=== PATIENT | female | born 1965 | race Hispanic/Latino ===

== ENCOUNTER 2021-08-04 11:23 | Emergency (ER) | payer OTHER ==
--- OUTSIDE RECORDS SUMMARY | 2021-08-04 11:32 | XMS REPORT | Continuity of Care Document ---
:1965 Author Organization [facility] t Address [address] [place] [address] Care Team Providers Name Role Phone Tomasa HAN, Bobby Primary Care Physician FRANCHESCA Attending Clinician Unavailable Bobby Allen MD Attending Clinician MARLENE Attending Clinician Unavailable Franchesca FERNANDES Attending Clinician Bobby ALLEN Attending Clinician Unavailable Bebo Jones DO Attending Clinician Doctor Unassigned, Name Attending Clinician Unavailable Lab, Fam Pob I Attending Clinician Unavailable Pob, Lab Main Attending Clinician Unavailable Marlene HAN Attending Clinician Angela ALBRECHT, T Attending Clinician Unavailable MICHEL Attending Clinician Unavailable Michel GAS ENGINEER Attending Clinician Bobby CRANDALL Attending Clinician Unavailable Kendrick Schilling MD Attending Clinician Juan M HAN Attending Clinician Payers Payer Name Policy Type Policy Number Effective Date Expiration Date S ource Problems Condition Condition Condition Status Onset Resolution Last Treating Co mments Source Name Details Category Date Date Treatment Clinician Date Gross Gross Disease Active Univers hematuria hematuria 2-15 ity of 00:00: [address] Proteinuri Proteinuri Disease Active 2017-09 U nivers a a 2-26 ity of 00:00: [address] Frozen Frozen Disease Active 2017-09 Univers shoulder shoulder 1- ity of 00:00: [place] 00 [facility] Branch Peripheral Peripheral Disease Active 2017-09 U nivers neuropathy neuropathy 09-01 it y of 00:00: [place] 00 Medical Branch Restless Restless Disease Active 2017-09 Unive rs legs legs 09-01 ity of 00:00: [place] 00 Medical Branch Screening Screening Disease Active Overview: Univers for for 6-19 Formattin ity of colorectal colorectal 00:00: g of this [place] cancer cancer 00 note Medical might be Branch different from the original. Added automatic ally from request for surgery [id number] S/P S/P Disease Active 2015-09 Univers laparoscop laparoscop it y of ic ic 00:00: [place] hysterecto hysterecto 00 Me dical my my Branch Obesity Obesity Disease Active 2015-09 Univers (BMI (BMI 2-29 ity of 30-39.9) 30-39.9) 00:00: [place] 00 Medical Branch Irregular Irregular Disease Active 2015-09 Uni vers menstrual menstrual 2 ity of cycle cycle 00:00: [place] [facility] Perimenopa Perimenopa Disease Active 2015-09 U nivers usal usal 10-10 ity of menorrhagi [place]orrhagi [place] [facility] [place] Trigeminy Trigeminy Disease Active Uni vers 5-25 ity of 00:00: [place] 00 Medical Branch Type 2 Type 2 Disease Active 2014-09 Univers diabetes diabetes 24 ity of mellitus mellitus 00:00: [place] with with 00 Medical neurologic neurologic Br anch complicati complicati on on SLOANE SLOANE Disease Active 2014-09 Univers (stress (stress 24 ity of urinary urinary 00:00: [place] incontinen incontinen 00 Me dical ce, ce, Branch female) female) Cystocele, Cystocele, Disease Active 2014-09 U nivers midline midline 24 ity of 00:00: [place] 00 Medical Branch Rectocele Rectocele Disease Active 2014-09 Uni vers 1-24 ity of 00:00: [place] 00 Medical Branch HTN HTN Disease Active 2014-09 Univers (hypertens (hypertens -24 it y of ion), ion), 00:00: [place] benign benign 00 Medical Branch History of History of Disease Active 2014-09 Overview : Univers meningioma meningioma 09-24 Formattin ity of 00:00: g of this [place] 00 note Medical might be Branch different from the original. S/p brain surgery Jun 07, 2015, benign History of History of Disease Active 2014-09 Overview : Univers uterine uterine 09-24 Formattin ity o f fibroid fibroid 00:00: g of this 00 note Medical might be Branch different from the original. ROR submitted Rectocele Rectocele Disease Active 2014-09 Uni vers 09-24 ity of 00:00: [place] 00 [facility] HLD HLD Disease Active Univers (hyperlipi (hyperlipi it y of demia) demia) [facility] [place] [facility] Chronic Chronic Disease Active Univers insomnia insomnia ity of [facility] [place] [facility] GRACIELA GRACIELA Disease Active Univers (obstructi (obstructi it y of ve sleep ve sleep [place] apnea) apnea) Medical [place] Diabetic Diabetic Disease Active Unive rs retinopath retinopath it y of y y [facility] [place] [facility] Allergies, Adverse Reactions, Alerts Allergy Allergy Status Severity Reaction(s) Onset Inactive Treating Comm ents Source Name Type Date Date Clinician Iodine Propensi Active Anaphylaxis Seafood, U nivers ty to 04-29 IV Iodine ity of adverse 00:00: [place] reaction 00 Medical s to Branch drug IODINE DRUG Active High Anaphylaxis Unive rs INGREDI 04-29 ity of 00:00: [place] 00 [facility] Social History Social Habit Start Date Stop Date Quantity Comments Source History of tobacco Cigarette Smoker [place] of use [facility] [place] [facility] Exposure to Not sure University of SARS-CoV-2 (event) [facility] [place] [facility] Alcohol intake 2020-12-28 2020-12-28 0 /d University of 00:00:00 00:00:00 [facility] [place] [facility] Cigarettes smoked 2018-11-30 2018-11-30 Univers ity of current (pack per 00:00:00 00:00:00 [facility] ) - Reported Branch Cigarette 2018-11-30 2018-11-30 University of pack-years 00:00:00 00:00:00 [facility] [place] [facility] Tobacco use and 2018-11-30 2018-11-30 Never used Universit y of exposure 00:00:00 00:00:00 [facility] [place] [facility] Sex [birth year] Universit y of 00:00:00 00:00:00 [facility] [place] [facility] Smoking Status Start Date Stop Date Source Current every day smoker 2018-11-30 00:00:00 Uni versity of [place] [facility] Medications Ordered Filled Start Stop Current Ordering Indication Dosage Frequency Signature Comments Components Source Medication Medication Date Date Medication? Clinician (SIG) Name Name CATHY Wagner 2020-09 Yes [id number] TAKE 1 Univers mg tablet 1-15 TABLET BY ity o f 00:00: MOUTH [place] 00 EVERY DAY Medical [place] ATORVASTATI 2020-09 Yes [id number] TAKE 1 Univers N 20 mg 1-15 TABLET BY ity of tablet 00:00: MOUTH [place] 00 EVERYDAY Medical AT BEDTIME [place] METFORMIN 2020-09 Yes [id number] TAKE 1 Un freddy 1,000 mg 1-08 TABLET BY ity of tablet 00:00: MOUTH [place] 00 TWICE A Medical DAY WITH [place] MEALS METFORMIN 2020-09 Yes [id number] TAKE 1 Un freddy 1,000 mg 1-08 TABLET BY ity of tablet 00:00: MOUTH [place] 00 TWICE A Medical DAY WITH [place] MEALS DULOXETINE 2020-09 Yes [id number] TAKE 1 Univers 30 mg 1-08 CAPSULE BY ity of capsule 00:00: MOUTH [place] 00 EVERY DAY Medical IN THE [place] MORNING METFORMIN 2020-09 Yes [id number] TAKE 1 Un freddy 1,000 mg 1-08 TABLET BY ity of tablet 00:00: MOUTH [place] 00 TWICE A Medical DAY WITH [place] MEALS DULOXETINE 2020-09 Yes [id number] TAKE 1 Univers 30 mg 1-08 CAPSULE BY ity of capsule 00:00: MOUTH [place] 00 EVERY DAY Medical IN THE [place] MORNING DULoxetine 2020-09 Yes [id number] TAKE 1 Univers 30 mg 0-11 CAPSULE BY ity of capsule 00:00: MOUTH [place] 00 EVERY DAY Medical IN THE [place] MORNING METFORMIN 2020-09 Yes [id number] TAKE 1 Un [place] 1,000 mg 0-11 TABLET BY ity of tablet 00:00: MOUTH [place] 00 TWICE A Medical DAY WITH [place] MEALS DULoxetine 2020-09 Yes [id number] TAKE 1 Univers 30 mg 0-11 CAPSULE BY ity of capsule 00:00: MOUTH [place] 00 EVERY DAY Medical IN THE [place] MORNING METFORMIN 2020-09- No [id number] TAKE 1 U nivers 1,000 mg 0-11 11-08 TABLET BY ity o f tablet 00:00: 00:00 MOUTH [place] 00 :00 TWICE A Medical DAY WITH [place] MEALS DULoxetine 2020-09- No [id number] TAKE 1 Univers 30 mg 0-11 11-08 CAPSULE BY ity of capsule 00:00: 00:00 MOUTH [place] 00 :00 EVERY DAY Medical IN THE Branch MORNING OXYBUTYNIN 2020-0 Yes [id number] TAKE 1 U nivers XL 5 mg 24 7-17 TABLET BY ity of hr tablet 00:00: MOUTH 00 EVERY DAY Medical Branch OXYBUTYNIN 2020-0 Yes [id number] TAKE 1 U nivers XL 5 mg 24 7-17 TABLET BY ity of hr tablet 00:00: MOUTH EVERY DAY Medical Branch OXYBUTYNIN 2020-0 Yes [id number] TAKE 1 U nivers XL 5 mg 24 7-17 TABLET BY ity of hr tablet 00:00: MOUTH 00 EVERY DAY Medical Branch OXYBUTYNIN 2020-0 Yes [id number] TAKE 1 U nivers XL 5 mg 24 7-17 TABLET BY ity of hr tablet 00:00: MOUTH [place] EVERY DAY Medical Branch OXYBUTYNIN 2020-0 Yes [id number] TAKE 1 U nivers XL 5 mg 24 7-17 TABLET BY ity of hr tablet 00:00: MOUTH [place] EVERY DAY Medical Branch OXYBUTYNIN 2020-0 Yes [id number] TAKE 1 U nivers XL 5 mg 24 7-17 TABLET BY ity of hr tablet 00:00: MOUTH 00 EVERY DAY Medical Branch TOPIRAMATE 2020-0 Yes [id number] TAKE 3 Univers 50 mg 5-17 TABLETS BY ity of tablet 00:00: [facility] 00 EVERY DAY Medical AT BEDTIME Branch TOPIRAMATE 2020-0 Yes [id number] TAKE 3 Univers 50 mg 5-17 TABLETS BY ity of tablet 00:00: [facility] EVERY DAY Medical AT BEDTIME Branch TOPIRAMATE 2020-0 Yes [id number] TAKE 3 Univers 50 mg 5-17 TABLETS BY ity of tablet 00:00: MOUTH 00 EVERY DAY Medical AT BEDTIME Branch TOPIRAMATE 2020-0 Yes [id number] TAKE 3 Univers 50 mg 5-17 TABLETS BY ity of tablet 00:00: [facility] 00 EVERY DAY Medical AT BEDTIME Branch TOPIRAMATE 2020-0 Yes [id number] TAKE 3 Univers 50 mg 5-17 TABLETS BY ity of tablet 00:00: [facility] 00 EVERY DAY Medical AT BEDTIME Branch TOPIRAMATE 2020-0 Yes [id number] TAKE 3 Univers 50 mg 5-17 TABLETS BY ity of tablet 00:00: MOUTH [place] 00 EVERY DAY Medical AT BEDTIME Branch TOPIRAMATE 2020-0 Yes [id number] TAKE 3 Univers 50 mg 5-17 TABLETS BY ity of tablet 00:00: MOUTH [place] 00 EVERY DAY Medical AT BEDTIME Branch TOPIRAMATE 2020-0 Yes [id number] TAKE 3 Univers 50 mg 5-17 TABLETS BY ity of tablet 00:00: MOUTH [place] 00 EVERY DAY Medical AT BEDTIME Branch oxybutynin 2020-0 Yes [id number] 5mg Take 1 U nivers XL 5 mg 24 4-29 tablet by ity of hr tablet 00:00: mouth [place] 00 daily. Medical Branch oxybutynin 2020-0 Yes [id number] 5mg Take 1 U nivers XL 5 mg 24 4-29 tablet by ity of hr tablet 00:00: mouth [place] 00 daily. Medical Branch oxybutynin 2020-0 Yes [id number] 5mg Take 1 U nivers XL 5 mg 24 4-29 tablet by ity of hr tablet 00:00: mouth [place] 00 daily. Medical Branch oxybutynin 2020-0 Yes [id number] 5mg Take 1 U nivers XL 5 mg 24 4-29 tablet by ity of hr tablet 00:00: mouth [place] 00 daily. Medical Branch oxybutynin 2020-0 2020- No [id number] 5mg Take 1 Univers XL 5 mg 24 4-29 07-17 tablet by ity of hr tablet 00:00: 00:00 mouth [place] 00 :00 daily. Medical Branch topiramate 2020- Yes [id number] 150mg Take 3 Univers 50 mg 1-11 tablets by ity of tablet 00:00: mouth at [place] 00 bedtime. Medical Branch DULoxetine 2020-1 Yes [id number] TAKE 1 Univers 30 mg 1-11 CAPSULE BY ity of capsule 00:00: MOUTH [place] 00 EVERY Medical MORNING Branch topiramate 2020-1 Yes [id number] 150mg Take 3 Univers 50 mg 1-11 tablets by ity of tablet 00:00: mouth at [place] 00 bedtime. Medical Branch DULoxetine 2020-1 Yes [id number] TAKE 1 Univers 30 mg 1-11 CAPSULE BY ity of capsule 00:00: MOUTH [place] 00 EVERY Medical MORNING Branch topiramate 2020-1 Yes [id number] 150mg Take 3 Univers 50 mg 1-11 tablets by ity of tablet 00:00: mouth at [place] 00 bedtime. Medical Branch DULoxetine 2020-1 Yes [id number] TAKE 1 Univers 30 mg 1-11 CAPSULE BY ity of capsule 00:00: MOUTH [place] 00 EVERY Medical MORNING Branch topiramate 2020- Yes [id number] 150mg Take 3 Univers 50 mg 1-11 tablets by ity of tablet 00:00: mouth at [place] [address] bedtime. Medical Branch DULoxetine 2020- Yes [id number] TAKE 1 Univers 30 mg 1-11 CAPSULE BY ity of capsule 00:00: MOUTH [place] 00 EVERY Medical MORNING Branch topiramate 2020- Yes [id number] 150mg Take 3 Univers 50 mg 1-11 tablets by ity of tablet 00:00: mouth at [place] [address] bedtime. Medical Branch DULoxetine 2020- Yes [id number] TAKE 1 Univers 30 mg 1-11 CAPSULE BY ity of capsule 00:00: MOUTH [place] 00 EVERY Medical MORNING Branch topiramate 2020- Yes [id number] 150mg Take 3 Univers 50 mg 1-11 tablets by ity of tablet 00:00: mouth at [place] [address] bedtime. Medical Branch DULoxetine 2020- Yes [id number] TAKE 1 Univers 30 mg 1-11 CAPSULE BY ity of capsule 00:00: MOUTH [place] 00 EVERY Medical MORNING Branch topiramate 2020- Yes [id number] 150mg Take 3 Univers 50 mg 1-11 tablets by ity of tablet 00:00: mouth at [place] [address] bedtime. Medical Branch DULoxetine 2020- Yes [id number] TAKE 1 Univers 30 mg 1-11 CAPSULE BY ity of capsule 00:00: MOUTH [place] 00 EVERY Medical MORNING Branch DULoxetine 2020- Yes [id number] TAKE 1 Univers 30 mg 1-11 CAPSULE BY ity of capsule 00:00: MOUTH [place] 00 EVERY Medical MORNING Branch DULoxetine 2020- Yes [id number] TAKE 1 Univers 30 mg 1-11 CAPSULE BY ity of capsule 00:00: MOUTH [place] 00 EVERY Medical MORNING Branch DULoxetine 2020- Yes [id number] TAKE 1 Univers 30 mg 1-11 CAPSULE BY ity of capsule 00:00: MOUTH [place] 00 EVERY Medical MORNING Branch DULoxetine 2020-2020- No [id number] TAKE 1 Univers 30 mg 1-11 10-11 CAPSULE BY ity of capsule 00:00: 00:00 MOUTH [place] 00 :00 EVERY Medical MORNING Branch topiramate 2020-2020- No [id number] 150mg Take 3 Univers 50 mg 1-11 05-17 tablets by ity of tablet 00:00: 00:00 mouth at [place] 00 :00 bedtime. Medical Branch vit C/vit E 2019-09 2020- No Take by U nivers ac/lut/kateryna 0- 10-09 mouth. ity o f er/zinc 16:23: 00:00 [place] (PRESERVISI 25 :00 Medical ON LUTEIN Branch ORAL) vit C/vit E 2019-09 2020- No Take by U nivers ac/lut/kateryna 0- 10-09 mouth. ity o f er/zinc 16:23: 00:00 [place] (PRESERVISI 25 :00 Medical ON LUTEIN Branch ORAL) multivit-mi 2019-09 2020- No Take by U nivers nerals/foli 0- 10- mouth ity of c acid 16:23: 00:00 daily. [place] (ADULT 18 :00 Medical MULTIVITAMI Branch N GUMMIES ORAL) multivit-mi 2019-09 2020- No Take by U nivers nerals/foli 0- 10- mouth ity of c acid 16:23: 00:00 daily. [place] (ADULT 18 :00 Medical MULTIVITAMI Branch N GUMMIES ORAL) Magnesium 2019-09 2020- No Take by Uni vers 250 mg Tab 0- 10-09 mouth. ity of 16:23: 00:00 [place] 15 :00 Medical Branch Magnesium 2019-09 2020- No Take by Uni vers 250 mg Tab 0-09 10-09 mouth. ity of 16:23: 00:00 [place] 15 :00 Medical Branch aspirin 2019-09 Yes 81mg Take 81 mg Univ ers (ADULT LOW 0-09 by mouth ity o f DOSE 16:18: daily. [place] ASPIRIN) 81 42 Medical mg EC Branch tablet aspirin 2019-09 Yes 81mg Take 81 mg Univ ers (ADULT LOW 0-09 by mouth ity o f DOSE 16:18: daily. [place] ASPIRIN) 81 42 Medical mg EC Branch tablet aspirin 2019-09 Yes 81mg Take 81 mg Univ ers (ADULT LOW 0-09 by mouth ity o f DOSE 16:18: daily. [place] ASPIRIN) 81 42 Medical mg EC Branch tablet aspirin 2019-09 Yes 81mg Take 81 mg Univ ers (ADULT LOW 0-09 by mouth ity o f DOSE 16:18: daily. [place] ASPIRIN) 81 42 Medical mg EC Branch tablet aspirin 2020- Yes 81mg Take 81 mg Univ ers (ADULT LOW 0-09 by mouth ity o f DOSE 16:18: daily. [place] ASPIRIN) 81 42 Medical mg EC Branch tablet aspirin 2020- Yes 81mg Take 81 mg Univ ers (ADULT LOW 0-09 by mouth ity o f DOSE 16:18: daily. [place] ASPIRIN) 81 42 Medical mg EC Branch tablet aspirin 2020- Yes 81mg Take 81 mg Univ ers (ADULT LOW 0-09 by mouth ity o f DOSE 16:18: daily. [place] ASPIRIN) 81 42 Medical mg EC Branch tablet aspirin 2019- Yes 81mg Take 81 mg Univ ers (ADULT LOW 0-09 by mouth ity o f DOSE 16:18: daily. [place] ASPIRIN) 81 42 Medical mg EC Branch tablet aspirin 2019- Yes 81mg Take 81 mg Univ ers (ADULT LOW 0-09 by mouth ity o f DOSE 16:18: daily. [place] ASPIRIN) 81 42 Medical mg EC Branch tablet aspirin 2019- Yes 81mg Take 81 mg Univ ers (ADULT LOW 0-09 by mouth ity o f DOSE 16:18: daily. [place] ASPIRIN) 81 42 Medical mg EC Branch tablet aspirin 2019- Yes 81mg Take 81 mg Univ ers (ADULT LOW 0-09 by mouth ity o f DOSE 16:18: daily. [place] ASPIRIN) 81 42 Medical mg EC Branch tablet aspirin 2019- Yes 81mg Take 81 mg Univ ers (ADULT LOW 0-09 by mouth ity o f DOSE 16:18: daily. [place] ASPIRIN) 81 42 Medical mg EC Branch tablet aspirin 2019- Yes 81mg Take 81 mg Univ ers (ADULT LOW 0-09 by mouth ity o f DOSE 16:18: daily. [place] ASPIRIN) 81 42 Medical mg EC Branch tablet gabapentin 2019- Yes 1200mg Take 1,200 Univers 600 mg 0-09 mg by ity of tablet 16:16: mouth 3 [place] 58 (three) Medical times Branch daily. gabapentin 2020-1 Yes 1200mg Take 1,200 Univers 600 mg 0-09 mg by ity of tablet 16:16: mouth 3 [place] 58 (three) Medical times Branch daily. gabapentin 2020-1 Yes 1200mg Take 1,200 Univers 600 mg 0-09 mg by ity of tablet 16:16: mouth 3 [place] 58 (three) Medical times Branch daily. gabapentin 2020-1 Yes 1200mg Take 1,200 Univers 600 mg 0-09 mg by ity of tablet 16:16: mouth 3 [place] 58 (three) Medical times Branch daily. gabapentin 2020-1 Yes 1200mg Take 1,200 Univers 600 mg 0-09 mg by ity of tablet 16:16: mouth 3 [place] 58 (three) Medical times Branch daily. gabapentin 2020-1 Yes 1200mg Take 1,200 Univers 600 mg 0-09 mg by ity of tablet 16:16: mouth 3 [place] 58 (three) Medical times Branch daily. gabapentin 2020-1 Yes 1200mg Take 1,200 Univers 600 mg 0-09 mg by ity of tablet 16:16: mouth 3 [place] 58 (three) Medical times Branch daily. gabapentin 2020-1 Yes 1200mg Take 1,200 Univers 600 mg 0-09 mg by ity of tablet 16:16: mouth 3 [place] 58 (three) Medical times Branch daily. gabapentin 2020-1 Yes 1200mg Take 1,200 Univers 600 mg 0-09 mg by ity of tablet 16:16: mouth 3 [place] [address] (three) Medical times Branch daily. gabapentin 2020-1 Yes 1200mg Take 1,200 Univers 600 mg 0-09 mg by ity of tablet 16:16: mouth 3 [place] [address] (three) Medical times Branch daily. gabapentin 2020-1 Yes 1200mg Take 1,200 Univers 600 mg 0-09 mg by ity of tablet 16:16: mouth 3 [place] [address] (three) Medical times Branch daily. gabapentin 2020-1 Yes 1200mg Take 1,200 Univers 600 mg 0-09 mg by ity of tablet 16:16: mouth 3 [place] [address] (three) Medical times Branch daily. gabapentin 2020-1 Yes 1200mg Take 1,200 Univers 600 mg 0-09 mg by ity of tablet 16:16: mouth 3 [place] 58 (three) Medical times Branch daily. aspirin 2020- Yes 81mg Take 81 mg Univ ers (ADULT LOW 0-09 by mouth ity o f DOSE 11:18: daily. [place] ASPIRIN) 81 42 Medical mg EC Branch tablet aspirin 2020- Yes 81mg Take 81 mg Univ ers (ADULT LOW 0-09 by mouth ity o f DOSE 11:18: daily. [place] ASPIRIN) 81 42 Medical mg EC Branch tablet aspirin 2020- Yes 81mg Take 81 mg Univ ers (ADULT LOW 0-09 by mouth ity o f DOSE 11:18: daily. [place] ASPIRIN) 81 42 Medical mg EC Branch tablet aspirin 2019-09 Yes 81mg Take 81 mg Univ ers (ADULT LOW 0-09 by mouth ity o f DOSE 11:18: daily. [place] ASPIRIN) 81 42 Medical mg EC Branch tablet aspirin 2019-09 Yes 81mg Take 81 mg Univ ers (ADULT LOW 0-09 by mouth ity o f DOSE 11:18: daily. [place] ASPIRIN) 81 42 Medical mg EC Branch tablet gabapentin 2019-09 Yes 1200mg Take 1,200 Univers 600 mg 0-09 mg by ity of tablet 11:16: mouth 3 [place] 58 (three) Medical times Branch daily. gabapentin 2019-09 Yes 1200mg Take 1,200 Univers 600 mg 0-09 mg by ity of tablet 11:16: mouth 3 [place] 58 (three) Medical times Branch daily. gabapentin 2019-09 Yes 1200mg Take 1,200 Univers 600 mg 0-09 mg by ity of tablet 11:16: mouth 3 [place] 58 (three) Medical times Branch daily. gabapentin 2019-09 Yes 1200mg Take 1,200 Univers 600 mg 0-09 mg by ity of tablet 11:16: mouth 3 [place] 58 (three) Medical times Branch daily. gabapentin 2019-09 Yes 1200mg Take 1,200 Univers 600 mg 0-09 mg by ity of tablet 11:16: mouth 3 [place] 58 (three) Medical times Branch daily. traZODone 2019-09 Yes [id number] 100mg Take 1 Univers 100 mg 0-09 tablet by ity of tablet 00:00: mouth at [place] 00 bedtime. Medical Branch methocarbam 2019-09 Yes [id number] TAKE 1 Univers oL 500 mg 0-09 TABLET BY ity o f tablet 00:00: MOUTH 4 [place] 00 TIMES A Medical DAY Branch NEEDED FOR MUSCLE PAIN OR SPASM metFORMIN 2019-09 Yes [id number] 1000mg Take 1 Univers 1,000 mg 0-09 tablet by ity of tablet 00:00: mouth 2 [place] 00 (two) Medical times Branch daily with meals. SITagliptin 2019-09 Yes [id number] 100mg Take 1 Univers (JANUVIA) 0-09 tablet by ity o f 100 mg 00:00: mouth [place] tablet 00 daily. Medical Branch atorvastati 2019-09 Yes [id number] 20mg Take 1 Univers n 20 mg 0-09 tablet by ity of tablet 00:00: mouth at [place] 00 bedtime. Medical Branch traZODone Yes [id number] 100mg Take 1 Univers 100 mg 0-09 tablet by ity of tablet 00:00: mouth at [place] 00 bedtime. Medical Branch methocarbam 2019- Yes [id number] TAKE 1 Univers oL 500 mg 0-09 TABLET BY ity o f tablet 00:00: MOUTH 4 00 TIMES A Medical DAY Branch NEEDED FOR MUSCLE PAIN OR SPASM metFORMIN 2019- Yes [id number] 1000mg Take 1 Univers 1,000 mg 0-09 tablet by ity of tablet 00:00: mouth 2 (two) Medical times Branch daily with meals. SITagliptin 2019- Yes [id number] 100mg Take 1 Univers (JANUVIA) 0-09 tablet by ity o f 100 mg 00:00: mouth [place] tablet 00 daily. Medical Branch atorvastati 2019- Yes [id number] 20mg Take 1 Univers n 20 mg 0-09 tablet by ity of tablet 00:00: mouth at [place] 00 bedtime. Medical Branch traZODone 2019- Yes [id number] 100mg Take 1 Univers 100 mg 0-09 tablet by ity of tablet 00:00: mouth at [place] 00 bedtime. Medical Branch methocarbam 2019- Yes [id number] TAKE 1 Univers oL 500 mg 0-09 TABLET BY ity o f tablet 00:00: MOUTH 4 00 TIMES A Medical DAY Branch NEEDED FOR MUSCLE PAIN OR SPASM metFORMIN 2019- Yes [id number] 1000mg Take 1 Univers 1,000 mg 0-09 tablet by ity of tablet 00:00: mouth 2 (two) Medical times Branch daily with meals. SITagliptin 2019- Yes [id number] 100mg Take 1 Univers (JANUVIA) 0-09 tablet by ity o f 100 mg 00:00: mouth [place] tablet 00 daily. Medical Branch atorvastati 2019- Yes [id number] 20mg Take 1 Univers n 20 mg 0-09 tablet by ity of tablet 00:00: mouth at [place] 00 bedtime. Medical Branch traZODone 2019- Yes [id number] 100mg Take 1 Univers 100 mg 0-09 tablet by ity of tablet 00:00: mouth at [place] 00 bedtime. Medical Branch methocarbam 2019- Yes [id number] TAKE 1 Univers oL 500 mg 0-09 TABLET BY ity o f tablet 00:00: MOUTH 4 00 TIMES A Medical DAY Branch NEEDED FOR MUSCLE PAIN OR SPASM metFORMIN 2019-09 Yes [id number] 1000mg Take 1 Univers 1,000 mg 0-09 tablet by ity of tablet 00:00: mouth 2 (two) Medical times Branch daily with meals. SITagliptin 2019-09 Yes [id number] 100mg Take 1 Univers (JANUVIA) 0-09 tablet by ity o f 100 mg 00:00: mouth [place] tablet 00 daily. Medical Branch atorvastati 2019-09 Yes [id number] 20mg Take 1 Univers n 20 mg 0-09 tablet by ity of tablet 00:00: mouth at [place] 00 bedtime. Medical Branch traZODone 2019-09 Yes [id number] 100mg Take 1 Univers 100 mg 0-09 tablet by ity of tablet 00:00: mouth at [place] 00 bedtime. Medical Branch methocarbam 2019-09 Yes [id number] TAKE 1 Univers oL 500 mg 0-09 TABLET BY ity o f tablet 00:00: MOUTH 4 TIMES A Medical DAY Branch NEEDED FOR MUSCLE PAIN OR SPASM metFORMIN 2019-09 Yes [id number] 1000mg Take 1 Univers 1,000 mg 0-09 tablet by ity of tablet 00:00: mouth 2 (two) Medical times Branch daily with meals. SITagliptin 2019-09 Yes [id number] 100mg Take 1 Univers (JANUVIA) 0-09 tablet by ity o f 100 mg 00:00: mouth [place] tablet 00 daily. Medical Branch atorvastati 2019-09 Yes [id number] 20mg Take 1 Univers n 20 mg 0-09 tablet by ity of tablet 00:00: mouth at [place] 00 bedtime. Medical Branch traZODone 2019-09 Yes [id number] 100mg Take 1 Univers 100 mg 0-09 tablet by ity of tablet 00:00: mouth at [place] 00 bedtime. Medical Branch methocarbam 2019- Yes [id number] TAKE 1 Univers oL 500 mg 0-09 TABLET BY ity o f tablet 00:00: MOUTH 4 TIMES A Medical DAY Branch NEEDED FOR MUSCLE PAIN OR SPASM metFORMIN 2019-09 Yes [id number] 1000mg Take 1 Univers 1,000 mg 0-09 tablet by ity of tablet 00:00: mouth 2 (two) Medical times Branch daily with meals. SITagliptin 2019-09 Yes [id number] 100mg Take 1 Univers (JANUVIA) 0-09 tablet by ity o f 100 mg 00:00: mouth [place] tablet 00 daily. Medical Branch atorvastati 2019- Yes [id number] 20mg Take 1 Univers n 20 mg 0-09 tablet by ity of tablet 00:00: mouth at [place] 00 bedtime. Medical Branch traZODone 2019- Yes [id number] 100mg Take 1 [facility] 100 mg 0-09 tablet by [facility] tablet 00:00: mouth at [place] 00 bedtime. [facility] methocarbam 2019- Yes [id number] TAKE 1 [facility] oL 500 mg 0-09 TABLET BY ity o f tablet 00:00: MOUTH 4 00 TIMES A Medical DAY Branch NEEDED FOR MUSCLE PAIN OR SPASM metFORMIN 2019-09 Yes [id number] 1000mg Take 1 [facility] 1,000 mg 0-09 tablet by [facility] of tablet 00:00: mouth 2 (two) Medical times Branch daily with meals. SITagliptin 2019-09 Yes [id number] 100mg Take 1 [facility] (JANUVIA) 0-09 tablet by ity o f 100 mg 00:00: mouth [place] tablet 00 daily. [facility] atorvastati 2019-09 Yes [id number] 20mg Take 1 [facility] n 20 mg 0-09 tablet by [facility] tablet 00:00: mouth at [place] 00 bedtime. [facility] traZODone 2019-09 Yes [id number] 100mg Take 1 [facility] 100 mg 0-09 tablet by [facility] tablet 00:00: mouth at [place] 00 bedtime. [facility] methocarbam 2019- Yes [id number] TAKE 1 [facility] oL 500 mg 0-09 TABLET BY it[facility] o f tablet 00:00: MOUTH 4 [place] 00 TIMES A Medical DAY Branch NEEDED FOR MUSCLE PAIN OR SPASM metFORMIN 2019-09 Yes [id number] 1000mg Take 1 [facility] 1,000 mg 0-09 tablet by [facility] of tablet 00:00: mouth 2 (two) Medical times Branch daily with meals. SITagliptin 2019-09 Yes [id number] 100mg Take 1 [facility] (JANUVIA) 0-09 tablet by it[facility] o f 100 mg 00:00: mouth [place] tablet 00 daily. [facility] atorvastati 2019-09 Yes [id number] 20mg Take 1 [facility] n 20 mg 0-09 tablet by [facility] of tablet 00:00: mouth at [place] 00 bedtime. [facility] traZODone 2020- Yes [id number] 100mg Take 1 [facility] 100 mg 0-09 tablet by [facility] tablet 00:00: mouth at [place] 00 bedtime. [facility] methocarbam 2020- Yes [id number] TAKE 1 [facility] oL 500 mg 0-09 TABLET BY it[facility] o f tablet 00:00: MOUTH 4 [place] 00 TIMES A Medical DAY Branch NEEDED FOR MUSCLE PAIN OR SPASM metFORMIN 2019- Yes [id number] 1000mg Take 1 [facility] 1,000 mg 0-09 tablet by [facility] of tablet 00:00: mouth 2 (two) Medical times Branch daily with meals. SITagliptin 2019- Yes [id number] 100mg Take 1 [facility] (JANUVIA) 0-09 tablet by it[facility] o f 100 mg 00:00: mouth [place] tablet 00 daily. [facility] atorvastati 2019- Yes [id number] 20mg Take 1 [facility] n 20 mg 0-09 tablet by [facility] of tablet 00:00: mouth at [place] 00 bedtime. [facility] traZODone 2019- Yes [id number] 100mg Take 1 [facility] 100 mg 0-09 tablet by [facility] tablet 00:00: mouth at [place] 00 bedtime. [facility] methocarbam 2019- Yes [id number] TAKE 1 [facility] oL 500 mg 0-09 TABLET BY it[facility] o f tablet 00:00: MOUTH 4 00 TIMES A Medical DAY Branch NEEDED FOR MUSCLE PAIN OR SPASM metFORMIN 2019- Yes [id number] 1000mg Take 1 [facility] 1,000 mg 0-09 tablet by [facility] of tablet 00:00: mouth 2 [place] (two) Medical times Branch daily with meals. SITagliptin 2019- Yes [id number] 100mg Take 1 [facility] (JANUVIA) 0-09 tablet by [facility] o f 100 mg 00:00: mouth [place] tablet 00 daily. [facility] atorvastati 2019- Yes [id number] 20mg Take 1 [facility] n 20 mg 0-09 tablet by [facility] of tablet 00:00: mouth at [place] 00 bedtime. [facility] traZODone 2019- Yes [id number] 100mg Take 1 [facility] 100 mg 0-09 tablet by [facility] of tablet 00:00: mouth at [place] 00 bedtime. [facility] methocarbam 2019- Yes [id number] TAKE 1 [facility] oL 500 mg 0-09 TABLET BY it[facility] o f tablet 00:00: MOUTH 4 00 TIMES A Medical DAY Branch NEEDED FOR MUSCLE PAIN OR SPASM metFORMIN 2019-09 Yes [id number] 1000mg Take 1 [facility] 1,000 mg 0-09 tablet by [facility] of tablet 00:00: mouth 2 (two) Medical times Branch daily with meals. SITagliptin 2019-09 Yes [id number] 100mg Take 1 [facility] (JANUVIA) 0-09 tablet by it[facility] o f 100 mg 00:00: mouth [place] tablet 00 daily. [facility] Branch atorvastati 2019-09 Yes [id number] 20mg Take 1 [facility] n 20 mg 0-09 tablet by [facility] of tablet 00:00: mouth at [place] 00 bedtime. [facility] traZODone 2019-09 Yes [id number] 100mg Take 1 [facility] 100 mg 0-09 tablet by [facility] tablet 00:00: mouth at [place] 00 bedtime. [facility] methocarbam 2019- Yes [id number] TAKE 1 [facility] oL 500 mg 0-09 TABLET BY it[facility] o f tablet 00:00: MOUTH 4 TIMES A Medical DAY Branch NEEDED FOR MUSCLE PAIN OR SPASM metFORMIN 2019-09 Yes [id number] 1000mg Take 1 [facility] 1,000 mg 0-09 tablet by [facility] of tablet 00:00: mouth 2 (two) Medical times Branch daily with meals. SITagliptin 2019-09 Yes [id number] 100mg Take 1 [facility] (JANUVIA) 0-09 tablet by it[facility] o f 100 mg 00:00: mouth [place] tablet 00 daily. [facility] atorvastati 2019-09 Yes [id number] 20mg Take 1 [facility] n 20 mg 0-09 tablet by [facility] of tablet 00:00: mouth at [place] 00 bedtime. [facility] traZODone 2019- Yes [id number] 100mg Take 1 [facility] 100 mg 0-09 tablet by [facility] of tablet 00:00: mouth at [place] 00 bedtime. [facility] methocarbam 2019- Yes [id number] TAKE 1 [facility] oL 500 mg 0-09 TABLET BY it[facility] o f tablet 00:00: MOUTH 4 00 TIMES A Medical DAY Branch NEEDED FOR MUSCLE PAIN OR SPASM metFORMIN 2019-09 Yes [id number] 1000mg Take 1 [facility] 1,000 mg 0-09 tablet by [facility] of tablet 00:00: mouth 2 (two) Medical times Branch daily with meals. SITagliptin 2019-09 Yes [id number] 100mg Take 1 [facility] (JANUVIA) 0-09 tablet by [facility] o f 100 mg 00:00: mouth [place] tablet 00 daily. [facility] atorvastati 2019- Yes [id number] 20mg Take 1 [facility] n 20 mg 0-09 tablet by [facility] of tablet 00:00: mouth at [place] 00 bedtime. [facility] traZODone 2019- Yes [id number] 100mg Take 1 [facility] 100 mg 0-09 tablet by [facility] of tablet 00:00: mouth at [place] 00 bedtime. [facility] methocarbam 2019-09 Yes [id number] TAKE 1 [facility] oL 500 mg 0-09 TABLET BY [facility] o f tablet 00:00: MOUTH 4 00 TIMES A Medical DAY Branch NEEDED FOR MUSCLE PAIN OR SPASM metFORMIN 2019-09 Yes [id number] 1000mg Take 1 [facility] 1,000 mg 0-09 tablet by [facility] of tablet 00:00: mouth 2 00 (two) Medical times Branch daily with meals. SITagliptin 2019-09 Yes [id number] 100mg Take 1 [facility] (JANUVIA) 0-09 tablet by [facility] o f 100 mg 00:00: mouth [place] tablet 00 daily. [facility] atorvastati 2019-09 Yes [id number] 20mg Take 1 [facility] n 20 mg 0-09 tablet by [facility] of tablet 00:00: mouth at [place] 00 bedtime. [facility] traZODone 2019-09 Yes [id number] 100mg Take 1 [facility] 100 mg 0-09 tablet by [facility] of tablet 00:00: mouth at [place] 00 bedtime. [facility] methocarbam 2019- Yes [id number] TAKE 1 [facility] oL 500 mg 0-09 TABLET BY [facility] o f tablet 00:00: MOUTH 4 [place] 00 TIMES A Medical DAY Branch NEEDED FOR MUSCLE PAIN OR SPASM SITagliptin 2019-09 Yes [id number] 100mg Take 1 [facility] (JANUVIA) 0-09 tablet by [facility] o f 100 mg 00:00: mouth [place] tablet 00 daily. [facility] atorvastati 2019-09 Yes [id number] 20mg Take 1 [facility] n 20 mg 0-09 tablet by [facility] of tablet 00:00: mouth at [place] 00 bedtime. [facility] traZODone 2019- Yes [id number] 100mg Take 1 [facility] 100 mg 0-09 tablet by [facility] of tablet 00:00: mouth at [place] 00 bedtime. [facility] methocarbam 2019-09 Yes [id number] TAKE 1 [facility] oL 500 mg 0-09 TABLET BY [facility] o f tablet 00:00: MOUTH 4 [place] 00 TIMES A Medical DAY Branch NEEDED FOR MUSCLE PAIN OR SPASM SITagliptin 2019-09 Yes [id number] 100mg Take 1 [facility] (JANUVIA) 0-09 tablet by [facility] o f 100 mg 00:00: mouth [place] tablet 00 daily. [facility] atorvastati 2019-09 Yes [id number] 20mg Take 1 [facility] n 20 mg 0-09 tablet by [facility] of tablet 00:00: mouth at [place] 00 bedtime. [facility] traZODone 2019-09 Yes [id number] 100mg Take 1 [facility] 100 mg 0-09 tablet by [facility] of tablet 00:00: mouth at [place] 00 bedtime. [facility] methocarbam 2019-09 Yes [id number] TAKE 1 [facility] oL 500 mg 0-09 TABLET BY [facility] o f tablet 00:00: MOUTH 4 [place] 00 TIMES A Medical DAY Branch NEEDED FOR MUSCLE PAIN OR SPASM SITagliptin 2019-09 Yes [id number] 100mg Take 1 [facility] (JANUVIA) 0-09 tablet by [facility] o f 100 mg 00:00: mouth [place] tablet 00 daily. [facility] atorvastati 2019-09 Yes [id number] 20mg Take 1 [facility] n 20 mg 0-09 tablet by [facility] of tablet 00:00: mouth at [place] 00 bedtime. [facility] traZODone 2019-09 Yes [id number] 100mg Take 1 [facility] 100 mg 0-09 tablet by [facility] of tablet 00:00: mouth at [place] 00 bedtime. [facility] methocarbam 2019-09 Yes [id number] TAKE 1 [facility] oL 500 mg 0-09 TABLET BY [facility] o f tablet 00:00: MOUTH 4 [place] 00 TIMES A Medical DAY Branch NEEDED FOR MUSCLE PAIN OR SPASM SITagliptin 2019-09- No [id number] 100mg Take 1 [facility] (JANUVIA) 0-09 11-15 tablet by [facility]y of 100 mg 00:00: 00:00 mouth [place] tablet 00 :00 daily. Medical [facility] atorvastati 2019-09- No [id number] 20mg Take 1 [facility] n 20 mg 0-09 11-15 tablet by [facility] of tablet 00:00: 00:00 mouth at [place] 00 :00 bedtime. Medical [facility] metFORMIN 2019-09- No [id number] 1000mg Take 1 [facility] 1,000 mg 0-09 10-11 tablet by [facility] o f tablet 00:00: 00:00 mouth 2 [place] 00 :00 (two) Medical times Branch daily with meals. gabapentin 2020-0 Yes 1200mg Take 1,200 [facility] 600 mg 9-30 mg by [facility] of tablet 15:16: mouth 3 [place] [address] (three) Medical times Branch daily. vit C/vit E 2020-0 Yes Take by [facility] freddy ac/lut/kateryna 9-30 mouth. ity of er/zinc 15:16: [place] (PRESERVISI 39 Medical ON LUTEIN Branch ORAL) multivit-mi 2020-0 Yes Take by Un freddy nerals/foli 9-30 mouth ity of c acid 15:16: daily. [place] (ADULT 39 Medical MULTIVITAMI Branch N GUMMIES ORAL) aspirin 2020-0 Yes 81mg Take 81 mg [facility] ers (ADULT LOW 9-30 by mouth ity o f DOSE 15:16: daily. [place] ASPIRIN) 81 39 Medical mg EC Branch tablet Magnesium 2020-0 Yes Take by [facility] ers 250 mg Tab 9-30 mouth. ity of 15:16: [place] [address] Medical Branch gabapentin 2020-0 Yes 1200mg Take 1,200 [facility] 600 mg 9-30 mg by ity of tablet 15:16: mouth 3 [place] [address] (three) Medical times [place] daily. vit C/vit E 2020-0 Yes Take by Un freddy ac/lut/kateryna 9-30 mouth. ity of er/zinc 15:16: [place] (PRESERVISI 39 Medical ON LUTEIN Branch ORAL) multivit-mi 2020-0 Yes Take by Un freddy nerals/foli 9-30 mouth ity of c acid 15:16: daily. [place] (ADULT 39 Medical MULTIVITAMI Branch N GUMMIES ORAL) aspirin 2020-0 Yes 81mg Take 81 mg [facility] ers (ADULT LOW 9-30 by mouth ity o f DOSE 15:16: daily. [place] ASPIRIN) 81 39 Medical mg EC Branch tablet Magnesium 2020-0 Yes Take by [facility] ers 250 mg Tab 9-30 mouth. ity of 15:16: [place] [address] Medical Branch gabapentin 2020-0 Yes 1200mg Take 1,200 [facility] 600 mg 9-30 mg by ity of tablet 15:16: mouth 3 [place] [address] (three) Medical times Branch daily. vit C/vit E 2020-0 Yes Take by Un freddy ac/lut/kateryna 9-30 mouth. ity of er/zinc 15:16: [place] (PRESERVISI 39 Medical ON LUTEIN Branch ORAL) multivit-mi 2020-0 Yes Take by Un freddy nerals/foli 9-30 mouth ity of c acid 15:16: daily. [place] (ADULT 39 Medical MULTIVITAMI Branch N GUMMIES ORAL) aspirin 2020-0 Yes 81mg Take 81 mg [facility] ers (ADULT LOW 9-30 by mouth ity o f DOSE 15:16: daily. [place] ASPIRIN) 81 39 Medical mg EC Branch tablet Magnesium 2020-0 Yes Take by [facility] ers 250 mg Tab 9-30 mouth. ity of 15:16: [place] [address] Medical Branch gabapentin 2020-0 Yes 1200mg Take 1,200 [facility] 600 mg 9-30 mg by ity of tablet 15:16: mouth 3 [place] [address] (three) Medical times Branch daily. vit C/vit E 2020-0 Yes Take by Un freddy ac/lut/kateryna 9-30 mouth. ity of er/zinc 15:16: [place] (PRESERVISI 39 Medical ON LUTEIN Branch ORAL) multivit-mi 2020-0 Yes Take by Un freddy nerals/foli 9-30 mouth ity of c acid 15:16: daily. [place] (ADULT 39 Medical MULTIVITAMI Branch N GUMMIES ORAL) aspirin 2020-0 Yes 81mg Take 81 mg [facility] ers (ADULT LOW 9-30 by mouth ity o f DOSE 15:16: daily. [place] ASPIRIN) 81 39 Medical mg EC Branch tablet Magnesium 2020-0 Yes Take by [facility] ers 250 mg Tab 9-30 mouth. ity of 15:16: [place] [address] Medical Branch atorvastati 2020-0 Yes [id number] 20mg Take 1 [facility] n 20 mg 9-30 tablet by ity of tablet 00:00: mouth at [place] [address] bedtime. Medical Branch atorvastati 2020-0 Yes [id number] 20mg Take 1 [facility] n 20 mg 9-30 tablet by ity of tablet 00:00: mouth at [place] [address] bedtime. Medical Branch atorvastati 2020-0 Yes [id number] 20mg Take 1 [facility] n 20 mg 9-30 tablet by ity of tablet 00:00: mouth at [place] [address] bedtime. Medical Branch atorvastati 2020-0 Yes [id number] 20mg Take 1 [facility] n 20 mg 9-30 tablet by ity of tablet 00:00: mouth at [place] 00 bedtime. Medical Branch atorvastati 2020-0 2020- No [id number] 20mg Take 1 [facility] n 20 mg 9-30 10-09 tablet by ity of tablet 00:00: 00:00 mouth at [place] 00 :00 bedtime. Medical Branch atorvastati 2020-0 2020- No [id number] 20mg Take 1 [facility] n 20 mg 9-30 10-09 tablet by ity of tablet 00:00: 00:00 mouth at [place] 00 :00 bedtime. Medical Branch methocarbam 2020-0 2020- No TAKE 1 [facility] vers oL 500 mg 8-16 10-09 TABLET BY ity of tablet 00:00: 00:00 MOUTH 4 [place] 00 :00 TIMES A Medical DAY Branch NEEDED JANUVIA 100 2020-0 2020- No 100mg Take 100 [facility] mg tablet 8-16 10-09 mg by ity of 00:00: 00:00 mouth [place] 00 :00 daily. Medical Branch methocarbam 2019-0 2020- No TAKE 1 [facility] vers oL 500 mg 8-16 10-09 TABLET BY ity of tablet 00:00: 00:00 MOUTH 4 [place] 00 :00 TIMES A Medical DAY Branch NEEDED JANUVIA 100 2020-0 2020- No 100mg Take 100 [facility] mg tablet 8-16 10-09 mg by ity of 00:00: 00:00 mouth [place] 00 :00 daily. Medical Branch ATORVASTATI 2020-0 Yes TAKE 1 [facility] ers N 20 mg 4-03 TABLET BY ity of tablet 00:00: MOUTH [place] 00 EVERYDAY Medical AT BEDTIME Branch atorvastati 2020-0 Yes 20mg Take 1 [facility] ers n 20 mg 4-03 tablet by ity of tablet 00:00: mouth at [place] 00 bedtime. Medical Branch atorvastati 2020-0 Yes 20mg Take 1 [facility] ers n 20 mg 4-03 tablet by ity of tablet 00:00: mouth at [place] 00 bedtime. Medical Branch atorvastati 2020-0 Yes 20mg Take 1 [facility] ers n 20 mg 4-03 tablet by ity of tablet 00:00: mouth at [place] [address] bedtime. Medical Branch atorvastati 2020-0 Yes 20mg Take 1 [facility] ers n 20 mg 4-03 tablet by ity of tablet 00:00: mouth at [place] [address] bedtime. Medical Branch atorvastati 2020-0 Yes 20mg Take 1 [facility] ers n 20 mg 4-03 tablet by ity of tablet 00:00: mouth at [place] [address] bedtime. Medical Branch atorvastati 2020-0 Yes 20mg Take 1 [facility] ers n 20 mg 4-03 tablet by ity of tablet 00:00: mouth at [place] [address] bedtime. Medical Branch atorvastati 2020-0 2020- No 20mg Take 1 [facility] vers n 20 mg 4-03 09-30 tablet by ity of tablet 00:00: 00:00 mouth at [place] 00 :00 bedtime. Medical Branch atorvastati 2020-0 2020- No 20mg Take 1 [facility] vers n 20 mg 4-03 09-30 tablet by ity of tablet 00:00: 00:00 mouth at [place] 00 :00 bedtime. Medical Branch ATORVASTATI 2020-0 2020- No TAKE 1 [facility] vers N 20 mg 4-03 04-03 TABLET BY ity of tablet 00:00: 00:00 MOUTH [place] 00 :00 EVERYDAY Medical AT BEDTIME Branch atorvastati 2020-0 Yes 20mg Take 1 [facility] ers n 20 mg 3-30 tablet by ity of tablet 00:00: mouth at [place] [address] bedtime. Medical Branch atorvastati 2020-0 2020- No 20mg Take 1 [facility] vers n 20 mg 3-30 04-03 tablet by ity of tablet 00:00: 00:00 mouth at [place] 00 :00 bedtime. Medical Branch atorvastati 2020-0 2020- No 20mg Take 1 [facility] vers n 20 mg 3-30 04-03 tablet by ity of tablet 00:00: 00:00 mouth at [place] 00 :00 bedtime. Medical Branch metFORMIN 2020-0 Yes [id number] 1000mg Take 1 [facility] 1,000 mg 3-11 tablet by ity of tablet 00:00: mouth 2 [place] (two) Medical times Branch daily with meals. metFORMIN 2020-0 Yes [id number] 1000mg Take 1 [facility] 1,000 mg 3-11 tablet by ity of tablet 00:00: mouth 2 [place] (two) Medical times Branch daily with meals. metFORMIN 2020-0 Yes [id number] 1000mg Take 1 [facility] 1,000 mg 3-11 tablet by ity of tablet 00:00: mouth 2 [place] (two) Medical times Branch daily with meals. metFORMIN 2020-0 Yes [id number] 1000mg Take 1 [facility] 1,000 mg 3-11 tablet by ity of tablet 00:00: mouth [place] (two) Medical times Branch daily with meals. metFORMIN 2020-0 Yes [id number] 1000mg Take 1 [facility] 1,000 mg 3-11 tablet by ity of tablet 00:00: mouth [place] (two) Medical times Branch daily with meals. metFORMIN 2020-0 Yes [id number] 1000mg Take 1 [facility] 1,000 mg 3-11 tablet by ity of tablet 00:00: mouth [place] (two) Medical times Branch daily with meals. metFORMIN 2020-0 Yes [id number] 1000mg Take 1 [facility] 1,000 mg 3-11 tablet by ity of tablet 00:00: mouth [place] (two) Medical times Branch daily with meals. metFORMIN 2020-0 Yes [id number] 1000mg Take 1 [facility] 1,000 mg 3-11 tablet by ity of tablet 00:00: mouth [place] (two) Medical times Branch daily with meals. metFORMIN 2020-0 Yes [id number] 1000mg Take 1 [facility] 1,000 mg 3-11 tablet by ity of tablet 00:00: mouth [place] (two) Medical times Branch daily with meals. metFORMIN 2020-0 Yes [id number] 1000mg Take 1 [facility] 1,000 mg 3-11 tablet by ity of tablet 00:00: mouth [place] (two) Medical times Branch daily with meals. metFORMIN 2020-0 Yes [id number] 1000mg Take 1 [facility] 1,000 mg 3-11 tablet by ity of tablet 00:00: mouth [place] (two) Medical times Branch daily with meals. metFORMIN 2020-0 Yes [id number] 1000mg Take 1 [facility] 1,000 mg 3-11 tablet by ity of tablet 00:00: mouth [place] (two) Medical times Branch daily with meals. metFORMIN 2020-0 Yes [id number] 1000mg Take 1 [facility] 1,000 mg 3-11 tablet by ity of tablet 00:00: mouth [place] (two) Medical times Branch daily with meals. metFORMIN 2020-0 2020- No [id number] 1000mg Take 1 [facility] 1,000 mg 3-11 10-09 tablet by ity o f tablet 00:00: 00:00 mouth 2 [place] 00 :00 (two) Medical times Branch daily with meals. metFORMIN 2020- No [id number] 1000mg Take 1 [facility] 1,000 mg 11-09 tablet by ity o f tablet 00:00: 00:00 mouth 2 [place] 00 :00 (two) Medical times Branch daily with meals. gabapentin 2018-09 Yes 1200mg Take 1,200 [facility] 600 mg 2-17 mg by ity of tablet 16:24: mouth 3 [place] [address] (three) Medical times Branch daily. vit C/vit E 2018-09 Yes Take by Un freddy ac/lut/kateryna 2-17 mouth. ity of er/zinc 16:24: [place] (PRESERVISI 24 Medical ON LUTEIN Branch ORAL) multivit-mi 2018-09 Yes Take by Un freddy nerals/foli 2-17 mouth ity of c acid 16:24: daily. [place] (ADULT 24 Medical MULTIVITAMI Branch N GUMMIES ORAL) aspirin 2018-09 Yes 81mg Take 81 mg [facility] ers (ADULT LOW 2-17 by mouth ity o f DOSE 16:24: daily. [place] ASPIRIN) 81 24 Medical mg EC Branch tablet Magnesium 2018-09 Yes Take by [facility] ers 250 mg Tab 2-17 mouth. ity of 16:24: [place] [address] Medical Branch gabapentin 2018-09 Yes 1200mg Take 1,200 [facility] 600 mg 2-17 mg by ity of tablet 16:24: mouth 3 [place] [address] (three) Medical times [place] daily. vit C/vit E 2018-09 Yes Take by Un freddy ac/lut/kateryna 2-17 mouth. ity of er/zinc 16:24: [place] (PRESERVISI 24 Medical ON LUTEIN Branch ORAL) multivit-mi 2018-09 Yes Take by Un freddy nerals/foli 2-17 mouth ity of c acid 16:24: daily. [place] (ADULT 24 Medical MULTIVITAMI Branch N GUMMIES ORAL) aspirin 2018- Yes 81mg Take 81 mg [facility] ers (ADULT LOW 2-17 by mouth ity o f DOSE 16:24: daily. [place] ASPIRIN) 81 24 Medical mg EC Branch tablet Magnesium 2018- Yes Take by [facility] ers 250 mg Tab 2-17 mouth. ity of 16:24: [place] [address] Medical Branch gabapentin 2018- Yes 1200mg Take 1,200 [facility] 600 mg 2-17 mg by ity of tablet 16:24: mouth 3 [place] [address] (three) Medical times [place] daily. vit C/vit E 2018-09 Yes Take by Un freddy ac/lut/kateryna 2-17 mouth. ity of er/zinc 16:24: [place] (PRESERVISI 24 Medical ON LUTEIN Branch ORAL) multivit-mi 2018-09 Yes Take by Un freddy nerals/foli 2-17 mouth ity of c acid 16:24: daily. [place] (ADULT 24 Medical MULTIVITAMI Branch N GUMMIES ORAL) aspirin 2018-09 Yes 81mg Take 81 mg [facility] ers (ADULT LOW 2-17 by mouth ity o f DOSE 16:24: daily. [place] ASPIRIN) 81 24 Medical mg EC Branch tablet Magnesium 2018- Yes Take by [facility] ers 250 mg Tab 2-17 mouth. ity of 16:24: [address] Branch gabapentin 2018-09 Yes 1200mg Take 1,200 [facility] 600 mg 2-17 mg by ity of tablet 16:24: mouth 3 [place] [address] (three) Medical times [place] daily. vit C/vit E 2018-09 Yes Take by Un freddy ac/lut/kateryna 2-17 mouth. ity of er/zinc 16:24: [place] (PRESERVISI 24 Medical ON LUTEIN Branch ORAL) multivit-wa 2018-09 Yes Take by Un freddy nerals/foli 2-17 mouth ity of c acid 16:24: daily. [place] (ADULT 24 Medical MULTIVITAMI Branch N GUMMIES ORAL) aspirin 2018-09 Yes 81mg Take 81 mg [facility] ers (ADULT LOW 2-17 by mouth ity o f DOSE 16:24: daily. [place] ASPIRIN) 81 24 Medical mg EC Branch tablet Magnesium 2018- Yes Take by [facility] ers 250 mg Tab 2-17 mouth. ity of 16:24: [address] Branch gabapentin 2018- Yes 1200mg Take 1,200 [facility] 600 mg 2-17 mg by ity of tablet 16:24: mouth 3 [place] [address] (three) Medical times [place] daily. vit C/vit E 2018-09 Yes Take by Un freddy ac/lut/kateryna 2-17 mouth. ity of er/zinc 16:24: [place] (PRESERVISI 24 Medical ON LUTEIN Branch ORAL) multivit-mi 2018-09 Yes Take by Un freddy nerals/foli 2-17 mouth ity of c acid 16:24: daily. [place] (ADULT 24 Medical MULTIVITAMI Branch N GUMMIES ORAL) aspirin 2018-09 Yes 81mg Take 81 mg [facility] ers (ADULT LOW 2-17 by mouth ity o f DOSE 16:24: daily. [place] ASPIRIN) 81 24 Medical mg EC Branch tablet Magnesium 2018-09 Yes Take by [facility] ers 250 mg Tab 2-17 mouth. ity of 16:24: [place] [address] Medical Branch gabapentin 2018-09 Yes 1200mg Take 1,200 [facility] 600 mg 2-17 mg by ity of tablet 16:24: mouth 3 [place] [address] (three) Medical times Branch daily. vit C/vit E 2018-09 Yes Take by Un freddy ac/lut/kateryna 2-17 mouth. ity of er/zinc 16:24: [place] (PRESERVISI 24 Medical ON LUTEIN Branch ORAL) multivit-mi 2018-09 Yes Take by Un freddy nerals/foli 2-17 mouth ity of c acid 16:24: daily. [place] (ADULT 24 Medical MULTIVITAMI Branch N GUMMIES ORAL) aspirin 2018-09 Yes 81mg Take 81 mg [facility] ers (ADULT LOW 2-17 by mouth ity o f DOSE 16:24: daily. [place] ASPIRIN) 81 24 Medical mg EC Branch tablet Magnesium 2018-09 Yes Take by [facility] ers 250 mg Tab 2-17 mouth. ity of 16:24: [address] Branch gabapentin 2018-09 Yes 1200mg Take 1,200 [facility] 600 mg 2-17 mg by ity of tablet 16:24: mouth 3 [place] [address] (three) Medical times [place] daily. vit C/vit E 2018-09 Yes Take by Un freddy ac/lut/kateryna 2-17 mouth. ity of er/zinc 16:24: [place] (PRESERVISI 24 Medical ON LUTEIN Branch ORAL) multivit-mi 2018-09 Yes Take by Un freddy nerals/foli 2-17 mouth ity of c acid 16:24: daily. [place] (ADULT 24 Medical MULTIVITAMI Branch N GUMMIES ORAL) aspirin 2018- Yes 81mg Take 81 mg [facility] ers (ADULT LOW 2-17 by mouth ity o f DOSE 16:24: daily. [place] ASPIRIN) 81 24 Medical mg EC Branch tablet Magnesium 2018- Yes Take by [facility] ers 250 mg Tab 2-17 mouth. ity of 16:24: [place] 24 Medical Branch gabapentin 2018- Yes 1200mg Take 1,200 [facility] 600 mg 2-17 mg by ity of tablet 16:24: mouth 3 [place] [address] (three) Medical times [place] daily. vit C/vit E 2018- Yes Take by Un freddy ac/lut/kateryna 2-17 mouth. ity of er/zinc 16:24: [place] (PRESERVISI 24 Medical ON LUTEIN Branch ORAL) multivit-mi 2018-09 Yes Take by Un freddy nerals/foli 2-17 mouth ity of c acid 16:24: daily. [place] (ADULT 24 Medical MULTIVITAMI Branch N GUMMIES ORAL) aspirin 2018- Yes 81mg Take 81 mg [facility] ers (ADULT LOW 2-17 by mouth ity o f DOSE 16:24: daily. [place] ASPIRIN) 81 24 Medical mg EC Branch tablet Magnesium 2018- Yes Take by [facility] ers 250 mg Tab 2-17 mouth. ity of 16:24: [address] Branch gabapentin 2018- Yes 1200mg Take 1,200 [facility] 600 mg 2-17 mg by ity of tablet 16:24: mouth 3 [place] [address] (three) Medical times [place] daily. vit C/vit E 2018- Yes Take by Un freddy ac/lut/kateryna 2-17 mouth. ity of er/zinc 16:24: [place] (PRESERVISI 24 Medical ON LUTEIN Branch ORAL) multivit-mi 2018-09 Yes Take by Un freddy nerals/foli 2-17 mouth ity of c acid 16:24: daily. [place] (ADULT 24 Medical MULTIVITAMI Branch N GUMMIES ORAL) aspirin 2018- Yes 81mg Take 81 mg [facility] ers (ADULT LOW 2-17 by mouth ity o f DOSE 16:24: daily. [place] ASPIRIN) 81 24 Medical mg EC Branch tablet Magnesium 2018- Yes Take by [facility] ers 250 mg Tab 2-17 mouth. ity of 16:24: [address] Branch DULoxetine 2018-09 Yes [id number] TAKE 1 [facility] 30 mg 0-08 CAPSULE BY ity of capsule 00:00: MOUTH [place] [address] EVERY Medical MORNING Branch DULoxetine 2018-09 Yes [id number] TAKE 1 [facility] 30 mg 0-08 CAPSULE BY ity of capsule 00:00: MOUTH [place] EVERY Medical MORNING Branch DULoxetine 2018- Yes [id number] TAKE 1 [facility] 30 mg 0-08 CAPSULE BY ity of capsule 00:00: MOUTH [place] 00 EVERY Medical MORNING Branch DULoxetine 2019-1 Yes [id number] TAKE 1 [facility] 30 mg 0-08 CAPSULE BY ity of capsule 00:00: MOUTH [place] 00 EVERY Medical MORNING Branch DULoxetine 2019-1 Yes [id number] TAKE 1 [facility] 30 mg 0-08 CAPSULE BY ity of capsule 00:00: MOUTH [place] 00 EVERY Medical MORNING Branch DULoxetine 2019-1 Yes [id number] TAKE 1 [facility] 30 mg 0-08 CAPSULE BY ity of capsule 00:00: MOUTH [place] 00 EVERY Medical MORNING Branch DULoxetine 2019-1 Yes [id number] TAKE 1 [facility] 30 mg 0-08 CAPSULE BY ity of capsule 00:00: MOUTH [place] 00 EVERY Medical MORNING Branch DULoxetine 2019-1 Yes [id number] TAKE 1 [facility] 30 mg 0-08 CAPSULE BY ity of capsule 00:00: MOUTH [place] 00 EVERY Medical MORNING Branch DULoxetine 2019-1 Yes [id number] TAKE 1 [facility] 30 mg 0-08 CAPSULE BY ity of capsule 00:00: MOUTH [place] 00 EVERY Medical MORNING Branch DULoxetine 2019-1 Yes [id number] TAKE 1 [facility] 30 mg 0-08 CAPSULE BY ity of capsule 00:00: MOUTH [place] 00 EVERY Medical MORNING Branch DULoxetine 2019-1 Yes [id number] TAKE 1 [facility] 30 mg 0-08 CAPSULE BY ity of capsule 00:00: MOUTH [place] 00 EVERY Medical MORNING Branch DULoxetine 2019-1 Yes [id number] TAKE 1 [facility] 30 mg 0-08 CAPSULE BY ity of capsule 00:00: MOUTH [place] 00 EVERY Medical MORNING Branch DULoxetine 2019-1 Yes [id number] TAKE 1 [facility] 30 mg 0-08 CAPSULE BY ity of capsule 00:00: MOUTH [place] 00 EVERY Medical MORNING Branch DULoxetine 2019-1 Yes [id number] TAKE 1 [facility] 30 mg 0-08 CAPSULE BY ity of capsule 00:00: MOUTH [place] 00 EVERY Medical MORNING Branch DULoxetine 2019-1 Yes [id number] TAKE 1 [facility] 30 mg 0-08 CAPSULE BY ity of capsule 00:00: MOUTH [place] 00 EVERY Medical MORNING Branch DULoxetine 2019-1 Yes [id number] TAKE 1 [facility] 30 mg 0-08 CAPSULE BY ity of capsule 00:00: MOUTH [place] 00 EVERY Medical MORNING Branch DULoxetine 2019-1 2020- No [id number] TAKE 1 [facility] 30 mg 0-08 11-11 CAPSULE BY ity of capsule 00:00: 00:00 MOUTH [place] 00 :00 EVERY Medical MORNING Branch METFORMIN 2019-0 2020- No [id number] TAKE 1 [facility] 1,000 mg 05-24 TABLET BY ity o f tablet 00:00: 00:00 MOUTH [place] 00 :00 TWICE A Medical DAY WITH Branch MEALS methylPREDN 2018- No 80mg 80 mg, [facility] vers ISolone 04-14 Intra-daria ity o f acetate 00:30: 23:18 [place], [place] (DEPO-MEDRO 00 :00 ONCE, 1 Medic al L) dose, Tue Branch injection 04/13/19 at 80 mg 1930, Routine methylPREDN 2018- No 80mg Unive rs ISolone 04-14 ity of acetate 00:30: 23:18 [place] (DEPO-MEDRO 00 :00 Medical L) Branch injection 80 mg methylPREDN 2018- No 80mg 80 mg, Uni vers ISolone 04-14 Intra-daria ity o f acetate 00:30: 23:18 [place], [place] (DEPO-MEDRO 00 :00 ONCE, 1 Medic al L) dose, Tue Branch injection 04/13/19 at 80 mg 0, Routine methylPREDN 2018- No 80mg Un[facility] rs ISolone 04-14 ity of acetate 00:30: 23:18 [place] (DEPO-MEDRO 00 :00 Medical L) Branch injection 80 mg methylPREDN 2018- No 80mg 80 mg, Uni vers ISolone 04-14 Intra-daria ity o f acetate 00:30: 23:18 [place], [place] (DEPO-MEDRO 00 :00 ONCE, 1 Medic al L) dose, Tue Branch injection 04/13/19 at 80 mg 1930, Routine methylPREDN 2018- No 80mg Unive rs ISolone 04-14 ity of acetate 00:30: 23:18 [place] (DEPO-MEDRO 00 :00 Medical L) Branch injection 80 mg methylPREDN 2018- No 80mg 80 mg, Uni vers ISolone 04-14 Intra-daria ity o f acetate 00:30: 23:18 [place], [place] (DEPO-MEDRO 00 :00 ONCE, 1 Medic al L) dose, Tue Branch injection 04/13/19 at 80 mg 1930, Routine methylPREDN 2018- No 80mg Unive rs ISolone 04-14 ity of acetate 00:30: 23:18 [place] (DEPO-MEDRO 00 :00 Medical L) Branch injection 80 mg methylPREDN 2019- No 80mg 80 mg, Uni vers ISolone 04-14 Intra-daria ity o f acetate 00:30: 23:18 [place], [place] (DEPO-MEDRO 00 :00 ONCE, 1 Medic al L) dose, Tue Branch injection 04/13/19 at 80 mg 1930, Routine methylPREDN 2018- No 80mg Un[facility] rs ISolone 04-14 ity of acetate 00:30: 23:18 [place] (DEPO-MEDRO 00 :00 Medical L) Branch injection 80 mg methocarbam 2019- No [id number] 500mg Take 1 [facility] ol 500 mg 04-13 tablet by ity of tablet 00:00: 04:59 mouth 4 [place] 00 :00 ([facility]) Medical times Branch daily for 14 days. methocarbam 2019- No [id number] 500mg Take 1 [facility] ol 500 mg 04-13- tablet by ity of tablet 00:00: 04:59 mouth 4 [place] 00 :00 ([facility]) Medical times Branch daily for 14 days. methocarbam 2019- No [id number] 500mg Take 1 [facility] ol 500 mg 04-13-28 tablet by ity of tablet 00:00: 04:59 mouth 4 [place] 00 :00 ([facility]) Medical times Branch daily for 14 days. methocarbam 2019- No [id number] 500mg Take 1 [facility] ol 500 mg 04-13-28 tablet by ity of tablet 00:00: 04:59 mouth 4 [place] 00 :00 ([facility]) Medical times Branch daily for 14 days. methocarbam 2019- No [id number] 500mg Take 1 [facility] ol 500 mg 8-28 tablet by ity of tablet 00:00: 04:59 mouth 4 [place] 00 :00 ([facility]) Medical times Branch daily for 14 days. methocarbam 2019- No [id number] 500mg Take 1 [facility] ol 500 mg 8-28 tablet by ity of tablet 00:00: 04:59 mouth 4 [place] 00 :00 (four) Medical times Branch daily for 14 days. methocarbam 2019 2019- No [id number] 500mg Take 1 [facility] ol 500 mg 04-13 tablet by ity of tablet 00:00: 04:59 mouth 4 [place] 00 :00 (four) Medical times Branch daily for 14 days. aspirin 2019-0 Yes 81mg Take 81 mg Univ ers (ADULT LOW 7-18 by mouth ity o f DOSE 20:11: daily. [place] ASPIRIN) 81 22 Medical mg EC Branch tablet Magnesium 2018-0 Yes Take by [facility] ers 250 mg Tab 7-18 mouth. ity of 20:11: [place] [facility] aspirin 2019-0 Yes 81mg Take 81 mg Univ ers (ADULT LOW 7-18 by mouth ity o f DOSE 20:11: daily. [place] ASPIRIN) 81 22 Medical mg EC Branch tablet Magnesium 2018-0 Yes Take by [facility] ers 250 mg Tab 7-18 mouth. ity of 20:11: [place] [facility] aspirin 2018-0 Yes 81mg Take 81 mg [facility] ers (ADULT LOW 7-18 by mouth ity o f DOSE 20:11: daily. [place] ASPIRIN) 81 22 Medical mg EC Branch tablet Magnesium 2018-0 Yes Take by [facility] ers 250 mg Tab 7-18 mouth. ity of 20:11: [place] [facility] aspirin 2019-0 Yes 81mg Take 81 mg [facility] ers (ADULT LOW 7-18 by mouth ity o f DOSE 20:11: daily. [place] ASPIRIN) 81 22 Medical mg EC Branch tablet Magnesium 2019-0 Yes Take by [facility] ers 250 mg Tab 7-18 mouth. ity of 20:11: [place] [facility] aspirin 2019-0 Yes 81mg Take 81 mg [facility] ers (ADULT LOW 7-18 by mouth ity o f DOSE 20:11: daily. [place] ASPIRIN) 81 22 Medical mg EC Branch tablet Magnesium 2019-0 Yes Take by [facility] ers 250 mg Tab 7-18 mouth. ity of 20:11: [place] [facility] aspirin 2019-0 Yes 81mg Take 81 mg [facility] ers (ADULT LOW 7-18 by mouth ity o f DOSE 20:11: daily. [place] ASPIRIN) 81 22 Medical mg EC Branch tablet Magnesium 2019-0 Yes Take by [facility] ers 250 mg Tab 7-18 mouth. ity of 20:11: [place] [address] Medical Branch aspirin Yes 81mg Take 81 mg Univ ers (ADULT LOW 7-18 by mouth ity o f DOSE 20:11: daily. [place] ASPIRIN) 81 22 Medical mg EC Branch tablet Magnesium 2018-0 Yes Take by [facility] ers 250 mg Tab 7-18 mouth. ity of 20:11: [place] [address] Medical Branch aspirin Yes 81mg Take 81 mg [facility] ers (ADULT LOW 7-18 by mouth ity o f DOSE 20:11: daily. [place] ASPIRIN) 81 22 Medical mg EC Branch tablet Magnesium 2018-0 Yes Take by [facility] ers 250 mg Tab 7-18 mouth. ity of 20:11: [place] [address] Medical Branch aspirin Yes 81mg Take 81 mg [facility] ers (ADULT LOW 7-18 by mouth ity o f DOSE 20:11: daily. [place] ASPIRIN) 81 22 Medical mg EC Branch tablet Magnesium 2018-0 Yes Take by [facility] ers 250 mg Tab 7-18 mouth. ity of 20:11: [place] [address] Medical Branch aspirin Yes 81mg Take 81 mg [facility] ers (ADULT LOW 7-18 by mouth ity o f DOSE 20:11: daily. [place] ASPIRIN) 81 22 Medical mg EC Branch tablet Magnesium 2018-0 Yes Take by [facility] ers 250 mg Tab 7-18 mouth. ity of 20:11: [address] Branch methocarbam 2018-0 Yes [id number] 500mg Take 1 [facility] ol 500 mg 7-18 tablet by ity o f tablet 00:00: mouth 4 (four) Medical times Branch daily as needed (muscle pain or spasm). traMADol 50 Yes [id number] 50mg Take 1 [facility] mg tablet 7-18 tablet by ity o f 00:00: mouth [place] 00 every 8 Medical (eight) Branch hours as needed (moderate- severe pain). USE SPARINGLY, CAN BE HABIT-FORM ING methocarbam 2019-0 Yes [id number] 500mg Take 1 [facility] ol 500 mg 7-18 tablet by ity o f tablet 00:00: mouth 4 [place] 00 (four) Medical times Branch daily as needed (muscle pain or spasm). traMADol 50 2018-0 Yes [id number] 50mg Take 1 [facility] mg tablet 7-18 tablet by ity o f 00:00: mouth [place] 00 every 8 Medical (eight) Branch hours as needed (moderate- severe pain). USE SPARINGLY, CAN BE HABIT-FORM ING methocarbam 2019-0 Yes [id number] 500mg Take 1 [facility] ol 500 mg 7-18 tablet by ity o f tablet 00:00: mouth 4 [place] (four) Medical times Branch daily as needed (muscle pain or spasm). traMADol 50 2019-0 Yes [id number] 50mg Take 1 [facility] mg tablet 7-18 tablet by ity o f 00:00: mouth [place] 00 every 8 Medical (eight) Branch hours as needed (moderate- severe pain). USE SPARINGLY, CAN BE HABIT-FORM ING methocarbam 2019-0 Yes [id number] 500mg Take 1 [facility] ol 500 mg 7-18 tablet by ity o f tablet 00:00: mouth (four) Medical times Branch daily as needed (muscle pain or spasm). traMADol 50 2018-0 Yes [id number] 50mg Take 1 [facility] mg tablet 7-18 tablet by ity o f 00:00: mouth [place] 00 every 8 Medical (eight) Branch hours as needed (moderate- severe pain). USE SPARINGLY, CAN BE HABIT-FORM ING methocarbam 2019-0 Yes [id number] 500mg Take 1 [facility] ol 500 mg 7-18 tablet by ity o f tablet 00:00: mouth (four) Medical times Branch daily as needed (muscle pain or spasm). traMADol 50 2018-0 Yes [id number] 50mg Take 1 [facility] mg tablet 7-18 tablet by ity o f 00:00: mouth [place] 00 every 8 Medical (eight) Branch hours as needed (moderate- severe pain). USE SPARINGLY, CAN BE HABIT-FORM ING methocarbam 2019-0 Yes [id number] 500mg Take 1 [facility] ol 500 mg 7-18 tablet by ity o f tablet 00:00: mouth 4 (four) Medical times Branch daily as needed (muscle pain or spasm). traMADol 50 2019-0 Yes [id number] 50mg Take 1 [facility] mg tablet 7-18 tablet by ity o f 00:00: mouth [place] 00 every 8 Medical (eight) Branch hours as needed (moderate- severe pain). USE SPARINGLY, CAN BE HABIT-FORM ING methocarbam 2019-0 Yes [id number] 500mg Take 1 [facility] ol 500 mg 7-18 tablet by ity o f tablet 00:00: mouth 4 [place] 00 (four) Medical times Branch daily as needed (muscle pain or spasm). traMADol 50 2019-0 Yes [id number] 50mg Take 1 [facility] mg tablet 7-18 tablet by ity o f 00:00: mouth [place] 00 every 8 Medical (eight) Branch hours as needed (moderate- severe pain). USE SPARINGLY, CAN BE HABIT-FORM ING methocarbam 2019-0 Yes [id number] 500mg Take 1 [facility] ol 500 mg 7-18 tablet by ity o f tablet 00:00: mouth 4 [place] 00 (four) Medical times Branch daily as needed (muscle pain or spasm). traMADol 50 2019-0 Yes [id number] 50mg Take 1 [facility] mg tablet 7-18 tablet by ity o f 00:00: mouth [place] 00 every 8 Medical (eight) Branch hours as needed (moderate- severe pain). USE SPARINGLY, CAN BE HABIT-FORM ING methocarbam 2019-0 Yes [id number] 500mg Take 1 [facility] ol 500 mg 7-18 tablet by ity o f tablet 00:00: mouth 4 00 (four) Medical times Branch daily as needed (muscle pain or spasm). traMADol 50 2018-0 Yes [id number] 50mg Take 1 [facility] mg tablet 7-18 tablet by ity o f 00:00: mouth [place] 00 every 8 Medical (eight) Branch hours as needed (moderate- severe pain). USE SPARINGLY, CAN BE HABIT-FORM ING methocarbam 2019-0 Yes [id number] 500mg Take 1 [facility] ol 500 mg 7-18 tablet by ity o f tablet 00:00: mouth 4 [place] 00 (four) Medical times Branch daily as needed (muscle pain or spasm). traMADol 50 2019-0 Yes [id number] 50mg Take 1 [facility] mg tablet 7-18 tablet by ity o f 00:00: mouth [place] 00 every 8 Medical (eight) Branch hours as needed (moderate- severe pain). USE SPARINGLY, CAN BE HABIT-FORM ING methocarbam 2019-0 Yes [id number] 500mg Take 1 [facility] ol 500 mg 7-18 tablet by ity o f tablet 00:00: mouth 4 [place] 00 (four) Medical times Branch daily as needed (muscle pain or spasm). traMADol 50 2019-0 Yes [id number] 50mg Take 1 [facility] mg tablet 7-18 tablet by ity o f 00:00: mouth [place] 00 every 8 Medical (eight) Branch hours as needed (moderate- severe pain). USE SPARINGLY, CAN BE HABIT-FORM ING methocarbam 2019-0 Yes [id number] 500mg Take 1 [facility] ol 500 mg 7-18 tablet by ity o f tablet 00:00: mouth 4 [place] (four) Medical times Branch daily as needed (muscle pain or spasm). traMADol 50 2019-0 Yes [id number] 50mg Take 1 [facility] mg tablet 7-18 tablet by ity o f 00:00: mouth [place] 00 every 8 Medical (eight) Branch hours as needed (moderate- severe pain). USE SPARINGLY, CAN BE HABIT-FORM ING methocarbam 2019-0 Yes [id number] 500mg Take 1 [facility] ol 500 mg 7-18 tablet by ity o f tablet 00:00: mouth (four) Medical times Branch daily as needed (muscle pain or spasm). traMADol 50 2018-0 Yes [id number] 50mg Take 1 [facility] mg tablet 7-18 tablet by ity o f 00:00: mouth [place] 00 every 8 Medical (eight) Branch hours as needed (moderate- severe pain). USE SPARINGLY, CAN BE HABIT-FORM ING methocarbam 2019-0 Yes [id number] 500mg Take 1 [facility] ol 500 mg 7-18 tablet by ity o f tablet 00:00: mouth (four) Medical times Branch daily as needed (muscle pain or spasm). traMADol 50 2018-0 Yes [id number] 50mg Take 1 [facility] mg tablet 7-18 tablet by ity o f 00:00: mouth [place] 00 every 8 Medical (eight) Branch hours as needed (moderate- severe pain). USE SPARINGLY, CAN BE HABIT-FORM ING methocarbam 2019-0 Yes [id number] 500mg Take 1 [facility] ol 500 mg 7-18 tablet by ity o f tablet 00:00: mouth 4 [place] 00 (four) Medical times Branch daily as needed (muscle pain or spasm). traMADol 50 2019-0 Yes [id number] 50mg Take 1 [facility] mg tablet 7-18 tablet by ity o f 00:00: mouth [place] 00 every 8 Medical (eight) Branch hours as needed (moderate- severe pain). USE SPARINGLY, CAN BE HABIT-FORM ING methocarbam 2019-0 Yes [id number] 500mg Take 1 [facility] ol 500 mg 7-18 tablet by ity o f tablet 00:00: mouth 4 [place] 00 (four) Medical times Branch daily as needed (muscle pain or spasm). traMADol 50 2019-0 Yes [id number] 50mg Take 1 [facility] mg tablet 7-18 tablet by ity o f 00:00: mouth [place] 00 every 8 Medical (eight) Branch hours as needed (moderate- severe pain). USE SPARINGLY, CAN BE HABIT-FORM ING methocarbam 2019-0 Yes [id number] 500mg Take 1 [facility] ol 500 mg 7-18 tablet by ity o f tablet 00:00: mouth 4 (four) Medical times Branch daily as needed (muscle pain or spasm). traMADol 50 2018-0 Yes [id number] 50mg Take 1 [facility] mg tablet 7-18 tablet by ity o f 00:00: mouth [place] 00 every 8 Medical (eight) Branch hours as needed (moderate- severe pain). USE SPARINGLY, CAN BE HABIT-FORM ING methocarbam 2018-0 Yes [id number] 500mg Take 1 [facility] ol 500 mg 7-18 tablet by ity o f tablet 00:00: mouth (four) Medical times Branch daily as needed (muscle pain or spasm). traMADol 50 Yes [id number] 50mg Take 1 [facility] mg tablet 7-18 tablet by ity o f 00:00: mouth [place] 00 every 8 Medical (eight) Branch hours as needed (moderate- severe pain). USE SPARINGLY, CAN BE HABIT-FORM ING methocarbam 2019-0 Yes [id number] 500mg Take 1 [facility] ol 500 mg 7-18 tablet by ity o f tablet 00:00: mouth (four) Medical times Branch daily as needed (muscle pain or spasm). traMADol 50 2018-0 Yes [id number] 50mg Take 1 [facility] mg tablet 7-18 tablet by ity o f 00:00: mouth [place] 00 every 8 Medical (eight) Branch hours as needed (moderate- severe pain). USE SPARINGLY, CAN BE HABIT-FORM ING methocarbam 20190 2020- No [id number] 500mg Take 1 [facility] ol 500 mg 7-18 09-30 tablet by ity of tablet 00:00: 00:00 mouth 4 [place] 00 :00 (four) Medical times Branch daily as needed (muscle pain or spasm). traMADol 50 2018-0 2020- No [id number] 50mg Take 1 [facility] mg tablet 7-18 09-30 tablet by ity of 00:00: 00:00 mouth [place] 00 :00 every 8 Medical (eight) Branch hours as needed (moderate- severe pain). USE SPARINGLY, CAN BE HABIT-FORM ING methocarbam 2020- No [id number] 500mg Take 1 [facility] ol 500 mg 03-18 tablet by ity of tablet 00:00: 00:00 mouth 4 [place] 00 :00 (four) Medical times Branch daily as needed (muscle pain or spasm). traMADol 50 2020- No [id number] 50mg Take 1 [facility] mg tablet 03-18 tablet by ity of 00:00: 00:00 mouth [place] 00 :00 every 8 Medical (eight) Branch hours as needed (moderate- severe pain). USE SPARINGLY, CAN BE HABIT-FORM ING METFORMIN 2018-0 Yes [id number] TAKE 1 Un [facility] 1,000 mg 5-16 TABLET BY ity of tablet 00:00: MOUTH [place] 00 TWICE A Medical DAY WITH Branch MEALS METFORMIN 2018-0 Yes [id number] TAKE 1 Un [facility] 1,000 mg 5-16 TABLET BY ity of tablet 00:00: MOUTH [place] 00 TWICE A Medical DAY WITH Branch MEALS METFORMIN 2018-0 Yes [id number] TAKE 1 Un [facility] 1,000 mg 5-16 TABLET BY ity of tablet 00:00: MOUTH [place] 00 TWICE A Medical DAY WITH Branch MEALS METFORMIN 2019-0 Yes [id number] TAKE 1 Un [facility] 1,000 mg 5-16 TABLET BY ity of tablet 00:00: MOUTH [place] 00 TWICE A Medical DAY WITH Branch MEALS METFORMIN 2019-0 Yes [id number] TAKE 1 Un [facility] 1,000 mg 5-16 TABLET BY ity of tablet 00:00: MOUTH [place] 00 TWICE A Medical DAY WITH Branch MEALS METFORMIN 2019-0 Yes [id number] TAKE 1 [facility] 1,000 mg 5-16 TABLET BY ity of tablet 00:00: MOUTH [place] 00 TWICE A Medical DAY WITH Branch MEALS METFORMIN 2019-0 Yes [id number] TAKE 1 [facility] 1,000 mg 5-16 TABLET BY ity of tablet 00:00: MOUTH [place] 00 TWICE A Medical DAY WITH Branch MEALS METFORMIN 2019-0 Yes [id number] TAKE 1 [facility] 1,000 mg 5-16 TABLET BY ity of tablet 00:00: MOUTH [place] 00 TWICE A Medical DAY WITH Branch MEALS METFORMIN 2019-0 Yes [id number] TAKE 1 [facility] 1,000 mg 5-16 TABLET BY ity of tablet 00:00: MOUTH [place] 00 TWICE A Medical DAY WITH Branch MEALS METFORMIN 2019-0 Yes [id number] TAKE 1 [facility] 1,000 mg 5-16 TABLET BY ity of tablet 00:00: MOUTH [place] 00 TWICE A Medical DAY WITH Branch MEALS gabapentin 2019-0 Yes 1200mg Take 1,200 [facility] 600 mg 4-25 mg by ity of tablet 19:25: mouth 3 [place] [address] (three) Medical times [place] daily. vit C/vit E 2019-0 Yes Take by Un freddy ac/lut/kateryna 4-25 mouth. ity of er/zinc 19:25: [place] (PRESERVISI 10 Medical ON LUTEIN Branch ORAL) multivit-mi 2018-0 Yes Take by Un freddy nerals/foli 4-25 mouth ity of c acid 19:25: daily. [place] (ADULT 10 Medical MULTIVITAMI Branch N GUMMIES ORAL) gabapentin 2019-0 Yes 1200mg Take 1,200 [facility] 600 mg 4-25 mg by ity of tablet 19:25: mouth 3 [place] [address] (three) Medical times [place] daily. vit C/vit E 2018-0 Yes Take by Un freddy ac/lut/kateryna 4-25 mouth. ity of er/zinc 19:25: [place] (PRESERVISI 10 Medical ON LUTEIN Branch ORAL) multivit-mi 2018-0 Yes Take by Un [facility]reddy nerals/foli 4-25 mouth ity of c acid 19:25: daily. [place] (ADULT 10 Medical MULTIVITAMI Branch N GUMMIES ORAL) gabapentin 2019-0 Yes 1200mg Take 1,200 [facility] 600 mg 4-25 mg by ity of tablet 19:25: mouth 3 [place] [address] (three) Medical times [place] daily. vit C/vit E 2019-0 Yes Take by Un [facility]reddy ac/lut/kateryan 4-25 mouth. ity of er/zinc 19:25: [place] (PRESERVISI 10 Medical ON LUTEIN Branch ORAL) multivit-mi 2018-0 Yes Take by Un freddy nerals/foli 4-25 mouth ity of c acid 19:25: daily. [place] (ADULT 10 Medical MULTIVITAMI Branch N GUMMIES ORAL) gabapentin 2019-0 Yes 1200mg Take 1,200 [facility] 600 mg 4-25 mg by ity of tablet 19:25: mouth 3 [place] [address] (three) Medical times Branch daily. vit C/vit E 2019-0 Yes Take by Un freddy ac/lut/kateryna 4-25 mouth. ity of er/zinc 19:25: [place] (PRESERVISI 10 Medical ON LUTEIN Branch ORAL) multivit-mi 2018-0 Yes Take by Un freddy nerals/foli 4-25 mouth ity of c acid 19:25: daily. [place] (ADULT 10 Medical MULTIVITAMI Branch N GUMMIES ORAL) gabapentin 2019-0 Yes 1200mg Take 1,200 [facility] 600 mg 4-25 mg by ity of tablet 19:25: mouth 3 [place] [address] (three) Medical times Branch daily. vit C/vit E 2019-0 Yes Take by Un [facility]reddy ac/lut/kateryna 4-25 mouth. ity of er/zinc 19:25: [place] (PRESERVISI 10 Medical ON LUTEIN Branch ORAL) multivit-mi 2018-0 Yes Take by Un fredyd nerals/foli 4-25 mouth ity of c acid 19:25: daily. [place] (ADULT 10 Medical MULTIVITAMI Branch N GUMMIES ORAL) gabapentin 2018-0 Yes 1200mg Take 1,200 [facility] 600 mg 4-25 mg by ity of tablet 19:25: mouth 3 [place] [address] (three) Medical times [place] daily. vit C/vit E 2018-0 Yes Take by Un freddy ac/lut/kateryna 4-25 mouth. ity of er/zinc 19:25: [place] (PRESERVISI 10 Medical ON LUTEIN Branch ORAL) multivit-mi 2018-0 Yes Take by Un freddy nerals/foli 4-25 mouth ity of c acid 19:25: daily. [place] (ADULT 10 Medical MULTIVITAMI Branch N GUMMIES ORAL) gabapentin 2019-0 Yes 1200mg Take 1,200 [facility] 600 mg 4-25 mg by ity of tablet 19:25: mouth 3 [place] [address] (three) Medical times Branch daily. vit C/vit E 2019-0 Yes Take by Un [facility] ac/lut/kateryna 4-25 mouth. ity of er/zinc 19:25: [place] (PRESERVISI 10 Medical ON LUTEIN Branch ORAL) multivit-mi 2018-0 Yes Take by Un [facility]red[facility] nerals/foli 4-25 mouth ity of c acid 19:25: daily. [place] (ADULT 10 Medical MULTIVITAMI Branch N GUMMIES ORAL) gabapentin 2018- Yes 1200mg Take 1,200 [facility] 600 mg 4-25 mg by ity of tablet 19:25: mouth 3 [place] [address] (three) Medical times Branch daily. vit C/vit E 2019- Yes Take by Un [facility] ac/lut/kateryna 4-25 mouth. ity of er/zinc 19:25: [place] (PRESERVISI 10 Medical ON LUTEIN Branch ORAL) multivit-mi Yes Take by Un [facility]reddy nerals/foli 4-25 mouth ity of c acid 19:25: daily. [place] (ADULT 10 Medical MULTIVITAMI Branch N GUMMIES ORAL) gabapentin 2018- Yes 1200mg Take 1,200 [facility] 600 mg 4-25 mg by ity of tablet 19:25: mouth 3 [place] [address] (three) Medical times Branch daily. vit C/vit E Yes Take by Un [facility] ac/lut/kateryna 4-25 mouth. ity of er/zinc 19:25: [place] (PRESERVISI 10 Medical ON LUTEIN Branch ORAL) multivit-mi Yes Take by Un [facility]red[facility] nerals/foli 4-25 mouth ity of c acid 19:25: daily. [place] (ADULT 10 Medical MULTIVITAMI Branch N GUMMIES ORAL) gabapentin Yes 1200mg Take 1,200 [facility] 600 mg 4-25 mg by ity of tablet 19:25: mouth 3 [place] [address] (three) Medical times Branch daily. vit C/vit E 2018- Yes Take by Un [facility] ac/lut/kateryna 4-25 mouth. ity of er/zinc 19:25: [place] (PRESERVISI 10 Medical ON LUTEIN Branch ORAL) multivit-mi Yes Take by Un [facility]red[facility] nerals/foli 4-25 mouth ity of c acid 19:25: daily. [place] (ADULT 10 Medical MULTIVITAMI Branch N GUMMIES ORAL) DULOXETINE Yes TAKE 1 Un[facility] rs 30 mg 1-08 CAPSULE BY ity of capsule 00:00: MOUTH [place] EVERY Medical MORNING Branch DULOXETINE Yes TAKE 1 Un[facility] rs 30 mg 1-08 CAPSULE BY ity of capsule 00:00: MOUTH [place] EVERY Medical MORNING Branch DULOXETINE Yes TAKE 1 Un[facility] rs 30 mg 1-08 CAPSULE BY ity of capsule 00:00: MOUTH EVERY Medical MORNING Branch DULOXETINE 2019-0 Yes TAKE 1 Un[facility] rs 30 mg 1-08 CAPSULE BY ity of capsule 00:00: MOUTH EVERY Medical MORNING Branch DULOXETINE 2019-0 Yes TAKE 1 Un[facility] rs 30 mg 1-08 CAPSULE BY ity of capsule 00:00: MOUTH EVERY Medical MORNING Branch DULOXETINE 2019-0 Yes TAKE 1 [facility] 30 mg 1-08 CAPSULE BY ity of capsule 00:00: MOUTH [place] EVERY Medical MORNING Branch DULOXETINE 2019-0 Yes TAKE 1 [facility] rs 30 mg 1-08 CAPSULE BY ity of capsule 00:00: MOUTH [place] EVERY Medical MORNING Branch DULOXETINE 2019-0 Yes TAKE 1 [facility] rs 30 mg 1-08 CAPSULE BY ity of capsule 00:00: MOUTH [place] EVERY Medical MORNING Branch DULOXETINE 2019-0 Yes TAKE 1 [facility] rs 30 mg 1-08 CAPSULE BY ity of capsule 00:00: MOUTH [place] EVERY Medical MORNING Branch DULOXETINE 2019-0 Yes TAKE 1 [facility] rs 30 mg 1-08 CAPSULE BY ity of capsule 00:00: MOUTH [place] EVERY Medical MORNING Branch TRAZODONE 2019-0 Yes TAKE 1 Un[facility] s 100 mg 1-02 TABLET BY ity of tablet 00:00: MOUTH AT [place] BEDTIME Medical Branch atorvastati 2019-0 Yes 20mg Take 1 Univ ers n 20 mg 1-02 tablet by ity of tablet 00:00: mouth at [place] [id number] bedtime. Medical Branch TRAZODONE 2019-0 Yes TAKE 1 [facility] 100 mg 1-02 TABLET BY [facility] tablet 00:00: MOUTH AT [place] BEDTIME [facility] atorvastati 2019-0 Yes 20mg Take 1 [facility] n 20 mg 1-02 tablet by [facility] tablet 00:00: mouth at [place] [address] bedtime. [facility] TRAZODONE 2019-0 Yes TAKE 1 [facility] 100 mg 1-02 TABLET BY [facility] tablet 00:00: MOUTH AT [place] BEDTIME [facility] atorvastati 2019-0 Yes 20mg Take 1 [facility] 20 mg 1-02 tablet by [facility] tablet 00:00: mouth at [place] [address] bedtime. [facility] TRAZODONE 2019-0 Yes TAKE 1 [facility] 100 mg 1-02 TABLET BY [facility] tablet 00:00: MOUTH AT [place] [address] BEDTIME [facility] atorvastati 2019-0 Yes 20mg Take 1 [facility] n 20 mg 1-02 tablet by [facility] tablet 00:00: mouth at [place] bedtime. [facility] TRAZODONE 2019-0 Yes TAKE 1 [facility] 100 mg 1-02 TABLET BY [facility] tablet 00:00: [facility] [place] [facility] atorvastati 2019-0 Yes 20mg Take 1 [facility] n 20 mg 1-02 tablet by [facility] tablet 00:00: mouth at [place] bedtime. [facility] TRAZODONE 2019-0 Yes TAKE 1 [facility] 100 mg 1-02 TABLET BY [facility] tablet 00:00: [facility] [place] [facility] atorvastati 2019-0 Yes 20mg Take 1 [facility] 20 mg 1-02 tablet by [facility] tablet 00:00: mouth at [place] [address] bedtime. [facility] TRAZODONE 2019-0 Yes TAKE 1 [facility] 100 mg 1-02 TABLET BY [facility] tablet 00:00: MOUTH AT [place] [facility] atorvastati 2019-0 Yes 20mg Take 1 [facility] n 20 mg 1-02 tablet by [facility] tablet 00:00: mouth at [place] [address] [facility] TRAZODONE 2019-0 Yes TAKE 1 [facility] 100 mg 1-02 TABLET BY [facility] tablet 00:00: MOUTH AT [place] [facility] atorvastati 2019-0 Yes 20mg Take 1 [facility] n 20 mg 1-02 tablet by [facility] of tablet 00:00: mouth at [place] [address] bedtime. [facility] TRAZODONE 2019-0 Yes TAKE 1 [facility] 100 mg 1-02 TABLET BY [facility] tablet 00:00: [facility] [place] [facility] TRAZ[facility]ONE 2019-0 Yes TAKE 1 [facility] 100 mg 1-02 TABLET BY [facility] tablet 00:00: [facility] [place] [facility] TRAZODONE 2019-0 Yes TAKE 1 [facility] 100 mg 1-02 TABLET BY [facility] tablet 00:00: MOUTH AT [place] BEDTIME [facility] TRAZODONE 2019-0 Yes TAKE 1 [facility] 100 mg 1-02 TABLET BY [facility] tablet 00:00: MOUTH AT [place] BEDTIME [facility] TRAZODONE 2019-0 Yes TAKE 1 [facility] 100 mg 1-02 TABLET BY [facility] tablet 00:00: MOUTH AT [place] BEDTIME [facility] TRAZODONE 2019-0 Yes TAKE 1 [facility] 100 mg 1-02 TABLET BY [facility] of tablet 00:00: MOUTH AT [place] BEDTIME [facility] TRAZODONE 2019-0 Yes TAKE 1 [facility] 100 mg 1-02 TABLET BY [facility] tablet 00:00: [facility] [place] [facility] TRAZODONE 2019-0 Yes TAKE 1 [facility] 100 mg 1-02 TABLET BY [facility] tablet 00:00: MOUTH AT [place] BEDTIME [facility] TRAZODONE 2019-0 Yes TAKE 1 [facility] 100 mg 1-02 TABLET BY [facility] tablet 00:00: [facility] AT [place] [facility] TRAZODONE 2019-0 Yes TAKE 1 [facility] 100 mg 1-02 TABLET BY [facility] of tablet 00:00: MOUTH AT [place] [facility] Branch TRAZODONE 2019-0 Yes TAKE 1 [facility] 100 mg 1-02 TABLET BY it[facility] of tablet 00:00: MOUTH AT [place] [facility] Branch TRAZODONE 2019-0 Yes TAKE 1 [facility] 100 mg 1-02 TABLET BY it[facility] of tablet 00:00: MOUTH AT [place] [facility] TRAZODONE 2019-0 Yes TAKE 1 [facility] 100 mg 1-02 TABLET BY [facility] tablet 00:00: [facility] [place] [facility] atorvastati 2019-0 Yes 20mg Take 1 [facility] 20 mg 1-02 tablet by [facility] of tablet 00:00: mouth at [place] bedtime. [facility] TRAZODONE 2019-0 Yes TAKE 1 [facility] 100 mg 1-02 TABLET BY it[facility] of tablet 00:00: MOUTH AT [place] BEDTIME [facility] atorvastati 2019-0 Yes 20mg Take 1 [facility] 20 mg 1-02 tablet by [facility] of tablet 00:00: mouth at [place] bedtime. [facility] TRAZODONE 2019-0 Yes TAKE 1 [facility] 100 mg 1-02 TABLET BY [facility] tablet 00:00: [facility] AT [place] [facility] atorvastati 2019-0 Yes 20mg Take 1 [facility] 20 mg 1-02 tablet by [facility] of tablet 00:00: mouth at [place] 00 bedtime. [facility] TRAZODONE 2018-0 2020- No TAKE 1 [facility] 100 mg 09-0209 TABLET BY ity of tablet 00:00: 00:00 MOUTH AT [place] 00 :00 BEDTIME Medical Branch TRAZODONE 2018-0 2020- No TAKE 1 [facility] 100 mg [id number] TABLET BY ity of tablet 00:00: 00:00 MOUTH AT [place] 00 :00 BEDTIME [facility] atorvastati 2018- 2020- No 20mg Take 1 [facility] n 20 mg 09-02 03-30 tablet by ity of tablet 00:00: 00:00 mouth at [place] 00 :00 bedtime. [facility] rizatriptan Yes TAKE 1 [facility] 10 mg 8-13 TABLET BY ity of tablet 00:00: MOUTH AT [place] 00 ONSET OF Medical HEADACHE. Branch MAY REPEAT IN 2 HOURS IFNEEDED rizatriptan Yes TAKE 1 [facility] 10 mg 8-13 TABLET BY ity of tablet 00:00: MOUTH AT [place] [address] ONSET OF Medical HEADACHE. Branch MAY REPEAT IN 2 HOURS IFNEEDED rizatriptan Yes TAKE 1 [facility] 10 mg 8-13 TABLET BY ity of tablet 00:00: MOUTH AT [place] [address] ONSET OF Medical HEADACHE. Branch MAY REPEAT IN 2 HOURS IFNEEDED rizatriptan Yes TAKE 1 [facility] 10 mg 8-13 TABLET BY ity of tablet 00:00: MOUTH AT [place] [address] ONSET OF Medical HEADACHE. Branch MAY REPEAT IN 2 HOURS IFNEEDED rizatriptan Yes TAKE 1 [facility] 10 mg 8-13 TABLET BY ity of tablet 00:00: MOUTH AT [place] [address] ONSET OF Medical HEADACHE. Branch MAY REPEAT IN 2 HOURS IFNEEDED rizatriptan Yes TAKE 1 [facility] 10 mg 8-13 TABLET BY ity of tablet 00:00: MOUTH AT [place] [address] ONSET OF Medical HEADACHE. Branch MAY REPEAT IN 2 HOURS IFNEEDED rizatriptan 2017- Yes TAKE 1 [facility] 10 mg 8-13 TABLET BY ity of tablet 00:00: MOUTH AT [place] [address] ONSET OF Medical HEADACHE. Branch MAY REPEAT IN 2 HOURS IFNEEDED rizatriptan 2017- Yes TAKE 1 [facility] 10 mg 8-13 TABLET BY ity of tablet 00:00: MOUTH AT [place] 00 ONSET OF Medical HEADACHE. Branch MAY REPEAT IN 2 HOURS IFNEEDED rizatriptan 2017-0 Yes TAKE 1 [facility] 10 mg 8-13 TABLET BY ity of tablet 00:00: MOUTH AT [place] 00 ONSET OF Medical HEADACHE. Branch MAY REPEAT IN 2 HOURS IFNEEDED rizatriptan 2017-0 Yes TAKE 1 [facility] 10 mg 8-13 TABLET BY ity of tablet 00:00: MOUTH AT [place] 00 ONSET OF Medical HEADACHE. Branch MAY REPEAT IN 2 HOURS IFNEEDED rizatriptan 2017-0 Yes TAKE 1 [facility] 10 mg 8-13 TABLET BY ity of tablet 00:00: MOUTH AT [place] 00 ONSET OF Medical HEADACHE. Branch MAY REPEAT IN 2 HOURS IFNEEDED rizatriptan 2017-0 Yes TAKE 1 [facility] 10 mg 8-13 TABLET BY ity of tablet 00:00: MOUTH AT [place] [address] ONSET OF Medical HEADACHE. Branch MAY REPEAT IN 2 HOURS IFNEEDED rizatriptan 2017-0 Yes TAKE 1 [facility] 10 mg 8-13 TABLET BY ity of tablet 00:00: MOUTH AT [place] [address] ONSET OF Medical HEADACHE. Branch MAY REPEAT IN 2 HOURS IFNEEDED rizatriptan Yes TAKE 1 [facility] 10 mg 8-13 TABLET BY ity of tablet 00:00: MOUTH AT [place] [address] ONSET OF Medical HEADACHE. Branch MAY REPEAT IN 2 HOURS IFNEEDED rizatriptan 2017- Yes TAKE 1 [facility] 10 mg 8-13 TABLET BY ity of tablet 00:00: MOUTH AT [place] [address] ONSET OF Medical HEADACHE. Branch MAY REPEAT IN 2 HOURS IFNEEDED rizatriptan 2017- Yes TAKE 1 [facility] 10 mg 8-13 TABLET BY ity of tablet 00:00: MOUTH AT [place] [address] ONSET OF Medical HEADACHE. Branch MAY REPEAT IN 2 HOURS IFNEEDED rizatriptan 2017-0 Yes TAKE 1 [facility] 10 mg 8-13 TABLET BY ity of tablet 00:00: MOUTH AT [place] [address] ONSET OF Medical HEADACHE. Branch MAY REPEAT IN 2 HOURS IFNEEDED rizatriptan 2017-0 Yes TAKE 1 [facility] 10 mg 8-13 TABLET BY ity of tablet 00:00: MOUTH AT [place] [address] ONSET OF Medical HEADACHE. Branch MAY REPEAT IN 2 HOURS IFNEEDED rizatriptan 2017-0 Yes TAKE 1 [facility] 10 mg 8-13 TABLET BY ity of tablet 00:00: MOUTH AT [place] 00 ONSET OF Medical HEADACHE. Branch MAY REPEAT IN 2 HOURS IFNEEDED rizatriptan 0 Yes TAKE 1 [facility] 10 mg 8-13 TABLET BY ity of tablet 00:00: MOUTH AT [place] 00 ONSET OF Medical HEADACHE. Branch MAY REPEAT IN 2 HOURS IFNEEDED rizatriptan 0 Yes TAKE 1 [facility] 10 mg 8-13 TABLET BY ity of tablet 00:00: MOUTH AT [place] 00 ONSET OF Medical HEADACHE. Branch MAY REPEAT IN 2 HOURS IFNEEDED rizatriptan Yes TAKE 1 [facility] 10 mg 8-13 TABLET BY ity of tablet 00:00: MOUTH AT [place] 00 ONSET OF Medical HEADACHE. Branch MAY REPEAT IN 2 HOURS IFNEEDED rizatriptan Yes TAKE 1 [facility] 10 mg 8-13 TABLET BY ity of tablet 00:00: MOUTH AT [place] [address] ONSET OF Medical HEADACHE. Branch MAY REPEAT IN 2 HOURS IFNEEDED rizatriptan Yes TAKE 1 [facility] 10 mg 8-13 TABLET BY ity of tablet 00:00: MOUTH AT [place] [address] ONSET OF Medical HEADACHE. Branch MAY REPEAT IN 2 HOURS IFNEEDED rizatriptan Yes TAKE 1 [facility] 10 mg 8-13 TABLET BY ity of tablet 00:00: MOUTH AT [place] [address] ONSET OF Medical HEADACHE. Branch MAY REPEAT IN 2 HOURS IFNEEDED rizatriptan Yes TAKE 1 [facility] 10 mg 8-13 TABLET BY ity of tablet 00:00: MOUTH AT [place] [address] ONSET OF Medical HEADACHE. Branch MAY REPEAT IN 2 HOURS IFNEEDED rizatriptan Yes TAKE 1 [facility] 10 mg 8-13 TABLET BY ity of tablet 00:00: MOUTH AT [place] 00 ONSET OF Medical HEADACHE. Branch MAY REPEAT IN 2 HOURS IFNEEDED rizatriptan Yes TAKE 1 [facility] 10 mg 8-13 TABLET BY ity of tablet 00:00: MOUTH AT [place] 00 ONSET OF Medical HEADACHE. Branch MAY REPEAT IN 2 HOURS IFNEEDED rizatriptan 2017-0 Yes TAKE 1 [facility] 10 mg 8-13 TABLET BY ity of tablet 00:00: MOUTH AT [place] [address] ONSET OF Medical HEADACHE. Branch MAY REPEAT IN 2 HOURS IFNEEDED rizatriptan 2017-0 Yes TAKE 1 [facility] 10 mg 8-13 TABLET BY ity of tablet 00:00: MOUTH AT [place] 00 ONSET OF Medical HEADACHE. Branch MAY REPEAT IN 2 HOURS IFNEEDED rizatriptan 0 Yes TAKE 1 [facility] 10 mg 8-13 TABLET BY ity of tablet 00:00: MOUTH AT [place] 00 ONSET OF Medical HEADACHE. Branch MAY REPEAT IN 2 HOURS IFNEEDED rizatriptan Yes TAKE 1 [facility] 10 mg 8-13 TABLET BY ity of tablet 00:00: MOUTH AT [place] 00 ONSET OF Medical HEADACHE. Branch MAY REPEAT IN 2 HOURS IFNEEDED rizatriptan Yes TAKE 1 [facility] 10 mg 8-13 TABLET BY ity of tablet 00:00: MOUTH AT [place] 00 ONSET OF Medical HEADACHE. Branch MAY REPEAT IN 2 HOURS IFNEEDED rizatriptan Yes TAKE 1 [facility] 10 mg 8-13 TABLET BY ity of tablet 00:00: MOUTH AT [place] [address] ONSET OF Medical HEADACHE. Branch MAY REPEAT IN 2 HOURS IFNEEDED rizatriptan Yes TAKE 1 [facility] 10 mg 8-13 TABLET BY ity of tablet 00:00: MOUTH AT [place] [address] ONSET OF Medical HEADACHE. Branch MAY REPEAT IN 2 HOURS IFNEEDED rizatriptan Yes TAKE 1 [facility] 10 mg 8-13 TABLET BY ity of tablet 00:00: MOUTH AT [place] [address] ONSET OF Medical HEADACHE. Branch MAY REPEAT IN 2 HOURS IFNEEDED rizatriptan Yes TAKE 1 [facility] 10 mg 8-13 TABLET BY ity of tablet 00:00: MOUTH AT [place] [address] ONSET OF Medical HEADACHE. Branch MAY REPEAT IN 2 HOURS IFNEEDED rizatriptan Yes TAKE 1 [facility] 10 mg 8-13 TABLET BY ity of tablet 00:00: MOUTH AT [place] [address] ONSET OF Medical HEADACHE. Branch MAY REPEAT IN 2 HOURS IFNEEDED rizatriptan 0 Yes TAKE 1 [facility] 10 mg 8-13 TABLET BY ity of tablet 00:00: MOUTH AT [place] 00 ONSET OF Medical HEADACHE. Branch MAY REPEAT IN 2 HOURS IFNEEDED rizatriptan 2017-0 Yes TAKE 1 [facility] 10 mg 8-13 TABLET BY ity of tablet 00:00: MOUTH AT [place] [address] ONSET OF Medical HEADACHE. Branch MAY REPEAT IN 2 HOURS IFNEEDED rizatriptan 2017-0 Yes TAKE 1 [facility] 10 mg 8-13 TABLET BY ity of tablet 00:00: MOUTH AT [place] [address] ONSET OF Medical HEADACHE. Branch [facility] Yes 1mg Take 1 mg U nivers (MIRAPEX) 1 1-22 by mouth ity of mg tablet 00:00: daily. [address] pramipexole 2015-09 Yes 1mg Take 1 mg U nivers (MIRAPEX) 1 1-22 by mouth ity of mg tablet 00:00: daily. [address] pramipexole 2015-09 Yes 1mg Take 1 mg U nivers (MIRAPEX) 1 1-22 by mouth ity of mg tablet 00:00: daily. [address] pramipexole 2015-09 Yes 1mg Take 1 mg U nivers (MIRAPEX) 1 1-22 by mouth ity of mg tablet 00:00: daily. [address] pramipexole 2015-09 Yes 1mg Take 1 mg U nivers (MIRAPEX) 1 1-22 by mouth ity of mg tablet 00:00: daily. [address] pramipexole 2015-09 Yes 1mg Take 1 mg U nivers (MIRAPEX) 1 1-22 by mouth ity of mg tablet 00:00: daily. [address] pramipexole 2015-09 Yes 1mg Take 1 mg U nivers (MIRAPEX) 1 1-22 by mouth ity of mg tablet 00:00: daily. [address] pramipexole 2015-09 Yes 1mg Take 1 mg U nivers (MIRAPEX) 1 1-22 by mouth ity of mg tablet 00:00: daily. [address] pramipexole 2015-09 Yes 1mg Take 1 mg U nivers (MIRAPEX) 1 1-22 by mouth ity of mg tablet 00:00: daily. [address] pramipexole 2015-09 Yes 1mg Take 1 mg U nivers (MIRAPEX) 1 1-22 by mouth ity of mg tablet 00:00: daily. [address] pramipexole 2015-09 Yes 1mg Take 1 mg U nivers (MIRAPEX) 1 1-22 by mouth ity of mg tablet 00:00: daily. [address] pramipexole 2015-09 Yes 1mg Take 1 mg U nivers (MIRAPEX) 1 1-22 by mouth ity of mg tablet 00:00: daily. [place] [facility] pramipexole 2015-09 Yes 1mg Take 1 mg U nivers (MIRAPEX) 1 1-22 by mouth ity of mg tablet 00:00: daily. [place] [facility] pramipexole 2015-09 Yes 1mg Take 1 mg U nivers (MIRAPEX) 1 1-22 by mouth ity of mg tablet 00:00: daily. [place] [facility] pramipexole 2015-09 Yes 1mg Take 1 mg U nivers (MIRAPEX) 1 1-22 by mouth ity of mg tablet 00:00: daily. [place] [facility] pramipexole 2015-09 Yes 1mg Take 1 mg U nivers (MIRAPEX) 1 1-22 by mouth ity of mg tablet 00:00: daily. [place] [facility] pramipexole 2015-09 Yes 1mg Take 1 mg U nivers (MIRAPEX) 1 1-22 by mouth ity of mg tablet 00:00: daily. [place] [facility] pramipexole 2015-09 Yes 1mg Take 1 mg U nivers (MIRAPEX) 1 1-22 by mouth ity of mg tablet 00:00: daily. [place] [facility] pramipexole 2015-09 Yes 1mg Take 1 mg U nivers (MIRAPEX) 1 1-22 by mouth ity of mg tablet 00:00: daily. [place] [facility] pramipexole 2015-09 Yes 1mg Take 1 mg U nivers (MIRAPEX) 1 1-22 by mouth ity of mg tablet 00:00: daily. [place] [facility] pramipexole 2015-09 Yes 1mg Take 1 mg U nivers (MIRAPEX) 1 1-22 by mouth ity of mg tablet 00:00: daily. [place] [facility] pramipexole 2015-09 Yes 1mg Take 1 mg U nivers (MIRAPEX) 1 1-22 by mouth ity of mg tablet 00:00: daily. [place] [facility] pramipexole 2015-09 Yes 1mg Take 1 mg U nivers (MIRAPEX) 1 1-22 by mouth ity of mg tablet 00:00: daily. [place] [facility] pramipexole 2015-09 Yes 1mg Take 1 mg U nivers (MIRAPEX) 1 1-22 by mouth ity of mg tablet 00:00: daily. [place] [facility] pramipexole 2015-09 Yes 1mg Take 1 mg U nivers (MIRAPEX) 1 1-22 by mouth ity of mg tablet 00:00: daily. [place] [facility] pramipexole 2015-09 Yes 1mg Take 1 mg U nivers (MIRAPEX) 1 1-22 by mouth ity of mg tablet 00:00: daily. [place] [facility] pramipexole 2015-09 Yes 1mg Take 1 mg U nivers (MIRAPEX) 1 1-22 by mouth ity of mg tablet 00:00: daily. [place] [facility] pramipexole 2015-09 Yes 1mg Take 1 mg U nivers (MIRAPEX) 1 1-22 by mouth ity of mg tablet 00:00: daily. [facility] pramipexole 2015-09 Yes 1mg Take 1 mg U nivers (MIRAPEX) 1 1-22 by mouth ity of mg tablet 00:00: daily. [place] [facility] pramipexole 2015-09 Yes 1mg Take 1 mg U nivers (MIRAPEX) 1 1-22 by mouth ity of mg tablet 00:00: daily. [place] [facility] pramipexole 2015-09 Yes 1mg Take 1 mg U nivers (MIRAPEX) 1 1-22 by mouth ity of mg tablet 00:00: daily. [facility] pramipexole 2015-09 Yes 1mg Take 1 mg U nivers (MIRAPEX) 1 1-22 by mouth ity of mg tablet 00:00: daily. [place] [facility] pramipexole 2015-09 Yes 1mg Take 1 mg U nivers (MIRAPEX) 1 1-22 by mouth ity of mg tablet 00:00: daily. [place] [facility] pramipexole 2015-09 Yes 1mg Take 1 mg U nivers (MIRAPEX) 1 1-22 by mouth ity of mg tablet 00:00: daily. [facility] pramipexole 2015-09 Yes 1mg Take 1 mg U nivers (MIRAPEX) 1 1-22 by mouth ity of mg tablet 00:00: daily. [facility] Branch pramipexole 2015-09 Yes 1mg Take 1 mg [facility] nivers (MIRAPEX) 1 1-22 by mouth ity of mg tablet 00:00: daily. [facility] pramipexole 2015-09 Yes 1mg Take 1 mg [facility] nivers (MIRAPEX) 1 1-22 by mouth ity of mg tablet 00:00: daily. [facility] pramipexole 2015-09 Yes 1mg Take 1 mg [facility]ivers (MIRAPEX) 1 1-22 by mouth ity of mg tablet 00:00: daily. [facility] pramipexole 2015-09 Yes 1mg Take 1 mg [facility]ivers (MIRAPEX) 1 1-22 by mouth ity of mg tablet 00:00: daily. [facility] pramipexole 2015-09 Yes 1mg Take 1 mg [facility] (MIRAPEX) 1 1-22 by mouth ity of mg tablet 00:00: daily. [facility] pramipexole 2015-09 Yes 1mg Take 1 mg [facility] (MIRAPEX) 1 1-22 by mouth ity of mg tablet 00:00: daily. [place] [facility] topiramate Yes 150mg Take 150 [facility] (TOPAMAX) 5-17 mg by ity of 50 mg 00:00: mouth at [place] tablet 00 bedtime. Medical Branch levETIRAcet Yes 750mg Take 750 U nivers am (KEPPRA) 5-17 mg by ity of 750 mg 00:00: mouth 2 [place] tablet 00 (two) Medical times Branch daily. topiramate Yes 150mg Take 150 [facility] (TOPAMAX) 5-17 mg by ity of 50 mg 00:00: mouth at [place] tablet 00 bedtime. Medical Branch topiramate Yes 150mg Take 150 [facility] (TOPAMAX) 5-17 mg by ity of 50 mg 00:00: mouth at [place] tablet 00 bedtime. Medical [facility] levETIRAcet Yes 750mg Take 750 U nivers am (KEPPRA) 5-17 mg by ity of 750 mg 00:00: mouth 2 [place] tablet 00 (two) Medical times Branch daily. levETIRAcet 2015-0 Yes 750mg Take 750 U nivers am (KEPPRA) 5-17 mg by ity of 750 mg 00:00: mouth 2 [place] tablet 00 (two) Medical times Branch daily. topiramate 2016-0 Yes 150mg Take 150 [facility] (TOPAMAX) 5-17 mg by ity of 50 mg 00:00: mouth at [place] tablet 00 bedtime. Medical Branch levETIRAcet 2015-0 Yes 750mg Take 750 U nivers am (KEPPRA) 5-17 mg by ity of 750 mg 00:00: mouth 2 [place] tablet 00 (two) Medical times Branch daily. topiramate 2015-0 Yes 150mg Take 150 [facility] (TOPAMAX) 5-17 mg by ity of 50 mg 00:00: mouth at [place] tablet 00 bedtime. Medical Branch levETIRAcet 0 Yes 750mg Take 750 U nivers am (KEPPRA) 5-17 mg by ity of 750 mg 00:00: mouth 2 [place] tablet 00 (two) Medical times Branch daily. topiramate 2015-0 Yes 150mg Take 150 [facility] (TOPAMAX) 5-17 mg by ity of 50 mg 00:00: mouth at [place] tablet 00 bedtime. Medical [facility] levETIRAcet 2015-0 Yes 750mg Take 750 U nivers am (KEPPRA) 5-17 mg by ity of 750 mg 00:00: mouth 2 [place] tablet 00 (two) Medical times Branch daily. topiramate 2016-0 Yes 150mg Take 150 [facility] (TOPAMAX) 5-17 mg by ity of 50 mg 00:00: mouth at [place] tablet 00 bedtime. [facility] levETIRAcet 2015-0 Yes 750mg Take 750 U nivers am (KEPPRA) 5-17 mg by ity of 750 mg 00:00: mouth 2 [place] tablet 00 (two) Medical times Branch daily. topiramate 2016-0 Yes 150mg Take 150 [facility] (TOPAMAX) 5-17 mg by ity of 50 mg 00:00: mouth at [place] tablet 00 bedtime. Medical [facility] levETIRAcet 2015-0 Yes 750mg Take 750 U nivers am (KEPPRA) 5-17 mg by ity of 750 mg 00:00: mouth 2 [place] tablet 00 (two) Medical times Branch daily. topiramate 2016-0 Yes 150mg Take 150 [facility] (TOPAMAX) 5-17 mg by ity of 50 mg 00:00: mouth at [place] tablet 00 bedtime. Medical Branch levETIRAcet 2015-0 Yes 750mg Take 750 U nivers am (KEPPRA) 5-17 mg by ity of 750 mg 00:00: mouth 2 [place] tablet 00 (two) Medical times Branch daily. topiramate 2016-0 Yes 150mg Take 150 [facility] (TOPAMAX) 5-17 mg by ity of 50 mg 00:00: mouth at [place] tablet 00 bedtime. Medical Branch levETIRAcet 2015-0 Yes 750mg Take 750 U nivers am (KEPPRA) 5-17 mg by ity of 750 mg 00:00: mouth 2 [place] tablet 00 (two) Medical times Branch daily. levETIRAcet 2015-0 Yes 750mg Take 750 U nivers am (KEPPRA) 5-17 mg by ity of 750 mg 00:00: mouth 2 [place] tablet 00 (two) Medical times Branch daily. levETIRAcet 2015-0 Yes 750mg Take 750 U nivers am (KEPPRA) 5-17 mg by ity of 750 mg 00:00: mouth 2 [place] tablet 00 (two) Medical times Branch daily. levETIRAcet 2015-0 Yes 750mg Take 750 U nivers am (KEPPRA) 5-17 mg by ity of 750 mg 00:00: mouth 2 [place] tablet 00 (two) Medical times Branch daily. levETIRAcet 2015-0 Yes 750mg Take 750 U nivers am (KEPPRA) 5-17 mg by ity of 750 mg 00:00: mouth 2 [place] tablet 00 (two) Medical times Branch daily. levETIRAcet 2015-0 Yes 750mg Take 750 U nivers am (KEPPRA) 5-17 mg by ity of 750 mg 00:00: mouth 2 [place] tablet 00 (two) Medical times Branch daily. levETIRAcet 2015-0 Yes 750mg Take 750 U nivers am (KEPPRA) 5-17 mg by ity of 750 mg 00:00: mouth 2 [place] tablet 00 (two) Medical times Branch daily. levETIRAcet 2016-0 Yes 750mg Take 750 U nivers am (KEPPRA) 5-17 mg by ity of 750 mg 00:00: mouth 2 [place] tablet 00 (two) Medical times Branch daily. levETIRAcet 2016-0 Yes 750mg Take 750 U nivers am (KEPPRA) 5-17 mg by ity of 750 mg 00:00: mouth 2 [place] tablet 00 (two) Medical times Branch daily. levETIRAcet 2016-0 Yes 750mg Take 750 U nivers am (KEPPRA) 5-17 mg by ity of 750 mg 00:00: mouth 2 [place] tablet 00 (two) Medical times Branch daily. levETIRAcet 2015-0 Yes 750mg Take 750 U nivers am (KEPPRA) 5-17 mg by ity of 750 mg 00:00: mouth 2 [place] tablet 00 (two) Medical times Branch daily. topiramate 2015-0 Yes 150mg Take 150 [facility] (TOPAMAX) 5-17 mg by ity of 50 mg 00:00: mouth at [place] tablet 00 bedtime. Medical Branch levETIRAcet 2015-0 Yes 750mg Take 750 U nivers am (KEPPRA) 5-17 mg by ity of 750 mg 00:00: mouth 2 [place] tablet 00 (two) Medical times Branch daily. levETIRAcet 2015-0 Yes 750mg Take 750 U nivers am (KEPPRA) 5-17 mg by ity of 750 mg 00:00: mouth 2 [place] tablet 00 (two) Medical times Branch daily. levETIRAcet 2015-0 Yes 750mg Take 750 U nivers am (KEPPRA) 5-17 mg by ity of 750 mg 00:00: mouth 2 [place] tablet 00 (two) Medical times Branch daily. levETIRAcet 2016-0 Yes 750mg Take 750 U nivers am (KEPPRA) 5-17 mg by ity of 750 mg 00:00: mouth 2 [place] tablet 00 (two) Medical times Branch daily. levETIRAcet 2015-0 Yes 750mg Take 750 U nivers am (KEPPRA) 5-17 mg by ity of 750 mg 00:00: mouth 2 [place] tablet 00 (two) Medical times Branch daily. levETIRAcet 2016-0 Yes 750mg Take 750 U nivers am (KEPPRA) 5-17 mg by ity of 750 mg 00:00: mouth 2 [place] tablet 00 (two) Medical times Branch daily. topiramate 2016-0 Yes 150mg Take 150 [facility] (TOPAMAX) 5-17 mg by ity of 50 mg 00:00: mouth at [place] tablet 00 bedtime. Medical Branch levETIRAcet 2015-0 Yes 750mg Take 750 U nivers am (KEPPRA) 5-17 mg by ity of 750 mg 00:00: mouth 2 [place] tablet 00 (two) Medical times Branch daily. topiramate 2016-0 Yes 150mg Take 150 [facility] (TOPAMAX) 5-17 mg by ity of 50 mg 00:00: mouth at [place] tablet 00 bedtime. Medical Branch levETIRAcet 2015-0 Yes 750mg Take 750 U nivers am (KEPPRA) 5-17 mg by ity of 750 mg 00:00: mouth 2 [place] tablet 00 (two) Medical times Branch daily. topiramate 2015-0 Yes 150mg Take 150 [facility] (TOPAMAX) 5-17 mg by ity of 50 mg 00:00: mouth at [place] tablet 00 bedtime. Medical Branch levETIRAcet 2015-0 Yes 750mg Take 750 U nivers am (KEPPRA) 5-17 mg by ity of 750 mg 00:00: mouth 2 [place] tablet 00 (two) Medical times Branch daily. topiramate 2015-0 Yes 150mg Take 150 [facility] (TOPAMAX) 5-17 mg by ity of 50 mg 00:00: mouth at [place] tablet 00 bedtime. Medical Branch levETIRAcet 2015-0 Yes 750mg Take 750 U nivers am (KEPPRA) 5-17 mg by ity of 750 mg 00:00: mouth 2 [place] tablet 00 (two) Medical times Branch daily. topiramate 2016-0 Yes 150mg Take 150 [facility] (TOPAMAX) 5-17 mg by ity of 50 mg 00:00: mouth at [place] tablet 00 bedtime. Medical Branch levETIRAcet 2015-0 Yes 750mg Take 750 U nivers am (KEPPRA) 5-17 mg by ity of 750 mg 00:00: mouth 2 [place] tablet 00 (two) Medical times Branch daily. topiramate 2016-0 Yes 150mg Take 150 Un freddy (TOPAMAX) 5-17 mg by ity of 50 mg 00:00: mouth at [place] tablet 00 bedtime. Medical Branch levETIRAcet 2015-0 Yes 750mg Take 750 U nivers am (KEPPRA) 5-17 mg by ity of 750 mg 00:00: mouth 2 [place] tablet 00 (two) Medical times Branch daily. topiramate 2016-0 Yes 150mg Take 150 Un freddy (TOPAMAX) 5-17 mg by ity of 50 mg 00:00: mouth at [place] tablet 00 bedtime. Medical Branch levETIRAcet 2015-0 Yes 750mg Take 750 U nivers am (KEPPRA) 5-17 mg by ity of 750 mg 00:00: mouth 2 [place] tablet 00 (two) Medical times Branch daily. topiramate 2015-0 Yes 150mg Take 150 Un freddy (TOPAMAX) 5-17 mg by ity of 50 mg 00:00: mouth at [place] tablet 00 bedtime. Medical Branch levETIRAcet 2015-0 Yes 750mg Take 750 U nivers am (KEPPRA) 5-17 mg by ity of 750 mg 00:00: mouth 2 [place] tablet 00 (two) Medical times Branch daily. topiramate 2016-0 Yes 150mg Take 150 Un freddy (TOPAMAX) 5-17 mg by ity of 50 mg 00:00: mouth at [place] tablet 00 bedtime. Medical Branch levETIRAcet 2015-0 Yes 750mg Take 750 U nivers am (KEPPRA) 5-17 mg by ity of 750 mg 00:00: mouth 2 [place] tablet 00 (two) Medical times Branch daily. topiramate 2016-0 Yes 150mg Take 150 Un freddy (TOPAMAX) 5-17 mg by ity of 50 mg 00:00: mouth at [place] tablet 00 bedtime. Medical Branch levETIRAcet 2015-0 Yes 750mg Take 750 U nivers am (KEPPRA) 5-17 mg by ity of 750 mg 00:00: mouth 2 [place] tablet 00 (two) Medical times Branch daily. topiramate 2016-0 Yes 150mg Take 150 Un freddy (TOPAMAX) 5-17 mg by ity of 50 mg 00:00: mouth at [place] tablet 00 bedtime. Medical Branch levETIRAcet 2015-0 Yes 750mg Take 750 U nivers am (KEPPRA) 5-17 mg by ity of 750 mg 00:00: mouth 2 [place] tablet 00 (two) Medical times Branch daily. topiramate 0 Yes 150mg Take 150 Un freddy (TOPAMAX) 5-17 mg by ity of 50 mg 00:00: mouth at [place] tablet 00 bedtime. Medical Branch levETIRAcet 0 Yes 750mg Take 750 U nivers am (KEPPRA) 5-17 mg by ity of 750 mg 00:00: mouth 2 [place] tablet 00 (two) Medical times Branch daily. topiramate 2015-0 Yes 150mg Take 150 Un freddy (TOPAMAX) 5-17 mg by ity of 50 mg 00:00: mouth at [place] tablet 00 bedtime. Medical Branch levETIRAcet Yes 750mg Take 750 U nivers am (KEPPRA) 5-17 mg by ity of 750 mg 00:00: mouth 2 [place] tablet 00 (two) Medical times Branch daily. topiramate 0 Yes 150mg Take 150 Un freddy (TOPAMAX) 5-17 mg by ity of 50 mg 00:00: mouth at [place] tablet 00 bedtime. Medical Branch levETIRAcet 0 Yes 750mg Take 750 U nivers am (KEPPRA) 5-17 mg by ity of 750 mg 00:00: mouth 2 [place] tablet 00 (two) Medical times Branch daily. topiramate 0 Yes 150mg Take 150 Un freddy (TOPAMAX) 5-17 mg by ity of 50 mg 00:00: mouth at [place] tablet 00 bedtime. Medical Branch levETIRAcet Yes 750mg Take 750 U nivers am (KEPPRA) 5-17 mg by ity of 750 mg 00:00: mouth 2 [place] tablet 00 (two) Medical times Branch daily. topiramate 0 2020- No 150mg Take 150 U nivers (TOPAMAX) 5-17 11-11 mg by ity of 50 mg 00:00: 00:00 mouth at [place] tablet 00 :00 bedtime. Medical Branch Immunizations Ordered Filled Immunization Date Status Comments [facility] e Immunization Name Name Pneumococcal 2020-06-09 Completed University o f Polysaccharide, 00:00:00 [place] [facility] ical PPSV23 (PNEUMOVAX) Branch Pneumococcal 2020-06-09 Completed University o f Polysaccharide, 00:00:00 [place] [facility] ical PPSV23 (PNEUMOVAX) Branch Pneumococcal 2020-06-09 Completed University o f Polysaccharide, 00:00:00 [place] [facility] ical PPSV23 (PNEUMOVAX) Branch Pneumococcal 2020-06-09 Completed University o f Polysaccharide, 00:00:00 [place] [facility] ical PPSV23 (PNEUMOVAX) Branch Pneumococcal 2020-06-09 Completed University o f Polysaccharide, 00:00:00 [place] [facility] ical PPSV23 (PNEUMOVAX) Branch Pneumococcal 2020-06-09 Completed University o f Polysaccharide, 00:00:00 [place] [facility] ical PPSV23 (PNEUMOVAX) Branch Pneumococcal 2020-06-09 Completed University o f Polysaccharide, 00:00:00 [place] [facility] ical PPSV23 (PNEUMOVAX) Branch Pneumococcal 2020-06-09 Completed University o f Polysaccharide, 00:00:00 [place] [facility] ical PPSV23 (PNEUMOVAX) Branch Pneumococcal 2020-06-09 Completed University o f Polysaccharide, 00:00:00 [place] [facility] ical PPSV23 (PNEUMOVAX) Branch Pneumococcal 2020-06-09 Completed University o f Polysaccharide, 00:00:00 [place] [facility] ical PPSV23 (PNEUMOVAX) Branch Pneumococcal 2020-06-09 Completed University o f Polysaccharide, 00:00:00 [place] [facility] ical PPSV23 (PNEUMOVAX) Branch Pneumococcal 2020-06-09 Completed University o f Polysaccharide, 00:00:00 [place] [facility] ical PPSV23 (PNEUMOVAX) Branch Pneumococcal 2020-06-09 Completed University o f Polysaccharide, 00:00:00 [place] [facility] ical PPSV23 (PNEUMOVAX) Branch Pneumococcal 2020-06-09 Completed University o f Polysaccharide, 00:00:00 [place] [facility] ical PPSV23 (PNEUMOVAX) Branch Pneumococcal 2020-06-09 Completed University o f Polysaccharide, 00:00:00 [place] [facility] ical PPSV23 (PNEUMOVAX) Branch Pneumococcal 2020-06-09 Completed University o f Polysaccharide, 00:00:00 [place] [facility] ical PPSV23 (PNEUMOVAX) Branch Pneumococcal 2020-06-09 Completed University o f Polysaccharide, 00:00:00 [place] [facility] ical PPSV23 (PNEUMOVAX) Branch Pneumococcal 2020-06-09 Completed University o f Polysaccharide, 00:00:00 [facility] ica PPSV23 (PNEUMOVAX) Branch Influenza Virus 2020-05-19 Completed Universit y of Vaccine Quad .5 mL 00:00:00 [place] [facility] 6+ MO Branch Influenza Virus 2020-05-19 Completed Universit y of Vaccine [place] .5 mL 00:00:00 [place] [facility] 6+ MO Branch Influenza Virus 2020-05-19 Completed Universit y of Vaccine [place] .5 mL 00:00:00 [place] [facility] IM 6+ MO Branch Influenza Virus 2020-05-19 Completed Universit y of Vaccine [place] .5 mL 00:00:00 [place] [facility] 6+ MO Branch Influenza Virus 2020-05-19 Completed Universit y of Vaccine [place] .5 mL 00:00:00 [place] [facility] 6+ MO Branch Influenza Virus 2020-05-19 Completed Universit y of Vaccine [place] .5 mL 00:00:00 [place] [facility] 6+ MO Branch Influenza Virus 2020-05-19 Completed Universit y of Vaccine [place] .5 mL 00:00:00 [place] [facility] 6+ MO Branch Influenza Virus 2020-05-19 Completed Universit y of Vaccine [place] .5 mL 00:00:00 [place] [facility] 6+ MO Branch Influenza Virus 2020-05-19 Completed Universit y of Vaccine [place] .5 mL 00:00:00 [place] [facility] 6+ MO Branch Influenza Virus 2020-05-19 Completed Universit y of Vaccine [place] .5 mL 00:00:00 [facility] 6+ MO Branch Influenza Virus 2020-05-19 Completed Universit y of Vaccine Quad .5 mL 00:00:00 [place] [facility] 6+ MO Branch Influenza Virus 2020-05-19 Completed Universit y of Vaccine [place] .5 mL 00:00:00 [place] [facility] 6+ MO Branch Influenza Virus 2020-05-19 Completed Universit y of Vaccine [place] .5 mL 00:00:00 [place] [facility] 6+ MO Branch Influenza Virus 2020-05-19 Completed Universit y of Vaccine Quad .5 mL 00:00:00 [place] [facility] 6+ MO Branch Influenza Virus 2020-05-19 Completed Universit y of Vaccine [place] .5 mL 00:00:00 [place] [facility] 6+ MO Branch Influenza Virus 2020-05-19 Completed Universit y of Vaccine [place] .5 mL 00:00:00 [place] [facility] 6+ MO Branch Influenza Virus 2020-05-19 Completed Universit y of Vaccine [place] .5 mL 00:00:00 [place] [facility] 6+ MO Branch Influenza Virus 2020-05-19 Completed Universit y of Vaccine [place] .5 mL 00:00:00 [place] [facility] 6+ MO Branch TDAP 2019-08-01 Completed University of 00:00:00 [place] [facility] TDAP 2019-08-01 Completed University of 00:00:00 [place] [facility] TDAP 2019-08-01 Completed University of 00:00:00 [place] [facility] TDAP 2019-08-01 Completed University of 00:00:00 [place] [facility] TDAP 2019-08-01 Completed University of 00:00:00 [place] [facility] TDAP 2019-08-01 Completed University of 00:00:00 [facility] [place] [facility] TDAP 2019-08-01 Completed University of 00:00:00 [facility] [place] [facility] TDAP 2019-08-01 Completed University of 00:00:00 [facility] [place] [facility] TDAP 2019-08-01 Completed University of 00:00:00 [facility] [place] [facility] TDAP 2019-08-01 Completed University of 00:00:00 [facility] [place] [facility] TDAP 2019-08-01 Completed University of 00:00:00 [facility] [place] [facility] TDAP 2019-08-01 Completed University of 00:00:00 [facility] [place] [facility] TDAP 2019-08-01 Completed University of 00:00:00 [facility] [place] [facility] TDAP 2019-08-01 Completed University of 00:00:00 [facility] [place] [facility] TDAP 2019-08-01 Completed University of 00:00:00 [facility] [place] [facility] TDAP 2019-08-01 Completed University of 00:00:00 [facility] [place] [facility] TDAP 2019-08-01 Completed University of 00:00:00 [facility] [place] [facility] TDAP 2019-08-01 Completed University of 00:00:00 [facility] [place] [facility] Influenza Virus 2019-06-03 Completed Universit y of Vaccine Quad .5 mL 00:00:00 [place] [facility] 6[facility] MO Branch Influenza Virus 2019-06-03 Completed Universit y of Vaccine [place] .5 mL 00:00:00 [place] [facility] 6+ MO Branch Influenza Virus 2019-06-03 Completed Universit y of Vaccine [facility] .5 mL 00:00:00 [place] [facility] 6+ MO Branch Influenza Virus 2019-06-03 Completed Universit y of Vaccine [facility] .5 mL 00:00:00 [place] [facility] 6+ MO Branch Influenza Virus 2019-06-03 Completed Universit y of Vaccine [place] .5 mL 00:00:00 [place] [facility] 6+ MO Branch Influenza Virus 2019-06-03 Completed Universit y of Vaccine Quad .5 mL 00:00:00 [place] [facility] 6+ MO Branch Influenza Virus 2019-06-03 Completed Universit y of Vaccine Quad .5 mL 00:00:00 [place] [facility] 6+ MO Branch Influenza Virus 2019-06-03 Completed Universit y of Vaccine [place] .5 mL 00:00:00 [place] [facility] 6+ MO Branch Influenza Virus 2019-06-03 Completed Universit y of Vaccine [place] .5 mL 00:00:00 [place] [facility] 6+ MO Branch Influenza Virus 2019-06-03 Completed Universit y of Vaccine [place] .5 mL 00:00:00 [place] [facility] 6+ MO Branch Influenza Virus 2019-06-03 Completed Universit y of Vaccine [place] .5 mL 00:00:00 [place] [facility] 6+ MO Branch Influenza Virus 2019-06-03 Completed Universit y of Vaccine [place] .5 mL 00:00:00 [place] [facility] 6+ MO Branch Influenza Virus 2019-06-03 Completed Universit y of Vaccine [place] .5 mL 00:00:00 [place] [facility] 6+ MO Branch Influenza Virus 2019-06-03 Completed Universit y of Vaccine [place] .5 mL 00:00:00 [place] [facility] 6+ MO Branch Influenza Virus 2019-06-03 Completed Universit y of Vaccine [place] .5 mL 00:00:00 [place] [facility] 6+ MO Branch Influenza Virus 2019-06-03 Completed Universit y of Vaccine [place] .5 mL 00:00:00 [place] [facility] 6+ MO Branch Influenza Virus 2019-06-03 Completed Universit y of Vaccine [place] .5 mL 00:00:00 [place] [facility] 6+ MO Branch Influenza Virus 2019-06-03 Completed Universit y of Vaccine [place] .5 mL 00:00:00 [place] [facility] 6+ MO Branch Influenza Virus 2019-06-03 Completed Universit y of Vaccine [place] .5 mL 00:00:00 [place] [facility] 6+ MO Branch Influenza Virus 2019-06-03 Completed Universit y of Vaccine [place] .5 mL 00:00:00 [place] [facility] 6+ MO Branch Influenza Virus 2019-06-03 Completed Universit y of Vaccine [place] .5 mL 00:00:00 [place] [facility] 6+ MO Branch Influenza Virus 2019-06-03 Completed Universit y of Vaccine [facility] .5 mL 00:00:00 [place] [facility] 6+ MO Branch Influenza Virus 2019-06-03 Completed Universit y of Vaccine [facility] .5 mL 00:00:00 [place] [facility] 6+ MO Branch Influenza Virus 2019-06-03 Completed Universit y of Vaccine [place] .5 mL 00:00:00 [place] [facility] 6+ MO Branch Influenza Virus 2019-06-03 Completed Universit y of Vaccine Quad .5 mL 00:00:00 [place] [facility] 6+ MO Branch Influenza Virus 2019-06-03 Completed Universit y of Vaccine [facility] .5 mL 00:00:00 [place] [facility] 6+ MO Branch Influenza Virus 2019-06-03 Completed Universit y of Vaccine Quad .5 mL 00:00:00 [place] [facility] 6+ MO Branch Influenza Virus 2019-06-03 Completed Universit y of Vaccine Quad .5 mL 00:00:00 [place] [facility] 6+ MO Branch Influenza Virus 2019-06-03 Completed Universit y of Vaccine Quad .5 mL 00:00:00 [facility] 6+ MO Branch Influenza Virus 2019-06-03 Completed Universit y of Vaccine Quad .5 mL 00:00:00 [facility] 6+ MO Branch Influenza Virus 2019-06-03 Completed Universit y of Vaccine Quad .5 mL 00:00:00 [facility] 6+ MO Branch Influenza Virus 2018-07-02 Completed Universit y of Vaccine 00:00:00 [facility] [place] [facility] Influenza Virus 2018-07-02 Completed Universit y of Vaccine 00:00:00 [facility] [place] [facility] Influenza Virus 2018-07-02 Completed Universit y of Vaccine 00:00:00 [facility] [place] [facility] Influenza Virus 2018-07-02 Completed Universit y of Vaccine 00:00:00 [facility] [place] [facility] Influenza Virus 2018-07-02 Completed Universit y of Vaccine 00:00:00 [facility] [place] [facility] Influenza Virus 2018-07-02 Completed Universit y of Vaccine 00:00:00 [facility] [place] [facility] Influenza Virus 2018-07-02 Completed Universit y of Vaccine 00:00:00 [facility] [place] [facility] Influenza Virus 2018-07-02 Completed Universit y of Vaccine 00:00:00 [facility] [place] [facility] Influenza Virus 2018-07-02 Completed Universit y of Vaccine 00:00:00 [facility] [place] [facility] Influenza Virus 2018-07-02 Completed Universit y of Vaccine 00:00:00 [facility] [place] [facility] Influenza Virus 2018-07-02 Completed Universit y of Vaccine 00:00:00 [facility] [place] [facility] Influenza Virus 2018-07-02 Completed Universit y of Vaccine 00:00:00 [facility] [place] [facility] Influenza Virus 2018-07-02 Completed Universit y of Vaccine 00:00:00 [facility] [place] [facility] Influenza Virus 2018-07-02 Completed Universit y of Vaccine 00:00:00 [facility] [place] [facility] Influenza Virus 2018-07-02 Completed Universit y of Vaccine 00:00:00 [facility] [place] [facility] Influenza Virus 2018-07-02 Completed Universit y of Vaccine 00:00:00 [facility] [place] [facility] Influenza Virus 2018-07-02 Completed Universit y of Vaccine 00:00:00 [facility] [place] [facility] Influenza Virus 2018-07-02 Completed Universit y of Vaccine 00:00:00 [facility] [place] [facility] Influenza Virus 2018-07-02 Completed Universit y of Vaccine 00:00:00 [facility] [place] [facility] Influenza Virus 2018-07-02 Completed Universit y of Vaccine 00:00:00 [facility] [place] [facility] Influenza Virus 2018-07-02 Completed Universit y of Vaccine 00:00:00 [facility] [place] [facility] Influenza Virus 2018-07-02 Completed Universit y of Vaccine 00:00:00 [facility] [place] [facility] Influenza Virus 2018-07-02 Completed Universit y of Vaccine 00:00:00 [facility] [place] [facility] Influenza Virus 2018-07-02 Completed Universit y of Vaccine 00:00:00 [facility] [place] [facility] Influenza Virus 2018-07-02 Completed Universit y of Vaccine 00:00:00 [facility] [place] [facility] Influenza Virus 2018-07-02 Completed Universit y of Vaccine 00:00:00 [facility] [place] [facility] Influenza Virus 2018-07-02 Completed Universit y of Vaccine 00:00:00 [facility] [place] [facility] Influenza Virus 2018-07-02 Completed Universit y of Vaccine 00:00:00 [facility] [place] [facility] Influenza Virus 2018-07-02 Completed Universit y of Vaccine 00:00:00 [facility] [place] [facility] Influenza Virus 2018-07-02 Completed Universit y of Vaccine 00:00:00 [facility] [place] [facility] Influenza Virus 2018-07-02 Completed Universit y of Vaccine 00:00:00 [facility] [place] [facility] Influenza Virus 2018-07-02 Completed Universit y of Vaccine 00:00:00 [facility] [place] [facility] Influenza Virus 2018-07-02 Completed Universit y of Vaccine 00:00:00 [facility] [place] [facility] Influenza Virus 2018-07-02 Completed Universit y of Vaccine 00:00:00 [facility] [place] [facility] Influenza Virus 2018-07-02 Completed Universit y of Vaccine 00:00:00 [facility] [place] [facility] Influenza Virus 2018-07-02 Completed Universit y of Vaccine 00:00:00 [facility] Influenza Virus 2018-07-02 Completed Universit y of Vaccine 00:00:00 [facility] Influenza Virus 2018-07-02 Completed Universit y of Vaccine 00:00:00 [facility] Influenza Virus 2018-07-02 Completed Universit y of Vaccine 00:00:00 [facility] Branch Influenza Virus 2018-07-02 Completed Universit y of Vaccine 00:00:00 [facility] [place] [facility] Influenza Virus 2018-07-02 Completed Universit y of Vaccine 00:00:00 [facility] [place] [facility] Vital Signs Vital Name Observation Time Observation Value Comments Source Systolic blood 2020-12-28 20:47:00 116 mm[Hg] Univer sity of pressure [facility] [place] [facility] Diastolic blood 2020-12-28 20:47:00 82 mm[Hg] Unive rsity of pressure [facility] [place] [facility] Heart rate 2020-12-28 20:47:00 72 /min Universi ty of [facility] [place] [facility] Body temperature 2020-12-28 20:47:00 36.89 [facility] ersity of [facility] [place] [facility] Respiratory rate 2020-12-28 20:47:00 18 /min Univ ersity of [facility] [place] [facility] Body height 2020-12-28 20:47:00 162.6 cm Universi ty of [facility] [place] [facility] Body weight 2020-12-28 20:47:00 100.699 kg Universi ty of [facility] [place] [facility] BMI 2020-12-28 20:47:00 38.11 kg/m2 Universi ty of [facility] [place] [facility] Systolic blood 2020-06-09 16:20:00 97 mm[Hg] Univer sity of pressure [facility] Diastolic blood 2020-06-09 16:20:00 65 mm[Hg] Unive rsity of pressure [facility] Heart rate 2020-06-09 16:20:00 65 /min Universi ty of [facility] Body temperature 2020-06-09 16:20:00 36.39 Heidi Univ ersity of [facility] [place] [facility] Body height 2020-06-09 16:20:00 167.6 cm Universi ty of [facility] [place] [facility] Body weight 2020-06-09 16:20:00 96.616 kg Universi ty of [facility] BMI 2020-06-09 16:20:00 34.38 kg/m2 Universi ty of [facility] [place] [facility] Systolic blood 2020-05-31 15:12:00 114 mm[Hg] Univer sity of pressure [facility] Diastolic blood 2020-05-31 15:12:00 73 mm[Hg] Unive rsity of pressure [facility] [place] [facility] Heart rate 2020-05-31 15:12:00 55 /min Universi ty of [facility] [place] [facility] Respiratory rate 2020-05-31 15:12:00 19 /min Univ ersity of [facility] [place] [facility] Body height 2020-05-31 15:12:00 167.6 cm Universi ty of [place] [facility] [place] Body weight 2020-05-31 15:12:00 95.437 kg Universi ty of [facility] Branch BMI 2020-05-31 15:12:00 33.96 kg/m2 Universi ty of [facility] [place] [facility] Oxygen saturation in 2020-05-31 15:12:00 95 /min University Arterial blood by [facility] Pulse oximetry Branch Systolic blood 2019-04-13 15:15:00 107 mm[Hg] Univer sity of pressure [facility] [place] [facility] Diastolic blood 2019-04-13 15:15:00 76 mm[Hg] Unive rsity of pressure [facility] [place] [facility] Heart rate 2019-04-13 15:15:00 66 /min Universi ty of [facility] [place] [facility] Body temperature 2019-04-13 15:15:00 36.33 Heidi Univ ersity of [facility] [place] [facility] Body height 2019-04-13 15:15:00 167.6 cm Universi ty of [place] [facility] [place] Body weight 2019-04-13 15:15:00 100.835 kg Universi ty of [facility] [place] [facility] BMI 2019-04-13 15:15:00 35.88 kg/m2 Universi ty of [facility] [place] [facility] Procedures Procedure Date / Time Performing Clinician Source Performed AUTHORIZATION FOR 2020-07-26 06:01:00 Doctor Unassigned, No [facility] Name Medical Branch PNEUMOCOCCAL VACCINE, 2020-06-09 16:27:07 [facility]-VALENT (PNEUMOVAX) Medical Br anch ASSIGNMENT OF BENEFITS 2020-05-31 16:03:33 Doctor Unassigned, No [facility] Name Medical Branch AUTHORIZATION FOR 2019-12-09 05:01:00 Doctor Unassigned, No [facility] Name Medical Branch XR CERVICAL SPINE 2 VW 2019-04-13 16:40:00 Iveth Mcgowan rsity of [facility] XR SHOULDER 2+ VW 2019-04-13 15:43:32 Iveth Mcgowan [facility] BILATERAL [facility] Encounters Start End Encounter Admission Attending Care Care Encounter Source Date/Time Date/Time Type Type Clinicians Facility Department ID 2022-01-30 2022-01-30 Outpatient R FRANCHESCA [facility] [id number] Univers 15:00:00 15:00:00 ALISON [id number] ity of [facility] 2021-07-16 2021-07-16 [facility] [id number] Univers 00:00:00 00:00:00 Wondiful A HEALTH [id number] ity of [place] [id number] [place] as PROFESSIO [phone] [address] OFFICE [facility] 2021-07-08 2021-07-08 [facility] [id number] Univers 00:00:00 00:00:00 Wondiful A HEALTH [id number] ity of [place] [id number] [place] PROFESSIO [phone] [address] OFFICE [facility] 2021-07-08 2021-07-08 [facility] [id number] Univers 00:00:00 00:00:00 Wondiful A HEALTH [id number] ity of [place] [id number] [place] PROFESSIO [phone] [address] OFFICE [facility] 2021-06-11 2021-06-11 [facility] [id number] Univers 00:00:00 00:00:00 Wondiful A Health [id number] ity of [place] [id number] [place] Professio [phone] [address] One 2021-06-10 2021-06-10 Adwoa Allen [facility] [id number] Univers 00:00:00 00:00:00 Wondiful A Health [id number] ity of [place] [id number] [place] Professio [phone] [address] One 2021-06-04 2021-06-04 Outpatient Sarah ROSARIO, [facility] [id number] Univers 11:00:00 11:00:00 KRISTAL [id number] ity o [facility] 2021-06-04 2021-06-04 Outpatient Sarah ROSARIO [facility] [id number] Univers 11:00:00 11:00:00 KRISTAL escobar o [facility] 2021-03-16 2021-03-16 [facility] [id number] Univers 00:00:00 00:00:00 Alison Avina [id number] [id number] [phone] [facility] [address] [facility] 2021-01-29 2021-01-29 [facility] [id number] Univers 00:00:00 00:00:00 Wondiful A Health [id number] ity of [place] [id number] [place] Professio [phone] [address] 2021-01-15 2021-01-15 [facility] [id number] Univers 00:00:00 00:00:00 Wondiful A Health [id number] ity of [place] [id number] [place] Professio [phone] [address] One 2021-01-05 2021-01-05 Outpatient Sarah SORENSEN [facility] [id number] Univers 00:00:00 00:00:00 ALISON [id number] ity of [facility] 2021-01-05 2021-01-05 Outpatient R FRANCHESCA [facility] [id number] Univers 00:00:00 00:00:00 ALISON [facility] 2020-12-28 2020-12-28 Office [facility] [id number] Univers 14:24:00 15:55:31 Visit Alison Fabrice [id number] i [id number] [phone] Il dical nal [address] [facility] 2020-12-28 2020-12-28 [facility] [id number] Univers 15:00:00 15:00:00 ALISON [id number] [facility] 2020-12-28 2020-12-28 Outpatient [facility] [id number] Univers 15:00:00 15:00:00 ALISONUT [facility] 2020-12-08 2020-12-08 Outpatient [facility] [id number] Univers 11:00:00 11:00:00 WONDIFUL [id number] ity o f [facility] 2020-12-08 2020-12-08 Outpatient [facility] [id number] Univers 11:00:00 11:00:00 WONDIFUL ity o f [facility] 2020-11-14 2020-11-14 Patient Robert [facility] 1.2.840.114 [id number] Univers 00:00:00 00:00:00 [facility] [id number] i [place] [facility] [id number] [phone] Il dical [address] [place] 2020-07-31 2020-07-31 Telephone Tomasa [facility] 1.2.840.114 [id number] Univers 00:00:00 00:00:00 Wondiful A Health [id number] ity of [place] [id number] [place] as Professio [phone] Il dical nal [address] [place] [address] 2020-07-26 2020-07-26 Orders Doctor ANN 1.2.840.114 [id number] Univers 00:00:00 00:00:00 Only Unassigned, JOSH [id number] ity of [place] [facility] [id number] [place] as [phone] [address] 2020-07-13 2020-07-13 [facility] 1.2.840.114 [id number] Univers 00:00:00 00:00:00 Wondiful A Health [id number] [place] [id number] [place] Professio [phone] [address] Office [facility] 2020-07-12 2020-07-12 [facility]des [facility] 1.2.840.114 [id number] Univers 00:00:00 00:00:00 Wondiful A Health [id number] [place] [id number] [place] Profess[place] [phone] [address] 2020-06-09 2020-06-09 Office [facility] 1.2.840.114 [id number] Univers 10:35:10 11:54:47 Visit Wondiful A Health [id number] [place] [id number] [place] Professio [phone] [address] 2020-06-09 2020-06-09 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 2020-05-31 2020-05-31 Office [facility] 1.2.840.114 [id number] Univers 09:51:20 10:37:07 Visit Kristal Avina [id number] it[id number] [phone] Il dical nal [address] [facility] 2020-05-31 2020-05-31 Outpatient [facility] [id number] Univers 10:00:00 10:00:00 KRISTAL ity o [facility] 2020-05-31 2020-05-31 Outpatient [facility] [id number] Univers 10:00:00 10:00:00 KELLIASPEN ity o [facility] 2020-05-31 2020-05-31 Orders Doctor ANN 1.2.840.114 [id number] Univers 00:00:00 00:00:00 Only Unassigned, JOSH [id number] ity of [place] [facility] [id number] [place] as [phone] [address] 2020-05-11 2020-05-11 Outpatient R TOMASA [facility] [id number] Univers 09:30:00 09:30:00 WONDIFUL ity o f [facility] 2020-05-11 2020-05-11 Outpatient R TOMAAS [facility] [id number] Univers 09:30:00 09:30:00 WONDIFUL ity o [facility] 2020-04-19 2020-04-19 Letter MARISSA Miller 1.2.840.114 [id number] Univers 00:00:00 00:00:00 (Out) Maru MORENO [id number] it y of HOSPITAL [id number] [place] as [phone] [address] 2020-04-18 2020-04-18 Outpatient R [facility] [id number] Univers 13:45:00 13:45:00 [id number] ity of [facility] 2020-04-18 2020-04-18 Outpatient R [facility] [id number] Univers 13:45:00 13:45:00 ity of [facility] 2020-04-16 2020-04-16 Outpatient R [facility] [id number] Univers 13:20:00 13:20:00 [id number] ity of [facility] 2020-04-16 2020-04-16 Outpatient R [facility] [id number] Univers 13:20:00 13:20:00 PAULA escobar [facility] 2020-04-16 2020-04-16 Laboratory Lab, Adc Fam Pob I [facility] 1.2. 840.114 [id number] Univers 12:29:00 12:49:00 Only Paula Pearson [facility] [id number] [place] [id number] [place] Professio [phone] [address] Office Building One 2020-02-04 2020-02-04 Refill [facility] 1.2.840.114 [id number] Univers 00:00:00 00:00:00 Wondiful A [place] [id number] [id number] [phone] Il dicwi nal [address] [place] [address] 2020-01-26 2020-01-26 Outpatient [facility] [id number] Univers 11:00:00 11:00:00 NICOLE itsam [facility] 2019-12-10 2019-12-10 Telephone [facility] 1..840.114 [id number] Univers 00:00:00 00:00:00 Wondiful A [place] [id number] [id number] [phone] [address] 2019-12-09 2019-12-09 Orders Doctor ANN 1.2.840.114 [id number] Univers 00:00:00 00:00:00 Only Unassigned, JOSH 350.1.13.10 ity of [place] [facility] [id number] [place] as [phone] [address] 2019-12-03 2019-12-03 Refill [facility] 1.2.840.114 [id number] Univers 00:00:00 00:00:00 Qiamasoud [place] [id number] [id number] [phone] Il dical nal [address] [facility] 2019-11-29 2019-11-29 [facility] 1.2.840.114 [id number] Univers 00:00:00 00:00:00 Martinezandreaaspen [place] 350.1.13.10 ity of [id number] [phone] Il dical nal 059 [facility] 2019-11-08 2019-11-08 Refill [facility] 1.2.840.114 [id number] Univers 00:00:00 00:00:00 Wondiful A Health 350.1.13.10 [place] [id number] [place] Professio [phone] Il dical nal [address] [place] Office [facility] One 2019-04-13 2019-04-14 Office [employer] [id number] [facility] 10:11:24 07:51:15 Visit Angelito SPECIALTY 350.1.13.10 ity of [facility] [id number] AT [phone] Il pham MURGUIA [address] [facility] 2019-04-13 2019-04-13 [facility] 1.2.840.114 [id number] Univers 11:10:00 23:59:00 Encounter Angelito SPECIALTY [id number] ity of [facility] [id number] [phone] Il pham MURGUIA 8[address] [facility] 2019-04-13 2019-04-13 [facility] 1.2.840.114 [id number] Univers 10:21:24 11:09:00 Encounter Angelito SPECIALTY [id number] ity of [place] [facility] [id number] [phone] Il dical VICTORY 8[address] [facility] 2019-04-11 2019-04-11 Abstract Juan M [facility] 1.2.840.114 [id number] Univers 00:00:00 00:00:00 Iveth SPECIALTY [id number] it[id number] [phone] Il dical VICTORY 198 [facility] 2019-03-19 2019-03-19 Pre Visit [facility] 1.2.840.114 [id number] Univers 00:00:00 00:00:00 Outreach Wondiful A Health [id number] [place] [id number] [place] Professio [phone] Il dical nal [address] [place] [address] One Results Test Description Test Time Test Comments Results Result Sour e Comments XR CERVICAL 2019-04-01 1.??No acute osseous Uni versity of SPINE 2 VW 3 findings are [place] [facility] 21:05:59 seen.2.?Minimal Branch degenerative changes of the cervical spine.* * * * * * * * ORIGINAL REPORT * * * * * * * *HISTORY:pain TECHNIQUE: Frontal and lateral views of the cervical spine were obtained. COMPARISON:None. FINDINGS: There is normal cervical lordosis and sagittal alignment. The vertebralbody heights are preserved. The craniocervical junction is unremarkable.Minimal degenerative changes are seen in the form of disc space narrowingand facet arthropathy. [facility], Radiant Results Inft User - 04/13/2019 4:08 PM CDT* * * * * * * * ORIGINAL REPORT * * * * * * * *HISTORY:pain TECHNIQUE: Frontal and lateral views of the cervical spine were obtained. COMPARISON:None.FINDI NGS:There is normal cervical lordosis and sagittal alignment. The vertebralbody heights are preserved. The craniocervical junction is unremarkable.Minimal degenerative changes are seen in the form of disc space narrowingand facet arthropathy.IMPRESSIO N1. No acute osseous findings are seen.2. Minimal degenerative changes of the cervical spine. XR SHOULDER 2+ 2018-- * * * * * * * * Unive rsity of VW BILATERAL 3 ORIGINAL REPORT * * * [facility] 15:54:23 * * * * *EXAM: XR Branch SHOULDER 2+ VW BILATERAL HISTORY: pain COMPARISON: None. FINDINGS: The shoulder joint and the acromioclavicular joint on both sides are normalin appearance as are the bones that comprise them.[facility], [facility]iant Results Inft User - 04/13/2019 10:56 AM CDT* * * * * * * * ORIGINAL REPORT * * * * * * * *EXAM: XR SHOULDER 2+ VW BILATERALHISTORY: pain COMPARISON: None.FINDINGS:The shoulder joint and the acromioclavicular joint on both sides are normalin appearance as are the bones that comprise them.
[2021-08-04] MEDS ORDERED: ACETAMINOPHEN 500 MG TAB ONE (12:03)
--- NOTE | 2021-08-04 12:11 | RAD REPORT ---
EXAM DESCRIPTION: CT - Head C Spine Mpr Wo Con - 08/04/2021 11:48 am CLINICAL HISTORY: Head and neck injury status post fall. Head and neck pain COMPARISON: 2017 TECHNIQUE: Computed axial tomography of the head and cervical spine was obtained. Sagittal and coronal reconstruction was performed. All CT scans are performed using dose optimization technique as appropriate and may include automated exposure control or mA/KV adjustment according to patient size. FINDINGS: Postsurgical changes involve the skull and brain. Gliosis is present within the left front al lobe. An intracranial bleed is not seen. The ventricles are normal in caliber. An extra-axial fluid collect ion is not noted.Fluid within the visualized sinuses and mastoids is not seen A cervical fracture is not visualized. No dislocation is noted. IMPRESSION: No acute intracranial abnormality is seen. A cervical fracture is not visualized. If the patient continues to have symptoms to suggest intracra nial /spinal cord pathology then MRI would be recommended
--- NOTE | 2021-08-04 12:36 | EDPHYS ---
Physician Documentation [facility] Name: Katherine Wiley Age: 56 yrs Sex: Female : 1965 Arrival Date: 08/04/2021 Time: 11:26 Bed 19 Private MD: ED Physician Radu Murdock HPI: 08/04 12:34 This 56 yrs old Female presents to ER via EMS with complaints of fall, head kb pain. 12:34 Details of fall: The patient fell from an upright position, while walking. Onset: The kb symptoms/episode began/occurred just prior to arrival. Associated injuries: The patient sustained injury to the head, pain, neck injury, pain. Severity of symptoms: At their worst the symptoms were moderate, in the emergency department the symptoms are unchanged. The patient has not experienced similar symptoms in the past. The patient has not recently seen a physician. 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 Denies loc. 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 - Social history:: Smoking status: Patient reports the use of cigarette tobacco products, denies chronic smoking, but will smoke occasionally. ROS: 12:23 Constitutional: Negative for fever, chills, and weight loss. kb 12:23 Neck: Positive for pain with movement, pain at rest. 12:23 Neuro: Positive for headache. 12:23 All other systems are negative. Exam: 12:34 Constitutional: This is a well developed, well nourished patient who is awake, alert, kb and in no acute distress. Head/Face: Normocephalic, atraumatic. ENT: Moist Mucous membranes Neck: Trachea midline, no thyromegaly or masses palpated, and no cervical lymphadenopathy. Supple, full range of motion without nuchal rigidity, or vertebral point tenderness. No Meningismus. Cardiovascular: Regular rate and rhythm with a normal S1 and S2. No gallops, murmurs, or rubs. No pulse deficits. Respiratory: Respirations even and unlabored. No increased work of breathing, no retractions or nasal flaring. Skin: Warm, dry with normal turgor. Normal color. MS/ Extremity: Pulses equal, no cyanosis. Neurovascular intact. Full, normal range of motion. Neuro: Awake and alert, GCS 15, oriented to person, place, time, and situation. Moves all extremities. Normal gait. Psych: Awake, alert, with orientation to person, place and time. Behavior, mood, and affect are within normal limits. Vital Signs: 11:26 BP 142 / 75; Pulse 74; Resp 17; Temp 98.2; Pulse Ox 98% on R/A; Weight 102.51 kg; 5 Height 5 ft. 4 in. (162.56 cm); Pain 8/10; 12:30 BP 114 / 73; Pulse 66; Resp 18; Pulse Ox 98% on R/A; jg9 11:26 Body Mass Index 38.79 (102.51 kg, 162.56 cm) [facility] MDM: 11:26 Patient medically screened. kb 12:23 Data reviewed: vital signs, nurses notes. Data interpreted: Pulse oximetry: on room air kb is 98 %. Interpretation: normal. Counseling: I had a detailed discussion with the patient and/or guardian regarding: the historical points, exam findings, and any diagnostic results supporting the discharge/admit diagnosis, radiology results, the need for outpatient follow up, a family practitioner, to return to the emergency department if symptoms worsen or persist or if there are any questions or concerns that arise at home. 08/04 11:26 Order name: CT Head C Spine; Complete Time: 12:18 kb Administered Medications: 12:09 Drug: Tylenol 1000 mg Route: PO; jg9 12:45 Follow up: Response: No adverse reaction; Pain is unchanged, physician notified jg9 Disposition: 18:00 Co-signature as Attending Physician, Radu Murdock MD I agree with the assessment and rn plan of care. Attestation: The patient's history, exam findings, diagnostics, and a summary of any interventions or procedures was reviewed in detail with Thelma MARTINEZ. Disposition Summary: 08/04/21 12:36 Discharge Ordered Location: Home kb Condition: Stable kb Diagnosis - Fall on same level from slipping, tripping and stumbling without subsequent kb striking against object - Cervicalgia kb - Headache kb Followup: kb - With: Emergency Department - When: As needed - Reason: Worsening of condition Followup: kb - With: Private Physician - When: 2 - 3 days - Reason: Recheck today's complaints, Continuance of care, Re-evaluation by your physician Discharge Instructions: - Discharge Summary Sheet kb - Head Injury, Adult, [id number] kb Forms: - Medication Reconciliation Form kb - Thank You Letter kb - Antibiotic Education kb - Prescription Opioid Use kb Signatures: Dispatcher [employer] EDThelma Lara, LICENSED DISPENSING OPTICIAN-C LICENSED DISPENSING OPTICIAN-Ckb Radu Murdock MD MD rn Gilmore, Jennifer jg9 Corrections: (The following items were deleted from the chart) 12:13 12:13 PMHx: Migraines; jg9 jg9 12:13 12:13 PMHx: BRAIN TUMOR; jg9 jg9 12:13 12:13 PMHx: Diabetes - NIDDM; jg9 jg9 12:13 12:13 PMHx: Hypertension; jg9 jg9 12:13 12:13 PMHx: Hyperlipidemia; jg9 jg9 12:13 12:13 PMHx: restless leg syndrom; jg9 jg9
--- NOTE | 2021-08-04 12:36 | ER ---
Nurse's Notes [facility] Name: Katherine Wiley Age: 56 yrs Sex: Female : 1965 Arrival Date: 08/04/2021 Time: 11:26 Bed 19 Private MD: Diagnosis: Fall on same level from slipping, tripping and stumbling without subsequent striking against object;Cervicalgia;Headache Presentation: 08/04 11:20 Acuity: JENN 4 jg9 11:25 Chief complaint: Patient states: Patient reports she slipped and fell hitting her head, jg9 denied loc, denied nausea/vomiting, msp's in tactx4. 11:25 Initial Sepsis Screen: Does the patient have a suspected source of infection? No. jg9 Patient's initial sepsis screen is negative. 11:30 Method Of Arrival: EMS: [facility] jg9 12:17 Coronavirus screen: Vaccine status: Patient reports receiving the 2nd dose of the covid jg9 vaccine. not sure Patient reports receiving the 1st dose of the Covid vaccine. 12:17 Risk Assessment: Do you want to hurt yourself or someone else? Patient reports no jg9 desire to harm self or others. 12:17 Initial Sepsis Screen: Does the patient meet any 2 criteria? No. Patient's initial jg9 sepsis screen is negative. 12:18 Ebola Screen: No symptoms or risks identified at this time. jg9 12:18 Onset of symptoms was 2020. 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 - Social history:: Smoking status: Patient reports the use of cigarette tobacco products, denies chronic smoking, but will smoke occasionally. Screenin:12 Abuse screen: Denies threats or abuse. Denies injuries from another. Nutritional jg9 screening: No deficits noted. Tuberculosis screening: No symptoms or risk factors identified. Fall Risk Fall in past 12 months (25 points). Assessment: 11:25 General: Appears uncomfortable, Behavior is calm, quiet, Reports Denies. Pain: jg9 Complains of pain in head-occipital and left parietal Pain radiates to back of neck and posterior chest-shoulder region. Neuro: No deficits noted. Cardiovascular: No deficits noted. Respiratory: No deficits noted. GI: No deficits noted. : No deficits noted. EENT: No deficits noted. Derm: No deficits noted. Musculoskeletal: Reports pain in head, back of neck and posterior chest. Injury Description: Head injury fall with head injury. Vital Signs: 11:26 BP 142 / 75; Pulse 74; Resp 17; Temp 98.2; Pulse Ox 98% on R/A; Weight 102.51 kg; 5 Height 5 ft. 4 in. (162.56 cm); Pain 8/10; 12:30 BP 114 / 73; Pulse 66; Resp 18; Pulse Ox 98% on R/A; jg9 11:26 Body Mass Index 38.79 (102.51 kg, 162.56 cm) [facility] ED Course: 11:26 Patient arrived in ED. [facility] 11:26 Thelma Regalado FNP-C is [facility]. 11:26 Radu Murdock MD is Attending Physician. kb 11:27 Patient has correct armband on for positive identification. Bed in low position. Call [facility] light in reach. Side rails up X 1. Warm blanket given. Pulse ox on. NIBP on. 11:48 CT Head C Spine In Process Unspecified. EDOH 12:12 Thermoregulation: warm blanket given to patient. jg9 12:19 Arm band placed on left wrist. jg9 12:51 Triage completed. jg9 12:52 No provider procedures requiring assistance completed. jg9 12:53 Patient did not have IV access during this emergency room visit. jg9 Administered Medications: 12:09 Drug: Tylenol 1000 mg Route: PO; jg9 12:45 Follow up: Response: No adverse reaction; Pain is unchanged, physician notified jg9 Outcome: 12:36 Discharge ordered by . dom 12:52 Discharged to home via wheelchair. jg9 12:52 Condition: stable 12:52 Discharge instructions given to patient, family, Instructed on discharge instructions, follow up and referral plans. Demonstrated understanding of instructions, follow-up care. 12:54 Patient left the ED. jg9 Signatures: Dispatcher [employer] EDOH Thelma Regalado FNP-C FNP-Ckb Martinez, Maria 5 Bernie Bernardo jg9 Corrections: (The following items were deleted from the chart) 12: 12:13 PMHx: Migraines; jg9 jg9 12:13 PMHx: BRAIN TUMOR; jg9 jg9 : 12:13 PMHx: Diabetes - NIDDM; jg9 jg9 12:13 PMHx: Hypertension; jg9 jg9 : 12:13 PMHx: Hyperlipidemia; jg9 jg9 12: 12:13 PMHx: restless leg syndrom; jg9 jg9
[2021-08-04 13:15] VITALS: TEMP 98.2; O2SAT 98
[2021-08-04 13:16] VITALS: BP 114/73
== END 2021-08-04 12:54 | disposition home or self-care (01) ==
LOC: ER 11:23
DX: R51.9 Headache, unspecified (principal); W01.0XXA Fall on same level from slipping, tripping and stumbling without subsequent striking against object, initial encounter; Y92.511 Restaurant or cafe as the place of occurrence of the external cause; F17.210 Nicotine dependence, cigarettes, uncomplicated
CPT/HCPCS: 70450; 72125; 99284

== ENCOUNTER 2023-03-08 15:35 | Emergency (ER) | payer OTHER ==
--- OUTSIDE RECORDS SUMMARY | 2023-03-08 15:54 | XMS REPORT | Continuity of Care Document ---
:1965 Demographics Address [address] [place] [address] Mobile Phone Email Address Preferred Language Thai Marital Status Unknown Presybeterian Affiliation Unknown Race Unknown Additional Race(s) Unavailable Ethnic Group Unknown Author Organization [facility] t Address [address] [facility] [address] [place] [address] Care Team Providers Name Role Phone MAGALI PEARSON Primary Care Physician Unavailable LUDY MG Attending Clinician Unavailable LUDY MG Attending Clinician Unavailable MAGALI PEARSON Attending Clinician Unavailable Magali Monsalve Attending Clinician ANTOINE PRIETO Attending Clinician Unavailable ANTOINE PRIETO Attending Clinician Unavailable RUI SORENSEN Attending Clinician Unavailable ONEYDA ANDINO Attending Clinician Unavailable EDWARD CHU Attending Clinician Unavailable EDWARD CHU Attending Clinician Unavailable Edward Chu MD Attending Clinician Doctor Unassigned, [place] Attending Clinician Unavailable Lab, Ang - Db Attending Clinician Unavailable Kari Allen MD Attending Clinician Nikos Mohamud MD Attending Clinician Rui Sorensen PA-C Attending Clinician Jaya Regalado MD Attending Clinician CHERYL NICHOLAS Attending Clinician Unavailable Cheryl Lee Attending Clinician KARI ALLEN Attending Clinician Unavailable KRISTAL ROSARIO Attending Clinician Unavailable Kevin Jones DO Attending Clinician Lab, Adc Fam Pob I Attending Clinician Unavailable Pob, Adc Lab Main Attending Clinician Unavailable Kristal Rosario MD Attending Clinician Angela ALBRECHT, Maru Oneil Attending Clinician Unavailable NICOLE CRANDALL Attending Clinician Unavailable Shakir HAN, Angelito Marks Attending Clinician [phone] Iveth Mcgowan MD Attending Clinician EDWARD CHU Admitting Clinician Unavailable RUI SORENSEN Admitting Clinician Unavailable Payers Payer Name Policy Type Policy Number Effective Date Expiration Date Jasmin resendiz MEDICARE PART A [id number] 2017 \T\ B 00:00:00 [facility]ID [facility] [id number] 2017 00:00:00 Problems Condition Condition Condition Status Onset Resolution Last Treating Co mments Source Name Details Category Date Date Treatment Clinician Date OAB OAB Disease Active Univers (overactiv (overactiv 6-20 it y of e bladder) e bladder) 00:00: [place] 00 [facility] Eczema, Eczema, Disease Active Univers unspecifie unspecifie 4-27 it y of d type d type 00:00: [facility] Branch Rash and Rash and Disease Active Unive rs other other 4-27 ity of nonspecifi nonspecifi 00:00[place] c skin c skin 00 [facility] eruption eruption Branch Vitamin D Vitamin D Disease Active 2020-09 Uni vers deficiency deficiency 2-21 it y of 00:00: Medical Branch Gross Gross Disease Active Univers hematuria hematuria 2-15 ity of 00:00: [facility] Branch Proteinuri Proteinuri Disease Active 2017-09 U nivers a a 2-26 ity of 00:00: [place] [facility] Frozen Frozen Disease Active 2017-09 Univers shoulder shoulder 1- ity of 00:00: [place] [facility] Peripheral Peripheral Disease Active 2017-09 U nivers neuropathy neuropathy 1- it y of 00:00: [place] [facility] Restless Restless Disease Active 2017-09 Unive rs legs legs 1- ity of 00:00: [place] [facility] Branch Shoulder Shoulder Disease Active Unive rs pain, pain, 8-01 ity of right right 00:00: Medical Branch Screen for Screen for Disease Active Overview : Univers sexually sexually 6-19 [place] ity of transmitte transmitte 00:00: g of this [place] d diseases d diseases 00 note Me dical might be Branch different from the original. Added automatic ally from request for surgery [id number] S/P S/P Disease Active 2015-09 [facility] laparoscop laparoscop - it y of ic ic 00:00: [place] hysterecto hysterecto 00 Me dical my my Branch BMI BMI Disease Active 2015-09 Univers 35.0-35.9, 35.0-35.9, 2- it y of adult adult 00:00: [place] 00 Medical Branch Irregular Irregular Disease Active 2015-09 Uni vers menstrual menstrual 2- ity of cycle cycle 00:00: [place] [facility] Perimenopa Perimenopa Disease Active 2015-09 U nivers usal usal 2 ity of menorrhagi menorrhagi 00:[place] a a 00 Medical Branch Trigeminy Trigeminy Disease Active Uni vers - ity of 00:00: [place] 00 Medical Branch [...] Disease Active 2014-09 U nivers midline midline 1-24 ity of 00:00: [place] [facility] HTN HTN Disease Active 2014-09 Univers (hypertens (hypertens -24 it y of ion), ion), 00:00: [place] benign benign 00 Medical Branch History of History of Disease Active 2014-09 Overview : Univers meningioma meningioma 09-24 Formattin ity of 00:00: g of this [place] 00 note Medical might be Branch different from the original. S/p brain surgery Jun 07, 2015, benign History of History of Disease Active 2014-09 Overview : Univers uterine uterine 24 Formatt[facility] ity o f fibroid fibroid 00:00: g of this [place] 00 note Medical might be Branch different from the original. ROR submitted Rectocele Rectocele Disease Active 2014-09 Uni vers -24 ity of 00:00: [place] 00 Medical Branch HLD HLD Disease Active Univers (hyperlipi (hyperlipi it y of demia) demia) [facility] Chronic Chronic Disease Active Univers insomnia insomnia ity of [facility] GRACIELA GRACIELA Disease Active Univers (obstructi (obstructi it y of ve sleep ve sleep [place] apnea) apnea) [facility] Diabetic Diabetic Disease Active Unive rs retinopath retinopath it y of y y [facility] Allergies, Adverse Reactions, Alerts Allergy Allergy Status Severity Reaction(s) Onset Inactive Treating Comm ents Source Name Type Date Date Clinician Iodine Propensi Active Anaphylaxis Seafood, U nivers ty to 04-29 IV Iodine ity of adverse 00:00: [place] reaction 00 Medical s to Branch drug IODINE DRUG Active High Anaphylaxis Unive rs INGREDI 04-29 ity of 00:00: [place] 00 [facility] Social History Social Habit Start Date Stop Date Quantity Comments Source History of Cigarette Smoker Universi ty of tobacco use [facility] Alcohol intake 2023-02-28 2023-02-28 0 /d University of 00:00:00 00:00:00 [facility] Exposure to 2022-12-14 2022-12-24 Not sure [facility] SARS-CoV-2 00:00:00 14:34:00 [facility] (event) [place] Tobacco use and 2022-06-25 2022-06-25 Smokeless tobacco Un iversity of exposure 00:00:00 00:00:00 non-user [facility] Sex [birth year] Universit y of 00:00:00 00:00:00 [facility] Smoking Status Start Date Stop Date Source Occasional tobacco smoker 2022-06-25 00:00:00 Un iversity of [facility] Medications Ordered Filled Start Stop Current Ordering Indication Dosage Frequency Signature Comments Components Source Medication Medication Date Date Medication? Clinician (SIG) Name Name tirzepatide Yes [id number] 7.5mg inject 7.5 Univers (MOUNJARO) 6-30 mg under ity o f 7.5 mg/0.5 00:00: the skin [place] as mL PnIj 00 weekly. [facility] Branch lisinopriL Yes [id number] 1.25mg Take 0.5 Univers 2.5 mg 6-30 tablets by ity of tablet 00:00: mouth in [place] 00 the Medical morning. Branch For nephroprot ection Lancets Yes [id number] Use as Univ ers Misc 6-30 directed, ity of 00:00: once a day [place] 00 to monitor Medical blood Branch glucose for ICD code E11.9 blood sugar Yes [id number] Use as Univers diagnostic 6-30 directed, ity of (BLOOD 00:00: once a day [place] GLUCOSE 00 to monitor Medica l TEST) strip blood Branch glucose for ICD code E11.9 tirzepatide Yes [id number] 7.5mg inject 7.5 Univers (MOUNJARO) 6-30 mg under ity o f 7.5 mg/0.5 00:00: the skin [place] as mL PnIj 00 weekly. Medical Branch lisinopriL Yes [id number] 1.25mg Take 0.5 Univers 2.5 mg 6-30 tablets by ity of tablet 00:00: mouth in [place] 00 the Medical morning. Branch For nephroprot ection Lancets Yes [id number] Use as Univ ers Misc 6-30 directed, ity of 00:00: once a day [place] 00 to monitor Medical blood Branch glucose for ICD code E11.9 blood sugar Yes [id number] Use as Univers diagnostic 6-30 directed, ity of (BLOOD 00:00: once a day [place] GLUCOSE 00 to monitor Medica l TEST) strip blood Branch glucose for ICD code E11.9 methylPREDN 2022-0 2022- Yes [id number] Take by [facility] ISolone 4 02-28- mouth ity of mg tablets 00:00: 04:59 SEE-INSTRU [place] 00 :00 CTIONS for Medical 6 days. Branch follow package directions methylPREDN 2022-0 2022- Yes [id number] Take by Univers ISolone 4 02-28- mouth ity of mg tablets 00:00: 04:59 SEE-INSTRU [place] 00 :00 CTIONS for Medical 6 days. Branch follow package directions metFORMIN 2022-0 Yes [id number] 1000mg Take 1 Univers 1,000 mg 6-15 tablet by ity of tablet 00:00: mouth in [place] 00 the Medical morning Branch and 1 tablet in the evening. Take with meals. DULoxetine 0 Yes [id number] 60mg Take 1 Univers 60 mg 6-15 capsule by ity of capsule 00:00: mouth in [place] 00 the Medical morning. Branch metFORMIN 2022-0 Yes [id number] 1000mg Take 1 Univers 1,000 mg 6-15 tablet by ity of tablet 00:00: mouth in [place] 00 the Medical morning Branch and 1 tablet in the evening. Take with meals. DULoxetine 2022-0 Yes [id number] 60mg Take 1 Univers 60 mg 6-15 capsule by ity of capsule 00:00: mouth in [place] 00 the Medical morning. Branch metFORMIN 2022-0 Yes [id number] 1000mg Take 1 Univers 1,000 mg 6-15 tablet by ity of tablet 00:00: mouth in [place] 00 the Medical morning Branch and 1 tablet in the evening. Take with meals. DULoxetine 2022-0 Yes [id number] 60mg Take 1 Univers 60 mg 6-15 capsule by ity of capsule 00:00: mouth in [place] 00 the Medical morning. Branch [facility] 5 Yes INJECT 5 Uni vers mg/0.5 mL 4-29 MG UNDER ity of PnIj 00:00: THE SKIN [place] 00 WEEKLY. Medical Branch [facility] 5 Yes INJECT 5 Uni vers mg/0.5 mL 4-29 MG UNDER ity of PnIj 00:00: THE SKIN [place] 00 WEEKLY. Medical Branch [facility] 5 2022- No INJECT 5 Un freddy mg/0.5 mL 4-29 06-30 MG UNDER ity o f PnIj 00:00: 00:00 THE SKIN [place] 00 :00 WEEKLY. Medical Branch [facility] 5 2022- No INJECT 5 Un freddy mg/0.5 mL 4-29 06-30 MG UNDER ity o f PnIj 00:00: 00:00 THE SKIN [place] 00 :00 WEEKLY. Medical Branch topiramate 2022-0 Yes [id number] 100mg Take 1 Univers 100 mg 4-27 tablet by ity of tablet 00:00: mouth in [place] 00 the Medical morning. Branch topiramate 2022-0 Yes [id number] 100mg Take 1 Univers 100 mg 4-27 tablet by ity of tablet 00:00: mouth in [place] 00 the Medical morning. Branch topiramate 2022-0 Yes [id number] 100mg Take 1 Univers 100 mg 4-27 tablet by ity of tablet 00:00: mouth in [place] the morning. Branch topiramate 2023-0 Yes [id number] 100mg Take 1 Univers 100 mg 4-27 tablet by ity of tablet 00:00: mouth in [place] the morning. Branch topiramate 3-0 Yes [id number] 100mg Take 1 Univers 100 mg 4-27 tablet by ity of tablet 00:00: mouth in [place] the morning. Branch topiramate 2023-0 Yes [id number] 100mg Take 1 Univers 100 mg 4-27 tablet by ity of tablet 00:00: mouth in [place] the morning. Branch topiramate 3-0 Yes [id number] 100mg Take 1 Univers 100 mg 4-27 tablet by ity of tablet 00:00: mouth in [place] the morning. Branch diclofenac 3-0 Yes [id number] 50mg Take 1 Univers 50 mg 4-25 tablet by ity of tablet 00:00: mouth in [place] the Medical morning Branch and 1 tablet at noon and 1 tablet in the evening. diclofenac 2023-0 Yes [id number] 50mg Take 1 Univers 50 mg 4-25 tablet by ity of tablet 00:00: mouth in [place] the Medical morning Branch and 1 tablet at noon and 1 tablet in the evening. diclofenac 2023-0 Yes [id number] 50mg Take 1 Univers 50 mg 4-25 tablet by ity of tablet 00:00: mouth in [place] the Medical morning Branch and 1 tablet at noon and 1 tablet in the evening. diclofenac 2023-0 Yes [id number] 50mg Take 1 Univers 50 mg 4-25 tablet by ity of tablet 00:00: mouth in [place] the Medical morning Branch and 1 tablet at noon and 1 tablet in the evening. diclofenac 2023-0 Yes [id number] 50mg Take 1 Univers 50 mg 4-25 tablet by ity of tablet 00:00: mouth in [place] the Medical morning Branch and 1 tablet at noon and 1 tablet in the evening. diclofenac 2023-0 Yes [id number] 50mg Take 1 Univers 50 mg 4-25 tablet by ity of tablet 00:00: mouth in [place] [address] the Medical morning Branch and 1 tablet at noon and 1 tablet in the evening. diclofenac 2023-0 Yes [id number] 50mg Take 1 Univers 50 mg 4-25 tablet by ity of tablet 00:00: mouth in [place] 00 the Medical morning Branch and 1 tablet at noon and 1 tablet in the evening. diclofenac 2022-0 Yes [id number] 50mg Take 1 Univers 50 mg 4-25 tablet by ity of tablet 00:00: mouth in [place] 00 the Medical morning Branch and 1 tablet at noon and 1 tablet in the evening. diclofenac 2022-0 Yes [id number] 50mg Take 1 Univers 50 mg 4-25 tablet by ity of tablet 00:00: mouth in [place] 00 the Medical morning Branch and 1 tablet at noon and 1 tablet in the evening. tirzepatide Yes [id number] 5mg inject 5 Univers (MOUNJARO) 3-27 mg under ity o f 2.5 mg/0.5 00:00: the skin [place] as mL PnIj 00 weekly. Medical Branch tirzepatide Yes [id number] 5mg inject 5 Univers (MOUNJARO) 3-27 mg under ity o f 2.5 mg/0.5 00:00: the skin [place] as mL PnIj 00 weekly. Medical Branch tirzepatide Yes [id number] 5mg inject 5 Univers (MOUNJARO) 3-27 mg under ity o f 2.5 mg/0.5 00:00: the skin [place] as mL PnIj 00 weekly. Medical Branch tirzepatide Yes [id number] 5mg inject 5 Univers (MOUNJARO) 3-27 mg under ity o f 2.5 mg/0.5 00:00: the skin [place] as mL PnIj 00 weekly. Medical Branch tirzepatide Yes [id number] 5mg inject 5 Univers (MOUNJARO) 3-27 mg under ity o f 2.5 mg/0.5 00:00: the skin [place] as mL PnIj 00 weekly. Medical Branch tirzepatide Yes [id number] 5mg inject 5 Univers (MOUNJARO) 3-27 mg under ity o f 2.5 mg/0.5 00:00: the skin [place] as mL PnIj 00 weekly. Medical Branch tirzepatide Yes [id number] 5mg inject 5 Univers (MOUNJARO) 3-27 mg under ity o f 2.5 mg/0.5 00:00: the skin [place] as mL PnIj 00 weekly. Medical Branch tirzepatide 2022- Yes [id number] 5mg inject 5 Univers (MOUNJARO) 3-27 mg under ity o f 2.5 mg/0.5 00:00: the skin [place] as mL PnIj 00 weekly. Medical Branch tirzepatide 2022-2022- No [id number] 5mg inject 5 Univers (MOUNJARO) 3-27 06-08 mg under ity of 2.5 mg/0.5 00:00: 00:00 [place] mL PnIj 00 :00 weekly. Medical Branch tirzepatide 2022-2022- No [id number] 5mg inject 5 Univers (MOUNJARO) 3-27 06-08 mg under ity of 2.5 mg/0.5 00:00: 00:00 the [place] mL PnIj 00 :00 weekly. Medical Branch Lancets 3-0 Yes [id number] Use as Univ ers Misc 3-16 directed, ity of 00:00: once a day [place] 00 to monitor Medical blood Branch glucose for ICD code E11.9 Lancets 2023-0 Yes [id number] Use as Univ ers Misc 3-16 directed, ity of 00:00: once a day [place] 00 to monitor Medical blood Branch glucose for ICD code E11.9 Lancets 2023-0 Yes [id number] Use as Univ ers Misc 3-16 directed, ity of 00:00: once a day [place] 00 to monitor Medical blood Branch glucose for ICD code E11.9 Lancets 2023-0 Yes [id number] Use as Univ ers Misc 3-16 directed, ity of 00:00: once a day [place] 00 to monitor Medical blood Branch glucose for ICD code E11.9 Lancets 2023-0 Yes [id number] Use as Univ ers Misc 3-16 directed, ity of 00:00: once a day [place] 00 to monitor Medical blood Branch glucose for ICD code E11.9 Lancets 2023-0 Yes [id number] Use as Univ ers Misc 3-16 directed, ity of 00:00: once a day [place] 00 to monitor Medical blood Branch glucose for ICD code E11.9 Lancets 2023-0 Yes [id number] Use as Univ ers Misc 3-16 directed, ity of 00:00: once a day [place] 00 to monitor Medical blood Branch glucose for ICD code E11.9 Lancets 2023-0 Yes [id number] Use as Univ ers Misc 3-16 directed, ity of 00:00: once a day [place] 00 to monitor Medical blood Branch glucose for ICD code E11.9 Lancets 2023-0 Yes [id number] Use as Univ ers Misc 3-16 directed, ity of 00:00: once a day [place] 00 to monitor Medical blood Branch glucose for ICD code E11.9 Lancets 2023-0 Yes [id number] Use as Univ ers Misc 3-16 directed, ity of 00:00: once a day [place] 00 to monitor Medical blood Branch glucose for ICD code E11.9 Lancets 2023-0 Yes [id number] Use as Univ ers Misc 3-16 directed, ity of 00:00: once a day [place] 00 to monitor Medical blood Branch glucose for ICD code E11.9 Lancets 2023-0 Yes [id number] Use as Univ ers Misc 3-16 directed, ity of 00:00: once a day [place] 00 to monitor Medical blood Branch glucose for ICD code E11.9 Lancets 2023-0 Yes [id number] Use as Univ ers Misc 3-16 directed, ity of 00:00: once a day [place] 00 to monitor Medical blood Branch glucose for ICD code E11.9 Lancets 2023-0 Yes [id number] Use as Univ ers Misc 3-16 directed, ity of 00:00: once a day [place] 00 to monitor Medical blood Branch glucose for ICD code E11.9 Lancets 2023-0 Yes [id number] Use as Univ ers Misc 3-16 directed, ity of 00:00: once a day [place] 00 to monitor Medical blood Branch glucose for ICD code E11.9 Lancets 2023-0 2023- No [id number] Use as Uni vers Misc 3-16 02-28 directed, ity of 00:00: 00:00 once a day [place] 00 :00 to monitor Medical blood Branch glucose for ICD code E11.9 Lancets 2023-0 2023- No [id number] Use as Uni vers Misc 3-16 02-28 directed, ity of 00:00: 00:00 once a day [place] 00 :00 to monitor Medical blood Branch glucose for ICD code E11.9 blood sugar 2023-0 Yes [id number] Use as Univers diagnostic 3-07 directed, ity of (BLOOD 00:00: once a day [place] GLUCOSE 00 to monitor Medica l TEST) strip blood Branch glucose for ICD code E11.9 blood sugar 2022-0 Yes [id number] Use as Univers diagnostic 3-07 directed, ity of (BLOOD 00:00: once a day [place] GLUCOSE 00 to monitor Medica l TEST) strip blood Branch glucose for ICD code E11.9 blood sugar 2022-0 Yes [id number] Use as Univers diagnostic 3-07 directed, ity of (BLOOD 00:00: once a day [place] GLUCOSE 00 to monitor Medica l TEST) strip blood Branch glucose for ICD code E11.9 blood sugar 2022-0 Yes [id number] Use as Univers diagnostic 3-07 directed, ity of (BLOOD 00:00: once a day [place] GLUCOSE 00 to monitor Medica l TEST) strip blood Branch glucose for ICD code E11.9 blood sugar 2022-0 Yes [id number] Use as Univers diagnostic 3-07 directed, ity of (BLOOD 00:00: once a day [place] GLUCOSE 00 to monitor Medica l TEST) strip blood Branch glucose for ICD code E11.9 blood sugar 2022-0 Yes [id number] Use as Univers diagnostic 3-07 directed, ity of (BLOOD 00:00: once a day [place] GLUCOSE 00 to monitor Medica l TEST) strip blood Branch glucose for ICD code E11.9 blood sugar 2022-0 Yes [id number] Use as Univers diagnostic 3-07 directed, ity of (BLOOD 00:00: once a day [place] GLUCOSE 00 to monitor Medica l TEST) strip blood Branch glucose for ICD code E11.9 blood sugar 2022-0 Yes [id number] Use as Univers diagnostic 3-07 directed, ity of (BLOOD 00:00: once a day [place] GLUCOSE 00 to monitor Medica l TEST) strip blood Branch glucose for ICD code E11.9 blood sugar 2022-0 Yes [id number] Use as Univers diagnostic 3-07 directed, ity of (BLOOD 00:00: once a day [place] GLUCOSE 00 to monitor Medica l TEST) strip blood Branch glucose for ICD code E11.9 blood sugar 2022-0 Yes [id number] Use as Univers diagnostic 3-07 directed, ity of (BLOOD 00:00: once a day [place] GLUCOSE 00 to monitor Medica l TEST) strip blood Branch glucose for ICD code E11.9 blood sugar 2022-0 Yes [id number] Use as Univers diagnostic 3-07 directed, ity of (BLOOD 00:00: once a day [place] GLUCOSE 00 to monitor Medica l TEST) strip blood Branch glucose for ICD code E11.9 blood sugar 2022-0 Yes [id number] Use as Univers diagnostic 3- directed, ity of (BLOOD 00:00: once a day [place] GLUCOSE 00 to monitor Medica l TEST) strip blood Branch glucose for ICD code E11.9 blood sugar 2022-0 Yes [id number] Use as Univers diagnostic 3- directed, ity of (BLOOD 00:00: once a day [place] GLUCOSE 00 to monitor Medica l TEST) strip blood Branch glucose for ICD code E11.9 blood sugar 2022-0 Yes [id number] Use as Univers diagnostic - directed, ity of (BLOOD 00:00: once a day [place] GLUCOSE 00 to monitor Medica l TEST) strip blood Branch glucose for ICD code E11.9 blood sugar 2022-0 Yes [id number] Use as Univers diagnostic - directed, ity of (BLOOD 00:00: once a day [place] GLUCOSE 00 to monitor Medica l TEST) strip blood Branch glucose for ICD code E11.9 blood sugar 2022-0 Yes [id number] Use as Univers diagnostic - directed, ity of (BLOOD 00:00: once a day [place] GLUCOSE 00 to monitor Medica l TEST) strip blood Branch glucose for ICD code E11.9 blood sugar 2022-0 2023- No [id number] Use as Univers diagnostic 3-02-28 directed, ity of (BLOOD 00:00: 00:00 [place] GLUCOSE 00 :00 to monitor Medica l TEST) strip blood Branch glucose for ICD code E11.9 blood sugar 2022-0 2023- No [id number] Use as Univers diagnostic 3-02-28 directed, ity of (BLOOD 00:00: 00:00 [place] GLUCOSE 00 :00 to monitor Medica l TEST) strip blood Branch glucose for ICD code E11.9 blood sugar 2022-0 Yes Use as Univ ers diagnostic 3- directed, ity of (TRUE 00:00: once a day [place] [employer] 00 to monitor Medical GLUCOSE blood Branch TEST STRIP) glucose strip for ICD code E11.9 blood sugar 2023-0 Yes Use as Univ ers diagnostic 11-04 directed, ity of (TRUE 00:00: once a day [place] [employer] 00 to monitor Medical GLUCOSE blood Branch TEST STRIP) glucose strip for ICD code E11.9 blood sugar 0 2022- No Use as Uni vers diagnostic 11-04- directed, ity of (TRUE 00:00: 00:00 once a day [place] [employer] 00 :00 to monitor Medical GLUCOSE blood Branch TEST STRIP) glucose strip for ICD code E11.9 atorvastati 0 Yes [id number] 20mg Take 1 Univers n 20 mg 2-17 tablet by ity of tablet 00:00: mouth [place] 00 every Medical evening. Branch atorvastati 2022-0 Yes [id number] 20mg Take 1 Univers n 20 mg 2-17 tablet by ity of tablet 00:00: mouth [place] 00 every Medical evening. Branch atorvastati 0 Yes [id number] 20mg Take 1 Univers n 20 mg 2-17 tablet by ity of tablet 00:00: mouth [place] 00 every Medical evening. Branch atorvastati 2022-0 Yes [id number] 20mg Take 1 Univers n 20 mg 2-17 tablet by ity of tablet 00:00: mouth [place] 00 every Medical evening. Branch atorvastati 2022-0 Yes [id number] 20mg Take 1 Univers n 20 mg 2-17 tablet by ity of tablet 00:00: mouth [place] 00 every Medical evening. Branch atorvastati 2022-0 Yes [id number] 20mg Take 1 Univers n 20 mg 2-17 tablet by ity of tablet 00:00: mouth [place] 00 every Medical evening. Branch atorvastati 2022-0 Yes [id number] 20mg Take 1 Univers n 20 mg 2-17 tablet by ity of tablet 00:00: mouth [place] 00 every Medical evening. Branch atorvastati 2022-0 Yes [id number] 20mg Take 1 Univers n 20 mg 2-17 tablet by ity of tablet 00:00: mouth [place] 00 every Medical evening. Branch atorvastati 2022-0 Yes [id number] 20mg Take 1 Univers n 20 mg 2-17 tablet by ity of tablet 00:00: mouth [place] 00 every Medical evening. Branch atorvastati 2022-0 Yes [id number] 20mg Take 1 Univers n 20 mg 2-17 tablet by ity of tablet 00:00: mouth [place] 00 every Medical evening. Branch atorvastati 2022-0 Yes [id number] 20mg Take 1 Univers n 20 mg 2-17 tablet by ity of tablet 00:00: mouth [place] 00 every Medical evening. Branch atorvastati 2022-0 Yes [id number] 20mg Take 1 Univers n 20 mg 2-17 tablet by ity of tablet 00:00: mouth [place] 00 every Medical evening. Branch atorvastati 2022-0 Yes [id number] 20mg Take 1 Univers n 20 mg 2-17 tablet by ity of tablet 00:00: mouth [place] 00 every Medical evening. Branch atorvastati 2022-0 Yes [id number] 20mg Take 1 Univers n 20 mg 2-17 tablet by ity of tablet 00:00: mouth [place] 00 every Medical evening. Branch atorvastati 2022-0 Yes [id number] 20mg Take 1 Univers n 20 mg 2-17 tablet by ity of tablet 00:00: mouth [place] 00 every Medical evening. Branch atorvastati 2022-0 Yes [id number] 20mg Take 1 Univers n 20 mg 2-17 tablet by ity of tablet 00:00: mouth [place] 00 every Medical evening. Branch atorvastati 2022-0 Yes [id number] 20mg Take 1 Univers n 20 mg 2-17 tablet by ity of tablet 00:00: mouth [place] 00 every Medical evening. Branch atorvastati 2022-0 Yes [id number] 20mg Take 1 Univers n 20 mg 2-17 tablet by ity of tablet 00:00: mouth [place] 00 every Medical evening. Branch atorvastati 2022-0 Yes [id number] 20mg Take 1 [facility] n 20 mg 2-17 tablet by [facility] tablet 00:00: mouth [place] 00 every Medical evening. Branch atorvastati 2022-0 Yes [id number] 20mg Take 1 [facility] n 20 mg 2-17 tablet by [facility] tablet 00:00: mouth [place] 00 every Medical evening. Branch atorvastati 2022-0 Yes [id number] 20mg Take 1 [facility] n 20 mg 2-17 tablet by [facility] of tablet 00:00: mouth [place] 00 every Medical evening. Branch atorvastati 2022-0 Yes [id number] 20mg Take 1 [facility] n 20 mg 2-17 tablet by [facility] of tablet 00:00: mouth [place] 00 every Medical evening. Branch traZODone 2022-0 Yes [id number] 100mg Take 1 [facility] 100 mg 2-14 tablet by [facility] of tablet 00:00: mouth at [place] [address] bedtime. Medical Branch levocetiriz 2022-0 Yes [id number] 5mg Take 1 [facility] ine 5 mg 2-14 tablet by [facility] of tablet 00:00: mouth [place] 00 every Medical evening. Branch metFORMIN 3-0 Yes [id number] 1000mg Take 1 [facility] 1,000 mg 2-14 tablet by [facility] of tablet 00:00: mouth in [place] 00 the Medical morning Branch and 1 tablet in the evening. Take with meals. lisinopriL 3-0 Yes [id number] 1.25mg Take 0.5 [facility] 2.5 mg 2-14 tablets by [facility] of tablet 00:00: mouth in [place] [address] the Medical morning. Branch For nephroprot ection DULoxetine 2022-0 Yes [id number] 60mg Take 1 [facility] 60 mg 2-14 capsule by [facility] of capsule 00:00: mouth in [place] the Medical morning. Branch traZODone 2022-0 Yes [id number] 100mg Take 1 [facility] 100 mg 2-14 tablet by [facility] of tablet 00:00: mouth at [place] [address] bedtime. Medical Branch levocetiriz 2022-0 Yes [id number] 5mg Take 1 [facility] ine 5 mg 2-14 tablet by [facility] of tablet 00:00: mouth [place] [address] every Medical evening. Branch metFORMIN 2022-0 Yes [id number] 1000mg Take 1 [facility] 1,000 mg 2-14 tablet by [facility] of tablet 00:00: mouth in [place] the Medical morning Branch and 1 tablet in the evening. Take with meals. lisinopriL 3-0 Yes [id number] 1.25mg Take 0.5 [facility] 2.5 mg 2-14 tablets by [facility] of tablet 00:00: mouth in [place] 00 the Medical morning. Branch For nephroprot ection DULoxetine 3-0 Yes [id number] 60mg Take 1 [facility] 60 mg 2-14 capsule by [facility] of capsule 00:00: mouth in [place] 00 the Medical morning. Branch traZODone 2022-0 Yes [id number] 100mg Take 1 [facility] 100 mg 2-14 tablet by [facility] of tablet 00:00: mouth at [place] [address] bedtime. Medical Branch levocetiriz 3-0 Yes [id number] 5mg Take 1 [facility] ine 5 mg 2-14 tablet by [facility] of tablet 00:00: mouth [place] 00 every Medical evening. Branch metFORMIN 2022-0 Yes [id number] 1000mg Take 1 [facility] 1,000 mg 2-14 tablet by [facility] of tablet 00:00: mouth in [place] 00 the Medical morning Branch and 1 tablet in the evening. Take with meals. lisinopriL 2022-0 Yes [id number] 1.25mg Take 0.5 [facility] 2.5 mg 2-14 tablets by [facility] of tablet 00:00: mouth in [place] 00 the Medical morning. Branch For nephroprot ection DULoxetine 2022-0 Yes [id number] 60mg Take 1 [facility] 60 mg 2-14 capsule by [facility] of capsule 00:00: mouth in [place] 00 the Medical morning. Branch traZODone 2022-0 Yes [id number] 100mg Take 1 [facility] 100 mg 2-14 tablet by [facility] of tablet 00:00: mouth at [place] [address] bedtime. Medical Branch levocetiriz 2022-0 Yes [id number] 5mg Take 1 [facility] ine 5 mg 2-14 tablet by [facility] of tablet 00:00: mouth [place] 00 every Medical evening. Branch metFORMIN 2022-0 Yes [id number] 1000mg Take 1 [facility] 1,000 mg 2-14 tablet by [facility] of tablet 00:00: mouth in [place] 00 the Medical morning Branch and 1 tablet in the evening. Take with meals. lisinopriL 3-0 Yes [id number] 1.25mg Take 0.5 [facility] 2.5 mg 2-14 tablets by [facility] of tablet 00:00: mouth in [place] 00 the Medical morning. Branch For nephroprot ection DULoxetine 2022-0 Yes [id number] 60mg Take 1 [facility] 60 mg 2-14 capsule by [facility] of capsule 00:00: mouth in [place] 00 the Medical morning. Branch traZODone 3-0 Yes [id number] 100mg Take 1 [facility] 100 mg 2-14 tablet by [facility] of tablet 00:00: mouth at [place] [address] bedtime. Medical Branch levocetiriz 3-0 Yes [id number] 5mg Take 1 [facility] ine 5 mg 2-14 tablet by [facility] of tablet 00:00: mouth [place] 00 every Medical evening. Branch metFORMIN 2022-0 Yes [id number] 1000mg Take 1 [facility] 1,000 mg 2-14 tablet by [facility] of tablet 00:00: mouth in [place] the Medical morning Branch and 1 tablet in the evening. Take with meals. lisinopriL 2022-0 Yes [id number] 1.25mg Take 0.5 [facility] 2.5 mg 2-14 tablets by [facility] of tablet 00:00: mouth in [place] 00 the Medical morning. Branch For nephroprot ection DULoxetine 2022-0 Yes [id number] 60mg Take 1 [facility] 60 mg 2-14 capsule by [facility] of capsule 00:00: mouth in [place] 00 the Medical morning. Branch traZODone 2022-0 Yes [id number] 100mg Take 1 [facility] 100 mg 2-14 tablet by [facility] of tablet 00:00: mouth at [place] [address] bedtime. Medical Branch levocetiriz 2022-0 Yes [id number] 5mg Take 1 [facility] ine 5 mg 2-14 tablet by [facility] of tablet 00:00: mouth [place] 00 every Medical evening. Branch metFORMIN 2022-0 Yes [id number] 1000mg Take 1 [facility] 1,000 mg 2-14 tablet by [facility] of tablet 00:00: mouth in [place] the Medical morning Branch and 1 tablet in the evening. Take with meals. lisinopriL 2022-0 Yes [id number] 1.25mg Take 0.5 [facility] 2.5 mg 2-14 tablets by [facility] of tablet 00:00: mouth in [place] 00 the Medical morning. Branch For nephroprot ection DULoxetine 2022-0 Yes [id number] 60mg Take 1 [facility] 60 mg 2-14 capsule by [facility] of capsule 00:00: mouth in [place] 00 the Medical morning. Branch traZODone 2022-0 Yes [id number] 100mg Take 1 [facility] 100 mg 2-14 tablet by [facility] of tablet 00:00: mouth at [place] [address] bedtime. Medical Branch levocetiriz 3-0 Yes [id number] 5mg Take 1 [facility] ine 5 mg 2-14 tablet by [facility] of tablet 00:00: mouth [place] 00 every Medical evening. Branch metFORMIN 2022-0 Yes [id number] 1000mg Take 1 [facility] 1,000 mg 2-14 tablet by [facility] of tablet 00:00: mouth in [place] 00 the Medical morning Branch and 1 tablet in the evening. Take with meals. lisinopriL 2022-0 Yes [id number] 1.25mg Take 0.5 [facility] 2.5 mg 2-14 tablets by [facility] of tablet 00:00: mouth in [place] 00 the Medical morning. Branch For nephroprot ection DULoxetine 2022-0 Yes [id number] 60mg Take 1 [facility] 60 mg 2-14 capsule by [facility] of capsule 00:00: mouth in [place] 00 the Medical morning. Branch traZODone 2022-0 Yes [id number] 100mg Take 1 [facility] 100 mg 2-14 tablet by [facility] of tablet 00:00: mouth at [place] [address] bedtime. Medical Branch levocetiriz 2022-0 Yes [id number] 5mg Take 1 [facility] ine 5 mg 2-14 tablet by [facility] of tablet 00:00: mouth [place] 00 every Medical evening. Branch metFORMIN 2022-0 Yes [id number] 1000mg Take 1 [facility] 1,000 mg 2-14 tablet by [facility] of tablet 00:00: mouth in [place] 00 the Medical morning Branch and 1 tablet in the evening. Take with meals. lisinopriL 2022-0 Yes [id number] 1.25mg Take 0.5 [facility] 2.5 mg 2-14 tablets by [facility] of tablet 00:00: mouth in [place] 00 the Medical morning. Branch For nephroprot ection DULoxetine 2022-0 Yes [id number] 60mg Take 1 [facility] 60 mg 2-14 capsule by [facility] of capsule 00:00: mouth in [place] 00 the Medical morning. Branch traZODone 2022-0 Yes [id number] 100mg Take 1 [facility] 100 mg 2-14 tablet by [facility] of tablet 00:00: mouth at [place] [address] bedtime. Medical Branch levocetiriz 2022-0 Yes [id number] 5mg Take 1 [facility] ine 5 mg 2-14 tablet by [facility] of tablet 00:00: mouth [place] 00 every Medical evening. Branch metFORMIN 2022-0 Yes [id number] 1000mg Take 1 [facility] 1,000 mg 2-14 tablet by [facility] of tablet 00:00: mouth in [place] 00 the Medical morning Branch and 1 tablet in the evening. Take with meals. lisinopriL 2022-0 Yes [id number] 1.25mg Take 0.5 [facility] 2.5 mg 2-14 tablets by [facility] of tablet 00:00: mouth in [place] 00 the Medical morning. Branch For nephroprot ection DULoxetine 2022-0 Yes [id number] 60mg Take 1 [facility] 60 mg 2-14 capsule by [facility] of capsule 00:00: mouth in [place] 00 the Medical morning. Branch traZODone 2022-0 Yes [id number] 100mg Take 1 [facility] 100 mg 2-14 tablet by [facility] of tablet 00:00: mouth at [place] [address] bedtime. Medical Branch levocetiriz 2022-0 Yes [id number] 5mg Take 1 [facility] ine 5 mg 2-14 tablet by [facility] of tablet 00:00: mouth [place] 00 every Medical evening. Branch metFORMIN 2022-0 Yes [id number] 1000mg Take 1 [facility] 1,000 mg 2-14 tablet by [facility] of tablet 00:00: mouth in [place] 00 the Medical morning Branch and 1 tablet in the evening. Take with meals. lisinopriL 2022-0 Yes [id number] 1.25mg Take 0.5 [facility] 2.5 mg 2-14 tablets by [facility] of tablet 00:00: mouth in [place] 00 the Medical morning. Branch For nephroprot ection DULoxetine 2022-0 Yes [id number] 60mg Take 1 [facility] 60 mg 2-14 capsule by [facility] of capsule 00:00: mouth in [place] 00 the Medical morning. Branch traZODone 2022-0 Yes [id number] 100mg Take 1 [facility] 100 mg 2-14 tablet by [facility] of tablet 00:00: mouth at [place] [address] bedtime. Medical Branch levocetiriz 2022-0 Yes [id number] 5mg Take 1 [facility] ine 5 mg 2-14 tablet by [facility] of tablet 00:00: mouth [place] 00 every Medical evening. Branch metFORMIN 2022-0 Yes [id number] 1000mg Take 1 [facility] 1,000 mg 2-14 tablet by [facility] of tablet 00:00: mouth in [place] 00 the Medical morning Branch and 1 tablet in the evening. Take with meals. lisinopriL 3-0 Yes [id number] 1.25mg Take 0.5 [facility] 2.5 mg 2-14 tablets by [facility] of tablet 00:00: mouth in [place] 00 the Medical morning. Branch For nephroprot ection DULoxetine 2022-0 Yes [id number] 60mg Take 1 [facility] 60 mg 2-14 capsule by [facility] of capsule 00:00: mouth in [place] 00 the Medical morning. Branch traZODone 2022-0 Yes [id number] 100mg Take 1 [facility] 100 mg 2-14 tablet by [facility] of tablet 00:00: mouth at [place] [address] bedtime. Medical Branch levocetiriz 2022-0 Yes [id number] 5mg Take 1 [facility] ine 5 mg 2-14 tablet by [facility] of tablet 00:00: mouth [place] 00 every Medical evening. Branch metFORMIN 2022-0 Yes [id number] 1000mg Take 1 [facility] 1,000 mg 2-14 tablet by [facility] of tablet 00:00: mouth in [place] 00 the Medical morning Branch and 1 tablet in the evening. Take with meals. lisinopriL 2022-0 Yes [id number] 1.25mg Take 0.5 [facility] 2.5 mg 2-14 tablets by [facility] of tablet 00:00: mouth in [place] 00 the Medical morning. Branch For nephroprot ection DULoxetine 2022-0 Yes [id number] 60mg Take 1 [facility] 60 mg 2-14 capsule by [facility] of capsule 00:00: mouth in [place] 00 the Medical morning. Branch traZODone 2022-0 Yes [id number] 100mg Take 1 [facility] 100 mg 2-14 tablet by [facility] of tablet 00:00: mouth at [place] [address] bedtime. Medical Branch levocetiriz 2022-0 Yes [id number] 5mg Take 1 [facility] ine 5 mg 2-14 tablet by [facility] of tablet 00:00: mouth [place] 00 every Medical evening. Branch metFORMIN 2022-0 Yes [id number] 1000mg Take 1 [facility] 1,000 mg 2-14 tablet by [facility] of tablet 00:00: mouth in [place] 00 the Medical morning Branch and 1 tablet in the evening. Take with meals. lisinopriL 2022-0 Yes [id number] 1.25mg Take 0.5 [facility] 2.5 mg 2-14 tablets by [facility] of tablet 00:00: mouth in [place] 00 the Medical morning. Branch For nephroprot ection DULoxetine 2022-0 Yes [id number] 60mg Take 1 [facility] 60 mg 2-14 capsule by [facility] of capsule 00:00: mouth in [place] 00 the Medical morning. Branch traZODone 2022-0 Yes [id number] 100mg Take 1 [facility] 100 mg 2-14 tablet by [facility] of tablet 00:00: mouth at [place] [address] bedtime. Medical Branch levocetiriz 2023-0 Yes [id number] 5mg Take 1 [facility] ine 5 mg 2-14 tablet by [facility] of tablet 00:00: mouth [place] 00 every Medical evening. Branch metFORMIN 2022-0 Yes [id number] 1000mg Take 1 [facility] 1,000 mg 2-14 tablet by [facility] of tablet 00:00: mouth in [place] 00 the Medical morning Branch and 1 tablet in the evening. Take with meals. lisinopriL 2022-0 Yes [id number] 1.25mg Take 0.5 [facility] 2.5 mg 2-14 tablets by [facility] of tablet 00:00: mouth in [place] 00 the Medical morning. Branch For nephroprot ection DULoxetine 2022-0 Yes [id number] 60mg Take 1 [facility] 60 mg 2-14 capsule by [facility] of capsule 00:00: mouth in [place] 00 the Medical morning. Branch traZODone 2022-0 Yes [id number] 100mg Take 1 [facility] 100 mg 2-14 tablet by [facility] of tablet 00:00: mouth at [place] [address] bedtime. Medical Branch levocetiriz 2022-0 Yes [id number] 5mg Take 1 [facility] ine 5 mg 2-14 tablet by [facility] of tablet 00:00: mouth [place] 00 every Medical evening. Branch metFORMIN 2022-0 Yes [id number] 1000mg Take 1 [facility] 1,000 mg 2-14 tablet by [facility] of tablet 00:00: mouth in [place] the Medical morning Branch and 1 tablet in the evening. Take with meals. lisinopriL 2022-0 Yes [id number] 1.25mg Take 0.5 [facility] 2.5 mg 2-14 tablets by [facility] of tablet 00:00: mouth in [place] 00 the Medical morning. Branch For nephroprot ection DULoxetine 2022-0 Yes [id number] 60mg Take 1 [facility] 60 mg 2-14 capsule by [facility] of capsule 00:00: mouth in [place] 00 the Medical morning. Branch traZODone 2022-0 Yes [id number] 100mg Take 1 [facility] 100 mg 2-14 tablet by [facility] of tablet 00:00: mouth at [place] [address] bedtime. Medical Branch levocetiriz 3-0 Yes [id number] 5mg Take 1 [facility] ine 5 mg 2-14 tablet by [facility] of tablet 00:00: mouth [place] 00 every Medical evening. Branch metFORMIN 3-0 Yes [id number] 1000mg Take 1 [facility] 1,000 mg 2-14 tablet by [facility] of tablet 00:00: mouth in [place] 00 the Medical morning Branch and 1 tablet in the evening. Take with meals. lisinopriL 2022-0 Yes [id number] 1.25mg Take 0.5 [facility] 2.5 mg 2-14 tablets by [facility] of tablet 00:00: mouth in [place] 00 the Medical morning. Branch For nephroprot ection DULoxetine 2022-0 Yes [id number] 60mg Take 1 [facility] 60 mg 2-14 capsule by [facility] of capsule 00:00: mouth in [place] 00 the Medical morning. Branch traZODone 2022-0 Yes [id number] 100mg Take 1 [facility] 100 mg 2-14 tablet by [facility] of tablet 00:00: mouth at [place] [address] bedtime. Medical Branch levocetiriz 2022-0 Yes [id number] 5mg Take 1 [facility] ine 5 mg 2-14 tablet by [facility] of tablet 00:00: mouth [place] 00 every Medical evening. Branch metFORMIN 2022-0 Yes [id number] 1000mg Take 1 [facility] 1,000 mg 2-14 tablet by [facility] of tablet 00:00: mouth in [place] the Medical morning Branch and 1 tablet in the evening. Take with meals. lisinopriL 2022-0 Yes [id number] 1.25mg Take 0.5 [facility] 2.5 mg 2-14 tablets by [facility] of tablet 00:00: mouth in [place] 00 the Medical morning. Branch For nephroprot ection DULoxetine 2022-0 Yes [id number] 60mg Take 1 [facility] 60 mg 2-14 capsule by [facility] of capsule 00:00: mouth in [place] 00 the Medical morning. Branch traZODone 2022-0 Yes [id number] 100mg Take 1 [facility] 100 mg 2-14 tablet by [facility] of tablet 00:00: mouth at [place] [address] bedtime. Medical Branch levocetiriz 3-0 Yes [id number] 5mg Take 1 [facility] ine 5 mg 2-14 tablet by [facility] of tablet 00:00: mouth [place] [address] every Medical evening. Branch metFORMIN 2022-0 Yes [id number] 1000mg Take 1 [facility] 1,000 mg 2-14 tablet by [facility] of tablet 00:00: mouth in [place] the Medical morning Branch and 1 tablet in the evening. Take with meals. lisinopriL 2022-0 Yes [id number] 1.25mg Take 0.5 [facility] 2.5 mg 2-14 tablets by [facility] of tablet 00:00: mouth in [place] 00 the Medical morning. Branch For nephroprot ection DULoxetine 2022-0 Yes [id number] 60mg Take 1 [facility] 60 mg 2-14 capsule by [facility] of capsule 00:00: mouth in [place] 00 the Medical morning. Branch traZODone 2022-0 Yes [id number] 100mg Take 1 [facility] 100 mg 2-14 tablet by [facility] of tablet 00:00: mouth at [place] 00 bedtime. Medical Branch levocetiriz 2022-0 Yes [id number] 5mg Take 1 [facility] ine 5 mg 2-14 tablet by [facility] of tablet 00:00: mouth [place] 00 every Medical evening. Branch metFORMIN 2022-0 Yes [id number] 1000mg Take 1 [facility] 1,000 mg 2-14 tablet by [facility] of tablet 00:00: mouth in [place] 00 the Medical morning Branch and 1 tablet in the evening. Take with meals. lisinopriL 2022-0 Yes [id number] 1.25mg Take 0.5 [facility] 2.5 mg 2-14 tablets by [facility] of tablet 00:00: mouth in [place] 00 the Medical morning. Branch For nephroprot ection DULoxetine 2022-0 Yes [id number] 60mg Take 1 [facility] 60 mg 2-14 capsule by [facility] of capsule 00:00: mouth in [place] 00 the Medical morning. Branch traZODone 2022-0 Yes [id number] 100mg Take 1 [facility] 100 mg 2-14 tablet by [facility] of tablet 00:00: mouth at [place] [address] bedtime. Medical Branch levocetiriz 2022-0 Yes [id number] 5mg Take 1 [facility] ine 5 mg 2-14 tablet by [facility] of tablet 00:00: mouth [place] 00 every Medical evening. Branch metFORMIN 2022-0 Yes [id number] 1000mg Take 1 [facility] 1,000 mg 2-14 tablet by [facility] of tablet 00:00: mouth in [place] 00 the Medical morning Branch and 1 tablet in the evening. Take with meals. lisinopriL 3-0 Yes [id number] 1.25mg Take 0.5 [facility] 2.5 mg 2-14 tablets by [facility] of tablet 00:00: mouth in [place] 00 the Medical morning. Branch For nephroprot ection DULoxetine 2022-0 Yes [id number] 60mg Take 1 [facility] 60 mg 2-14 capsule by [facility] of capsule 00:00: mouth in [place] 00 the Medical morning. Branch traZODone 2022-0 Yes [id number] 100mg Take 1 [facility] 100 mg 2-14 tablet by [facility] of tablet 00:00: mouth at [place] [address] bedtime. Medical Branch levocetiriz 2022-0 Yes [id number] 5mg Take 1 [facility] ine 5 mg 2-14 tablet by [facility] of tablet 00:00: mouth [place] 00 every Medical evening. Branch metFORMIN 2022-0 Yes [id number] 1000mg Take 1 [facility] 1,000 mg 2-14 tablet by [facility] of tablet 00:00: mouth in [place] 00 the Medical morning Branch and 1 tablet in the evening. Take with meals. lisinopriL 2022-0 Yes [id number] 1.25mg Take 0.5 [facility] 2.5 mg 2-14 tablets by [facility] of tablet 00:00: mouth in [place] 00 the Medical morning. Branch For nephroprot ection DULoxetine 2022-0 Yes [id number] 60mg Take 1 [facility] 60 mg 2-14 capsule by [facility] of capsule 00:00: mouth in [place] 00 the Medical morning. Branch traZODone 2022-0 Yes [id number] 100mg Take 1 [facility] 100 mg 2-14 tablet by [facility] of tablet 00:00: mouth at [place] [address] bedtime. Medical Branch levocetiriz 2022-0 Yes [id number] 5mg Take 1 [facility] ine 5 mg 2-14 tablet by it[facility] of tablet 00:00: mouth [place] 00 every Medical evening. Branch lisinopriL 2022-0 Yes [id number] 1.25mg Take 0.5 [facility] 2.5 mg 2-14 tablets by it[facility] of tablet 00:00: mouth in [place] 00 the Medical morning. Branch For nephroprot ection traZODone 2022-0 Yes [id number] 100mg Take 1 [facility] 100 mg 2-14 tablet by [facility] of tablet 00:00: mouth at [place] [address] bedtime. Medical Branch levocetiriz 2022-0 Yes [id number] 5mg Take 1 [facility] ine 5 mg 2-14 tablet by [facility] of tablet 00:00: mouth [place] 00 every Medical evening. Branch lisinopriL 2022-0 Yes [id number] 1.25mg Take 0.5 [facility] 2.5 mg 2-14 tablets by it[facility] of tablet 00:00: mouth in [place] 00 the Medical morning. Branch For nephroprot ection traZODone 2022-0 Yes [id number] 100mg Take 1 [facility] 100 mg 2-14 tablet by it[facility] of tablet 00:00: mouth at [place] 00 bedtime. Medical Branch levocetiriz 2022-0 Yes [id number] 5mg Take 1 [facility] ine 5 mg 2-14 tablet by [facility] of tablet 00:00: mouth [place] 00 every Medical evening. Branch lisinopriL 2022-0 Yes [id number] 1.25mg Take 0.5 [facility] 2.5 mg 2-14 tablets by [facility] of tablet 00:00: mouth in [place] 00 the Medical morning. Branch For nephroprot ection traZODone 2022-0 Yes [id number] 100mg Take 1 [facility] 100 mg 2-14 tablet by [facility] of tablet 00:00: mouth at [place] 00 bedtime. Medical Branch levocetiriz 2022-0 Yes [id number] 5mg Take 1 [facility] ine 5 mg 2-14 tablet by [facility] of tablet 00:00: mouth [place] 00 every Medical evening. Branch traZODone 2022-0 Yes [id number] 100mg Take 1 [facility] 100 mg 2-14 tablet by [facility] of tablet 00:00: mouth at [place] 00 bedtime. Medical Branch levocetiriz 2022-0 Yes [id number] 5mg Take 1 [facility] ine 5 mg 2-14 tablet by [facility] of tablet 00:00: mouth [place] 00 every Medical evening. Branch lisinopriL 2022-0 2022- No [id number] 1.25mg Take 0.5 [facility] 2.5 mg 2-14 06-30 tablets by [facility] of tablet 00:00: 00:00 mouth in [place] 00 :00 the Medical morning. Branch For nephroprot ection lisinopriL 2022-0 2022- No [id number] 1.25mg Take 0.5 [facility] 2.5 mg 2-14 06-30 tablets by [facility] of tablet 00:00: 00:00 mouth in [place] 00 :00 the Medical morning. Branch For nephroprot ection metFORMIN 2022-0 2022- No [id number] 1000mg Take 1 [facility] 1,000 mg 2-14 06-15 tablet by ity o f tablet 00:00: 00:00 mouth in [place] 00 :00 the Medical morning Branch and 1 tablet in the evening. Take with meals. DULoxetine 2022-2022- No [id number] 60mg Take 1 [facility] 60 mg 2-14 06-15 capsule by [facility] of capsule 00:00: 00:00 mouth in [place] 00 :00 the Medical morning. Branch metFORMIN 2022-3- No [id number] 1000mg Take 1 [facility] 1,000 mg 2-14 06-15 tablet by ity o f tablet 00:00: 00:00 mouth in [place] 00 :00 the Medical morning Branch and 1 tablet in the evening. Take with meals. DULoxetine 2022-2022- No [id number] 60mg Take 1 [facility] 60 mg 2-14 06-15 capsule by [facility] of capsule 00:00: 00:00 mouth in [place] 00 :00 the Medical morning. Branch metFORMIN 2022-2022- No [id number] 1000mg Take 1 [facility] 1,000 mg 2-14 06-15 tablet by ity o f tablet 00:00: 00:00 mouth in [place] 00 :00 the Medical morning Branch and 1 tablet in the evening. Take with meals. DULoxetine 2022-2022- No [id number] 60mg Take 1 [facility] 60 mg 2-14 06-15 capsule by [facility] of capsule 00:00: 00:00 mouth in [place] 00 :00 the Medical morning. Branch tirzepatide Yes [id number] 5mg inject 5 [facility] (MOUNJARO) 1-27 mg under ity o f 2.5 mg/0.5 00:00: the skin [place] as mL PnIj 00 weekly. Medical Branch tirzepatide Yes [id number] 5mg inject 5 [facility] (MOUNJARO) 1-27 mg under ity o f 2.5 mg/0.5 00:00: the skin [place] as mL PnIj 00 weekly. Medical Branch tirzepatide Yes [id number] 5mg inject 5 [facility] (MOUNJARO) 1-27 mg under ity o f 2.5 mg/0.5 00:00: the skin [place] as mL PnIj 00 weekly. Medical Branch tirzepatide Yes [id number] 5mg inject 5 [facility] (MOUNJARO) 1-27 mg under ity o f 2.5 mg/0.5 00:00: the skin [place] as mL PnIj 00 weekly. Medical Branch tirzepatide Yes [id number] 5mg inject 5 [facility] (MOUNJARO) 1-27 mg under ity o f 2.5 mg/0.5 00:00: the skin [place] as mL PnIj 00 weekly. Medical Branch tirzepatide Yes [id number] 5mg inject 5 [facility] (MOUNJARO) 1-27 mg under ity o f 2.5 mg/0.5 00:00: the skin [place] as mL PnIj 00 weekly. Medical Branch tirzepatide Yes [id number] 5mg inject 5 [facility] (MOUNJARO) 1-27 mg under ity o f 2.5 mg/0.5 00:00: the skin [place] as mL PnIj 00 weekly. Medical Branch tirzepatide Yes [id number] 5mg inject 5 [facility] (MOUNJARO) 1-27 mg under ity o f 2.5 mg/0.5 00:00: the skin [place] as mL PnIj 00 weekly. Medical Branch tirzepatide Yes [id number] 5mg inject 5 [facility] (MOUNJARO) 1-27 mg under ity o f 2.5 mg/0.5 00:00: the skin [place] as mL PnIj 00 weekly. Medical Branch tirzepatide Yes [id number] 5mg inject 5 [facility] (MOUNJARO) 1-27 mg under ity o f 2.5 mg/0.5 00:00: the skin [place] as mL PnIj 00 weekly. Medical Branch tirzepatide Yes [id number] 5mg inject 5 [facility] (MOUNJARO) 1-27 mg under ity o f 2.5 mg/0.5 00:00: the skin [place] as mL PnIj 00 weekly. Medical Branch tirzepatide Yes [id number] 5mg inject 5 [facility] (MOUNJARO) 1-27 mg under ity o f 2.5 mg/0.5 00:00: the skin [place] as mL PnIj 00 weekly. Medical Branch tirzepatide Yes [id number] 5mg inject 5 [facility] (MOUNJARO) 1-27 mg under ity o f 2.5 mg/0.5 00:00: the skin [place] as mL PnIj 00 weekly. Medical Branch tirzepatide Yes [id number] 5mg inject 5 [facility] (MOUNJARO) 1-27 mg under ity o f 2.5 mg/0.5 00:00: the skin [place] as mL PnIj 00 weekly. [facility] Branch tirzepatide Yes [id number] 5mg inject 5 [facility] (MOUNJARO) 1-27 mg under ity o f 2.5 mg/0.5 00:00: the skin [place] as mL PnIj 00 weekly. [facility] Branch tirzepatide Yes [id number] 5mg inject 5 [facility] (MOUNJARO) 1-27 mg under ity o f 2.5 mg/0.5 00:00: the skin [place] as mL PnIj 00 weekly. [facility] Branch tirzepatide 2022- No [id number] 5mg inject 5 [facility] (MOUNJARO) 1-27 03-27 mg under ity of 2.5 mg/0.5 00:00: 00:00 the skin [place] mL PnIj 00 :00 weekly. [facility] Branch tirzepatide 2022- No [id number] 5mg inject 5 [facility] (MOUNJARO) 1-27 03-27 mg under ity of 2.5 mg/0.5 00:00: 00:00 the skin [place] mL PnIj 00 :00 weekly. [facility] Branch tirzepatide 2022- No [id number] 5mg inject 5 [facility] (MOUNJARO) 1-27 03-27 mg under ity of 2.5 mg/0.5 00:00: 00:00 the skin [place] mL PnIj 00 :00 weekly. [facility] Branch tirzepatide 2022- No [id number] 5mg inject 5 [facility] (MOUNJARO) 1-27 03-27 mg under ity of 2.5 mg/0.5 00:00: 00:00 the skin [place] mL PnIj 00 :00 weekly. [facility] montelukast Yes [id number] 10mg Take 1 [facility] 10 mg 1-24 tablet by ity of tablet 00:00: mouth in [place] 00 the Medical morning. Branch tirzepatide 2022-0 Yes [id number] 5mg inject 5 [facility] (MOUNJARO) 1-24 mg under ity o f 2.5 mg/0.5 00:00: the skin [place] as mL PnIj 00 weekly. Medical Branch montelukast 2022-0 Yes [id number] 10mg Take 1 [facility] 10 mg 1-24 tablet by [facility] tablet 00:00: mouth in [place] 00 the Medical morning. Branch tirzepatide 2022-0 Yes [id number] 5mg inject 5 [facility] (MOUNJARO) 1-24 mg under ity o f 2.5 mg/0.5 00:00: the skin [place] as mL PnIj 00 weekly. Medical Branch montelukast 2022-0 Yes [id number] 10mg Take 1 [facility] 10 mg 1-24 tablet by [facility] of tablet 00:00: mouth in [place] the Medical morning. Branch montelukast 2022-0 Yes [id number] 10mg Take 1 [facility] 10 mg 1-24 tablet by [facility] of tablet 00:00: mouth in [place] the Medical morning. Branch montelukast 2022-0 Yes [id number] 10mg Take 1 [facility] 10 mg 1-24 tablet by [facility] of tablet 00:00: mouth in [place] the Medical morning. Branch montelukast 2022-0 Yes [id number] 10mg Take 1 [facility] 10 mg 1-24 tablet by [facility] of tablet 00:00: mouth in [place] the Medical morning. Branch montelukast 2022-0 Yes [id number] 10mg Take 1 [facility] 10 mg 1-24 tablet by [facility] of tablet 00:00: mouth in [place] the Medical morning. Branch montelukast 2022-0 Yes [id number] 10mg Take 1 [facility] 10 mg 1-24 tablet by [facility] of tablet 00:00: mouth in [place] the Medical morning. Branch montelukast 2022-0 Yes [id number] 10mg Take 1 [facility] 10 mg 1-24 tablet by [facility] of tablet 00:00: mouth in [place] 00 the Medical morning. Branch montelukast 2022-0 Yes [id number] 10mg Take 1 [facility] 10 mg 1-24 tablet by [facility] of tablet 00:00: mouth in [place] 00 the Medical morning. Branch montelukast 2022-0 Yes [id number] 10mg Take 1 [facility] 10 mg 1-24 tablet by [facility] of tablet 00:00: mouth in [place] 00 the Medical morning. Branch montelukast 2022-0 Yes [id number] 10mg Take 1 [facility] 10 mg 1-24 tablet by it[facility] of tablet 00:00: mouth in [place] 00 the Medical morning. Branch montelukast 2022-0 Yes [id number] 10mg Take 1 [facility] 10 mg 1-24 tablet by [facility] of tablet 00:00: mouth in [place] 00 the Medical morning. Branch montelukast 2022-0 Yes [id number] 10mg Take 1 [facility] 10 mg 1-24 tablet by it[facility] of tablet 00:00: mouth in [place] 00 the Medical morning. Branch montelukast 2022-0 Yes [id number] 10mg Take 1 [facility] 10 mg 1-24 tablet by [facility] of tablet 00:00: mouth in [place] 00 the Medical morning. Branch montelukast 2022-0 Yes [id number] 10mg Take 1 [facility] 10 mg 1-24 tablet by it[facility] of tablet 00:00: mouth in [place] 00 the Medical morning. Branch montelukast 2022-0 Yes [id number] 10mg Take 1 [facility] 10 mg 1-24 tablet by [facility] of tablet 00:00: mouth in [place] 00 the Medical morning. Branch montelukast 2022-0 Yes [id number] 10mg Take 1 [facility] 10 mg 1-24 tablet by [facility] of tablet 00:00: mouth in [place] 00 the Medical morning. Branch montelukast 2022-0 Yes [id number] 10mg Take 1 [facility] 10 mg 1-24 tablet by [facility] of tablet 00:00: mouth in [place] 00 the Medical morning. Branch montelukast 2022-0 Yes [id number] 10mg Take 1 [facility] 10 mg 1-24 tablet by [facility] of tablet 00:00: mouth in [place] 00 the Medical morning. Branch montelukast 2022-0 Yes [id number] 10mg Take 1 [facility] 10 mg 1-24 tablet by [facility] of tablet 00:00: mouth in [place] 00 the Medical morning. Branch montelukast 3-0 Yes [id number] 10mg Take 1 [facility] 10 mg 1-24 tablet by [facility] of tablet 00:00: mouth in [place] 00 the Medical morning. Branch montelukast 2022-0 Yes [id number] 10mg Take 1 [facility] 10 mg 1-24 tablet by [facility] of tablet 00:00: mouth in [place] 00 the Medical morning. Branch montelukast 2022-0 Yes [id number] 10mg Take 1 [facility] 10 mg 1-24 tablet by it[facility] of tablet 00:00: mouth in [place] 00 the Medical morning. Branch montelukast 2022-0 Yes [id number] 10mg Take 1 [facility] 10 mg 1-24 tablet by [facility] of tablet 00:00: mouth in [place] 00 the Medical morning. Branch montelukast 2022-0 Yes [id number] 10mg Take 1 [facility] 10 mg 1-24 tablet by [facility] of tablet 00:00: mouth in [place] 00 the Medical morning. Branch montelukast 2022-0 Yes [id number] 10mg Take 1 [facility] 10 mg 1-24 tablet by [facility] of tablet 00:00: mouth in [place] 00 the Medical morning. Branch montelukast 2022-0 Yes [id number] 10mg Take 1 [facility] 10 mg 1-24 tablet by [facility] of tablet 00:00: mouth in [place] 00 the Medical morning. Branch montelukast 2022-0 Yes [id number] 10mg Take 1 [facility] 10 mg 1-24 tablet by [facility] of tablet 00:00: mouth in [place] 00 the Medical morning. Branch montelukast 2022-0 Yes [id number] 10mg Take 1 [facility] 10 mg 1-24 tablet by [facility] of tablet 00:00: mouth in [place] 00 the Medical morning. Branch montelukast 2022-0 Yes [id number] 10mg Take 1 [facility] 10 mg 1-24 tablet by [facility] of tablet 00:00: mouth in [place] 00 the Medical morning. Branch montelukast 2022-0 Yes [id number] 10mg Take 1 [facility] 10 mg 1-24 tablet by [facility] of tablet 00:00: mouth in [place] 00 the Medical morning. Branch montelukast 2022-0 Yes [id number] 10mg Take 1 [facility] 10 mg 1-24 tablet by [facility] of tablet 00:00: mouth in [place] 00 the Medical morning. Branch montelukast 3-0 Yes [id number] 10mg Take 1 [facility] 10 mg 1-24 tablet by [facility] of tablet 00:00: mouth in [place] 00 the Medical morning. Branch tirzepatide 2022-2022- No [id number] 5mg inject 5 [facility] (MOUNJARO) 1-24 01-27 mg under [facility] of 2.5 mg/0.5 00:00: 00:00 the skin [place] mL PnIj 00 :00 weekly. Medical Branch glimepiride 2022-0 Yes [id number] 4mg Take 1 [facility] 4 mg tablet 1-23 tablet by it[facility] of 00:00: mouth [place] 00 daily with Medical breakfast. Branch DULoxetine 2022-0 Yes [id number] 30mg Take 1 [facility] 30 mg 1-23 capsule by [facility] of capsule 00:00: mouth [place] 00 every Medical morning. Branch glimepiride 2022-0 Yes [id number] 4mg Take 1 [facility] 4 mg tablet 1-23 tablet by ity of 00:00: mouth [place] 00 daily with Medical breakfast. Branch DULoxetine 2022-0 Yes [id number] 30mg Take 1 [facility] 30 mg 1-23 capsule by [facility] of capsule 00:00: mouth [place] 00 every Medical morning. Branch glimepiride 2022-0 Yes [id number] 4mg Take 1 [facility] 4 mg tablet 1-23 tablet by ity of 00:00: mouth [place] 00 daily with Medical breakfast. Branch DULoxetine 2022-0 Yes [id number] 30mg Take 1 [facility] 30 mg 1-23 capsule by it[facility] of capsule 00:00: mouth [place] 00 every Medical morning. Branch glimepiride 2022-0 Yes [id number] 4mg Take 1 [facility] 4 mg tablet 1-23 tablet by ity of 00:00: mouth [place] 00 daily with Medical breakfast. Branch DULoxetine 2022-0 Yes [id number] 30mg Take 1 [facility] 30 mg 1-23 capsule by it[facility] of capsule 00:00: mouth [place] 00 every Medical morning. Branch glimepiride 2022-0 Yes [id number] 4mg Take 1 [facility] 4 mg tablet 1-23 tablet by ity of 00:00: mouth [place] 00 daily with Medical breakfast. Branch DULoxetine 2022-0 Yes [id number] 30mg Take 1 [facility] 30 mg 1-23 capsule by it[facility] of capsule 00:00: mouth [place] 00 every Medical morning. Branch glimepiride 2022-0 Yes [id number] 4mg Take 1 [facility] 4 mg tablet 1-23 tablet by ity of 00:00: mouth [place] 00 daily with Medical breakfast. Branch DULoxetine 3-0 Yes [id number] 30mg Take 1 [facility] 30 mg 1-23 capsule by it[facility] of capsule 00:00: mouth [place] 00 every Medical morning. Branch glimepiride 3-0 Yes [id number] 4mg Take 1 [facility] 4 mg tablet 1-23 tablet by ity of 00:00: mouth [place] 00 daily with Medical breakfast. Branch DULoxetine 3-0 Yes [id number] 30mg Take 1 [facility] 30 mg 1-23 capsule by [facility] of capsule 00:00: mouth [place] 00 every Medical morning. Branch glimepiride 3-0 Yes [id number] 4mg Take 1 [facility] 4 mg tablet 1-23 tablet by ity of 00:00: mouth [place] 00 daily with Medical breakfast. Branch DULoxetine 3-0 Yes [id number] 30mg Take 1 [facility] 30 mg 1-23 capsule by it[facility] of capsule 00:00: mouth [place] 00 every Medical morning. Branch glimepiride 3-0 Yes [id number] 4mg Take 1 [facility] 4 mg tablet 1-23 tablet by ity of 00:00: mouth [place] 00 daily with Medical breakfast. Branch glimepiride 3-0 Yes [id number] 4mg Take 1 [facility] 4 mg tablet 1-23 tablet by ity of 00:00: mouth [place] 00 daily with Medical breakfast. Branch glimepiride 3-0 Yes [id number] 4mg Take 1 [facility] 4 mg tablet 1-23 tablet by it[facility] of 00:00: mouth [place] 00 daily with Medical breakfast. Branch glimepiride 3-0 Yes [id number] 4mg Take 1 [facility] 4 mg tablet 1-23 tablet by ity of 00:00: mouth [place] 00 daily with Medical breakfast. Branch glimepiride 3-0 Yes [id number] 4mg Take 1 [facility] 4 mg tablet 1-23 tablet by ity of 00:00: mouth [place] 00 daily with Medical breakfast. Branch glimepiride 3-0 Yes [id number] 4mg Take 1 [facility] 4 mg tablet 1-23 tablet by ity of 00:00: mouth [place] 00 daily with Medical breakfast. Branch glimepiride 3-0 Yes [id number] 4mg Take 1 [facility] 4 mg tablet 1-23 tablet by ity of 00:00: mouth [place] 00 daily with Medical breakfast. Branch glimepiride 3-0 Yes [id number] 4mg Take 1 [facility] 4 mg tablet 1-23 tablet by ity of 00:00: mouth [place] 00 daily with Medical breakfast. Branch glimepiride 3-0 Yes [id number] 4mg Take 1 [facility] 4 mg tablet 1-23 tablet by ity of 00:00: mouth [place] 00 daily with Medical breakfast. Branch glimepiride 3-0 Yes [id number] 4mg Take 1 [facility] 4 mg tablet 1-23 tablet by ity of 00:00: mouth [place] 00 daily with Medical breakfast. Branch glimepiride 3-0 Yes [id number] 4mg Take 1 [facility] 4 mg tablet 1-23 tablet by ity of 00:00: mouth [place] 00 daily with Medical breakfast. Branch glimepiride 2022-0 Yes [id number] 4mg Take 1 [facility] 4 mg tablet 1-23 tablet by ity of 00:00: mouth [place] 00 daily with Medical breakfast. Branch glimepiride 3-0 3- No [id number] 4mg Take 1 [facility] 4 mg tablet 1-23 -27 tablet by it y of 00:00: 00:00 mouth [place] 00 :00 daily with Medical breakfast. Branch glimepiride 3-0 3- No [id number] 4mg Take 1 [facility] 4 mg tablet 1-23 -27 tablet by it y of 00:00: 00:00 mouth [place] 00 :00 daily with Medical breakfast. Branch DULoxetine 3-0 3- No [id number] 30mg Take 1 [facility] 30 mg 1-23 02-14 capsule by ity of capsule 00:00: 00:00 mouth [place] 00 :00 every Medical morning. Branch DULoxetine 3-0 3- No [id number] 30mg Take 1 [facility] 30 mg 1-23 02-14 capsule by ity of capsule 00:00: 00:00 mouth [place] 00 :00 every Medical morning. Branch DULoxetine 3-0 3- No [id number] 30mg Take 1 [facility] 30 mg 1-23 02-14 capsule by ity of capsule 00:00: 00:00 mouth [place] 00 :00 every Medical morning. Branch SITagliptin 3-0 Yes [id number] 100mg Take 1 [facility] phosphate 1-15 tablet by ity o f (JANUVIA) 00:00: mouth [place] 100 mg 00 every Medical tablet morning. Branch SITagliptin 2023-0 Yes [id number] 100mg Take 1 [facility] phosphate 1-15 tablet by ity o f (IA) 00:00: mouth [place] 100 mg 00 every Medical tablet morning. Branch SITagliptin 2023-0 Yes [id number] 100mg Take 1 [facility] phosphate 1-15 tablet by ity o f (SEPUVIA) 00:00: mouth [place] 100 mg 00 every Medical tablet morning. Branch SITagliptin 2023-0 Yes [id number] 100mg Take 1 [facility] phosphate 1-15 tablet by ity o f (IA) 00:00: mouth [place] 100 mg 00 every Medical tablet morning. Branch SITagliptin 3-0 Yes [id number] 100mg Take 1 [facility] phosphate 1-15 tablet by ity o f (IA) 00:00: mouth [place] 100 mg 00 every Medical tablet morning. Branch SITagliptin 2023-0 Yes [id number] 100mg Take 1 [facility] phosphate 1-15 tablet by ity o f (IA) 00:00: mouth [place] 100 mg 00 every Medical tablet morning. Branch SITagliptin 2023-0 Yes [id number] 100mg Take 1 [facility] phosphate 1-15 tablet by ity o f (IA) 00:00: mouth [place] 100 mg 00 every Medical tablet morning. Branch SITagliptin 2023-0 Yes [id number] 100mg Take 1 [facility] phosphate 1-15 tablet by ity o f (IA) 00:00: mouth [place] 100 mg 00 every Medical tablet morning. Branch SITagliptin 2023-0 Yes [id number] 100mg Take 1 [facility] phosphate 1-15 tablet by ity o f (IA) 00:00: mouth [place] 100 mg 00 every Medical tablet morning. Branch SITagliptin 2023-0 Yes [id number] 100mg Take 1 [facility] phosphate 1-15 tablet by ity o f (IA) 00:00: mouth [place] 100 mg 00 every Medical tablet morning. Branch SITagliptin 2023-0 Yes [id number] 100mg Take 1 [facility] phosphate 1-15 tablet by ity o f (IA) 00:00: mouth [place] 100 mg 00 every Medical tablet morning. Branch SITagliptin 2023-0 Yes [id number] 100mg Take 1 [facility] phosphate 1-15 tablet by ity o f (IA) 00:00: mouth [place] 100 mg 00 every Medical tablet morning. Branch SITagliptin 3-0 Yes [id number] 100mg Take 1 [facility] phosphate 1-15 tablet by ity o f (IA) 00:00: mouth [place] 100 mg 00 every Medical tablet morning. Branch SITagliptin 3-0 Yes [id number] 100mg Take 1 [facility] phosphate 1-15 tablet by ity o f (IA) 00:00: mouth [place] 100 mg 00 every Medical tablet morning. Branch SITagliptin 3-0 Yes [id number] 100mg Take 1 [facility] phosphate 1-15 tablet by ity o f (IA) 00:00: mouth [place] 100 mg 00 every Medical tablet morning. Branch SITagliptin 3-0 Yes [id number] 100mg Take 1 [facility] phosphate 1-15 tablet by ity o f (IA) 00:00: mouth [place] 100 mg 00 every Medical tablet morning. Branch SITagliptin 3-0 Yes [id number] 100mg Take 1 [facility] phosphate 1-15 tablet by ity o f (IA) 00:00: mouth [place] 100 mg 00 every Medical tablet morning. Branch SITagliptin 3-0 Yes [id number] 100mg Take 1 [facility] phosphate 1-15 tablet by ity o f (IA) 00:00: mouth [place] 100 mg 00 every Medical tablet morning. Branch SITagliptin 3-0 Yes [id number] 100mg Take 1 [facility] phosphate 1-15 tablet by ity o f (IA) 00:00: mouth [place] 100 mg 00 every Medical tablet morning. Branch SITagliptin 3-0 Yes [id number] 100mg Take 1 [facility] phosphate 1-15 tablet by ity o f (IA) 00:00: mouth [place] 100 mg 00 every Medical tablet morning. Branch SITagliptin 3-0 Yes [id number] 100mg Take 1 [facility] phosphate 1-15 tablet by ity o f (IA) 00:00: mouth [place] 100 mg 00 every Medical tablet morning. Branch SITagliptin 2023-0 3- No [id number] 100mg Take 1 [facility] phosphate 1-15 -27 tablet by ity of (IA) 00:00: 00:00 mouth [place] 100 mg 00 :00 every Medical tablet morning. Branch SITagliptin 2023-0 3- No [id number] 100mg Take 1 [facility] phosphate 1-15 -27 tablet by ity of (JANUVIA) 00:00: 00:00 mouth [place] 100 mg 00 :00 every Medical tablet morning. [facility] 2021-09 Yes [id number] TAKE 1 [facility] mg tablet 2-29 TABLET BY ity o f 00:00: MOUTH [place] 00 EVERY DAY Medical IN THE [facility] 2021-09 Yes [id number] TAKE 1 [facility] mg tablet 2-29 TABLET BY ity o f 00:00: MOUTH [place] 00 EVERY DAY Medical IN THE [facility] 2021-09 Yes [id number] TAKE 1 [facility] mg tablet 2-29 TABLET BY ity o f 00:00: MOUTH [place] 00 EVERY DAY Medical IN THE [facility] 2021-09 Yes [id number] TAKE 1 [facility] mg tablet 2-29 TABLET BY ity o f 00:00: MOUTH [place] 00 EVERY DAY Medical IN THE [facility] 2021-09 Yes [id number] TAKE 1 [facility] mg tablet 2-29 TABLET BY ity o f 00:00: MOUTH [place] 00 EVERY DAY Medical IN THE [facility] 2021-09- No [id number] TAKE 1 [facility] mg tablet 2-29 01-15 TABLET BY ity of 00:00: 00:00 MOUTH [place] 00 :00 EVERY DAY Medical IN THE [facility] SITagliptin 2021-09 Yes [id number] 100mg Take 1 [facility] phosphate 2-13 tablet by ity o f (JANUVIA) 00:00: mouth [place] 100 mg 00 the Medical tablet morning. [place] SITagliptin 2021-09- No [id number] 100mg Take 1 [facility] phosphate 2-13 12-29 tablet by ity of (JANUVIA) 00:00: 00:00 mouth in [place] as 100 mg 00 :00 the Medical tablet morning. [place] SITagliptin 2021-09 Yes [id number] 100mg Take 1 [facility] (JANUVIA) 1-11 tablet by ity o f 100 mg 00:00: mouth in [place] tablet 00 the Medical morning. [place] SITagliptin 2021-09 Yes [id number] 100mg Take 1 [facility] (JANUVIA) 1-11 tablet by ity o f 100 mg 00:00: mouth in [place] tablet 00 the Medical morning. [place] SITagliptin 2021-09 Yes [id number] 100mg Take 1 [facility] (JANUVIA) 1-11 tablet by ity o f 100 mg 00:00: mouth in [place] tablet 00 the Medical morning. Branch SITagliptin 2021-09 Yes [id number] 100mg Take 1 [facility] (JANUVIA) 1-11 tablet by ity o f 100 mg 00:00: mouth in [place] tablet 00 the Medical morning. Branch SITagliptin 2021-09 Yes [id number] 100mg Take 1 [facility] (JANUVIA) 1-11 tablet by ity o f 100 mg 00:00: mouth in [place] tablet 00 the Medical morning. Branch SITagliptin 2021-09- No [id number] 100mg Take 1 [facility] (JANUVIA) 1-11 12-13 tablet by ity of 100 mg 00:00: 00:00 mouth in [place] tablet 00 :00 the Medical morning. Branch tirzepatide 2021-09 Yes [id number] 5mg inject 5 [facility] (MOUNJARO) 1-09 mg under ity o f 2.5 mg/0.5 00:00: the skin [place] as mL PnIj 00 weekly. Medical Branch tirzepatide 2021-09 Yes [id number] 5mg inject 5 [facility] (MOUNJARO) 1-09 mg under ity o f 2.5 mg/0.5 00:00: the skin [place] as mL PnIj 00 weekly. Medical Branch lisinopriL 2021-09 Yes [id number] 1.25mg Take 0.5 [facility] 2.5 mg 1-09 tablets by ity of tablet 00:00: mouth in [place] 00 the Medical morning. Branch For nephroprot ection tirzepatide 2021-09 Yes [id number] 5mg inject 5 [facility] (MOUNJARO) 1-09 mg under ity o f 2.5 mg/0.5 00:00: the skin [place] as mL PnIj 00 weekly. Medical Branch lisinopriL 2021-09 Yes [id number] 1.25mg Take 0.5 [facility] 2.5 mg 1-09 tablets by ity of tablet 00:00: mouth in [place] 00 the Medical morning. Branch For nephroprot ection tirzepatide 2021-09 Yes [id number] 5mg inject 5 [facility] (MOUNJARO) 1-09 mg under ity o f 2.5 mg/0.5 00:00: the skin [place] mL PnIj 00 weekly. Medical Branch lisinopriL 2021-09 Yes [id number] 1.25mg Take 0.5 [facility] 2.5 mg 1-09 tablets by ity of tablet 00:00: mouth in [place] 00 the Medical morning. Branch For nephroprot ection tirzepatide 2021-09 Yes [id number] 5mg inject 5 [facility] (MOUNJARO) 1-09 mg under ity o f 2.5 mg/0.5 00:00: the skin [place] as mL PnIj 00 weekly. Medical Branch lisinopriL 2021-09 Yes [id number] 1.25mg Take 0.5 [facility] 2.5 mg 1-09 tablets by ity of tablet 00:00: mouth in [place] 00 the Medical morning. Branch For nephroprot ection tirzepatide 2021-09 Yes [id number] 5mg inject 5 [facility] (MOUNJARO) 1-09 mg under ity o f 2.5 mg/0.5 00:00: the skin [place] as mL PnIj 00 weekly. Medical Branch lisinopriL 2021-09 Yes [id number] 1.25mg Take 0.5 [facility] 2.5 mg 1-09 tablets by ity of tablet 00:00: mouth in [place] the Medical morning. Branch For nephroprot ection tirzepatide 2021-09 Yes [id number] 5mg inject 5 [facility] (MOUNJARO) 1-09 mg under ity o f 2.5 mg/0.5 00:00: the skin [place] as mL PnIj 00 weekly. Medical Branch lisinopriL 2021-09 Yes [id number] 1.25mg Take 0.5 [facility] 2.5 mg 1-09 tablets by ity of tablet 00:00: mouth in [place] the morning. Branch For nephroprot ection tirzepatide 2021-09 Yes [id number] 5mg inject 5 [facility] (MOUNJARO) 1-09 mg under ity o f 2.5 mg/0.5 00:00: the skin [place] as mL PnIj 00 weekly. Medical Branch lisinopriL 2021-09 Yes [id number] 1.25mg Take 0.5 [facility] 2.5 mg 1-09 tablets by ity of tablet 00:00: mouth in [place] 00 the Medical morning. Branch For nephroprot ection tirzepatide 2021-09 Yes [id number] 5mg inject 5 [facility] (MOUNJARO) 1-09 mg under ity o f 2.5 mg/0.5 00:00: the skin [place] as mL PnIj 00 weekly. Medical Branch lisinopriL 2021-09 Yes [id number] 1.25mg Take 0.5 [facility] 2.5 mg 1-09 tablets by ity of tablet 00:00: mouth in [place] 00 the Medical morning. Branch For nephroprot ection tirzepatide 2021-09 Yes [id number] 5mg inject 5 [facility] (MOUNJARO) 1-09 mg under ity o f 2.5 mg/0.5 00:00: the skin [place] as mL PnIj 00 weekly. Medical Branch lisinopriL 2021-09 Yes [id number] 1.25mg Take 0.5 [facility] 2.5 mg 1-09 tablets by ity of tablet 00:00: mouth in [place] 00 the Medical morning. Branch For nephroprot ection tirzepatide 2021-09 Yes [id number] 5mg inject 5 [facility] (MOUNJARO) 1-09 mg under ity o f 2.5 mg/0.5 00:00: the skin [place] as mL PnIj 00 weekly. Medical Branch lisinopriL 2021-09 Yes [id number] 1.25mg Take 0.5 [facility] 2.5 mg 1-09 tablets by ity of tablet 00:00: mouth in [place] 00 the Medical morning. Branch For nephroprot ection tirzepatide 2021-09 Yes [id number] 5mg inject 5 [facility] (MOUNJARO) 1-09 mg under ity o f 2.5 mg/0.5 00:00: the skin [place] as mL PnIj 00 weekly. Medical Branch lisinopriL 2021-09 Yes [id number] 1.25mg Take 0.5 [facility] 2.5 mg 1-09 tablets by ity of tablet 00:00: mouth in [place] 00 the Medical morning. Branch For nephroprot ection tirzepatide 2021-09 Yes [id number] 5mg inject 5 [facility] (MOUNJARO) 1-09 mg under ity o f 2.5 mg/0.5 00:00: the skin [place] as mL PnIj 00 weekly. Medical Branch lisinopriL 2021-09 Yes [id number] 1.25mg Take 0.5 [facility] 2.5 mg 1-09 tablets by ity of tablet 00:00: mouth in [place] 00 the Medical morning. Branch For nephroprot ection tirzepatide 2021-09 Yes [id number] 5mg inject 5 [facility] (MOUNJARO) 1-09 mg under ity o f 2.5 mg/0.5 00:00: the skin [place] as mL PnIj 00 weekly. Medical Branch lisinopriL 2021-09 Yes [id number] 1.25mg Take 0.5 [facility] 2.5 mg 1-09 tablets by ity of tablet 00:00: mouth in [place] 00 the Medical morning. Branch For nephroprot ection tirzepatide 2021-09 Yes [id number] 5mg inject 5 [facility] (MOUNJARO) 1-09 mg under ity o f 2.5 mg/0.5 00:00: the skin [place] as mL PnIj 00 weekly. Medical Branch lisinopriL 2021-09 Yes [id number] 1.25mg Take 0.5 [facility] 2.5 mg 1-09 tablets by ity of tablet 00:00: mouth in [place] the Medical morning. Branch For nephroprot ection tirzepatide 2021-09 Yes [id number] 5mg inject 5 [facility] (MOUNJARO) 1-09 mg under ity o f 2.5 mg/0.5 00:00: the skin [place] as mL PnIj 00 weekly. Medical Branch lisinopriL 2021-09 Yes [id number] 1.25mg Take 0.5 [facility] 2.5 mg 1-09 tablets by ity of tablet 00:00: mouth in [place] the Medical morning. Branch For nephroprot ection lisinopriL 2021-09 Yes [id number] 1.25mg Take 0.5 [facility] 2.5 mg 1-09 tablets by ity of tablet 00:00: mouth in [place] 00 the Medical morning. Branch For nephroprot ection lisinopriL 2021-09 Yes [id number] 1.25mg Take 0.5 [facility] 2.5 mg 1-09 tablets by ity of tablet 00:00: mouth in [place] 00 the Medical morning. Branch For nephroprot ection lisinopriL 2021-09 Yes [id number] 1.25mg Take 0.5 [facility] 2.5 mg 1-09 tablets by ity of tablet 00:00: mouth in [place] 00 the Medical morning. Branch For nephroprot ection lisinopriL 2021-09 Yes [id number] 1.25mg Take 0.5 [facility] 2.5 mg -09 tablets by ity of tablet 00:00: mouth in [place] 00 the Medical morning. Branch For nephroprot ection lisinopriL 2021-09 Yes [id number] 1.25mg Take 0.5 [facility] 2.5 mg -09 tablets by ity of tablet 00:00: mouth in [place] 00 the Medical morning. Branch For nephroprot ection lisinopriL 2021-09 Yes [id number] 1.25mg Take 0.5 [facility] 2.5 mg -09 tablets by ity of tablet 00:00: mouth in [place] 00 the Medical morning. Branch For nephroprot ection lisinopriL 2021-09 Yes [id number] 1.25mg Take 0.5 [facility] 2.5 mg -09 tablets by ity of tablet 00:00: mouth in [place] 00 the Medical morning. Branch For nephroprot ection lisinopriL 2021-09- No [id number] 1.25mg Take 0.5 [facility] 2.5 mg 09-09 tablets by ity of tablet 00:00: 00:00 mouth in [place] 00 :00 the Medical morning. Branch For nephroprot ection lisinopriL 2021-09- No [id number] 1.25mg Take 0.5 [facility] 2.5 mg 09-09 tablets by ity of tablet 00:00: 00:00 mouth in [place] 00 :00 the Medical morning. Branch For nephroprot ection lisinopriL 2021-09- No [id number] 1.25mg Take 0.5 [facility] 2.5 mg 09-09 tablets by ity of tablet 00:00: 00:00 mouth in [place] 00 :00 the Medical morning. Branch For nephroprot ection tirzepatide 2021-09- No [id number] 5mg inject 5 [facility] (MOUNJARO) 09-09 01-24 mg under ity of 2.5 mg/0.5 00:00: 00:00 the skin [place] mL PnIj 00 :00 weekly. Medical Branch gabapentin 2021-09- No 1200mg Take 1,200 [facility] 600 mg 1-04 11-04 mg by ity of tablet 16:05: 00:00 mouth 3 [place] 51 :00 (three) Medical times Branch daily. topiramate 2021-09- No 100mg Take 100 U nivers 100 mg 1-04 11-04 mg by ity of tablet 16:05: 00:00 mouth [place] 51 :00 daily. Medical Branch gabapentin 2021-09- No 1200mg Take 1,200 [facility] 600 mg 1-04 11-04 mg by ity of tablet 16:05: 00:00 mouth 3 [place] 51 :00 (three) Medical times Branch daily. topiramate 2021-09 No 100mg Take 100 U nivers 100 mg 1-04 11-04 mg by ity of tablet 16:05: 00:00 mouth [place] 51 :00 daily. Medical Branch montelukast 2021-09 Yes [id number] 10mg Take 1 [facility] 10 mg 1-04 tablet by ity of tablet 00:00: mouth in [place] 00 the Medical morning. Branch metFORMIN 2021-09 Yes [id number] 1000mg Take 1 [facility] 1,000 mg 1-04 tablet by ity of tablet 00:00: mouth in [place] 00 the Medical morning Branch and 1 tablet in the evening. Take with meals. levocetiriz 2021-09 Yes [id number] 5mg Take 1 [facility] ine 5 mg 1-04 tablet by ity of tablet 00:00: mouth [place] 00 every Medical evening. Branch glimepiride 2021-09 Yes [id number] 4mg Take 1 [facility] 4 mg tablet 1-04 tablet by ity of 00:00: mouth [place] 00 daily with Medical breakfast. Branch ezetimibe 2021-09 Yes [id number] 10mg Take 1 U nivers 10 mg 1-04 tablet by ity of tablet 00:00: mouth in [place] 00 the Medical morning. Branch DULoxetine 2021-09 Yes [id number] 30mg Take 1 [facility] 30 mg 1-04 capsule by ity of capsule 00:00: mouth [place] 00 every Medical morning. Branch methocarbam 2021-09 Yes [id number] TAKE 1 [facility] o[facility] 750 mg 1-04 TABLET BY [facility] tablet 00:00: MOUTH 4 [place] 00 TIMES A Medical DAY Branch NEEDED FOR MUSCLE PAIN OR SPASM topiramate 2021-09 Yes [id number] 100mg Take 1 [facility] 100 mg 1-04 tablet by [facility] tablet 00:00: mouth in [place] 00 the Medical morning. Branch traZODone 2021-09 Yes [id number] 100mg Take 1 [facility] 100 mg 1-04 tablet by [facility] tablet 00:00: mouth at [place] 00 bedtime. Medical Branch gabapentin 2021-09 Yes [id number] 600mg Take 1 [facility] 600 mg 1-04 tablet by [facility] tablet 00:00: mouth in [place] 00 the Medical morning Branch and 1 tablet in the evening. montelukast 2021-09 Yes [id number] 10mg Take 1 [facility] 10 mg 1-04 tablet by [facility] tablet 00:00: mouth in [place] 00 the Medical morning. Branch metFORMIN 2021-09 Yes [id number] 1000mg Take 1 [facility] 1,000 mg 1-04 tablet by [facility] tablet 00:00: mouth in [place] 00 the Medical morning Branch and 1 tablet in the evening. Take with meals. levocetiriz 2021-09 Yes [id number] 5mg Take 1 [facility] in[facility] 5 mg 1-04 tablet by [facility] tablet 00:00: mouth [place] 00 every Medical evening. Branch glimepiride 2021-09 Yes [id number] 4mg Take 1 [facility] 4 mg tablet 1-04 tablet by [facility] 00:00: mouth [place] 00 daily with Medical breakfast. Branch ezetimibe 2021-09 Yes [id number] 10mg Take 1 [facility] 10 mg 1-04 tablet by [facility] tablet 00:00: mouth in [place] 00 the Medical morning. Branch DULoxetine 2021-09 Yes [id number] 30mg Take 1 [facility] 30 mg 1-04 capsule by [facility] capsule 00:00: mouth [place] 00 every Medical morning. Branch methocarbam 2021-09 Yes [id number] TAKE 1 [facility] oL 750 mg 1-04 TABLET BY [facility] tablet 00:00: MOUTH 4 [place] 00 TIMES A Medical DAY Branch NEEDED FOR MUSCLE PAIN OR SPASM topiramate 2021-09 Yes [id number] 100mg Take 1 [facility] 100 mg 1-04 tablet by [facility] tablet 00:00: mouth in [place] 00 the Medical morning. Branch traZODone 2021-09 Yes [id number] 100mg Take 1 [facility] 100 mg 1-04 tablet by [facility] tablet 00:00: mouth at [place] 00 bedtime. Medical Branch gabapentin 2021-09 Yes [id number] 600mg Take 1 [facility] 600 mg 1-04 tablet by [facility] tablet 00:00: mouth in [place] 00 the Medical morning Branch and 1 tablet in the evening. montelukast 2021-09 Yes [id number] 10mg Take 1 [facility] 10 mg 1-04 tablet by [facility] tablet 00:00: mouth in [place] 00 the Medical morning. Branch metFORMIN 2021-09 Yes [id number] 1000mg Take 1 [facility] 1,000 mg 1-04 tablet by [facility] tablet 00:00: mouth in [place] 00 the Medical morning Branch and 1 tablet in the evening. Take with meals. levocetiriz 2021-09 Yes [id number] 5mg Take 1 [facility] in[facility] 5 mg 1-04 tablet by [facility] tablet 00:00: mouth [place] 00 every Medical evening. Branch glimepiride 2021-09 Yes [id number] 4mg Take 1 [facility] 4 mg tablet 1-04 tablet by [facility] 00:00: mouth [place] 00 daily with Medical breakfast. Branch ezetimibe 2021-09 Yes [id number] 10mg Take 1 [facility] 10 mg 1-04 tablet by [facility] tablet 00:00: mouth in [place] 00 the Medical morning. Branch DULoxetine 2021-09 Yes [id number] 30mg Take 1 [facility] 30 mg 1-04 capsule by [facility] capsule 00:00: mouth [place] 00 every Medical morning. Branch methocarbam 2021-09 Yes [id number] TAKE 1 [facility] oL 750 mg 1-04 TABLET BY [facility] tablet 00:00: MOUTH 4 [place] 00 TIMES A Medical DAY Branch NEEDED FOR MUSCLE PAIN OR SPASM topiramate 2021-09 Yes [id number] 100mg Take 1 [facility] 100 mg 1-04 tablet by [facility] tablet 00:00: mouth in [place] 00 the Medical morning. Branch traZODone 2021-09 Yes [id number] 100mg Take 1 [facility] 100 mg 1-04 tablet by [facility] tablet 00:00: mouth at [place] 00 bedtime. Medical Branch gabapentin 2021-09 Yes [id number] 600mg Take 1 [facility] 600 mg 1-04 tablet by [facility] tablet 00:00: mouth in [place] 00 the Medical morning Branch and 1 tablet in the evening. montelukast 2021-09 Yes [id number] 10mg Take 1 [facility] 10 mg 1-04 tablet by [facility] tablet 00:00: mouth in [place] 00 the Medical morning. Branch metFORMIN 2021-09 Yes [id number] 1000mg Take 1 [facility] 1,000 mg 1-04 tablet by [facility] tablet 00:00: mouth in [place] 00 the Medical morning Branch and 1 tablet in the evening. Take with meals. levocetiriz 2021-09 Yes [id number] 5mg Take 1 [facility] in[facility] 5 mg 1-04 tablet by [facility] tablet 00:00: mouth [place] 00 every Medical evening. Branch glimepiride 2021-09 Yes [id number] 4mg Take 1 [facility] 4 mg tablet 1-04 tablet by [facility] 00:00: mouth [place] 00 daily with Medical breakfast. Branch ezetimibe 2021-09 Yes [id number] 10mg Take 1 [facility] 10 mg 1-04 tablet by [facility] tablet 00:00: mouth in [place] 00 the Medical morning. Branch DULoxetine 2021-09 Yes [id number] 30mg Take 1 [facility] 30 mg 1-04 capsule by [facility] capsule 00:00: mouth [place] 00 every Medical morning. Branch methocarbam 2021-09 Yes [id number] TAKE 1 [facility] oL 750 mg 1-04 TABLET BY [facility] tablet 00:00: MOUTH 4 [place] 00 TIMES A Medical DAY Branch NEEDED FOR MUSCLE PAIN OR SPASM topiramate 2021-09 Yes [id number] 100mg Take 1 [facility] 100 mg 1-04 tablet by [facility] tablet 00:00: mouth in [place] 00 the Medical morning. Branch traZODone 2021-09 Yes [id number] 100mg Take 1 [facility] 100 mg 1-04 tablet by [facility] tablet 00:00: mouth at [place] 00 bedtime. Medical Branch gabapentin 2021-09 Yes [id number] 600mg Take 1 [facility] 600 mg 1-04 tablet by [facility] tablet 00:00: mouth in [place] 00 the Medical morning Branch and 1 tablet in the evening. montelukast 2021-09 Yes [id number] 10mg Take 1 [facility] 10 mg 1-04 tablet by [facility] tablet 00:00: mouth in [place] 00 the Medical morning. Branch metFORMIN 2021-09 Yes [id number] 1000mg Take 1 [facility] 1,000 mg 1-04 tablet by [facility] tablet 00:00: mouth in [place] 00 the Medical morning Branch and 1 tablet in the evening. Take with meals. levocetiriz 2021-09 Yes [id number] 5mg Take 1 [facility] in[facility] 5 mg 1-04 tablet by [facility] tablet 00:00: mouth [place] 00 every Medical evening. Branch glimepiride 2021-09 Yes [id number] 4mg Take 1 [facility] 4 mg tablet 1-04 tablet by [facility] 00:00: mouth [place] 00 daily with Medical breakfast. Branch ezetimibe 2021-09 Yes [id number] 10mg Take 1 [facility] 10 mg 1-04 tablet by [facility] tablet 00:00: mouth in [place] 00 the Medical morning. Branch DULoxetine 2021-09 Yes [id number] 30mg Take 1 [facility] 30 mg 1-04 capsule by [facility] capsule 00:00: mouth [place] 00 every Medical morning. Branch methocarbam 2021-09 Yes [id number] TAKE 1 [facility] oL 750 mg 1-04 TABLET BY [facility] tablet 00:00: MOUTH 4 [place] 00 TIMES A Medical DAY Branch NEEDED FOR MUSCLE PAIN OR SPASM topiramate 2021-09 Yes [id number] 100mg Take 1 [facility] 100 mg 1-04 tablet by [facility] tablet 00:00: mouth in [place] 00 the Medical morning. Branch traZODone 2021-09 Yes [id number] 100mg Take 1 [facility] 100 mg 1-04 tablet by [facility] tablet 00:00: mouth at [place] 00 bedtime. Medical Branch gabapentin 2021-09 Yes [id number] 600mg Take 1 [facility] 600 mg 1-04 tablet by [facility] tablet 00:00: mouth in [place] 00 the Medical morning Branch and 1 tablet in the evening. montelukast 2021-09 Yes [id number] 10mg Take 1 [facility] 10 mg 1-04 tablet by [facility] tablet 00:00: mouth in [place] 00 the Medical morning. Branch metFORMIN 2021-09 Yes [id number] 1000mg Take 1 [facility] 1,000 mg 1-04 tablet by [facility] tablet 00:00: mouth in [place] 00 the Medical morning Branch and 1 tablet in the evening. Take with meals. levocetiriz 2021-09 Yes [id number] 5mg Take 1 [facility] in[facility] 5 mg 1-04 tablet by [facility] tablet 00:00: mouth [place] 00 every Medical evening. Branch glimepiride 2021-09 Yes [id number] 4mg Take 1 [facility] 4 mg tablet 1-04 tablet by [facility] 00:00: mouth [place] 00 daily with Medical breakfast. Branch ezetimibe 2021-09 Yes [id number] 10mg Take 1 [facility] 10 mg 1-04 tablet by [facility] tablet 00:00: mouth in [place] 00 the Medical morning. Branch DULoxetine 2021-09 Yes [id number] 30mg Take 1 [facility] 30 mg 1-04 capsule by [facility] capsule 00:00: mouth [place] 00 every Medical morning. Branch methocarbam 2021-09 Yes [id number] TAKE 1 [facility] oL 750 mg 1-04 TABLET BY [facility] tablet 00:00: MOUTH 4 [place] 00 TIMES A Medical DAY Branch NEEDED FOR MUSCLE PAIN OR SPASM topiramate 2021-09 Yes [id number] 100mg Take 1 [facility] 100 mg 1-04 tablet by [facility] tablet 00:00: mouth in [place] 00 the Medical morning. Branch traZODone 2021-09 Yes [id number] 100mg Take 1 [facility] 100 mg 1-04 tablet by [facility] tablet 00:00: mouth at [place] 00 bedtime. Medical Branch gabapentin 2021-09 Yes [id number] 600mg Take 1 [facility] 600 mg 1-04 tablet by [facility] tablet 00:00: mouth in [place] 00 the Medical morning Branch and 1 tablet in the evening. montelukast 2021-09 Yes [id number] 10mg Take 1 [facility] 10 mg 1-04 tablet by [facility] tablet 00:00: mouth in [place] 00 the Medical morning. Branch metFORMIN 2021-09 Yes [id number] 1000mg Take 1 [facility] 1,000 mg 1-04 tablet by [facility] tablet 00:00: mouth in [place] 00 the Medical morning Branch and 1 tablet in the evening. Take with meals. levocetiriz 2021-09 Yes [id number] 5mg Take 1 [facility] 5 mg 1-04 tablet by [facility] tablet 00:00: mouth [place] 00 every Medical evening. Branch ezetimibe 2021-09 Yes [id number] 10mg Take 1 [facility] 10 mg 1-04 tablet by [facility] tablet 00:00: mouth in [place] 00 the Medical morning. Branch methocarbam 2021-09 Yes [id number] TAKE 1 [facility] o[facility] 750 mg 1-04 TABLET BY [facility] tablet 00:00: MOUTH 4 [place] 00 TIMES A Medical DAY Branch NEEDED FOR MUSCLE PAIN OR SPASM topiramate 2021-09 Yes [id number] 100mg Take 1 [facility] 100 mg 1-04 tablet by [facility] tablet 00:00: mouth in [place] 00 the Medical morning. Branch traZODone 2021-09 Yes [id number] 100mg Take 1 [facility] 100 mg 1-04 tablet by [facility] tablet 00:00: mouth at [place] [address] bedtime. Medical Branch gabapentin 2021-09 Yes [id number] 600mg Take 1 [facility] 600 mg 1-04 tablet by [facility] tablet 00:00: mouth in [place] 00 the Medical morning Branch and 1 tablet in the evening. metFORMIN 2021-09 Yes [id number] 1000mg Take 1 [facility] 1,000 mg 1-04 tablet by [facility] tablet 00:00: mouth in [place] 00 the Medical morning Branch and 1 tablet in the evening. Take with meals. levocetiriz 2021-09 Yes [id number] 5mg Take 1 [facility] in[facility] 5 mg 1-04 tablet by [facility] tablet 00:00: mouth [place] 00 every Medical evening. Branch ezetimibe 2021-09 Yes [id number] 10mg Take 1 [facility] 10 mg 1-04 tablet by [facility] tablet 00:00: mouth in [place] 00 the Medical morning. Branch methocarbam 2021-09 Yes [id number] TAKE 1 [facility] oL 750 mg 1-04 TABLET BY [facility] tablet 00:00: MOUTH 4 [place] 00 TIMES A Medical DAY Branch NEEDED FOR MUSCLE PAIN OR SPASM topiramate 2021-09 Yes [id number] 100mg Take 1 [facility] 100 mg 1-04 tablet by [facility] tablet 00:00: mouth in [place] 00 the Medical morning. Branch traZODone 2021-09 Yes [id number] 100mg Take 1 [facility] 100 mg 1-04 tablet by [facility] tablet 00:00: mouth at [place] [address] bedtime. Medical Branch gabapentin 2021-09 Yes [id number] 600mg Take 1 [facility] 600 mg 1-04 tablet by [facility] tablet 00:00: mouth in [place] the Medical morning Branch and 1 tablet in the evening. metFORMIN 2021-09 Yes [id number] 1000mg Take 1 [facility] 1,000 mg 1-04 tablet by [facility] tablet 00:00: mouth in [place] the Medical morning Branch and 1 tablet in the evening. Take with meals. levocetiriz 2021-09 Yes [id number] 5mg Take 1 [facility] in[facility] 5 mg 1-04 tablet by [facility] tablet 00:00: mouth [place] 00 every Medical evening. Branch ezetimibe 2021-09 Yes [id number] 10mg Take 1 [facility] 10 mg 1-04 tablet by [facility] tablet 00:00: mouth in [place] 00 the Medical morning. Branch methocarbam 2021-09 Yes [id number] TAKE 1 [facility] oL 750 mg 1-04 TABLET BY [facility] tablet 00:00: MOUTH 4 [place] 00 TIMES A Medical DAY Branch NEEDED FOR MUSCLE PAIN OR SPASM topiramate 2021-09 Yes [id number] 100mg Take 1 [facility] 100 mg 1-04 tablet by [facility] tablet 00:00: mouth in [place] 00 the Medical morning. Branch traZODone 2021-09 Yes [id number] 100mg Take 1 [facility] 100 mg 1-04 tablet by [facility] tablet 00:00: mouth at [place] [address] bedtime. Medical Branch gabapentin 2021-09 Yes [id number] 600mg Take 1 [facility] 600 mg 1-04 tablet by [facility] tablet 00:00: mouth in [place] 00 the Medical morning Branch and 1 tablet in the evening. metFORMIN 2021-09 Yes [id number] 1000mg Take 1 [facility] 1,000 mg 1-04 tablet by [facility] tablet 00:00: mouth in [place] the Medical morning Branch and 1 tablet in the evening. Take with meals. levocetiriz 2021-09 Yes [id number] 5mg Take 1 [facility] in[facility] 5 mg 1-04 tablet by [facility] tablet 00:00: mouth [place] 00 every Medical evening. Branch ezetimibe 2021-09 Yes [id number] 10mg Take 1 [facility] 10 mg 1-04 tablet by [facility] tablet 00:00: mouth in [place] 00 the Medical morning. Branch methocarbam 2021-09 Yes [id number] TAKE 1 [facility] oL 750 mg 1-04 TABLET BY [facility] f tablet 00:00: MOUTH 4 [place] 00 TIMES A Medical DAY Branch NEEDED FOR MUSCLE PAIN OR SPASM topiramate 2021-09 Yes [id number] 100mg Take 1 [facility] 100 mg 1-04 tablet by [facility] tablet 00:00: mouth in [place] 00 the Medical morning. Branch traZODone 2021-09 Yes [id number] 100mg Take 1 [facility] 100 mg 1-04 tablet by [facility] tablet 00:00: mouth at [place] 00 bedtime. Medical Branch gabapentin 2021-09 Yes [id number] 600mg Take 1 [facility] 600 mg 1-04 tablet by [facility] tablet 00:00: mouth in [place] 00 the Medical morning Branch and 1 tablet in the evening. metFORMIN 2021-09 Yes [id number] 1000mg Take 1 [facility] 1,000 mg 1-04 tablet by [facility] tablet 00:00: mouth in [place] 00 the Medical morning Branch and 1 tablet in the evening. Take with meals. levocetiriz 2021-09 Yes [id number] 5mg Take 1 [facility] in[facility] 5 mg 1-04 tablet by [facility] tablet 00:00: mouth [place] 00 every Medical evening. Branch ezetimibe 2021-09 Yes [id number] 10mg Take 1 [facility] 10 mg 1-04 tablet by [facility] tablet 00:00: mouth in [place] 00 the Medical morning. Branch methocarbam 2021-09 Yes [id number] TAKE 1 [facility] oL 750 mg 1-04 TABLET BY [facility] f tablet 00:00: MOUTH 4 [place] 00 TIMES A Medical DAY Branch NEEDED FOR MUSCLE PAIN OR SPASM topiramate 2021-09 Yes [id number] 100mg Take 1 [facility] 100 mg 1-04 tablet by [facility] tablet 00:00: mouth in [place] 00 the Medical morning. Branch traZODone 2021-09 Yes [id number] 100mg Take 1 [facility] 100 mg 1-04 tablet by [facility] tablet 00:00: mouth at [place] 00 bedtime. Medical Branch gabapentin 2021-09 Yes [id number] 600mg Take 1 [facility] 600 mg 1-04 tablet by [facility] tablet 00:00: mouth in [place] 00 the Medical morning Branch and 1 tablet in the evening. metFORMIN 2021-09 Yes [id number] 1000mg Take 1 [facility] 1,000 mg 1-04 tablet by [facility] tablet 00:00: mouth in [place] 00 the Medical morning Branch and 1 tablet in the evening. Take with meals. levocetiriz 2021-09 Yes [id number] 5mg Take 1 [facility] 5 mg 1-04 tablet by [facility] tablet 00:00: mouth [place] 00 every Medical evening. Branch ezetimibe 2021-09 Yes [id number] 10mg Take 1 [facility] 10 mg 1-04 tablet by [facility] tablet 00:00: mouth in [place] 00 the Medical morning. Branch methocarbam 2021-09 Yes [id number] TAKE 1 [facility] oL 750 mg 1-04 TABLET BY [facility] o f tablet 00:00: MOUTH 4 [place] 00 TIMES A Medical DAY Branch NEEDED FOR MUSCLE PAIN OR SPASM topiramate 2021-09 Yes [id number] 100mg Take 1 [facility] 100 mg 1-04 tablet by [facility] tablet 00:00: mouth in [place] 00 the Medical morning. Branch traZODone 2021-09 Yes [id number] 100mg Take 1 [facility] 100 mg 1-04 tablet by [facility] tablet 00:00: mouth at [place] [address] bedtime. Medical Branch gabapentin 2021-09 Yes [id number] 600mg Take 1 [facility] 600 mg 1-04 tablet by [facility] tablet 00:00: mouth in [place] 00 the Medical morning Branch and 1 tablet in the evening. metFORMIN 2021-09 Yes [id number] 1000mg Take 1 [facility] 1,000 mg 1-04 tablet by [facility] tablet 00:00: mouth in [place] 00 the Medical morning Branch and 1 tablet in the evening. Take with meals. levocetiriz 2021-09 Yes [id number] 5mg Take 1 [facility] 5 mg 1-04 tablet by [facility] tablet 00:00: mouth [place] 00 every Medical evening. Branch ezetimibe 2021-09 Yes [id number] 10mg Take 1 [facility] 10 mg 1-04 tablet by [facility] tablet 00:00: mouth in [place] 00 the Medical morning. Branch methocarbam 2021-09 Yes [id number] TAKE 1 [facility] oL 750 mg 1-04 TABLET BY [facility] o f tablet 00:00: MOUTH 4 [place] 00 TIMES A Medical DAY Branch NEEDED FOR MUSCLE PAIN OR SPASM topiramate 2021-09 Yes [id number] 100mg Take 1 [facility] 100 mg 1-04 tablet by [facility] tablet 00:00: mouth in [place] 00 the Medical morning. Branch traZODone 2021-09 Yes [id number] 100mg Take 1 [facility] 100 mg 1-04 tablet by [facility] tablet 00:00: mouth at [place] [address] bedtime. Medical Branch gabapentin 2021-09 Yes [id number] 600mg Take 1 [facility] 600 mg 1-04 tablet by [facility] tablet 00:00: mouth in [place] 00 the Medical morning Branch and 1 tablet in the evening. metFORMIN 2021-09 Yes [id number] 1000mg Take 1 [facility] 1,000 mg 1-04 tablet by [facility] tablet 00:00: mouth in [place] 00 the Medical morning Branch and 1 tablet in the evening. Take with meals. levocetiriz 2021-09 Yes [id number] 5mg Take 1 [facility] 5 mg 1-04 tablet by [facility] tablet 00:00: mouth [place] 00 every Medical evening. Branch ezetimibe 2021-09 Yes [id number] 10mg Take 1 [facility] 10 mg 1-04 tablet by [facility] tablet 00:00: mouth in [place] 00 the Medical morning. Branch methocarbam 2021-09 Yes [id number] TAKE 1 [facility] oL 750 mg 1-04 TABLET BY [facility] o f tablet 00:00: MOUTH 4 [place] 00 TIMES A Medical DAY Branch NEEDED FOR MUSCLE PAIN OR SPASM topiramate 2021-09 Yes [id number] 100mg Take 1 [facility] 100 mg 1-04 tablet by [facility] tablet 00:00: mouth in [place] the Medical morning. Branch traZODone 2021-09 Yes [id number] 100mg Take 1 [facility] 100 mg 1-04 tablet by [facility] tablet 00:00: mouth at [place] [address] bedtime. Medical Branch gabapentin 2021-09 Yes [id number] 600mg Take 1 [facility] 600 mg 1-04 tablet by [facility] tablet 00:00: mouth in [place] the Medical morning Branch and 1 tablet in the evening. ezetimibe 2021-09 Yes [id number] 10mg Take 1 [facility] 10 mg 1-04 tablet by [facility] tablet 00:00: mouth in [place] the Medical morning. Branch methocarbam 2021-09 Yes [id number] TAKE 1 [facility] oL 750 mg 1-04 TABLET BY [facility] o f tablet 00:00: MOUTH 4 [place] 00 TIMES A Medical DAY Branch NEEDED FOR MUSCLE PAIN OR SPASM topiramate 2021-09 Yes [id number] 100mg Take 1 [facility] 100 mg 1-04 tablet by [facility] tablet 00:00: mouth in [place] 00 the Medical morning. Branch gabapentin 2021-09 Yes [id number] 600mg Take 1 [facility] 600 mg 1-04 tablet by [facility] tablet 00:00: mouth in [place] the Medical morning Branch and 1 tablet in the evening. ezetimibe 2021-09 Yes [id number] 10mg Take 1 [facility] 10 mg 1-04 tablet by [facility] tablet 00:00: mouth in [place] 00 the Medical morning. Branch methocarbam 2021-09 Yes [id number] TAKE 1 [facility] oL 750 mg 1-04 TABLET BY [facility] o f tablet 00:00: MOUTH 4 [place] 00 TIMES A Medical DAY Branch NEEDED FOR MUSCLE PAIN OR SPASM topiramate 2021-09 Yes [id number] 100mg Take 1 [facility] 100 mg 1-04 tablet by [facility] tablet 00:00: mouth in [place] 00 the Medical morning. Branch gabapentin 2021-09 Yes [id number] 600mg Take 1 [facility] 600 mg 1-04 tablet by [facility] tablet 00:00: mouth in [place] 00 the Medical morning Branch and 1 tablet in the evening. ezetimibe 2021-09 Yes [id number] 10mg Take 1 [facility] 10 mg 1-04 tablet by [facility] tablet 00:00: mouth in [place] 00 the Medical morning. Branch methocarbam 2021-09 Yes [id number] TAKE 1 [facility] oL 750 mg 1-04 TABLET BY [facility] o f tablet 00:00: MOUTH 4 [place] 00 TIMES A Medical DAY Branch NEEDED FOR MUSCLE PAIN OR SPASM topiramate 2021-09 Yes [id number] 100mg Take 1 [facility] 100 mg 1-04 tablet by [facility] tablet 00:00: mouth in [place] 00 the Medical morning. Branch gabapentin 2021-09 Yes [id number] 600mg Take 1 [facility] 600 mg 1-04 tablet by [facility] tablet 00:00: mouth in [place] the Medical morning Branch and 1 tablet in the evening. ezetimibe 2021-09 Yes [id number] 10mg Take 1 [facility] 10 mg 1-04 tablet by [facility] tablet 00:00: mouth in [place] 00 the Medical morning. Branch methocarbam 2021-09 Yes [id number] TAKE 1 [facility] oL 750 mg 1-04 TABLET BY [facility] o f tablet 00:00: MOUTH 4 [place] 00 TIMES A Medical DAY Branch NEEDED FOR MUSCLE PAIN OR SPASM topiramate 2021-09 Yes [id number] 100mg Take 1 [facility] 100 mg 1-04 tablet by [facility] tablet 00:00: mouth in [place] 00 the Medical morning. Branch gabapentin 2021-09 Yes [id number] 600mg Take 1 [facility] 600 mg 1-04 tablet by [facility] tablet 00:00: mouth in [place] 00 the Medical morning Branch and 1 tablet in the evening. ezetimibe 2021-09 Yes [id number] 10mg Take 1 [facility] 10 mg 1-04 tablet by [facility] tablet 00:00: mouth in [place] the Medical morning. Branch methocarbam 2021-09 Yes [id number] TAKE 1 [facility] oL 750 mg 1-04 TABLET BY [facility] f tablet 00:00: MOUTH 4 [place] 00 TIMES A Medical DAY Branch NEEDED FOR MUSCLE PAIN OR SPASM topiramate 2021-09 Yes [id number] 100mg Take 1 [facility] 100 mg 1-04 tablet by [facility] tablet 00:00: mouth in [place] the Medical morning. Branch gabapentin 2021-09 Yes [id number] 600mg Take 1 [facility] 600 mg 1-04 tablet by [facility] tablet 00:00: mouth in [place] the Medical morning Branch and 1 tablet in the evening. ezetimibe 2021-09 Yes [id number] 10mg Take 1 [facility] 10 mg 1-04 tablet by [facility] tablet 00:00: mouth in [place] the Medical morning. Branch methocarbam 2021-09 Yes [id number] TAKE 1 [facility] o[facility] 750 mg 1-04 TABLET BY [facility] f tablet 00:00: MOUTH 4 [place] 00 TIMES A Medical DAY Branch NEEDED FOR MUSCLE PAIN OR SPASM topiramate 2021-09 Yes [id number] 100mg Take 1 [facility] 100 mg 1-04 tablet by [facility] tablet 00:00: mouth in [place] the Medical morning. Branch gabapentin 2021-09 Yes [id number] 600mg Take 1 [facility] 600 mg 1-04 tablet by [facility] tablet 00:00: mouth in [place] the Medical morning Branch and 1 tablet in the evening. ezetimibe 2021-09 Yes [id number] 10mg Take 1 [facility] 10 mg 1-04 tablet by [facility] tablet 00:00: mouth in [place] the Medical morning. Branch methocarbam 2021-09 Yes [id number] TAKE 1 [facility] o[facility] 750 mg 1-04 TABLET BY [facility] o f tablet 00:00: MOUTH 4 [place] 00 TIMES A Medical DAY Branch NEEDED FOR MUSCLE PAIN OR SPASM topiramate 2021-09 Yes [id number] 100mg Take 1 [facility] 100 mg 1-04 tablet by [facility] tablet 00:00: mouth in [place] 00 the Medical morning. Branch gabapentin 2021-09 Yes [id number] 600mg Take 1 [facility] 600 mg 1-04 tablet by [facility] tablet 00:00: mouth in [place] the Medical morning Branch and 1 tablet in the evening. ezetimibe 2021-09 Yes [id number] 10mg Take 1 [facility] 10 mg 1-04 tablet by [facility] tablet 00:00: mouth in [place] 00 the Medical morning. Branch methocarbam 2021-09 Yes [id number] TAKE 1 [facility] oL 750 mg 1-04 TABLET BY [facility] o f tablet 00:00: MOUTH 4 [place] 00 TIMES A Medical DAY Branch NEEDED FOR MUSCLE PAIN OR SPASM topiramate 2021-09 Yes [id number] 100mg Take 1 [facility] 100 mg 1-04 tablet by [facility] tablet 00:00: mouth in [place] 00 the Medical morning. Branch gabapentin 2021-09 Yes [id number] 600mg Take 1 [facility] 600 mg 1-04 tablet by [facility] tablet 00:00: mouth in [place] the Medical morning Branch and 1 tablet in the evening. ezetimibe 2021-09 Yes [id number] 10mg Take 1 [facility] 10 mg 1-04 tablet by [facility] tablet 00:00: mouth in [place] 00 the Medical morning. Branch methocarbam 2021-09 Yes [id number] TAKE 1 [facility] oL 750 mg 1-04 TABLET BY [facility] o f tablet 00:00: MOUTH 4 [place] 00 TIMES A Medical DAY Branch NEEDED FOR MUSCLE PAIN OR SPASM topiramate 2021-09 Yes [id number] 100mg Take 1 [facility] 100 mg 1-04 tablet by [facility] tablet 00:00: mouth in [place] 00 the Medical morning. Branch gabapentin 2021-09 Yes [id number] 600mg Take 1 [facility] 600 mg 1-04 tablet by [facility] tablet 00:00: mouth in [place] the Medical morning Branch and 1 tablet in the evening. ezetimibe 2021-09 Yes [id number] 10mg Take 1 [facility] 10 mg 1-04 tablet by [facility] tablet 00:00: mouth in [place] 00 the Medical morning. Branch methocarbam 2021-09 Yes [id number] TAKE 1 [facility] oL 750 mg 1-04 TABLET BY [facility] o f tablet 00:00: MOUTH 4 [place] 00 TIMES A Medical DAY Branch NEEDED FOR MUSCLE PAIN OR SPASM topiramate 2021-09 Yes [id number] 100mg Take 1 [facility] 100 mg 1-04 tablet by [facility] tablet 00:00: mouth in [place] the Medical morning. Branch gabapentin 2021-09 Yes [id number] 600mg Take 1 [facility] 600 mg 1-04 tablet by [facility] tablet 00:00: mouth in [place] the Medical morning Branch and 1 tablet in the evening. ezetimibe 2021-09 Yes [id number] 10mg Take 1 [facility] 10 mg 1-04 tablet by [facility] tablet 00:00: mouth in [place] 00 the Medical morning. Branch methocarbam 2021-09 Yes [id number] TAKE 1 [facility] oL 750 mg 1-04 TABLET BY [facility] o f tablet 00:00: MOUTH 4 [place] TIMES A Medical DAY Branch NEEDED FOR MUSCLE PAIN OR SPASM topiramate 2021-09 Yes [id number] 100mg Take 1 [facility] 100 mg 1-04 tablet by [facility] tablet 00:00: mouth in [place] the Medical morning. Branch gabapentin 2021-09 Yes [id number] 600mg Take 1 [facility] 600 mg 1-04 tablet by [facility] tablet 00:00: mouth in [place] the Medical morning Branch and 1 tablet in the evening. ezetimibe 2021-09 Yes [id number] 10mg Take 1 [facility] 10 mg 1-04 tablet by [facility] tablet 00:00: mouth in [place] the Medical morning. Branch methocarbam 2021-09 Yes [id number] TAKE 1 [facility] oL 750 mg 1-04 TABLET BY [facility] tablet 00:00: MOUTH 4 [place] TIMES A Medical DAY Branch NEEDED FOR MUSCLE PAIN OR SPASM topiramate 2021-09 Yes [id number] 100mg Take 1 [facility] 100 mg 1-04 tablet by [facility] tablet 00:00: mouth in [place] the Medical morning. Branch gabapentin 2021-09 Yes [id number] 600mg Take 1 [facility] 600 mg 1-04 tablet by [facility] tablet 00:00: mouth in [place] the Medical morning Branch and 1 tablet in the evening. ezetimibe 2021-09 Yes [id number] 10mg Take 1 [facility] 10 mg 1-04 tablet by [facility] tablet 00:00: mouth in [place] the Medical morning. Branch methocarbam 2021-09 Yes [id number] TAKE 1 [facility] oL 750 mg 1-04 TABLET BY [facility] tablet 00:00: MOUTH 4 [place] 00 TIMES A Medical DAY Branch NEEDED FOR MUSCLE PAIN OR SPASM topiramate 2021-09 Yes [id number] 100mg Take 1 [facility] 100 mg 1-04 tablet by [facility] tablet 00:00: mouth in [place] 00 the Medical morning. Branch gabapentin 2021-09 Yes [id number] 600mg Take 1 [facility] 600 mg 1-04 tablet by [facility] tablet 00:00: mouth in [place] 00 the Medical morning Branch and 1 tablet in the evening. ezetimibe 2021-09 Yes [id number] 10mg Take 1 [facility] 10 mg 1-04 tablet by [facility] tablet 00:00: mouth in [place] 00 the Medical morning. Branch methocarbam 2021-09 Yes [id number] TAKE 1 [facility] oL 750 mg 1-04 TABLET BY [facility] tablet 00:00: MOUTH 4 [place] 00 TIMES A Medical DAY Branch NEEDED FOR MUSCLE PAIN OR SPASM topiramate 2021-09 Yes [id number] 100mg Take 1 [facility] 100 mg 1-04 tablet by [facility] tablet 00:00: mouth in [place] 00 the Medical morning. Branch gabapentin 2021-09 Yes [id number] 600mg Take 1 [facility] 600 mg 1-04 tablet by [facility] tablet 00:00: mouth in [place] the Medical morning Branch and 1 tablet in the evening. ezetimibe 2021-09 Yes [id number] 10mg Take 1 [facility] 10 mg 1-04 tablet by [facility] tablet 00:00: mouth in [place] 00 the Medical morning. Branch methocarbam 2021-09 Yes [id number] TAKE 1 [facility] oL 750 mg 1-04 TABLET BY [facility] tablet 00:00: MOUTH 4 [place] 00 TIMES A Medical DAY Branch NEEDED FOR MUSCLE PAIN OR SPASM topiramate 2021-09 Yes [id number] 100mg Take 1 [facility] 100 mg 1-04 tablet by [facility] tablet 00:00: mouth in [place] 00 the Medical morning. Branch gabapentin 2021-09 Yes [id number] 600mg Take 1 [facility] 600 mg 1-04 tablet by [facility] tablet 00:00: mouth in [place] the Medical morning Branch and 1 tablet in the evening. ezetimibe 2021-09 Yes [id number] 10mg Take 1 [facility] 10 mg 1-04 tablet by [facility] tablet 00:00: mouth in [place] 00 the Medical morning. Branch methocarbam 2021-09 Yes [id number] TAKE 1 [facility] o[facility] 750 mg 1-04 TABLET BY [facility] tablet 00:00: MOUTH 4 [place] 00 TIMES A Medical DAY Branch NEEDED FOR MUSCLE PAIN OR SPASM topiramate 2021-09 Yes [id number] 100mg Take 1 [facility] 100 mg 1-04 tablet by [facility] tablet 00:00: mouth in [place] 00 the Medical morning. Branch gabapentin 2021-09 Yes [id number] 600mg Take 1 [facility] 600 mg 1-04 tablet by [facility] tablet 00:00: mouth in [place] 00 the Medical morning Branch and 1 tablet in the evening. ezetimibe 2021-09 Yes [id number] 10mg Take 1 [facility] 10 mg 1-04 tablet by [facility] tablet 00:00: mouth in [place] 00 the Medical morning. Branch methocarbam 2021-09 Yes [id number] TAKE 1 [facility] oL 750 mg 1-04 TABLET BY [facility] tablet 00:00: MOUTH 4 [place] 00 TIMES A Medical DAY Branch NEEDED FOR MUSCLE PAIN OR SPASM topiramate 2021-09 Yes [id number] 100mg Take 1 [facility] 100 mg 1-04 tablet by [facility] tablet 00:00: mouth in [place] 00 the Medical morning. Branch gabapentin 2021-09 Yes [id number] 600mg Take 1 [facility] 600 mg 1-04 tablet by [facility] tablet 00:00: mouth in [place] the Medical morning Branch and 1 tablet in the evening. ezetimibe 2021-09 Yes [id number] 10mg Take 1 [facility] 10 mg 1-04 tablet by [facility] tablet 00:00: mouth in [place] 00 the Medical morning. Branch methocarbam 2021-09 Yes [id number] TAKE 1 [facility] oL 750 mg 1-04 TABLET BY [facility] tablet 00:00: MOUTH 4 [place] 00 TIMES A Medical DAY Branch NEEDED FOR MUSCLE PAIN OR SPASM topiramate 2021-09 Yes [id number] 100mg Take 1 [facility] 100 mg 1-04 tablet by [facility] tablet 00:00: mouth in [place] 00 the Medical morning. Branch gabapentin 2021-09 Yes [id number] 600mg Take 1 [facility] 600 mg 1-04 tablet by [facility] tablet 00:00: mouth in [place] 00 the Medical morning Branch and 1 tablet in the evening. ezetimibe 2021-09 Yes [id number] 10mg Take 1 [facility] 10 mg 1-04 tablet by [facility] tablet 00:00: mouth in [place] 00 the Medical morning. Branch methocarbam 2021-09 Yes [id number] TAKE 1 [facility] oL 750 mg 1-04 TABLET BY [facility] f tablet 00:00: MOUTH 4 [place] 00 TIMES A Medical DAY Branch NEEDED FOR MUSCLE PAIN OR SPASM topiramate 2021-09 Yes [id number] 100mg Take 1 [facility] 100 mg 1-04 tablet by [facility] tablet 00:00: mouth in [place] the Medical morning. Branch gabapentin 2021-09 Yes [id number] 600mg Take 1 [facility] 600 mg 1-04 tablet by [facility] tablet 00:00: mouth in [place] the Medical morning Branch and 1 tablet in the evening. ezetimibe 2021-09 Yes [id number] 10mg Take 1 [facility] 10 mg 1-04 tablet by [facility] tablet 00:00: mouth in [place] the Medical morning. Branch methocarbam 2021-09 Yes [id number] TAKE 1 [facility] oL 750 mg 1-04 TABLET BY [facility] tablet 00:00: MOUTH 4 [place] 00 TIMES A Medical DAY Branch NEEDED FOR MUSCLE PAIN OR SPASM topiramate 2021-09 Yes [id number] 100mg Take 1 [facility] 100 mg 1-04 tablet by [facility] tablet 00:00: mouth in [place] the Medical morning. Branch gabapentin 2021-09 Yes [id number] 600mg Take 1 [facility] 600 mg 1-04 tablet by [facility] tablet 00:00: mouth in [place] the Medical morning Branch and 1 tablet in the evening. ezetimibe 2021-09 Yes [id number] 10mg Take 1 [facility] 10 mg 1-04 tablet by [facility] tablet 00:00: mouth in [place] 00 the Medical morning. Branch methocarbam 2021-09 Yes [id number] TAKE 1 [facility] o[facility] 750 mg 1-04 TABLET BY [facility] f tablet 00:00: MOUTH 4 [place] 00 TIMES A Medical DAY Branch NEEDED FOR MUSCLE PAIN OR SPASM gabapentin 2021-09 Yes [id number] 600mg Take 1 [facility] 600 mg 1-04 tablet by [facility] tablet 00:00: mouth in [place] 00 the Medical morning Branch and 1 tablet in the evening. ezetimibe 2021-09 Yes [id number] 10mg Take 1 [facility] 10 mg 1-04 tablet by [facility] tablet 00:00: mouth in [place] 00 the Medical morning. Branch methocarbam 2021-09 Yes [id number] TAKE 1 [facility] oL 750 mg 1-04 TABLET BY [facility] tablet 00:00: MOUTH 4 [place] 00 TIMES A Medical DAY Branch NEEDED FOR MUSCLE PAIN OR SPASM gabapentin 2021-09 Yes [id number] 600mg Take 1 [facility] 600 mg 1-04 tablet by [facility] tablet 00:00: mouth in [place] 00 the Medical morning Branch and 1 tablet in the evening. ezetimibe 2021-09 Yes [id number] 10mg Take 1 [facility] 10 mg 1-04 tablet by [facility] tablet 00:00: mouth in [place] 00 the Medical morning. Branch methocarbam 2021-09 Yes [id number] TAKE 1 [facility] o[facility] 750 mg 1-04 TABLET BY [facility] f tablet 00:00: MOUTH 4 [place] 00 TIMES A Medical DAY Branch NEEDED FOR MUSCLE PAIN OR SPASM gabapentin 2021-09 Yes [id number] 600mg Take 1 [facility] 600 mg 1-04 tablet by [facility] tablet 00:00: mouth in [place] 00 the Medical morning Branch and 1 tablet in the evening. ezetimibe 2021-09 Yes [id number] 10mg Take 1 [facility] 10 mg 1-04 tablet by [facility] tablet 00:00: mouth in [place] 00 the Medical morning. Branch methocarbam 2021-09 Yes [id number] TAKE 1 [facility] o[facility] 750 mg 1-04 TABLET BY [facility] tablet 00:00: MOUTH 4 [place] 00 TIMES A Medical DAY Branch NEEDED FOR MUSCLE PAIN OR SPASM gabapentin 2021-09 Yes [id number] 600mg Take 1 [facility] 600 mg 1-04 tablet by [facility] tablet 00:00: mouth in [place] 00 the Medical morning Branch and 1 tablet in the evening. ezetimibe 2021-09 Yes [id number] 10mg Take 1 [facility] 10 mg 1-04 tablet by [facility] tablet 00:00: mouth in [place] 00 the Medical morning. Branch methocarbam 2021-09 Yes [id number] TAKE 1 [facility] oL 750 mg 1-04 TABLET BY [facility] tablet 00:00: MOUTH 4 [place] 00 TIMES A Medical DAY Branch NEEDED FOR MUSCLE PAIN OR SPASM gabapentin 2021-09 Yes [id number] 600mg Take 1 [facility] 600 mg 1-04 tablet by [facility] tablet 00:00: mouth in [place] 00 the Medical morning Branch and 1 tablet in the evening. ezetimibe 2021-09 Yes [id number] 10mg Take 1 [facility] 10 mg 1-04 tablet by [facility] tablet 00:00: mouth in [place] 00 the Medical morning. Branch methocarbam 2021-09 Yes [id number] TAKE 1 [facility] oL 750 mg 1-04 TABLET BY [facility] f tablet 00:00: MOUTH 4 [place] 00 TIMES A Medical DAY Branch NEEDED FOR MUSCLE PAIN OR SPASM gabapentin 2021-09 Yes [id number] 600mg Take 1 [facility] 600 mg 1-04 tablet by [facility] tablet 00:00: mouth in [place] 00 the Medical morning Branch and 1 tablet in the evening. ezetimibe 2021-09 Yes [id number] 10mg Take 1 [facility] 10 mg 1-04 tablet by [facility] tablet 00:00: mouth in [place] 00 the Medical morning. Branch methocarbam 2021-09 Yes [id number] TAKE 1 [facility] oL 750 mg 1-04 TABLET BY [facility] f tablet 00:00: MOUTH 4 [place] 00 TIMES A Medical DAY Branch NEEDED FOR MUSCLE PAIN OR SPASM gabapentin 2021-09 Yes [id number] 600mg Take 1 [facility] 600 mg 1-04 tablet by [facility] tablet 00:00: mouth in [place] the Medical morning Branch and 1 tablet in the evening. montelukast 2021-09 Yes [id number] 10mg Take 1 [facility] 10 mg 1-04 tablet by [facility] tablet 00:00: mouth in [place] 00 the Medical morning. Branch metFORMIN 2021-09 Yes [id number] 1000mg Take 1 [facility] 1,000 mg 1-04 tablet by [facility] tablet 00:00: mouth in [place] 00 the Medical morning Branch and 1 tablet in the evening. Take with meals. lisinopriL 2021-09 Yes [id number] 2.5mg Take 1 [facility] 2.5 mg 1-04 tablet by [facility] tablet 00:00: mouth in [place] 00 the Medical morning. Branch For nephroprot ection levocetiriz 2021-09 Yes [id number] 5mg Take 1 [facility] ine 5 mg 1-04 tablet by [facility] tablet 00:00: mouth [place] 00 every Medical evening. Branch SITagliptin 2021-09 Yes [id number] 100mg Take 1 [facility] (JANUVIA) 1-04 tablet by [facility] o f 100 mg 00:00: mouth in [place] tablet 00 the Medical morning. Branch glimepiride 2021-09 Yes [id number] 4mg Take 1 [facility] 4 mg tablet 1-04 tablet by [facility] of 00:00: mouth [place] 00 daily with Medical breakfast. Branch ezetimibe 2021-09 Yes [id number] 10mg Take 1 [facility] 10 mg 1-04 tablet by [facility] tablet 00:00: mouth in [place] 00 the Medical morning. Branch DULoxetine 2021-09 Yes [id number] 30mg Take 1 [facility] 30 mg 1-04 capsule by [facility] capsule 00:00: mouth [place] 00 every Medical morning. Branch methocarbam 2021-09 Yes [id number] TAKE 1 [facility] oL 750 mg 1-04 TABLET BY [facility] o f tablet 00:00: MOUTH 4 [place] 00 TIMES A Medical DAY Branch NEEDED FOR MUSCLE PAIN OR SPASM topiramate 2021-09 Yes [id number] 100mg Take 1 [facility] 100 mg 1-04 tablet by [facility] tablet 00:00: mouth in [place] 00 the Medical morning. Branch traZODone 2021-09 Yes [id number] 100mg Take 1 [facility] 100 mg 1-04 tablet by [facility] tablet 00:00: mouth at [place] 00 bedtime. Medical Branch gabapentin 2021-09 Yes [id number] 600mg Take 1 [facility] 600 mg 1-04 tablet by [facility] tablet 00:00: mouth in [place] 00 the Medical morning Branch and 1 tablet in the evening. montelukast 2021-09 Yes [id number] 10mg Take 1 [facility] 10 mg 1-04 tablet by [facility] tablet 00:00: mouth in [place] 00 the Medical morning. Branch metFORMIN 2021-09 Yes [id number] 1000mg Take 1 [facility] 1,000 mg 1-04 tablet by [facility] tablet 00:00: mouth in [place] 00 the Medical morning Branch and 1 tablet in the evening. Take with meals. lisinopriL 2021-09 Yes [id number] 2.5mg Take 1 [facility] 2.5 mg 1-04 tablet by [facility] tablet 00:00: mouth in [place] 00 the Medical morning. Branch For nephroprot ection levocetiriz 2021-09 Yes [id number] 5mg Take 1 [facility] ine 5 mg 1-04 tablet by [facility] tablet 00:00: mouth [place] 00 every Medical evening. Branch SITagliptin 2021-09 Yes [id number] 100mg Take 1 [facility] (JANUVIA) 1-04 tablet by [facility] o f 100 mg 00:00: mouth in [place] tablet 00 the Medical morning. Branch glimepiride 2021-09 Yes [id number] 4mg Take 1 [facility] 4 mg tablet 1-04 tablet by [facility] of 00:00: mouth [place] 00 daily with Medical breakfast. Branch ezetimibe 2021-09 Yes [id number] 10mg Take 1 [facility] 10 mg 1-04 tablet by [facility] tablet 00:00: mouth in [place] 00 the Medical morning. Branch DULoxetine 2021-09 Yes [id number] 30mg Take 1 [facility] 30 mg 1-04 capsule by [facility] capsule 00:00: mouth [place] 00 every Medical morning. [place] montelukast 2021-09 Yes [id number] 10mg Take 1 [facility] 10 mg 1-04 tablet by [facility] tablet 00:00: mouth in [place] 00 the Medical morning. Branch metFORMIN 2021-09 Yes [id number] 1000mg Take 1 [facility] 1,000 mg 1-04 tablet by [facility] tablet 00:00: mouth in [place] 00 the Medical morning Branch and 1 tablet in the evening. Take with meals. levocetiriz 2021-09 Yes [id number] 5mg Take 1 [facility] ine 5 mg 1-04 tablet by [facility] tablet 00:00: mouth [place] 00 every Medical evening. Branch SITagliptin 2021-09 Yes [id number] 100mg Take 1 [facility] (JANUVIA) 1-04 tablet by [facility] o f 100 mg 00:00: mouth in [place] tablet 00 the Medical morning. Branch glimepiride 2021-09 Yes [id number] 4mg Take 1 [facility] 4 mg tablet 1-04 tablet by [facility] of 00:00: mouth [place] 00 daily with Medical breakfast. Branch ezetimibe 2021-09 Yes [id number] 10mg Take 1 [facility] 10 mg 1-04 tablet by [facility] tablet 00:00: mouth in [place] 00 the Medical morning. Branch DULoxetine 2021-09 Yes [id number] 30mg Take 1 [facility] 30 mg 1-04 capsule by [facility] capsule 00:00: mouth [place] 00 every Medical morning. Branch methocarbam 2021-09 Yes [id number] TAKE 1 [facility] oL 750 mg 1-04 TABLET BY [facility] o f tablet 00:00: MOUTH 4 [place] 00 TIMES A Medical DAY Branch NEEDED FOR MUSCLE PAIN OR SPASM topiramate 2021-09 Yes [id number] 100mg Take 1 [facility] 100 mg 1-04 tablet by [facility] tablet 00:00: mouth in [place] 00 the Medical morning. Branch traZODone 2021-09 Yes [id number] 100mg Take 1 [facility] 100 mg 1-04 tablet by [facility] tablet 00:00: mouth at [place] 00 bedtime. Medical Branch gabapentin 2021-09 Yes [id number] 600mg Take 1 [facility] 600 mg 1-04 tablet by [facility] tablet 00:00: mouth in [place] 00 the Medical morning Branch and 1 tablet in the evening. montelukast 2021-09 Yes [id number] 10mg Take 1 [facility] 10 mg 1-04 tablet by [facility] tablet 00:00: mouth in [place] 00 the Medical morning. Branch metFORMIN 2021-09 Yes [id number] 1000mg Take 1 [facility] 1,000 mg 1-04 tablet by [facility] tablet 00:00: mouth in [place] 00 the Medical morning Branch and 1 tablet in the evening. Take with meals. levocetiriz 2021-09 Yes [id number] 5mg Take 1 [facility] in[facility] 5 mg 1-04 tablet by [facility] tablet 00:00: mouth [place] 00 every Medical evening. Branch SITagliptin 2021-09 Yes [id number] 100mg Take 1 [facility] (JANUV[facility]) 1-04 tablet by [facility] o f 100 mg 00:00: mouth in [place] tablet 00 the Medical morning. Branch glimepiride 2021-09 Yes [id number] 4mg Take 1 [facility] 4 mg tablet 1-04 tablet by [facility] of 00:00: mouth [place] 00 daily with Medical breakfast. Branch ezetimibe 2021-09 Yes [id number] 10mg Take 1 [facility] 10 mg 1-04 tablet by [facility] tablet 00:00: mouth in [place] 00 the Medical morning. Branch DULoxetine 2021-09 Yes [id number] 30mg Take 1 [facility] 30 mg 1-04 capsule by [facility] capsule 00:00: mouth [place] 00 every Medical morning. Branch methocarbam 2021-09 Yes [id number] TAKE 1 [facility] oL 750 mg 1-04 TABLET BY [facility] o f tablet 00:00: MOUTH 4 [place] 00 TIMES A Medical DAY Branch NEEDED FOR MUSCLE PAIN OR SPASM topiramate 2021-09 Yes [id number] 100mg Take 1 [facility] 100 mg 1-04 tablet by [facility] tablet 00:00: mouth in [place] 00 the Medical morning. Branch traZODone 2021-09 Yes [id number] 100mg Take 1 [facility] 100 mg 1-04 tablet by [facility] tablet 00:00: mouth at [place] 00 bedtime. Medical Branch gabapentin 2021-09 Yes [id number] 600mg Take 1 [facility] 600 mg 1-04 tablet by [facility] tablet 00:00: mouth in [place] 00 the Medical morning Branch and 1 tablet in the evening. montelukast 2021-09 Yes [id number] 10mg Take 1 [facility] 10 mg 1-04 tablet by [facility] tablet 00:00: mouth in [place] 00 the Medical morning. Branch metFORMIN 2021-09 Yes [id number] 1000mg Take 1 [facility] 1,000 mg 1-04 tablet by [facility] tablet 00:00: mouth in [place] 00 the Medical morning Branch and 1 tablet in the evening. Take with meals. levocetiriz 2021-09 Yes [id number] 5mg Take 1 [facility] ine 5 mg 1-04 tablet by [facility] tablet 00:00: mouth [place] 00 every Medical evening. Branch glimepiride 2021-09 Yes [id number] 4mg Take 1 [facility] 4 mg tablet 1-04 tablet by [facility] of 00:00: mouth [place] 00 daily with Medical breakfast. Branch ezetimibe 2021-09 Yes [id number] 10mg Take 1 [facility] 10 mg 1-04 tablet by [facility] tablet 00:00: mouth in [place] 00 the Medical morning. Branch DULoxetine 2021-09 Yes [id number] 30mg Take 1 [facility] 30 mg 1-04 capsule by [facility] of capsule 00:00: mouth [place] 00 every Medical morning. Branch methocarbam 2021-09 Yes [id number] TAKE 1 [facility] oL 750 mg 1-04 TABLET BY [facility] o f tablet 00:00: MOUTH 4 [place] 00 TIMES A Medical DAY Branch NEEDED FOR MUSCLE PAIN OR SPASM topiramate 2021-09 Yes [id number] 100mg Take 1 [facility] 100 mg 1-04 tablet by [facility] tablet 00:00: mouth in [place] 00 the Medical morning. Branch traZODone 2021-09 Yes [id number] 100mg Take 1 [facility] 100 mg 1-04 tablet by [facility] tablet 00:00: mouth at [place] 00 bedtime. Medical Branch gabapentin 2021-09 Yes [id number] 600mg Take 1 [facility] 600 mg 1-04 tablet by [facility] tablet 00:00: mouth in [place] 00 the Medical morning Branch and 1 tablet in the evening. montelukast 2021-09 Yes [id number] 10mg Take 1 [facility] 10 mg 1-04 tablet by [facility] tablet 00:00: mouth in [place] 00 the Medical morning. Branch metFORMIN 2021-09 Yes [id number] 1000mg Take 1 [facility] 1,000 mg 1-04 tablet by [facility] tablet 00:00: mouth in [place] 00 the Medical morning Branch and 1 tablet in the evening. Take with meals. levocetiriz 2021-09 Yes [id number] 5mg Take 1 [facility] ine 5 mg 1-04 tablet by [facility] tablet 00:00: mouth [place] 00 every Medical evening. Branch glimepiride 2021-09 Yes [id number] 4mg Take 1 [facility] 4 mg tablet 1-04 tablet by [facility] of 00:00: mouth [place] 00 daily with Medical breakfast. Branch ezetimibe 2021-09 Yes [id number] 10mg Take 1 [facility] 10 mg 1-04 tablet by [facility] tablet 00:00: mouth in [place] 00 the Medical morning. Branch DULoxetine 2021-09 Yes [id number] 30mg Take 1 [facility] 30 mg 1-04 capsule by [facility] of capsule 00:00: mouth [place] 00 every Medical morning. Branch methocarbam 2021-09 Yes [id number] TAKE 1 [facility] oL 750 mg 1-04 TABLET BY [facility] o f tablet 00:00: MOUTH 4 [place] 00 TIMES A Medical DAY Branch NEEDED FOR MUSCLE PAIN OR SPASM topiramate 2021-09 Yes [id number] 100mg Take 1 [facility] 100 mg 1-04 tablet by [facility] tablet 00:00: mouth in [place] 00 the Medical morning. Branch traZODone 2021-09 Yes [id number] 100mg Take 1 [facility] 100 mg 1-04 tablet by [facility] tablet 00:00: mouth at [place] 00 bedtime. Medical Branch gabapentin 2021-09 Yes [id number] 600mg Take 1 [facility] 600 mg 1-04 tablet by [facility] tablet 00:00: mouth in [place] 00 the Medical morning Branch and 1 tablet in the evening. montelukast 2021-09 Yes [id number] 10mg Take 1 [facility] 10 mg 1-04 tablet by [facility] tablet 00:00: mouth in [place] 00 the Medical morning. Branch metFORMIN 2021-09 Yes [id number] 1000mg Take 1 [facility] 1,000 mg 1-04 tablet by [facility] tablet 00:00: mouth in [place] 00 the Medical morning Branch and 1 tablet in the evening. Take with meals. levocetiriz 2021-09 Yes [id number] 5mg Take 1 [facility] ine 5 mg 1-04 tablet by [facility] tablet 00:00: mouth [place] 00 every Medical evening. Branch glimepiride 2021-09 Yes [id number] 4mg Take 1 [facility] 4 mg tablet 1-04 tablet by [facility] of 00:00: mouth [place] 00 daily with Medical breakfast. Branch ezetimibe 2021-09 Yes [id number] 10mg Take 1 [facility] 10 mg 1-04 tablet by [facility] tablet 00:00: mouth in [place] 00 the Medical morning. Branch DULoxetine 2021-09 Yes [id number] 30mg Take 1 [facility] 30 mg 1-04 capsule by [facility] capsule 00:00: mouth [place] 00 every Medical morning. Branch methocarbam 2021-09 Yes [id number] TAKE 1 [facility] oL 750 mg 1-04 TABLET BY [facility] o f tablet 00:00: MOUTH 4 [place] 00 TIMES A Medical DAY Branch NEEDED FOR MUSCLE PAIN OR SPASM topiramate 2021-09 Yes [id number] 100mg Take 1 [facility] 100 mg 1-04 tablet by [facility] tablet 00:00: mouth in [place] 00 the Medical morning. Branch traZODone 2021-09 Yes [id number] 100mg Take 1 [facility] 100 mg 1-04 tablet by [facility] tablet 00:00: mouth at [place] 00 bedtime. Medical Branch gabapentin 2021-09 Yes [id number] 600mg Take 1 [facility] 600 mg 1-04 tablet by [facility] tablet 00:00: mouth in [place] 00 the Medical morning Branch and 1 tablet in the evening. montelukast 2021-09 Yes [id number] 10mg Take 1 [facility] 10 mg 1-04 tablet by [facility] of tablet 00:00: mouth in [place] 00 the Medical morning. Branch metFORMIN 2021-09 Yes [id number] 1000mg Take 1 [facility] 1,000 mg 1-04 tablet by [facility] of tablet 00:00: mouth in [place] 00 the Medical morning Branch and 1 tablet in the evening. Take with meals. levocetiriz 2021-09 Yes [id number] 5mg Take 1 [facility] ine 5 mg 1-04 tablet by [facility] of tablet 00:00: mouth [place] 00 every Medical evening. Branch glimepiride 2021-09 Yes [id number] 4mg Take 1 [facility] 4 mg tablet 1-04 tablet by [facility] of 00:00: mouth [place] 00 daily with Medical breakfast. Branch ezetimibe 2021-09 Yes [id number] 10mg Take 1 [facility] 10 mg 1-04 tablet by [facility] tablet 00:00: mouth in [place] 00 the Medical morning. Branch DULoxetine 2021-09 Yes [id number] 30mg Take 1 [facility] 30 mg 1-04 capsule by [facility] of capsule 00:00: mouth [place] 00 every Medical morning. Branch methocarbam 2021-09 Yes [id number] TAKE 1 [facility] oL 750 mg 1-04 TABLET BY [facility] o f tablet 00:00: MOUTH 4 [place] 00 TIMES A Medical DAY Branch NEEDED FOR MUSCLE PAIN OR SPASM topiramate 2021-09 Yes [id number] 100mg Take 1 [facility] 100 mg 1-04 tablet by [facility] of tablet 00:00: mouth in [place] 00 the Medical morning. Branch traZODone 2021-09 Yes [id number] 100mg Take 1 [facility] 100 mg 1-04 tablet by [facility] of tablet 00:00: mouth at [place] 00 bedtime. Medical Branch gabapentin 2021-09 Yes [id number] 600mg Take 1 [facility] 600 mg 1-04 tablet by [facility] of tablet 00:00: mouth in [place] 00 the Medical morning Branch and 1 tablet in the evening. montelukast 2021-09 Yes [id number] 10mg Take 1 [facility] 10 mg 1-04 tablet by [facility] of tablet 00:00: mouth in [place] 00 the Medical morning. Branch metFORMIN 2021-09 Yes [id number] 1000mg Take 1 [facility] 1,000 mg 1-04 tablet by [facility] of tablet 00:00: mouth in [place] 00 the Medical morning Branch and 1 tablet in the evening. Take with meals. levocetiriz 2021-09 Yes [id number] 5mg Take 1 [facility] ine 5 mg 1-04 tablet by [facility] of tablet 00:00: mouth [place] 00 every Medical evening. Branch glimepiride 2021-09 Yes [id number] 4mg Take 1 [facility] 4 mg tablet 1-04 tablet by [facility] of 00:00: mouth [place] 00 daily with Medical breakfast. Branch ezetimibe 2021-09 Yes [id number] 10mg Take 1 [facility] 10 mg 1-04 tablet by [facility] of tablet 00:00: mouth in [place] 00 the Medical morning. Branch DULoxetine 2021-09 Yes [id number] 30mg Take 1 [facility] 30 mg 1-04 capsule by [facility] of capsule 00:00: mouth [place] 00 every Medical morning. Branch methocarbam 2021-09 Yes [id number] TAKE 1 [facility] oL 750 mg 1-04 TABLET BY [facility] o f tablet 00:00: MOUTH 4 [place] 00 TIMES A Medical DAY Branch NEEDED FOR MUSCLE PAIN OR SPASM topiramate 2021-09 Yes [id number] 100mg Take 1 [facility] 100 mg 1-04 tablet by [facility] of tablet 00:00: mouth in [place] 00 the Medical morning. Branch traZODone 2021-09 Yes [id number] 100mg Take 1 [facility] 100 mg 1-04 tablet by [facility] of tablet 00:00: mouth at [place] 00 bedtime. Medical Branch gabapentin 2021-09 Yes [id number] 600mg Take 1 [facility] 600 mg 1-04 tablet by [facility] tablet 00:00: mouth in [place] 00 the Medical morning Branch and 1 tablet in the evening. montelukast 2021-09 Yes [id number] 10mg Take 1 [facility] 10 mg 1-04 tablet by [facility] tablet 00:00: mouth in [place] 00 the Medical morning. Branch metFORMIN 2021-09 Yes [id number] 1000mg Take 1 [facility] 1,000 mg 1-04 tablet by [facility] of tablet 00:00: mouth in [place] 00 the Medical morning Branch and 1 tablet in the evening. Take with meals. levocetiriz 2021-09 Yes [id number] 5mg Take 1 [facility] in[facility] 5 mg 1-04 tablet by [facility]y of tablet 00:00: mouth [place] 00 every Medical evening. Branch glimepiride 2021-09 Yes [id number] 4mg Take 1 [facility] 4 mg tablet 1-04 tablet by [facility] of 00:00: mouth [place] 00 daily with Medical breakfast. Branch ezetimibe 2021-09 Yes [id number] 10mg Take 1 [facility] 10 mg 1-04 tablet by [facility] of tablet 00:00: mouth in [place] 00 the Medical morning. Branch DULoxetine 2021-09 Yes [id number] 30mg Take 1 [facility] 30 mg 1-04 capsule by [facility] of capsule 00:00: mouth [place] 00 every Medical morning. Branch methocarbam 2021-09 Yes [id number] TAKE 1 [facility] oL 750 mg 1-04 TABLET BY ity o f tablet 00:00: MOUTH 4 [place] 00 TIMES A Medical DAY Branch NEEDED FOR MUSCLE PAIN OR SPASM topiramate 2021-09 Yes [id number] 100mg Take 1 [facility] 100 mg 1-04 tablet by [facility] of tablet 00:00: mouth in [place] 00 the Medical morning. Branch traZODone 2021-09 Yes [id number] 100mg Take 1 [facility] 100 mg 1-04 tablet by [facility] of tablet 00:00: mouth at [place] 00 bedtime. Medical Branch gabapentin 2021-09 Yes [id number] 600mg Take 1 [facility] 600 mg 1-04 tablet by [facility] of tablet 00:00: mouth in [place] 00 the Medical morning Branch and 1 tablet in the evening. montelukast 2021-09 Yes [id number] 10mg Take 1 [facility] 10 mg 1-04 tablet by [facility] of tablet 00:00: mouth in [place] 00 the Medical morning. Branch metFORMIN 2021-09 Yes [id number] 1000mg Take 1 [facility] 1,000 mg 1-04 tablet by [facility] of tablet 00:00: mouth in [place] 00 the Medical morning Branch and 1 tablet in the evening. Take with meals. levocetiriz 2021-09 Yes [id number] 5mg Take 1 [facility] ine 5 mg 1-04 tablet by [facility] of tablet 00:00: mouth [place] 00 every Medical evening. Branch glimepiride 2021-09 Yes [id number] 4mg Take 1 [facility] 4 mg tablet 1-04 tablet by [facility] of 00:00: mouth [place] 00 daily with Medical breakfast. Branch ezetimibe 2021-09 Yes [id number] 10mg Take 1 [facility] n[facility] 10 mg 1-04 tablet by [facility] of tablet 00:00: mouth in [place] 00 the Medical morning. Branch DULoxetine 2021-09 Yes [id number] 30mg Take 1 [facility] 30 mg 1-04 capsule by [facility] of capsule 00:00: mouth [place] 00 every Medical morning. Branch methocarbam 2021-09 Yes [id number] TAKE 1 [facility] oL 750 mg 1-04 TABLET BY ity o f tablet 00:00: MOUTH 4 [place] 00 TIMES A Medical DAY Branch NEEDED FOR MUSCLE PAIN OR SPASM topiramate 2021-09 Yes [id number] 100mg Take 1 [facility] 100 mg 1-04 tablet by [facility] of tablet 00:00: mouth in [place] 00 the Medical morning. Branch traZODone 2021-09 Yes [id number] 100mg Take 1 [facility] 100 mg 1-04 tablet by [facility] of tablet 00:00: mouth at [place] 00 bedtime. Medical Branch gabapentin 2021-09 Yes [id number] 600mg Take 1 [facility] 600 mg 1-04 tablet by [facility] of tablet 00:00: mouth in [place] 00 the Medical morning Branch and 1 tablet in the evening. topiramate 2021-09- No [id number] 100mg Take 1 [facility] 100 mg 1-04 -27 tablet by [facility] of tablet 00:00: 00:00 mouth in [place] 00 :00 the Medical morning. Branch metFORMIN 2021-09- No [id number] 1000mg Take 1 [facility] 1,000 mg -12 01-14 tablet by [facility] o f tablet 00:00: 00:00 mouth in [place] 00 :00 the Medical morning Branch and 1 tablet in the evening. Take with meals. levocetiriz 2021-09- No [id number] 5mg Take 1 [facility] ine 5 mg -12 01-14 tablet by it[facility] o f tablet 00:00: 00:00 mouth [place] 00 :00 every Medical evening. Branch traZODone 2021-09- No [id number] 100mg Take 1 [facility] 100 mg 1-04 -14 tablet by [facility] of tablet 00:00: 00:00 mouth at [place] 00 :00 bedtime. Medical Branch metFORMIN 2021-09- No [id number] 1000mg Take 1 [facility] 1,000 mg -04 -14 tablet by [facility] o f tablet 00:00: 00:00 mouth in [place] 00 :00 the Medical morning Branch and 1 tablet in the evening. Take with meals. levocetiriz 2021-09- No [id number] 5mg Take 1 [facility] ine 5 mg 09-04 tablet by [facility] o f tablet 00:00: 00:00 mouth [place] 00 :00 every Medical evening. Branch traZODone 2021-09- No [id number] 100mg Take 1 [facility] 100 mg 09-04 tablet by [facility] of tablet 00:00: 00:00 mouth at [place] 00 :00 bedtime. Medical Branch metFORMIN 2021-09- No [id number] 1000mg Take 1 [facility] 1,000 mg 09-04 tablet by [facility] o f tablet 00:00: 00:00 mouth in [place] 00 :00 the Medical morning Branch and 1 tablet in the evening. Take with meals. levocetiriz 2021-09- No [id number] 5mg Take 1 [facility] ine 5 mg 09-04 tablet by [facility] o f tablet 00:00: 00:00 mouth [place] 00 :00 every Medical evening. Branch traZODone 2021-09- No [id number] 100mg Take 1 [facility] 100 mg 09-04 tablet by [facility] of tablet 00:00: 00:00 mouth at [place] 00 :00 bedtime. Medical Branch montelukast 2021-09- No [id number] 10mg Take 1 [facility] 10 mg 09-04 tablet by [facility] of tablet 00:00: 00:00 mouth in [place] 00 :00 the Medical morning. Branch glimepiride 2021-09- No [id number] 4mg Take 1 [facility] 4 mg tablet 09-04 tablet by it y of 00:00: 00:00 mouth [place] 00 :00 daily with Medical breakfast. Branch DULoxetine 2021-09- No [id number] 30mg Take 1 [facility] 30 mg 09-04 capsule by [facility] of capsule 00:00: 00:00 mouth [place] 00 :00 every Medical morning. Branch SITagliptin 2021-09- No [id number] 100mg Take 1 [facility] (JANUVIA) 09-04 11-11 tablet by it[facility] of 100 mg 00:00: 00:00 mouth in [place] tablet 00 :00 the Medical morning. Branch lisinopriL 2021-09- No [id number] 2.5mg Take 1 [facility] 2.5 mg 09-04-09 tablet by [facility] of tablet 00:00: 00:00 mouth in [place] 00 :00 the Medical morning. Branch For nephroprot ection lisinopriL 2021-09 Yes [id number] 2.5mg Take 1 [facility] 2.5 mg 0-31 tablet by [facility] of tablet 00:00: mouth in [place] the Medical morning. Branch For nephroprot ection ezetimibe 2021-09 Yes [id number] 10mg Take 1 [facility] 10 mg 0-31 tablet by [facility] of tablet 00:00: mouth in [place] 00 the Medical morning. Branch tirzepatide 2021-09 Yes [id number] 1.25mg inject [facility] (MOUNJARO) 0-31 1.25 mg ity of 2.5 mg/0.5 00:00: under the [place] mL PnIj 00 skin Medical weekly. Branch lisinopriL 2021-09 Yes [id number] 2.5mg Take 1 [facility] 2.5 mg 0-31 tablet by [facility] of tablet 00:00: mouth in [place] the Medical morning. Branch For nephroprot ection ezetimibe 2021-09 Yes [id number] 10mg Take 1 [facility] 10 mg 0-31 tablet by [facility] of tablet 00:00: mouth in [place] the Medical morning. Branch tirzepatide 2021-09 Yes [id number] 1.25mg inject [facility] (MOUNJARO) 0-31 1.25 mg ity of 2.5 mg/0.5 00:00: under the [place] mL PnIj 00 skin Medical weekly. Branch lisinopriL 2021-09 Yes [id number] 2.5mg Take 1 [facility] 2.5 mg 0-31 tablet by [facility] of tablet 00:00: mouth in [place] the Medical morning. Branch For nephroprot ection ezetimibe 2021-09 Yes [id number] 10mg Take 1 [facility] 10 mg 0-31 tablet by [facility] of tablet 00:00: mouth in [place] 00 the Medical morning. Branch tirzepatide 2021-09 Yes [id number] 1.25mg inject [facility] (MOUNJARO) 0-31 1.25 mg ity of 2.5 mg/0.5 00:00: under the [place] mL PnIj 00 skin Medical weekly. Branch lisinopriL 2021-09 Yes [id number] 2.5mg Take 1 [facility] 2.5 mg 0-31 tablet by [facility] of tablet 00:00: mouth in [place] 00 the Medical morning. Branch For nephroprot ection ezetimibe 2021-09 Yes [id number] 10mg Take 1 [facility] n[facility] 10 mg 0-31 tablet by [facility] of tablet 00:00: mouth in [place] 00 the Medical morning. Branch tirzepatide 2021-09 Yes [id number] 1.25mg inject [facility] (MOUNJARO) 0-31 1.25 mg ity of 2.5 mg/0.5 00:00: under the [place] mL PnIj 00 skin Medical weekly. Branch lisinopriL 2021-09- No [id number] 2.5mg Take 1 [facility] 2.5 mg 0-31 11-04 tablet by [facility] of tablet 00:00: 00:00 mouth in [place] 00 :00 the Medical morning. Branch For nephroprot ection ezetimibe 2021-09- No [id number] 10mg Take 1 [facility] 10 mg 0-31 11-04 tablet by [facility] of tablet 00:00: 00:00 mouth in [place] 00 :00 the Medical morning. Branch tirzepatide 2021-09- No [id number] 1.25mg inject [facility] (MOUNJARO) 0-31 -04 1.25 mg ity o f 2.5 mg/0.5 00:00: 00:00 under the [place] mL PnIj 00 :00 skin Medical weekly. Branch lisinopriL 2021-09- No [id number] 2.5mg Take 1 [facility] 2.5 mg 0-31 11-04 tablet by [facility] of tablet 00:00: 00:00 mouth in [place] 00 :00 the Medical morning. Branch For nephroprot ection ezetimibe 2021-09- No [id number] 10mg Take 1 [facility] 10 mg 0-31 11-04 tablet by [facility] of tablet 00:00: 00:00 mouth in [place] 00 :00 the Medical morning. Branch tirzepatide 2021-09- No [id number] 1.25mg inject [facility] (MOUNJARO) 0-31 11-04 1.25 mg ity o f 2.5 mg/0.5 00:00: 00:00 under the [place] mL PnIj 00 :00 skin Medical weekly. [place] atorvastati 2021-09 Yes [id number] 20mg Take 1 [facility] n 20 mg 0-26 tablet by [facility] of tablet 00:00: mouth [place] 00 every Medical evening. [place] atorvastati 2021-09 Yes [id number] 20mg Take 1 [facility] n 20 mg 0-26 tablet by [facility] of tablet 00:00: mouth [place] 00 every Medical evening. [place] atorvastati 2021-09 Yes [id number] 20mg Take 1 [facility] n 20 mg 0-26 tablet by [facility] of tablet 00:00: mouth [place] 00 every Medical evening. [place] atorvastati 2021-09 Yes [id number] 20mg Take 1 [facility] n 20 mg 0-26 tablet by [facility] of tablet 00:00: mouth [place] 00 every Medical evening. [place] atorvastati 2021-09 Yes [id number] 20mg Take 1 [facility] n 20 mg 0-26 tablet by [facility] of tablet 00:00: mouth [place] 00 every Medical evening. [place] atorvastati 2021-09 Yes [id number] 20mg Take 1 [facility] n 20 mg 0-26 tablet by [facility] of tablet 00:00: mouth [place] 00 every Medical evening. [place] atorvastati 2021-09 Yes [id number] 20mg Take 1 [facility] n 20 mg 0-26 tablet by [facility] of tablet 00:00: mouth [place] 00 every Medical evening. [place] atorvastati 2021-09 Yes [id number] 20mg Take 1 [facility] n 20 mg 0-26 tablet by [facility] of tablet 00:00: mouth [place] 00 every Medical evening. [place] atorvastati 2021-09 Yes [id number] 20mg Take 1 [facility] n 20 mg 0-26 tablet by [facility] of tablet 00:00: mouth [place] 00 every Medical evening. [place] atorvasta 2021-09 Yes [id number] 20mg Take 1 [facility] n 20 mg 0-26 tablet by [facility] of tablet 00:00: mouth [place] 00 every Medical evening. [place] atorvastati 2021-09 Yes [id number] 20mg Take 1 [facility] n 20 mg 0-26 tablet by [facility] of tablet 00:00: mouth [place] 00 every Medical evening. [place] atorvastati 2021-09 Yes [id number] 20mg Take 1 [facility] n 20 mg 0-26 tablet by it[facility] of tablet 00:00: mouth [place] 00 every Medical evening. [place] atorvasta 2021-09 Yes [id number] 20mg Take 1 [facility] n 20 mg 0-26 tablet by it[facility] of tablet 00:00: mouth [place] 00 every Medical evening. [place] atorvasta 2021-09 Yes [id number] 20mg Take 1 [facility] n 20 mg 0-26 tablet by [facility] of tablet 00:00: mouth [place] 00 every Medical evening. [place] atorvasta 2021-09 Yes [id number] 20mg Take 1 [facility] n 20 mg 0-26 tablet by it[facility] of tablet 00:00: mouth [place] 00 every Medical evening. [place] atorvasta 2021-09 Yes [id number] 20mg Take 1 [facility] n 20 mg 0-26 tablet by it[facility] of tablet 00:00: mouth [place] 00 every Medical evening. [place] atorvasta 2021-09 Yes [id number] 20mg Take 1 [facility] n 20 mg 0-26 tablet by [facility] of tablet 00:00: mouth [place] 00 every Medical evening. [place] [facility]09 Yes [id number] 20mg Take 1 [facility] n 20 mg 0-26 tablet by it[facility] of tablet 00:00: mouth [place] 00 every Medical evening. [place] [facility] 2021-09 Yes [id number] 20mg Take 1 [facility] n 20 mg 0-26 tablet by it[facility] of tablet 00:00: mouth [place] 00 every Medical evening. [place] atorvasta 2021-09 Yes [id number] 20mg Take 1 [facility] n 20 mg 0-26 tablet by it[facility] of tablet 00:00: mouth [place] 00 every Medical evening. [place] atorvasta 2021-09 Yes [id number] 20mg Take 1 [facility] n 20 mg 0-26 tablet by ity of tablet 00:00: mouth [place] 00 every Medical evening. [place] atorvasta 2021-09 Yes [id number] 20mg Take 1 [facility] n 20 mg 0-26 tablet by ity of tablet 00:00: mouth [place] 00 every Medical evening. [place] atorvasta 2021-09 Yes [id number] 20mg Take 1 [facility] n 20 mg 0-26 tablet by ity of tablet 00:00: mouth [place] 00 every Medical evening. [place] atorvasta 2021-09 Yes [id number] 20mg Take 1 [facility] n 20 mg 0-26 tablet by it[facility] of tablet 00:00: mouth [place] 00 every Medical evening. [place] [facility] 2021-09 Yes [id number] 20mg Take 1 [facility] n 20 mg 0-26 tablet by [facility] of tablet 00:00: mouth [place] 00 every Medical evening. [place] [facility] 2021-09 Yes [id number] 20mg Take 1 [facility] n 20 mg 0-26 tablet by it[facility] of tablet 00:00: mouth [place] 00 every Medical evening. [place] [facility] 2021-09 Yes [id number] 20mg Take 1 [facility] n 20 mg 0-26 tablet by it[facility] of tablet 00:00: mouth [place] 00 every Medical evening. [place] [facility] 2021-09 Yes [id number] 20mg Take 1 [facility] n 20 mg 0-26 tablet by it[facility] of tablet 00:00: mouth [place] 00 every Medical evening. [place] [facility] 2021-09 Yes [id number] 20mg Take 1 [facility] n 20 mg 0-26 tablet by ity of tablet 00:00: mouth [place] 00 every Medical evening. [place] [facility] 2021-09 Yes [id number] 20mg Take 1 [facility] n 20 mg 0-26 tablet by it[facility] of tablet 00:00: mouth [place] 00 every Medical evening. [place] [facility] 2021-09 Yes [id number] 20mg Take 1 [facility] n 20 mg 0-26 tablet by it[facility] of tablet 00:00: mouth [place] 00 every Medical evening. [place] [facility] 2021-09 Yes [id number] 20mg Take 1 [facility] n 20 mg 0-26 tablet by it[facility] of tablet 00:00: mouth [place] 00 every Medical evening. [place] [facility] 2021-09 Yes [id number] 20mg Take 1 [facility] n 20 mg 0-26 tablet by it[facility] of tablet 00:00: mouth [place] 00 every Medical evening. [place] atorvasta 2021-09 Yes [id number] 20mg Take 1 [facility] n 20 mg 0-26 tablet by it[facility] of tablet 00:00: mouth [place] 00 every Medical evening. [place] [facility] 2021-09 Yes [id number] 20mg Take 1 [facility] n 20 mg 0-26 tablet by it[facility] of tablet 00:00: mouth [place] 00 every Medical evening. [place] [facility] 2021-09 Yes [id number] 20mg Take 1 [facility] n 20 mg 0-26 tablet by it[facility] of tablet 00:00: mouth [place] 00 every Medical evening. Branch atorvastati 2021-09- No [id number] 20mg Take 1 [facility] n 20 mg 0-26 02-17 tablet by [facility] of tablet 00:00: 00:00 mouth [place] 00 :00 every Medical evening. Branch atorvastati 2021-09 Yes [id number] 20mg Take 1 [facility] n 20 mg 0-25 tablet by it[facility] of tablet 00:00: mouth at [place] 00 bedtime. Medical Branch levocetiriz 2021-09 Yes [id number] 5mg Take 1 [facility] ine 5 mg 0-25 tablet by [facility] of tablet 00:00: mouth [place] 00 every Medical evening. Branch montelukast 2021-09 Yes [id number] 10mg Take 1 [facility] 10 mg 0-25 tablet by [facility] of tablet 00:00: mouth in [place] 00 the Medical morning. Branch atorvastati 2021-09 Yes [id number] 20mg Take 1 [facility] n 20 mg 0-25 tablet by [facility] of tablet 00:00: mouth at [place] 00 bedtime. Medical Branch levocetiriz 2021-09 Yes [id number] 5mg Take 1 [facility] ine 5 mg 0-25 tablet by [facility] of tablet 00:00: mouth [place] 00 every Medical evening. Branch montelukast 2021-09 Yes [id number] 10mg Take 1 [facility] 10 mg 0-25 tablet by [facility] of tablet 00:00: mouth in [place] 00 the Medical morning. Branch atorvastati 2021-09 Yes [id number] 20mg Take 1 [facility] n 20 mg 0-25 tablet by it[facility] of tablet 00:00: mouth at [place] 00 bedtime. Medical Branch levocetiriz 2021-09 Yes [id number] 5mg Take 1 [facility] ine 5 mg 0-25 tablet by it[facility] of tablet 00:00: mouth [place] 00 every Medical evening. Branch montelukast 2021-09 Yes [id number] 10mg Take 1 [facility] 10 mg 0-25 tablet by [facility] of tablet 00:00: mouth in [place] 00 the Medical morning. Branch atorvastati 2021-09 Yes [id number] 20mg Take 1 [facility] n 20 mg 0-25 tablet by ity of tablet 00:00: mouth at [place] 00 bedtime. Medical Branch levocetiriz 2021-09 Yes [id number] 5mg Take 1 [facility] ine 5 mg 0-25 tablet by [facility] of tablet 00:00: mouth [place] 00 every Medical evening. Branch montelukast 2021-09 Yes [id number] 10mg Take 1 [facility] 10 mg 0-25 tablet by [facility] of tablet 00:00: mouth in [place] 00 the Medical morning. Branch atorvastati 2021-09 Yes [id number] 20mg Take 1 [facility] n 20 mg 0-25 tablet by [facility] of tablet 00:00: mouth at [place] 00 bedtime. Medical Branch levocetiriz 2021-09 Yes [id number] 5mg Take 1 [facility] ine 5 mg 0-25 tablet by [facility] of tablet 00:00: mouth [place] 00 every Medical evening. Branch montelukast 2021-09 Yes [id number] 10mg Take 1 [facility] 10 mg 0-25 tablet by it[facility] of tablet 00:00: mouth in [place] 00 the Medical morning. Branch atorvastati 2021-09 Yes [id number] 20mg Take 1 [facility] n 20 mg 0-25 tablet by it[facility] of tablet 00:00: mouth at [place] 00 bedtime. Medical Branch levocetiriz 2021-09 Yes [id number] 5mg Take 1 [facility] ine 5 mg 0-25 tablet by it[facility] of tablet 00:00: mouth [place] 00 every Medical evening. Branch montelukast 2021-09 Yes [id number] 10mg Take 1 [facility] 10 mg 0-25 tablet by it[facility] of tablet 00:00: mouth in [place] 00 the Medical morning. Branch atorvastati 2021-09 Yes [id number] 20mg Take 1 [facility] n 20 mg 0-25 tablet by ity of tablet 00:00: mouth at [place] 00 bedtime. Medical Branch levocetiriz 2021-09 Yes [id number] 5mg Take 1 [facility] ine 5 mg 0-25 tablet by it[facility] of tablet 00:00: mouth [place] 00 every Medical evening. Branch montelukast 2021-09 Yes [id number] 10mg Take 1 [facility] 10 mg 0-25 tablet by it[facility] of tablet 00:00: mouth in [place] 00 the Medical morning. Branch atorvastati 2021-09 Yes [id number] 20mg Take 1 [facility] n 20 mg 0-25 tablet by it[facility] of tablet 00:00: mouth at [place] 00 bedtime. Medical Branch levocetiriz 2021-09 Yes [id number] 5mg Take 1 [facility] ine 5 mg 0-25 tablet by [facility] of tablet 00:00: mouth [place] 00 every Medical evening. Branch montelukast 2021-09 Yes [id number] 10mg Take 1 [facility] 10 mg 0-25 tablet by [facility] of tablet 00:00: mouth in [place] 00 the Medical morning. Branch atorvastati 2021-09 Yes [id number] 20mg Take 1 [facility] n 20 mg 0-25 tablet by [facility] of tablet 00:00: mouth at [place] 00 bedtime. Medical Branch atorvastati 2021-09 Yes [id number] 20mg Take 1 [facility] n 20 mg 0-25 tablet by [facility] of tablet 00:00: mouth at [place] 00 bedtime. Medical Branch atorvastati 2021-09 Yes [id number] 20mg Take 1 [facility] n 20 mg 0-25 tablet by it[facility] of tablet 00:00: mouth at [place] 00 bedtime. Medical Branch atorvastati 2021-09 Yes [id number] 20mg Take 1 [facility] n 20 mg 0-25 tablet by it[facility] of tablet 00:00: mouth at [place] 00 bedtime. Medical Branch atorvastati 2021-09 Yes [id number] 20mg Take 1 [facility] n 20 mg 0-25 tablet by ity of tablet 00:00: mouth at [place] 00 bedtime. Medical Branch atorvastati 2021-09 Yes [id number] 20mg Take 1 [facility] n 20 mg 0-25 tablet by it[facility] of tablet 00:00: mouth at [place] 00 bedtime. Medical Branch atorvastati 2021-09 Yes [id number] 20mg Take 1 [facility] n 20 mg 0-25 tablet by it[facility] of tablet 00:00: mouth at [place] 00 bedtime. Medical Branch atorvastati 2021-09 Yes [id number] 20mg Take 1 [facility] n 20 mg 0-25 tablet by it[facility] of tablet 00:00: mouth at [place] 00 bedtime. Medical Branch atorvastati 2021-09 Yes [id number] 20mg Take 1 [facility] n 20 mg 0-25 tablet by ity of tablet 00:00: mouth at [place] 00 bedtime. Medical Branch atorvastati 2021-09 Yes [id number] 20mg Take 1 [facility] n 20 mg 0-25 tablet by it[facility] of tablet 00:00: mouth at [place] 00 bedtime. Medical Branch atorvastati 2021-09 Yes [id number] 20mg Take 1 [facility] n 20 mg 0-25 tablet by ity of tablet 00:00: mouth at [place] bedtime. Medical Branch atorvastati 2021-09 Yes [id number] 20mg Take 1 [facility] n 20 mg 0-25 tablet by ity of tablet 00:00: mouth at [place] bedtime. Medical Branch atorvastati 2021-09 Yes [id number] 20mg Take 1 [facility] n 20 mg 0-25 tablet by ity of tablet 00:00: mouth at [place] bedtime. Medical Branch atorvastati 2021-09 Yes [id number] 20mg Take 1 [facility] n 20 mg 0-25 tablet by [facility] of tablet 00:00: mouth at [place] bedtime. Medical Branch atorvastati 2021-09 Yes [id number] 20mg Take 1 [facility] n 20 mg 0-25 tablet by it[facility] of tablet 00:00: mouth at [place] bedtime. Medical Branch atorvastati 2021-09 Yes [id number] 20mg Take 1 [facility] n 20 mg 0-25 tablet by it[facility] of tablet 00:00: mouth at [place] bedtime. Medical Branch atorvastati 2021-09 Yes [id number] 20mg Take 1 [facility] n 20 mg 0-25 tablet by it[facility] of tablet 00:00: mouth at [place] bedtime. Medical Branch atorvastati 2021-09 Yes [id number] 20mg Take 1 [facility] n 20 mg 0-25 tablet by it[facility] of tablet 00:00: mouth at [place] [address] bedtime. Medical Branch atorvastati 2021-09 Yes [id number] 20mg Take 1 [facility] n 20 mg 0-25 tablet by ity of tablet 00:00: mouth at [place] [address] bedtime. Medical Branch atorvastati 2021-09 Yes [id number] 20mg Take 1 [facility] n 20 mg 0-25 tablet by it[facility] of tablet 00:00: mouth at [place] [address] bedtime. Medical Branch atorvastati 2021-09 Yes [id number] 20mg Take 1 [facility] n 20 mg 0-25 tablet by ity of tablet 00:00: mouth at [place] [address] bedtime. Medical Branch atorvastati 2021-09 Yes [id number] 20mg Take 1 [facility] n 20 mg 0-25 tablet by ity of tablet 00:00: mouth at [place] 00 bedtime. Medical Branch atorvasta 2021-09 Yes [id number] 20mg Take 1 [facility] n 20 mg 0-25 tablet by ity of tablet 00:00: mouth at [place] bedtime. Medical Branch atorvasta 2021-09 Yes [id number] 20mg Take 1 [facility] n 20 mg 0-25 tablet by ity of tablet 00:00: mouth at [place] bedtime. Medical Branch atorvasta 2021-09 Yes [id number] 20mg Take 1 [facility] n 20 mg 0-25 tablet by ity of tablet 00:00: mouth at [place] bedtime. Medical Branch atorvasta 2021-09 Yes [id number] 20mg Take 1 [facility] n 20 mg 0-25 tablet by ity of tablet 00:00: mouth at [place] bedtime. Medical Branch atorvasta 2021-09 Yes [id number] 20mg Take 1 [facility] n 20 mg 0-25 tablet by it[facility] of tablet 00:00: mouth at [place] bedtime. Medical Branch atorvasta 2021-09 Yes [id number] 20mg Take 1 [facility] n 20 mg 0-25 tablet by ity of tablet 00:00: mouth at [place] bedtime. Medical Branch atorvasta 2021-09 Yes [id number] 20mg Take 1 [facility] n 20 mg 0-25 tablet by ity of tablet 00:00: mouth at [place] [address] bedtime. Medical Branch atorvasta 2021-09 Yes [id number] 20mg Take 1 [facility] n 20 mg 0-25 tablet by ity of tablet 00:00: mouth at [place] [address] bedtime. Medical Branch atorvasta 2021-09 Yes [id number] 20mg Take 1 [facility] n 20 mg 0-25 tablet by it[facility] of tablet 00:00: mouth at [place] [address] bedtime. Medical Branch atorvasta 2021-09 Yes [id number] 20mg Take 1 [facility] n 20 mg 0-25 tablet by it[facility] of tablet 00:00: mouth at [place] [address] bedtime. Medical Branch atorvasta 2021-09 Yes [id number] 20mg Take 1 [facility] n 20 mg 0-25 tablet by ity of tablet 00:00: mouth at [place] [address] bedtime. Medical Branch atorvasta 2021-09 Yes [id number] 20mg Take 1 [facility] n 20 mg 0-25 tablet by ity of tablet 00:00: mouth at [place] [address] bedtime. Medical Branch atorvastati 2021-09 Yes [id number] 20mg Take 1 [facility] n 20 mg 0-25 tablet by ity of tablet 00:00: mouth at [place] bedtime. Medical Branch atorvasta 2021-09 Yes [id number] 20mg Take 1 [facility] n 20 mg 0-25 tablet by ity of tablet 00:00: mouth at [place] [address] bedtime. Medical Branch atorvasta 2021-09 Yes [id number] 20mg Take 1 [facility] n 20 mg 0-25 tablet by it[facility] of tablet 00:00: mouth at [place] [address] bedtime. Medical Branch atorvasta 2021-09 Yes [id number] 20mg Take 1 [facility] n 20 mg 0-25 tablet by ity of tablet 00:00: mouth at [place] [address] bedtime. Medical Branch atorvasta 2021-09 Yes [id number] 20mg Take 1 [facility] n 20 mg 0-25 tablet by it[facility] of tablet 00:00: mouth at [place] [address] bedtime. Medical Branch atorvasta 2021-09 Yes [id number] 20mg Take 1 [facility] n 20 mg 0-25 tablet by [facility] of tablet 00:00: mouth at [place] [address] bedtime. Medical Branch atorvasta 2021-09 Yes [id number] 20mg Take 1 [facility] n 20 mg 0-25 tablet by ity of tablet 00:00: mouth at [place] [address] bedtime. Medical Branch atorvasta 2021-09 Yes [id number] 20mg Take 1 [facility] n 20 mg 0-25 tablet by ity of tablet 00:00: mouth at [place] [address] bedtime. Medical Branch atorvasta 2021-09 Yes [id number] 20mg Take 1 [facility] n 20 mg 0-25 tablet by [facility] of tablet 00:00: mouth at [place] [address] bedtime. Medical Branch atorvasta 2021-09 Yes [id number] 20mg Take 1 [facility] n 20 mg 0-25 tablet by it[facility] of tablet 00:00: mouth at [place] [address] bedtime. Medical Branch atorvasta 2021-09 Yes [id number] 20mg Take 1 [facility] n 20 mg 0-25 tablet by ity of tablet 00:00: mouth at [place] [address] bedtime. Medical Branch atorvasta 2021-09 Yes [id number] 20mg Take 1 [facility] n 20 mg 0-25 tablet by ity of tablet 00:00: mouth at [place] 00 bedtime. [facility] Yes [id number] 20mg Take 1 [facility] n 20 mg 0-25 tablet by ity of tablet 00:00: mouth at [place] 00 bedtime. [facility] Yes [id number] 20mg Take 1 [facility] n 20 mg 0-25 tablet by ity of tablet 00:00: mouth at [place] 00 bedtime. [facility] Yes [id number] 20mg Take 1 [facility] n 20 mg 0-25 tablet by ity of tablet 00:00: mouth at [place] 00 bedtime. [facility] Yes [id number] 20mg Take 1 [facility] n 20 mg 0-25 tablet by ity of tablet 00:00: mouth at [place] 00 bedtime. [facility]09 Yes [id number] 20mg Take 1 [facility] n 20 mg 0-25 tablet by ity of tablet 00:00: mouth at [place] 00 bedtime. [facility] 2021-09 Yes [id number] 20mg Take 1 [facility] n 20 mg 0-25 tablet by ity of tablet 00:00: mouth at [place] 00 bedtime. [facility]09 Yes [id number] 20mg Take 1 [facility] n 20 mg 0-25 tablet by ity of tablet 00:00: mouth at [place] 00 bedtime. [facility] levocetiriz 2021-09- No [id number] 5mg Take 1 Univers ine 5 mg 0-25 11-04 tablet by ity o f tablet 00:00: 00:00 mouth [place] 00 :00 every Medical evening. [place] montelukast 2021-09- No [id number] 10mg Take 1 [facility] 10 mg 0-25 11-04 tablet by ity of tablet 00:00: 00:00 mouth in [place] 00 :00 the Medical morning. Branch levocetiriz 2021-09- No [id number] 5mg Take 1 [facility] ine 5 mg 0-25 11-04 tablet by ity o f tablet 00:00: 00:00 mouth [place] 00 :00 every Medical evening. [place] montelukast 2021-09- No [id number] 10mg Take 1 [facility] 10 mg 0-25 11-04 tablet by ity of tablet 00:00: 00:00 mouth in [place] 00 :00 the Medical morning. Branch GLIMEPIRIDE 2021-09 Yes [id number] TAKE 1 [facility] 4 mg tablet 0-24 TABLET BY ity of 00:00: MOUTH [place] 00 EVERY DAY Medical WITH Branch BREAKFAST GLIMEPIRIDE 2021-09 Yes [id number] TAKE 1 Univers 4 mg tablet 0-24 TABLET BY ity of 00:00: MOUTH [place] 00 EVERY DAY Medical WITH Branch BREAKFAST GLIMEPIRIDE 2021-09 Yes [id number] TAKE 1 [facility] 4 mg tablet 0-24 TABLET BY ity of 00:00: MOUTH [place] 00 EVERY DAY Medical WITH Branch BREAKFAST GLIMEPIRIDE 2021-09 Yes [id number] TAKE 1 [facility] 4 mg tablet 0-24 TABLET BY ity of 00:00: MOUTH [place] 00 EVERY DAY Medical WITH Branch BREAKFAST GLIMEPIRIDE 2021-09 Yes [id number] TAKE 1 [facility] 4 mg tablet 0-24 TABLET BY ity of 00:00: MOUTH [place] 00 EVERY DAY Medical WITH Branch BREAKFAST GLIMEPIRIDE 2021-09 Yes [id number] TAKE 1 [facility] 4 mg tablet 0-24 TABLET BY ity of 00:00: MOUTH [place] 00 EVERY DAY Medical WITH Branch BREAKFAST GLIMEPIRIDE 2021-09 Yes [id number] TAKE 1 [facility] 4 mg tablet 0-24 TABLET BY ity of 00:00: MOUTH [place] 00 EVERY DAY Medical WITH Branch BREAKFAST GLIMEPIRIDE 2021-09 Yes [id number] TAKE 1 [facility] 4 mg tablet 0-24 TABLET BY ity of 00:00: MOUTH [place] 00 EVERY DAY Medical WITH Branch BREAKFAST GLIMEPIRIDE 2021-09 Yes [id number] TAKE 1 [facility] 4 mg tablet 0-24 TABLET BY ity of 00:00: MOUTH [place] 00 EVERY DAY Medical WITH Branch BREAKFAST GLIMEPIRIDE 2021-09- No [id number] TAKE 1 [facility] 4 mg tablet 0-24 11-04 TABLET BY it y of 00:00: 00:00 MOUTH [place] 00 :00 EVERY DAY Medical WITH Branch BREAKFAST GLIMEPIRIDE 2021-09- No [id number] TAKE 1 [facility] 4 mg tablet 0-24 11-04 TABLET BY it y of 00:00: 00:00 MOUTH [place] 00 :00 EVERY DAY Medical WITH Branch BREAKFAST metFORMIN 2021-09 Yes [id number] 1000mg Take 1 [facility] 1,000 mg 0-06 tablet by ity of tablet 00:00: mouth in [address] morning [place] and 1 tablet in the evening. Take with meals. metFORMIN 2021-09 Yes [id number] 1000mg Take 1 Univers 1,000 mg 0-06 tablet by ity of tablet 00:00: mouth in [address] and 1 tablet in the evening. Take with meals. metFORMIN 2021-09 Yes [id number] 1000mg Take 1 [facility] 1,000 mg 0-06 tablet by ity of tablet 00:00: mouth in [address] and 1 tablet in the evening. Take with meals. metFORMIN 2021-09 Yes [id number] 1000mg Take 1 [facility] 1,000 mg 0-06 tablet by ity of tablet 00:00: mouth in [address] and 1 tablet in the evening. Take with meals. metFORMIN 2021-09 Yes [id number] 1000mg Take 1 [facility] 1,000 mg 0-06 tablet by ity of tablet 00:00: mouth in [address] and 1 tablet in the evening. Take with meals. metFORMIN 2021-09 Yes [id number] 1000mg Take 1 [facility] 1,000 mg 0-06 tablet by ity of tablet 00:00: mouth in [address] and 1 tablet in the evening. Take with meals. metFORMIN 2021-09 Yes [id number] 1000mg Take 1 [facility] 1,000 mg 0-06 tablet by ity of tablet 00:00: mouth in [address] and 1 tablet in the evening. Take with meals. metFORMIN 2021-09 Yes [id number] 1000mg Take 1 [facility] 1,000 mg 0-06 tablet by ity of tablet 00:00: mouth in [address] and 1 tablet in the evening. Take with meals. metFORMIN 2021-09 Yes [id number] 1000mg Take 1 [facility] 1,000 mg 0-06 tablet by ity of tablet 00:00: mouth in [address] and 1 tablet in the evening. Take with meals. metFORMIN 2021-09 Yes [id number] 1000mg Take 1 [facility] 1,000 mg 0-06 tablet by ity of tablet 00:00: mouth in [address] and 1 tablet in the evening. Take with meals. metFORMIN 2021-09 202- No [id number] 1000mg Take 1 [facility] 1,000 mg 0-02 09-04 tablet by ity o f tablet 00:00: 00:00 mouth in [place] 00 :00 the Medical morning Branch and 1 tablet in the evening. Take with meals. metFORMIN 2021-09- No [id number] 1000mg Take 1 [facility] 1,000 mg 0-02 09-04 tablet by ity o f tablet 00:00: 00:00 mouth in [place] 00 :00 the Medical morning Branch and 1 tablet in the evening. [facility]. [facility] Yes [id number] TAKE 1 [facility] mg tablet 9-12 TABLET BY ity o f 00:00: MOUTH [place] 00 EVERY DAY Medical Branch ATORVASTATI 0 Yes [id number] TAKE 1 [facility] N 20 mg 9-12 TABLET BY ity of tablet 00:00: MOUTH [place] 00 EVERYDAY Medical AT BEDTIME [place] DULOXETINE Yes [id number] TAKE 1 [facility] 30 mg 9-12 CAPSULE BY ity of capsule 00:00: MOUTH [place] 00 EVERY DAY Medical IN THE Branch MORNING GLIMEPIRIDE 0 Yes [id number] TAKE 1 [facility] 4 mg tablet 9-12 TABLET BY ity of 00:00: MOUTH [place] 00 EVERY DAY Medical WITH Branch BREAKFAST METFORMIN 0 Yes [id number] TAKE 1 Un [facility]dy 1,000 mg 9-12 TABLET BY ity of tablet 00:00: MOUTH [place] 00 TWICE A Medical DAY WITH Branch MEALS [facility] 100 0 Yes [id number] TAKE 1 Univers mg tablet 9-12 TABLET BY ity o f 00:00: MOUTH [place] 00 EVERY DAY Medical Branch ATORVASTATI 2021-0 Yes [id number] TAKE 1 [facility] N 20 mg 9-12 TABLET BY ity of tablet 00:00: MOUTH [place] 00 EVERYDAY Medical AT BEDTIME [place] DULOXETINE 0 Yes [id number] TAKE 1 [facility] 30 mg 9-12 CAPSULE BY ity of capsule 00:00: MOUTH [place] 00 EVERY DAY Medical IN THE Branch MORNING GLIMEPIRIDE 0 Yes [id number] TAKE 1 [facility] 4 mg tablet 9-12 TABLET BY ity of 00:00: MOUTH [place] 00 EVERY DAY Medical WITH Branch BREAKFAST [facility] 100 0 Yes [id number] TAKE 1 [facility] mg tablet 9-12 TABLET BY ity o f 00:00: MOUTH [place] 00 EVERY DAY Medical Branch ATORVASTATI Yes [id number] TAKE 1 [facility] N 20 mg 9-12 TABLET BY ity of tablet 00:00: MOUTH [place] 00 EVERYDAY Medical AT BEDTIME [place] DULOXETINE 0 Yes [id number] TAKE 1 [facility] 30 mg 9-12 CAPSULE BY ity of capsule 00:00: MOUTH [place] 00 EVERY DAY Medical IN THE [place] [address] Yes [id number] TAKE 1 [facility] mg tablet 9-12 TABLET BY ity o f 00:00: MOUTH [place] 00 EVERY DAY [facility] DULOXETINE 0 Yes [id number] TAKE 1 Univers 30 mg 9-12 CAPSULE BY ity of capsule 00:00: MOUTH [place] 00 EVERY DAY Medical IN THE [place] [address] Yes [id number] TAKE 1 [facility] mg tablet 9-12 TABLET BY ity o f 00:00: MOUTH [place] 00 EVERY DAY [facility] DULOXETINE Yes [id number] TAKE 1 [facility] 30 mg 9-12 CAPSULE BY ity of capsule 00:00: MOUTH [place] 00 EVERY DAY Medical IN THE [place] [address] Yes [id number] TAKE 1 [facility] mg tablet 9-12 TABLET BY ity o f 00:00: MOUTH [place] 00 EVERY DAY [facility] DULOXETINE 0 Yes [id number] TAKE 1 [facility] 30 mg 9-12 CAPSULE BY ity of capsule 00:00: MOUTH [place] 00 EVERY DAY Medical IN THE [place] [address] Yes [id number] TAKE 1 [facility] mg tablet 9-12 TABLET BY ity o f 00:00: MOUTH [place] 00 EVERY DAY [facility] DULOXETINE 2021-0 Yes [id number] TAKE 1 [facility] 30 mg 9-12 CAPSULE BY ity of capsule 00:00: MOUTH [place] 00 EVERY DAY Medical IN THE [place] [address] Yes [id number] TAKE 1 [facility] mg tablet 9-12 TABLET BY ity o f 00:00: MOUTH [place] 00 EVERY DAY Medical [place] DULOXETINE 2021-0 Yes [id number] TAKE 1 [facility] 30 mg 9-12 CAPSULE BY ity of capsule 00:00: MOUTH [place] 00 EVERY DAY Medical IN THE [place] [address] Yes [id number] TAKE 1 [facility] mg tablet 9-12 TABLET BY ity o f 00:00: MOUTH [place] 00 EVERY DAY [facility] DULOXETINE 2021-0 Yes [id number] TAKE 1 [facility] 30 mg 9-12 CAPSULE BY ity of capsule 00:00: MOUTH [place] 00 EVERY DAY Medical IN THE [place] [address] Yes [id number] TAKE 1 [facility] mg tablet 9-12 TABLET BY ity o f 00:00: MOUTH [place] 00 EVERY DAY Medical [place] DULOXETINE Yes [id number] TAKE 1 [facility] 30 mg 9-12 CAPSULE BY ity of capsule 00:00: MOUTH [place] 00 EVERY DAY Medical IN THE [place] [address] Yes [id number] TAKE 1 [facility] mg tablet 9-12 TABLET BY ity o f 00:00: MOUTH [place] 00 EVERY DAY [facility] DULOXETINE Yes [id number] TAKE 1 [facility] 30 mg 9-12 CAPSULE BY ity of capsule 00:00: MOUTH [place] 00 EVERY DAY Medical IN THE [place] [address] 2021- No [id number] TAKE 1 [facility] mg tablet 9-12 11-04 TABLET BY ity of 00:00: 00:00 MOUTH [place] 00 :00 EVERY DAY [facility] DULOXETINE 2021-2021- No [id number] TAKE 1 [facility] 30 mg 9-12 11-04 CAPSULE BY ity of capsule 00:00: 00:00 MOUTH [place] 00 :00 EVERY DAY Medical IN THE [place] [address] 2021- No [id number] TAKE 1 [facility] mg tablet 9-12 11-04 TABLET BY ity of 00:00: 00:00 MOUTH [place] 00 :00 EVERY DAY [facility] DULOXETINE 0 2021- No [id number] TAKE 1 [facility] 30 mg 9-12 11-04 CAPSULE BY ity of capsule 00:00: 00:00 MOUTH [place] 00 :00 EVERY DAY Medical IN THE [facility] ATORVASTATI 2021-0 2021- No [id number] TAKE 1 Univers N 20 mg 9-12 10-25 TABLET BY ity of tablet 00:00: 00:00 MOUTH [place] 00 :00 EVERYDAY Medical AT BEDTIME [place] ATORVASTATI 2021-2021- No [id number] TAKE 1 [facility] N 20 mg 9-12 10-25 TABLET BY ity of tablet 00:00: 00:00 MOUTH [place] 00 :00 EVERYDAY Medical AT BEDTIME [place] GLIMEPIRIDE 2021-2021- No [id number] TAKE 1 [facility] 4 mg tablet 9-12 10-24 TABLET BY it y of 00:00: 00:00 MOUTH [place] 00 :00 EVERY DAY Medical WITH Branch BREAKFAST METFORMIN 2021- No [id number] TAKE 1 U nivers 1,000 mg 9-12 10-06 TABLET BY ity o f tablet 00:00: 00:00 MOUTH [place] 00 :00 TWICE A Medical DAY WITH Branch MEALS solifenacin Yes [id number] 10mg Take 1 Univers (VESICARE) 6-24 tablet by ity of 10 mg 00:00: mouth [place] tablet 00 daily. Medical Branch solifenacin Yes [id number] 10mg Take 1 Univers (VESICARE) 6-24 tablet by ity of 10 mg 00:00: mouth [place] tablet 00 daily. Medical Branch solifenacin Yes [id number] 10mg Take 1 Univers (VESICARE) 6-24 tablet by ity of 10 mg 00:00: mouth [place] tablet 00 daily. [facility] Branch solifenacin Yes [id number] 10mg Take 1 Univers (VESICARE) 6-24 tablet by ity of 10 mg 00:00: mouth [place] tablet 00 daily. Medical Branch solifenacin Yes [id number] 10mg Take 1 Univers (VESICARE) 6-24 tablet by ity of 10 mg 00:00: mouth [place] tablet 00 daily. [facility] Branch solifenacin Yes [id number] 10mg Take 1 Univers (VESICARE) 6-24 tablet by ity of 10 mg 00:00: mouth [place] tablet 00 daily. [facility] Branch solifenacin Yes [id number] 10mg Take 1 Univers (VESICARE) 6-24 tablet by ity of 10 mg 00:00: mouth [place] tablet 00 daily. Medical Branch solifenacin 2021- No [id number] 10mg Take 1 [facility] (VESICARE) 6-24 10-25 tablet by ity of 10 mg 00:00: 00:00 mouth [place] tablet 00 :00 daily. [facility] Branch solifenacin 2021- No [id number] 10mg Take 1 Univers (VESICARE) 6-24 10-25 tablet by ity of 10 mg 00:00: 00:00 mouth [place] tablet 00 :00 daily. Medical Branch estradioL 2022-0 Yes [id number] Apply 1g Univers (ESTRACE) 6-17 vaginally ity o f 0.01 % (0.1 00:00: at bedtime [place] mg/gram) 00 every Medical vaginal night for Branch cream 2 weeks and then apply 1g vaginally at bedtime 2 times per week estradioL 2021-0 Yes [id number] Apply 1g Univers (ESTRACE) 6-17 vaginally ity o f 0.01 % (0.1 00:00: at bedtime [place] mg/gram) 00 every Medical vaginal night for Branch cream 2 weeks and then apply 1g vaginally at bedtime 2 times per week estradioL 2021-0 Yes [id number] Apply 1g Univers (ESTRACE) 6-17 vaginally ity o f 0.01 % (0.1 00:00: at bedtime [place] mg/gram) 00 every Medical vaginal night for Branch cream 2 weeks and then apply 1g vaginally at bedtime 2 times per week estradioL 2021-0 Yes [id number] Apply 1g Univers (ESTRACE) 6-17 vaginally ity o f 0.01 % (0.1 00:00: at bedtime [place] mg/gram) 00 every Medical vaginal night for Branch cream 2 weeks and then apply 1g vaginally at bedtime 2 times per week estradioL 2021-0 Yes [id number] Apply 1g Univers (ESTRACE) 6-17 vaginally ity o f 0.01 % (0.1 00:00: at bedtime [place] mg/gram) 00 every Medical vaginal night for Branch cream 2 weeks and then apply 1g vaginally at bedtime 2 times per week estradioL 2021-0 Yes [id number] Apply 1g Univers (ESTRACE) 6-17 vaginally ity o f 0.01 % (0.1 00:00: at bedtime [place] mg/gram) 00 every Medical vaginal night for Branch cream 2 weeks and then apply 1g vaginally at bedtime 2 times per week estradioL 2021-0 Yes [id number] Apply 1g Univers (ESTRACE) 6-17 vaginally ity o f 0.01 % (0.1 00:00: at bedtime [place] mg/gram) 00 every Medical vaginal night for Branch cream 2 weeks and then apply 1g vaginally at bedtime 2 times per week estradioL 2021-0 Yes [id number] Apply 1g Univers (ESTRACE) 6-17 vaginally ity o f 0.01 % (0.1 00:00: at bedtime [place] mg/gram) 00 every Medical vaginal night for Branch cream 2 weeks and then apply 1g vaginally at bedtime 2 times per week estradioL 2021- No [id number] Apply 1g [facility] (ESTRACE) 6-17 10-25 vaginally ity of 0.01 % (0.1 00:00: 00:00 at bedtime [place] mg/gram) 00 :00 every Medical vaginal night for Branch cream 2 weeks and then apply 1g vaginally at bedtime 2 times per week estradioL 2021- No [id number] Apply 1g [facility] (ESTRACE) 6-17 10-25 vaginally ity of 0.01 % (0.1 00:00: 00:00 at bedtime [place] mg/gram) 00 :00 every Medical vaginal night for Branch cream 2 weeks and then apply 1g vaginally at bedtime 2 times per week solifenacin 2021- No [id number] 10mg Take 1 Univers (VESICARE) 6-17 07-18 tablet by ity of 10 mg 00:00: 04:59 mouth [place] tablet 00 :00 daily for Medical 30 days. [place] solifenacin 2021- No [id number] 10mg Take 1 Univers (VESICARE) 6-17 06-24 tablet by ity of 10 mg 00:00: 00:00 mouth [place] tablet 00 :00 daily for Medical 30 days. [place] estradioL 2021- No [id number] 1g Insert 1 g Univers (ESTRACE) 02-15-17 into ity of 0.01 % (0.1 00:00: 00:00 vagina at [place] mg/gram) 00 :00 bedtime. Medical vaginal Branch cream glimepiride Yes 539 4mg Take 1 Univ ers 4 mg tablet 3-28 tablet by ity of 00:00: mouth [place] 00 daily with Medical breakfast. Branch Indication s: diabetes glimepiride Yes 539 4mg Take 1 Univ ers 4 mg tablet 3-28 tablet by ity of 00:00: mouth [place] 00 daily with Medical breakfast. Branch Indication s: diabetes glimepiride Yes 539 4mg Take 1 Univ ers 4 mg tablet 3-28 tablet by ity of 00:00: mouth [place] 00 daily with Medical breakfast. Branch Indication s: diabetes glimepiride 202-0 Yes 539 4mg Take 1 Univ ers 4 mg tablet 3-28 tablet by ity of 00:00: mouth [place] 00 daily with Medical breakfast. Branch Indication s: diabetes glimepiride 2021-0 Yes 539 4mg Take 1 Univ ers 4 mg tablet 3-28 tablet by ity of 00:00: mouth [place] 00 daily with Medical breakfast. Branch Indication s: diabetes glimepiride 2021-0 2022- No 539 4mg Take 1 Uni vers 4 mg tablet 3-28 -12 tablet by it y of 00:00: 00:00 mouth [place] 00 :00 daily with Medical breakfast. Branch Indication s: diabetes VITAMIN C 2021-0 Yes 500mg Take 500 Uni vers 500 mg 3-21 mg by ity of tablet 10:44: mouth. [address] VITAMIN C 2-0 Yes 500mg Take 500 Uni vers 500 mg 3-21 mg by ity of tablet 10:44: mouth. [address] VITAMIN C 2021-0 Yes 500mg Take 500 Uni vers 500 mg 3-21 mg by ity of tablet 10:44: mouth. [address] VITAMIN C 2-0 Yes 500mg Take 500 Uni vers 500 mg 3-21 mg by ity of tablet 10:44: mouth. [address] VITAMIN C 2-0 Yes 500mg Take 500 Uni vers 500 mg 3-21 mg by ity of tablet 10:44: mouth. [address] VITAMIN C 2-0 Yes 500mg Take 500 Uni vers 500 mg 3-21 mg by ity of tablet 10:44: mouth. [address] VITAMIN C 2-0 Yes 500mg Take 500 Uni vers 500 mg 3-21 mg by ity of tablet 10:44: mouth. [address] VITAMIN C 2-0 Yes 500mg Take 500 Uni vers 500 mg 3-21 mg by ity of tablet 10:44: mouth. [address] VITAMIN C 2-0 Yes 500mg Take 500 Uni vers 500 mg 3-21 mg by ity of tablet 10:44: mouth. [address] VITAMIN C 2-0 Yes 500mg Take 500 Uni vers 500 mg 3-21 mg by ity of tablet 10:44: mouth. [address] VITAMIN C 2022-0 Yes 500mg Take 500 Uni vers 500 mg 3-21 mg by ity of tablet 10:44: mouth. [address] VITAMIN C 2022-0 Yes 500mg Take 500 Uni vers 500 mg 3-21 mg by ity of tablet 10:44: mouth. [address] VITAMIN C 2022-0 Yes 500mg Take 500 Uni vers 500 mg 3-21 mg by ity of tablet 10:44: mouth. [address] VITAMIN C 2022-0 Yes 500mg Take 500 Uni vers 500 mg 3-21 mg by ity of tablet 10:44: mouth. [address] VITAMIN C 2022-0 Yes 500mg Take 500 Uni vers 500 mg 3-21 mg by ity of tablet 10:44: mouth. [address] VITAMIN C 2022-0 Yes 500mg Take 500 Uni vers 500 mg 3-21 mg by ity of tablet 10:44: mouth. [address] VITAMIN C 2022-0 Yes 500mg Take 500 Uni vers 500 mg 3-21 mg by ity of tablet 10:44: mouth. [address] VITAMIN C 2022-0 Yes 500mg Take 500 Uni vers 500 mg 3-21 mg by ity of tablet 10:44: mouth. [address] VITAMIN C 2022-0 Yes 500mg Take 500 Uni vers 500 mg 3-21 mg by ity of tablet 10:44: mouth. [address] VITAMIN C 2022-0 Yes 500mg Take 500 Uni vers 500 mg 3-21 mg by ity of tablet 10:44: mouth. [address] VITAMIN C 2022-0 Yes 500mg Take 500 Uni vers 500 mg 3-21 mg by ity of tablet 10:44: mouth. [address] VITAMIN C 2022-0 Yes 500mg Take 500 Uni vers 500 mg 3-21 mg by ity of tablet 10:44: mouth. [address] VITAMIN C 2022-0 Yes 500mg Take 500 Uni vers 500 mg 3-21 mg by ity of tablet 10:44: mouth. [address] VITAMIN C 2022-0 Yes 500mg Take 500 Uni vers 500 mg 3-21 mg by ity of tablet 10:44: mouth. [address] VITAMIN C 2022-0 Yes 500mg Take 500 Uni vers 500 mg 3-21 mg by ity of tablet 10:44: mouth. [address] VITAMIN C 2022-0 Yes 500mg Take 500 Uni vers 500 mg 3-21 mg by ity of tablet 10:44: mouth. [address] VITAMIN C 2022-0 Yes 500mg Take 500 Uni vers 500 mg 3-21 mg by ity of tablet 10:44: mouth. [address] VITAMIN C 2022-0 Yes 500mg Take 500 Uni vers 500 mg 3-21 mg by ity of tablet 10:44: mouth. [address] VITAMIN C 2022-0 Yes 500mg Take 500 Uni vers 500 mg 3-21 mg by ity of tablet 10:44: mouth. [address] VITAMIN C 2022-0 Yes 500mg Take 500 Uni vers 500 mg 3-21 mg by ity of tablet 10:44: mouth. [address] VITAMIN C 2022-0 Yes 500mg Take 500 Uni vers 500 mg 3-21 mg by ity of tablet 10:44: mouth. [address] VITAMIN C 2022-0 Yes 500mg Take 500 Uni vers 500 mg 3-21 mg by ity of tablet 10:44: mouth. [address] VITAMIN C 2022-0 Yes 500mg Take 500 Uni vers 500 mg 3-21 mg by ity of tablet 10:44: mouth. [address] VITAMIN C 2022-0 Yes 500mg Take 500 Uni vers 500 mg 3-21 mg by ity of tablet 10:44: mouth. [address] VITAMIN C 2022-0 Yes 500mg Take 500 Uni vers 500 mg 3-21 mg by ity of tablet 10:44: mouth. [address] VITAMIN C 2022-0 Yes 500mg Take 500 Uni vers 500 mg 3-21 mg by ity of tablet 10:44: mouth. [address] VITAMIN C 2022-0 Yes 500mg Take 500 Uni vers 500 mg 3-21 mg by ity of tablet 10:44: mouth. [address] VITAMIN C 2022-0 Yes 500mg Take 500 Uni vers 500 mg 3-21 mg by ity of tablet 10:44: mouth. [address] VITAMIN C 2022-0 Yes 500mg Take 500 Uni vers 500 mg 3-21 mg by ity of tablet 10:44: mouth. [address] VITAMIN C 2022-0 Yes 500mg Take 500 Uni vers 500 mg 3-21 mg by ity of tablet 10:44: mouth. [address] VITAMIN C 2022-0 Yes 500mg Take 500 Uni vers 500 mg 3-21 mg by ity of tablet 10:44: mouth. [address] VITAMIN C 2022-0 Yes 500mg Take 500 Uni vers 500 mg 3-21 mg by ity of tablet 10:44: mouth. [address] VITAMIN C 2022-0 Yes 500mg Take 500 Uni vers 500 mg 3-21 mg by ity of tablet 10:44: mouth. [address] VITAMIN C 2022-0 Yes 500mg Take 500 Uni vers 500 mg 3-21 mg by ity of tablet 10:44: mouth. [address] VITAMIN C 2022-0 Yes 500mg Take 500 Uni vers 500 mg 3-21 mg by ity of tablet 10:44: mouth. [address] VITAMIN C 2022-0 Yes 500mg Take 500 Uni vers 500 mg 3-21 mg by ity of tablet 10:44: mouth. [address] VITAMIN C 2022-0 Yes 500mg Take 500 Uni vers 500 mg 3-21 mg by ity of tablet 10:44: mouth. [address] VITAMIN C 2022-0 Yes 500mg Take 500 Uni vers 500 mg 3-21 mg by ity of tablet 10:44: mouth. [address] VITAMIN C 2022-0 Yes 500mg Take 500 Uni vers 500 mg 3-21 mg by ity of tablet 10:44: mouth. [address] VITAMIN C 2022-0 Yes 500mg Take 500 Uni vers 500 mg 3-21 mg by ity of tablet 10:44: mouth. [address] VITAMIN C 2022-0 Yes 500mg Take 500 Uni vers 500 mg 3-21 mg by ity of tablet 10:44: mouth. [address] VITAMIN C 2022-0 Yes 500mg Take 500 Uni vers 500 mg 3-21 mg by ity of tablet 10:44: mouth. [address] VITAMIN C 2022-0 Yes 500mg Take 500 Uni vers 500 mg 3-21 mg by ity of tablet 10:44: mouth. [address] VITAMIN C 2022-0 Yes 500mg Take 500 Uni vers 500 mg 3-21 mg by ity of tablet 10:44: mouth. [address] VITAMIN C 2022-0 Yes 500mg Take 500 Uni vers 500 mg 3-21 mg by ity of tablet 10:44: mouth. [address] VITAMIN C 2022-0 Yes 500mg Take 500 Uni vers 500 mg 3-21 mg by ity of tablet 10:44: mouth. [address] VITAMIN C 2022-0 Yes 500mg Take 500 Uni vers 500 mg 3-21 mg by ity of tablet 10:44: mouth. [address] VITAMIN C 2022-0 Yes 500mg Take 500 Uni vers 500 mg 3-21 mg by ity of tablet 10:44: mouth. [address] VITAMIN C 2022-0 Yes 500mg Take 500 Uni vers 500 mg 3-21 mg by ity of tablet 10:44: mouth. [address] VITAMIN C 2022-0 Yes 500mg Take 500 Uni vers 500 mg 3-21 mg by ity of tablet 10:44: mouth. [address] VITAMIN C 2022-0 Yes 500mg Take 500 Uni vers 500 mg 3-21 mg by ity of tablet 10:44: mouth. [address] VITAMIN C 2022-0 Yes 500mg Take 500 Uni vers 500 mg 3-21 mg by ity of tablet 10:44: mouth. [address] VITAMIN C 2022-0 Yes 500mg Take 500 Uni vers 500 mg 3-21 mg by ity of tablet 10:44: mouth. [address] VITAMIN C 2022-0 Yes 500mg Take 500 Uni vers 500 mg 3-21 mg by ity of tablet 10:44: mouth. [address] VITAMIN C 2022-0 Yes 500mg Take 500 Uni vers 500 mg 3-21 mg by ity of tablet 10:44: mouth. [address] VITAMIN C 2022-0 Yes 500mg Take 500 Uni vers 500 mg 3-21 mg by ity of tablet 10:44: mouth. [address] VITAMIN C 2022-0 Yes 500mg Take 500 Uni vers 500 mg 3-21 mg by ity of tablet 10:44: mouth. [address] VITAMIN C 2022-0 Yes 500mg Take 500 Uni vers 500 mg 3-21 mg by ity of tablet 10:44: mouth. [address] VITAMIN C 2022-0 Yes 500mg Take 500 Uni vers 500 mg 3-21 mg by ity of tablet 10:44: mouth. [place] 26 Medical Branch topiramate 2022-0 Yes 100mg Take 100 Un [place] 100 mg 3-21 mg by ity of tablet 10:29: mouth [place] 27 daily. Medical Branch topiramate 2022-0 Yes 100mg Take 100 Un [place] 100 mg 3-21 mg by ity of tablet 10:29: mouth [place] 27 daily. Medical Branch topiramate 2022-0 Yes 100mg Take 100 Un [place] 100 mg 3-21 mg by ity of tablet 10:29: mouth [place] 27 daily. Medical Branch topiramate 2022-0 Yes 100mg Take 100 Un [place] 100 mg 3-21 mg by ity of tablet 10:29: mouth [place] 27 daily. Medical Branch topiramate 2022-0 Yes 100mg Take 100 Un [place] 100 mg 3-21 mg by ity of tablet 10:29: mouth [place] 27 daily. Medical Branch topiramate 2022-0 Yes 100mg Take 100 Un [place] 100 mg 3-21 mg by ity of tablet 10:29: mouth [place] 27 daily. Medical Branch topiramate 2022-0 Yes 100mg Take 100 Un [place] 100 mg 3-21 mg by ity of tablet 10:29: mouth [place] 27 daily. Medical Branch topiramate 2022-0 Yes 100mg Take 100 Un [place] 100 mg 3-21 mg by ity of tablet 10:29: mouth [place] 27 daily. Medical Branch topiramate 2022-0 Yes 100mg Take 100 Un [place] 100 mg 3-21 mg by ity of tablet 10:29: mouth [place] 27 daily. [facility] topiramate 2022-0 Yes 100mg Take 100 [facility] 100 mg 3-21 mg by ity of tablet 10:29: mouth [place] 27 daily. [facility] Branch topiramate 2022-0 Yes 100mg Take 100 [facility] [place] 100 mg 3-21 mg by ity of tablet 10:29: mouth [place] 27 daily. [facility] topiramate 2022-0 Yes 100mg Take 100 [facility] [place] 100 mg 3-21 mg by ity of tablet 10:29: mouth [place] 27 daily. [facility] topiramate 2022-0 Yes 100mg Take 100 [facility] [place] 100 mg 3-21 mg by ity of tablet 10:29: mouth [place] 27 daily. [facility] Branch topiramate 2022-0 Yes 100mg Take 100 [facility] [place] 100 mg 3-21 mg by ity of tablet 10:29: mouth [place] 27 daily. [facility] topiramate 0 Yes 100mg Take 100 [facility] [place] 100 mg 3-21 mg by ity of tablet 10:29: mouth [place] 27 daily. [facility] topiramate 0 Yes 100mg Take 100 [facility] [place] 100 mg 3-21 mg by ity of tablet 10:29: mouth [place] 27 daily. [facility] traZODone Yes [id number] 100mg Take 1 [facility] 100 mg 3-21 tablet by [facility] of tablet 00:00: mouth at [place] 00 bedtime. [facility] SITagliptin Yes [id number] 100mg Take 1 [facility] (JANUVIA) 3-21 tablet by ity o f 100 mg 00:00: mouth [place] tablet 00 daily. [facility] metFORMIN Yes [id number] 1000mg Take 1 [facility] 1,000 mg 3-21 tablet by ity of tablet 00:00: mouth 2 [place] 00 (two) Medical times Branch daily with meals. DULoxetine Yes [id number] 30mg Take 1 [facility] 30 mg 3-21 capsule by ity of capsule 00:00: mouth [place] 00 every Medical morning. Branch atorvastati Yes [id number] 20mg Take 1 [facility] n 20 mg 3-21 tablet by ity of tablet 00:00: mouth at [place] 00 bedtime. Medical Branch methocarbam Yes [id number] TAKE 1 [facility] oL 750 mg 3-21 TABLET BY ity o f tablet 00:00: MOUTH 4 [place] 00 TIMES A Medical DAY Branch NEEDED FOR MUSCLE PAIN OR SPASM traZODone Yes [id number] 100mg Take 1 [facility] 100 mg 3-21 tablet by ity of tablet 00:00: mouth at [place] 00 bedtime. [facility] SITagliptin Yes [id number] 100mg Take 1 [facility] (JANUVIA) 3-21 tablet by ity o f 100 mg 00:00: mouth [place] tablet 00 daily. [facility] metFORMIN Yes [id number] 1000mg Take 1 [facility] 1,000 mg 3-21 tablet by ity of tablet 00:00: mouth 2 [place] 00 (two) Medical times Branch daily with meals. DULoxetine 2022-0 Yes [id number] 30mg Take 1 [facility] 30 mg 3-21 capsule by ity of capsule 00:00: mouth [place] 00 every Medical morning. Branch atorvastati 0 Yes [id number] 20mg Take 1 [facility] n 20 mg 3-21 tablet by ity of tablet 00:00: mouth at [place] 00 bedtime. Medical [facility] methocarbam 0 Yes [id number] TAKE 1 [facility] oL 750 mg 3-21 TABLET BY ity o f tablet 00:00: MOUTH 4 [place] 00 TIMES A Medical DAY Branch NEEDED FOR MUSCLE PAIN OR SPASM traZODone 2021-0 Yes [id number] 100mg Take 1 [facility] 100 mg 3-21 tablet by ity of tablet 00:00: mouth at [place] 00 bedtime. Medical Branch SITagliptin 0 Yes [id number] 100mg Take 1 [facility] (JANUVIA) 3-21 tablet by ity o f 100 mg 00:00: mouth [place] tablet 00 daily. Medical [facility] metFORMIN 0 Yes [id number] 1000mg Take 1 [facility] 1,000 mg 3-21 tablet by ity of tablet 00:00: mouth 2 00 (two) Medical times Branch daily with meals. DULoxetine Yes [id number] 30mg Take 1 [facility] 30 mg 3-21 capsule by ity of capsule 00:00: mouth [place] 00 every Medical morning. Branch atorvastati Yes [id number] 20mg Take 1 [facility] n 20 mg 3-21 tablet by ity of tablet 00:00: mouth at [place] 00 bedtime. Medical Branch methocarbam 0 Yes [id number] TAKE 1 [facility] oL 750 mg 3-21 TABLET BY ity o f tablet 00:00: MOUTH 4 [place] 00 TIMES A Medical DAY Branch NEEDED FOR MUSCLE PAIN OR SPASM traZODone 2021-0 Yes [id number] 100mg Take 1 [facility] 100 mg 3-21 tablet by ity of tablet 00:00: mouth at [place] 00 bedtime. Medical [facility] SITagliptin 2021-0 Yes [id number] 100mg Take 1 [facility] (JANUVIA) 3-21 tablet by ity o f 100 mg 00:00: mouth [place] tablet 00 daily. Medical Branch metFORMIN 2021-0 Yes [id number] 1000mg Take 1 [facility] 1,000 mg 3-21 tablet by ity of tablet 00:00: mouth 2 00 (two) Medical times Branch daily with meals. DULoxetine 2021-0 Yes [id number] 30mg Take 1 [facility] 30 mg 3-21 capsule by ity of capsule 00:00: mouth [place] 00 every Medical morning. Branch atorvastati 0 Yes [id number] 20mg Take 1 [facility] n 20 mg 3-21 tablet by ity of tablet 00:00: mouth at [place] 00 bedtime. Medical Branch methocarbam 2021-0 Yes [id number] TAKE 1 [facility] oL 750 mg 3-21 TABLET BY ity o f tablet 00:00: MOUTH 4 [place] 00 TIMES A Medical DAY Branch NEEDED FOR MUSCLE PAIN OR SPASM traZODone 2021-0 Yes [id number] 100mg Take 1 [facility] 100 mg 3-21 tablet by ity of tablet 00:00: mouth at [place] 00 bedtime. Medical Branch SITagliptin 2021-0 Yes [id number] 100mg Take 1 [facility] (JANUVIA) 3-21 tablet by ity o f 100 mg 00:00: mouth [place] tablet 00 daily. Medical Branch metFORMIN 2021-0 Yes [id number] 1000mg Take 1 [facility] 1,000 mg 3-21 tablet by ity of tablet 00:00: mouth 2 (two) Medical times Branch daily with meals. DULoxetine Yes [id number] 30mg Take 1 [facility] 30 mg 3-21 capsule by ity of capsule 00:00: mouth 00 every Medical morning. Branch atorvastati Yes [id number] 20mg Take 1 [facility] n 20 mg 3-21 tablet by ity of tablet 00:00: mouth at [place] 00 bedtime. Medical Branch methocarbam 2021-0 Yes [id number] TAKE 1 [facility] oL 750 mg 3-21 TABLET BY ity o f tablet 00:00: MOUTH 4 [place] 00 TIMES A Medical DAY Branch NEEDED FOR MUSCLE PAIN OR SPASM traZODone 2021-0 Yes [id number] 100mg Take 1 [facility] 100 mg 3-21 tablet by ity of tablet 00:00: mouth at [place] 00 bedtime. Medical Branch methocarbam 2021-0 Yes [id number] TAKE 1 [facility] oL 750 mg 3-21 TABLET BY ity o f tablet 00:00: MOUTH 4 [place] 00 TIMES A Medical DAY Branch NEEDED FOR MUSCLE PAIN OR SPASM traZODone 2021-0 Yes [id number] 100mg Take 1 [facility] 100 mg 3-21 tablet by ity of tablet 00:00: mouth at [place] [address] bedtime. Medical Branch methocarbam 2021-0 Yes [id number] TAKE 1 [facility] oL 750 mg 3-21 TABLET BY ity o f tablet 00:00: MOUTH 4 [place] TIMES A Medical DAY Branch NEEDED FOR MUSCLE PAIN OR SPASM traZODone 2021-0 Yes [id number] 100mg Take 1 [facility] 100 mg 3-21 tablet by ity of tablet 00:00: mouth at [place] [address] bedtime. Medical Branch methocarbam 2021-0 Yes [id number] TAKE 1 [facility] oL 750 mg 3-21 TABLET BY ity o f tablet 00:00: MOUTH 4 [place] TIMES A Medical DAY Branch NEEDED FOR MUSCLE PAIN OR SPASM traZODone 2021-0 Yes [id number] 100mg Take 1 [facility] 100 mg 3-21 tablet by ity of tablet 00:00: mouth at [place] [address] bedtime. Medical Branch methocarbam 2021-0 Yes [id number] TAKE 1 [facility] oL 750 mg 3-21 TABLET BY ity o f tablet 00:00: MOUTH 4 [place] TIMES A Medical DAY Branch NEEDED FOR MUSCLE PAIN OR SPASM traZODone 2021-0 Yes [id number] 100mg Take 1 [facility] 100 mg 3-21 tablet by ity of tablet 00:00: mouth at [place] [address] bedtime. Medical Branch methocarbam 2021-0 Yes [id number] TAKE 1 [facility] oL 750 mg 3-21 TABLET BY ity o f tablet 00:00: MOUTH 4 [place] TIMES A Medical DAY Branch NEEDED FOR MUSCLE PAIN OR SPASM traZODone 2-0 Yes [id number] 100mg Take 1 [facility] 100 mg 3-21 tablet by ity of tablet 00:00: mouth at [place] [address] bedtime. Medical Branch methocarbam 2021-0 Yes [id number] TAKE 1 [facility] oL 750 mg 3-21 TABLET BY ity o f tablet 00:00: MOUTH 4 [place] TIMES A Medical DAY Branch NEEDED FOR MUSCLE PAIN OR SPASM traZODone 2-0 Yes [id number] 100mg Take 1 [facility] 100 mg 3-21 tablet by ity of tablet 00:00: mouth at [place] [address] bedtime. Medical Branch methocarbam 2021-0 Yes [id number] TAKE 1 [facility] oL 750 mg 3-21 TABLET BY ity o f tablet 00:00: MOUTH 4 [place] 00 TIMES A Medical DAY Branch NEEDED FOR MUSCLE PAIN OR SPASM traZODone 2021-0 Yes [id number] 100mg Take 1 [facility] 100 mg 3-21 tablet by ity of tablet 00:00: mouth at [place] [address] bedtime. Medical Branch methocarbam 2021-0 Yes [id number] TAKE 1 [facility] oL 750 mg 3-21 TABLET BY ity o f tablet 00:00: MOUTH 4 [place] 00 TIMES A Medical DAY Branch NEEDED FOR MUSCLE PAIN OR SPASM traZODone 2021-0 Yes [id number] 100mg Take 1 [facility] 100 mg 3-21 tablet by ity of tablet 00:00: mouth at [place] [address] bedtime. Medical Branch methocarbam 0 Yes [id number] TAKE 1 [facility] oL 750 mg 3-21 TABLET BY ity o f tablet 00:00: MOUTH 4 [place] TIMES A Medical DAY Branch NEEDED FOR MUSCLE PAIN OR SPASM traZODone 2021-0 Yes [id number] 100mg Take 1 [facility] 100 mg 3-21 tablet by ity of tablet 00:00: mouth at [place] [address] bedtime. Medical Branch methocarbam 2021-0 Yes [id number] TAKE 1 [facility] oL 750 mg 3-21 TABLET BY ity o f tablet 00:00: MOUTH 4 [place] 00 TIMES A Medical DAY Branch NEEDED FOR MUSCLE PAIN OR SPASM traZODone 2021-0 Yes [id number] 100mg Take 1 [facility] 100 mg 3-21 tablet by ity of tablet 00:00: mouth at [place] [address] bedtime. Medical Branch methocarbam 2021-0 Yes [id number] TAKE 1 [facility] oL 750 mg 3-21 TABLET BY ity o f tablet 00:00: MOUTH 4 [place] 00 TIMES A Medical DAY Branch NEEDED FOR MUSCLE PAIN OR SPASM traZODone 2021-0 2021- No [id number] 100mg Take 1 [facility] 100 mg 3-21 11-04 tablet by ity of tablet 00:00: 00:00 mouth at [place] 00 :00 bedtime. Medical Branch methocarbam 2021-0 2021- No [id number] TAKE 1 [facility] oL 750 mg 3-21 11-04 TABLET BY ity of tablet 00:00: 00:00 MOUTH 4 [place] 00 :00 TIMES A Medical DAY Branch NEEDED FOR MUSCLE PAIN OR SPASM traZODone 2021- No [id number] 100mg Take 1 [facility] 100 mg -07-05 tablet by ity of tablet 00:00: 00:00 mouth at [place] 00 :00 bedtime. Medical Branch methocarbam 2021- No [id number] TAKE 1 [facility] oL 750 mg -07-05 TABLET BY ity of tablet 00:00: 00:00 MOUTH 4 [place] 00 :00 TIMES A Medical DAY Branch NEEDED FOR MUSCLE PAIN OR SPASM SITagliptin 2021- No [id number] 100mg Take 1 [facility] (JANUVIA) -05-13 tablet by ity of 100 mg 00:00: 00:00 mouth [place] tablet 00 :00 daily. Medical Branch metFORMIN 2021- No [id number] 1000mg Take 1 [facility] 1,000 mg -05-13 tablet by ity o f tablet 00:00: 00:00 mouth 2 [place] 00 :00 (two) Medical times Branch daily with meals. DULoxetine 2021- No [id number] 30mg Take 1 [facility] 30 mg -05-13 capsule by ity of capsule 00:00: 00:00 mouth [place] 00 :00 every Medical morning. Branch atorvastati 2021- No [id number] 20mg Take 1 [facility] n 20 mg -05-13 tablet by ity of tablet 00:00: 00:00 mouth at [place] 00 :00 bedtime. Medical Branch Cholecalcif 2020-09 Yes [id number] 2000U Take 1 [facility] sank[facility], 2-21 capsule by ity of Vitamin D3, 00:00: mouth [place] (D3-1999) 00 daily. Medical 50 mcg Take with Branch (2,000 food unit) capsule Cholecalcif 2020-09 Yes [id number] 2000U Take 1 [facility] sank[facility], 2-21 capsule by ity of Vitamin D3, 00:00: mouth [place] (D3-1999) 00 daily. Medical 50 mcg Take with Branch (2,000 food unit) capsule Cholecalcif 2020-09 Yes [id number] 2000U Take 1 [facility], 2-21 capsule by ity of Vitamin D3, 00:00: mouth [place] (D3-1999) 00 daily. Medical 50 mcg Take with Branch (2,000 food unit) capsule Cholecalcif 2021-1 Yes [id number] 2000U Take 1 [facility] sank[facility], 2-21 capsule by ity of Vitamin D3, 00:00: mouth [place] (D3-1999) 00 daily. Medical 50 mcg Take with Branch (2,000 food unit) capsule Cholecalcif 2021-1 Yes [id number] 2000U Take 1 [facility], 2-21 capsule by ity of Vitamin D3, 00:00: mouth [place] (D3-1999) 00 daily. Medical 50 mcg Take with Branch (2,000 food unit) capsule Cholecalcif 2021-1 Yes [id number] 1999U Take 1 [facility], 2-21 capsule by ity of Vitamin D3, 00:00: mouth [place] (D3-1999) 00 daily. Medical 50 mcg Take with Branch (2,000 food unit) capsule Cholecalcif 2021-1 Yes [id number] 1999U Take 1 [facility], 2-21 capsule by ity of Vitamin D3, 00:00: mouth [place] (D3-1999) 00 daily. Medical 50 mcg Take with Branch (2,000 food unit) capsule Cholecalcif 2021-1 Yes [id number] 1999U Take 1 [facility], 2-21 capsule by ity of Vitamin D3, 00:00: mouth [place] (D3-1999) 00 daily. Medical 50 mcg Take with Branch (2,000 food unit) capsule Cholecalcif 2021-1 Yes [id number] 1999U Take 1 [facility], 2-21 capsule by ity of Vitamin D3, 00:00: mouth [place] (D3-1999) 00 daily. Medical 50 mcg Take with Branch (2,000 food unit) capsule Cholecalcif 2021-1 Yes [id number] 1999U Take 1 [facility], 2-21 capsule by ity of Vitamin D3, 00:00: mouth [place] (D3-1999) 00 daily. Medical 50 mcg Take with Branch (2,000 food unit) capsule Cholecalcif 2021-1 Yes [id number] 1999U Take 1 [facility], 2-21 capsule by ity of Vitamin D3, 00:00: mouth [place] (D3-1999) 00 daily. Medical 50 mcg Take with Branch (2,000 food unit) capsule Cholecalcif 2021-1 Yes [id number] 1999U Take 1 [facility], 2-21 capsule by ity of Vitamin D3, 00:00: mouth [place] (D3-1999) 00 daily. Medical 50 mcg Take with Branch (2,000 food unit) capsule Cholecalcif 2021-1 Yes [id number] 2000U Take 1 [facility], 2-21 capsule by ity of Vitamin D3, 00:00: mouth [place] (D3-1999) 00 daily. Medical 50 mcg Take with Branch (2,000 food unit) capsule Cholecalcif 2021-1 Yes [id number] 2000U Take 1 [facility], 2-21 capsule by ity of Vitamin D3, 00:00: mouth [place] (D3-1999) 00 daily. Medical 50 mcg Take with Branch (2,000 food unit) capsule Cholecalcif 2021-1 Yes [id number] 2000U Take 1 [facility], 2-21 capsule by ity of Vitamin D3, 00:00: mouth [place] (D3-1999) 00 daily. Medical 50 mcg Take with Branch (2,000 food unit) capsule Cholecalcif 2021-1 Yes [id number] 2000U Take 1 [facility], 2-21 capsule by ity of Vitamin D3, 00:00: mouth [place] (D3-1999) 00 daily. Medical 50 mcg Take with Branch (2,000 food unit) capsule Cholecalcif 2021-1 Yes [id number] 2000U Take 1 [facility], 2-21 capsule by ity of Vitamin D3, 00:00: mouth [place] (D3-1999) 00 daily. Medical 50 mcg Take with Branch (2,000 food unit) capsule Cholecalcif 2021-1 Yes [id number] 2000U Take 1 [facility], 2-21 capsule by ity of Vitamin D3, 00:00: mouth [place] (D3-1999) 00 daily. Medical 50 mcg Take with Branch (2,000 food unit) capsule Cholecalcif 2021-1 Yes [id number] 2000U Take 1 [facility], 2-21 capsule by ity of Vitamin D3, 00:00: mouth [place] (D3-1999) 00 daily. Medical 50 mcg Take with Branch (2,000 food unit) capsule Cholecalcif 2021-1 Yes [id number] 2000U Take 1 [facility], 2-21 capsule by ity of Vitamin D3, 00:00: mouth [place] (D3-1999) 00 daily. Medical 50 mcg Take with Branch (2,000 food unit) capsule Cholecalcif 2021-1 Yes [id number] 2000U Take 1 [facility], 2-21 capsule by ity of Vitamin D3, 00:00: mouth [place] (D3-1999) 00 daily. Medical 50 mcg Take with Branch (2,000 food unit) capsule Cholecalcif 2021-1 Yes [id number] 2000U Take 1 [facility], 2-21 capsule by ity of Vitamin D3, 00:00: mouth [place] (D3-1999) 00 daily. Medical 50 mcg Take with Branch (2,000 food unit) capsule Cholecalcif 2021-1 Yes [id number] 2000U Take 1 [facility], 2-21 capsule by ity of Vitamin D3, 00:00: mouth [place] (D3-1999) 00 daily. Medical 50 mcg Take with Branch (2,000 food unit) capsule Cholecalcif 2021-1 Yes [id number] 2000U Take 1 [facility], 2-21 capsule by ity of Vitamin D3, 00:00: mouth [place] (D3-1999) 00 daily. Medical 50 mcg Take with Branch (2,000 food unit) capsule Cholecalcif 2021-1 Yes [id number] 2000U Take 1 [facility], 2-21 capsule by ity of Vitamin D3, 00:00: mouth [place] (D3-1999) 00 daily. Medical 50 mcg Take with Branch (2,000 food unit) capsule Cholecalcif 2021-1 Yes [id number] 2000U Take 1 [facility], 2-21 capsule by ity of Vitamin D3, 00:00: mouth [place] (D3-1999) 00 daily. Medical 50 mcg Take with Branch (2,000 food unit) capsule Cholecalcif 2021-1 Yes [id number] 2000U Take 1 [facility], 2-21 capsule by ity of Vitamin D3, 00:00: mouth [place] (D3-1999) 00 daily. Medical 50 mcg Take with Branch (2,000 food unit) capsule Cholecalcif 2021-1 Yes [id number] 2000U Take 1 [facility] sank[facility], 2-21 capsule by ity of Vitamin D3, 00:00: mouth [place] (D3-1999) 00 daily. Medical 50 mcg Take with Branch (2,000 food unit) capsule Cholecalcif 2021-1 Yes [id number] 2000U Take 1 [facility] sank[facility], 2-21 capsule by ity of Vitamin D3, 00:00: mouth [place] (D3-1999) 00 daily. Medical 50 mcg Take with Branch (2,000 food unit) capsule Cholecalcif 2021-1 Yes [id number] 2000U Take 1 [facility] sank[facility], 2-21 capsule by ity of Vitamin D3, 00:00: mouth [place] (D3-1999) 00 daily. Medical 50 mcg Take with Branch (2,000 food unit) capsule Cholecalcif 2021-1 Yes [id number] 2000U Take 1 [facility] sank[facility], 2-21 capsule by ity of Vitamin D3, 00:00: mouth [place] (D3-1999) 00 daily. Medical 50 mcg Take with Branch (2,000 food unit) capsule Cholecalcif 2021-1 Yes [id number] 2000U Take 1 [facility], 2-21 capsule by ity of Vitamin D3, 00:00: mouth [place] (D3-1999) 00 daily. Medical 50 mcg Take with Branch (2,000 food unit) capsule Cholecalcif 2021-1 Yes [id number] 2000U Take 1 [facility], 2-21 capsule by ity of Vitamin D3, 00:00: mouth [place] (D3-1999) 00 daily. Medical 50 mcg Take with Branch (2,000 food unit) capsule Cholecalcif 2021-1 Yes [id number] 1999U Take 1 [facility] sank[facility], 2-21 capsule by ity of Vitamin D3, 00:00: mouth [place] (D3-1999) 00 daily. Medical 50 mcg Take with Branch (2,000 food unit) capsule Cholecalcif 2021-1 Yes [id number] 1999U Take 1 [facility] sank[facility], 2-21 capsule by ity of Vitamin D3, 00:00: mouth [place] (D3-1999) 00 daily. Medical 50 mcg Take with Branch (2,000 food unit) capsule Cholecalcif 2021-1 Yes [id number] 1999U Take 1 [facility] sank[facility], 2-21 capsule by ity of Vitamin D3, 00:00: mouth [place] (D3-1999) 00 daily. Medical 50 mcg Take with Branch (2,000 food unit) capsule Cholecalcif 2021-1 Yes [id number] 2000U Take 1 [facility], 2-21 capsule by ity of Vitamin D3, 00:00: mouth [place] (D3-1999) 00 daily. Medical 50 mcg Take with Branch (2,000 food unit) capsule Cholecalcif 2021-1 Yes [id number] 2000U Take 1 [facility] sank[facility], 2-21 capsule by ity of Vitamin D3, 00:00: mouth [place] (D3-1999) 00 daily. Medical 50 mcg Take with Branch (2,000 food unit) capsule Cholecalcif 2021-1 Yes [id number] 2000U Take 1 [facility] sank[facility], 2-21 capsule by ity of Vitamin D3, 00:00: mouth [place] (D3-1999) 00 daily. Medical 50 mcg Take with Branch (2,000 food unit) capsule Cholecalcif 2021-1 Yes [id number] 2000U Take 1 [facility] sank[facility], 2-21 capsule by ity of Vitamin D3, 00:00: mouth [place] (D3-1999) 00 daily. Medical 50 mcg Take with Branch (2,000 food unit) capsule Cholecalcif 2021-1 Yes [id number] 2000U Take 1 [facility] sank[facility], 2-21 capsule by ity of Vitamin D3, 00:00: mouth [place] (D3-1999) 00 daily. Medical 50 mcg Take with Branch (2,000 food unit) capsule Cholecalcif 2021-1 Yes [id number] 2000U Take 1 [facility] sank[facility], 2-21 capsule by ity of Vitamin D3, 00:00: mouth [place] (D3-1999) 00 daily. Medical 50 mcg Take with Branch (2,000 food unit) capsule Cholecalcif 2021-1 Yes [id number] 2000U Take 1 [facility] sank[facility], 2-21 capsule by ity of Vitamin D3, 00:00: mouth [place] (D3-1999) 00 daily. Medical 50 mcg Take with Branch (2,000 food unit) capsule Cholecalcif 2021-1 Yes [id number] 2000U Take 1 [facility] sank[facility], 2-21 capsule by ity of Vitamin D3, 00:00: mouth [place] (D3-1999) 00 daily. Medical 50 mcg Take with Branch (2,000 food unit) capsule Cholecalcif 2021-1 Yes [id number] 2000U Take 1 [facility] sank[facility], 2-21 capsule by ity of Vitamin D3, 00:00: mouth [place] (D3-1999) 00 daily. Medical 50 mcg Take with Branch (2,000 food unit) capsule Cholecalcif 2021-1 Yes [id number] 2000U Take 1 [facility] sank[facility], 2-21 capsule by ity of Vitamin D3, 00:00: mouth [place] (D3-1999) 00 daily. Medical 50 mcg Take with Branch (2,000 food unit) capsule Cholecalcif 2021-1 Yes [id number] 2000U Take 1 [facility] sank[facility], 2-21 capsule by ity of Vitamin D3, 00:00: mouth [place] (D3-1999) 00 daily. Medical 50 mcg Take with Branch (2,000 food unit) capsule Cholecalcif 2021-1 Yes [id number] 2000U Take 1 [facility] sank[facility], 2-21 capsule by ity of Vitamin D3, 00:00: mouth [place] (D3-1999) 00 daily. Medical 50 mcg Take with Branch (2,000 food unit) capsule Cholecalcif 2021-1 Yes [id number] 2000U Take 1 [facility] sank[facility], 2-21 capsule by ity of Vitamin D3, 00:00: mouth [place] (D3-1999) 00 daily. Medical 50 mcg Take with Branch (2,000 food unit) capsule Cholecalcif 2021-1 Yes [id number] 2000U Take 1 [facility] sank[facility], 2-21 capsule by ity of Vitamin D3, 00:00: mouth [place] (D3-1999) 00 daily. Medical 50 mcg Take with Branch (2,000 food unit) capsule Cholecalcif 2021-1 Yes [id number] 2000U Take 1 [facility] sank[facility], 2-21 capsule by ity of Vitamin D3, 00:00: mouth [place] (D3-1999) 00 daily. Medical 50 mcg Take with Branch (2,000 food unit) capsule Cholecalcif 2021-1 Yes [id number] 2000U Take 1 [facility] sank[facility], 2-21 capsule by ity of Vitamin D3, 00:00: mouth [place] (D3-1999) 00 daily. Medical 50 mcg Take with Branch (2,000 food unit) capsule Cholecalcif 2021-1 Yes [id number] 2000U Take 1 [facility] sank[facility], 2-21 capsule by ity of Vitamin D3, 00:00: mouth [place] (D3-1999) 00 daily. Medical 50 mcg Take with Branch (2,000 food unit) capsule Cholecalcif 2021-1 Yes [id number] 2000U Take 1 [facility] sank[facility], 2-21 capsule by ity of Vitamin D3, 00:00: mouth [place] (D3-1999) 00 daily. Medical 50 mcg Take with Branch (2,000 food unit) capsule Cholecalcif 2021-1 Yes [id number] 2000U Take 1 [facility] sank[facility], 2-21 capsule by ity of Vitamin D3, 00:00: mouth [place] (D3-1999) 00 daily. Medical 50 mcg Take with Branch (2,000 food unit) capsule Cholecalcif 2021-1 Yes [id number] 2000U Take 1 [facility] sank[facility], 2-21 capsule by ity of Vitamin D3, 00:00: mouth [place] (D3-1999) 00 daily. Medical 50 mcg Take with Branch (2,000 food unit) capsule Cholecalcif 2021-1 Yes [id number] 2000U Take 1 [facility] sank[facility], 2-21 capsule by ity of Vitamin D3, 00:00: mouth [place] (D3-1999) 00 daily. Medical 50 mcg Take with Branch (2,000 food unit) capsule Cholecalcif 2021-1 Yes [id number] 2000U Take 1 [facility] sanket, 2-21 capsule by ity of Vitamin D3, 00:00: mouth [place] (D3-1999) 00 daily. Medical 50 mcg Take with Branch (2,000 food unit) capsule Cholecalcif 2021-1 Yes [id number] 2000U Take 1 [facility] sank[facility], 2-21 capsule by ity of Vitamin D3, 00:00: mouth [place] (D3-1999) 00 daily. Medical 50 mcg Take with Branch (2,000 food unit) capsule Cholecalcif 2021-1 Yes [id number] 2000U Take 1 [facility] sanket, 2-21 capsule by ity of Vitamin D3, 00:00: mouth [place] (D3-1999) 00 daily. Medical 50 mcg Take with Branch (2,000 food unit) capsule Cholecalcif 2021-1 Yes [id number] 2000U Take 1 [facility] sank[facility], 2-21 capsule by ity of Vitamin D3, 00:00: mouth [place] (D3-1999) 00 daily. Medical 50 mcg Take with Branch (2,000 food unit) capsule Cholecalcif 2021-1 Yes [id number] 2000U Take 1 [facility] sank[facility], 2-21 capsule by ity of Vitamin D3, 00:00: mouth [place] (D3-1999) 00 daily. Medical 50 mcg Take with Branch (2,000 food unit) capsule Cholecalcif 2021-1 Yes [id number] 2000U Take 1 [facility] sank[facility], 2-21 capsule by ity of Vitamin D3, 00:00: mouth [place] (D3-1999) 00 daily. Medical 50 mcg Take with Branch (2,000 food unit) capsule Cholecalcif 2021-1 Yes [id number] 2000U Take 1 [facility] sanket, 2-21 capsule by ity of Vitamin D3, 00:00: mouth [place] (D3-1999) 00 daily. Medical 50 mcg Take with Branch (2,000 food unit) capsule Cholecalcif 2021-1 Yes [id number] 2000U Take 1 [facility] sanket, 2-21 capsule by ity of Vitamin D3, 00:00: mouth [place] (D3-1999) 00 daily. Medical 50 mcg Take with Branch (2,000 food unit) capsule Cholecalcif 2021-1 Yes [id number] 2000U Take 1 [facility] sanket, 2-21 capsule by ity of Vitamin D3, 00:00: mouth [place] (D3-1999) 00 daily. Medical 50 mcg Take with Branch (2,000 food unit) capsule Cholecalcif 2021-1 Yes [id number] 2000U Take 1 [facility] sank[facility], 2-21 capsule by ity of Vitamin D3, 00:00: mouth [place] (D3-1999) 00 daily. Medical 50 mcg Take with Branch (2,000 food unit) capsule Cholecalcif 2021-1 Yes [id number] 2000U Take 1 [facility] sanket, 2-21 capsule by ity of Vitamin D3, 00:00: mouth [place] (D3-1999) 00 daily. Medical 50 mcg Take with Branch (2,000 food unit) capsule Cholecalcif 2021-1 Yes [id number] 2000U Take 1 [facility] sanket, 2-21 capsule by ity of Vitamin D3, 00:00: mouth [place] (D3-1999) 00 daily. Medical 50 mcg Take with Branch (2,000 food unit) capsule aspirin 2020-1 Yes 81mg Take 81 mg [facility] (ADULT LOW 0-09 by mouth ity o f DOSE 11:18: daily. [place] ASPIRIN) 81 42 Medical mg [facility] tablet aspirin 2020- Yes 81mg Take 81 mg [facility] ers (ADULT LOW 0-09 by mouth ity o f DOSE 11:18: daily. [place] ASPIRIN) 81 42 Medical mg [facility] tablet aspirin 2020-1 Yes 81mg Take 81 mg [facility] ers (ADULT LOW 0-09 by mouth ity o f DOSE 11:18: daily. [place] ASPIRIN) 81 42 Medical mg [facility] tablet aspirin 2020- Yes 81mg Take 81 mg [facility] ers (ADULT LOW 0-09 by mouth ity o f DOSE 11:18: daily. [place] ASPIRIN) 81 42 Medical mg [facility] tablet aspirin 2020- Yes 81mg Take 81 mg [facility] (ADULT LOW 0-09 by mouth ity o f DOSE 11:18: daily. [place] [facility]) 81 42 [facility] mg [facility] tablet aspirin 2020- Yes 81mg Take 81 mg [facility] (ADULT LOW 0-09 by mouth ity o f DOSE 11:18: daily. [place] [facility]) 81 42 [facility] mg [facility] tablet aspirin 2020- Yes 81mg Take 81 mg [facility] (ADULT LOW 0-09 by mouth ity o f DOSE 11:18: daily. [place] [facility]) 81 42 [facility] mg [facility] tablet aspirin 2019- Yes 81mg Take 81 mg [facility] (ADULT LOW 0-09 by mouth ity o f DOSE 11:18: daily. [place] [facility]) 81 42 [facility] mg [facility] tablet aspirin 2019- Yes 81mg Take 81 mg [facility] (ADULT LOW 0-09 by mouth ity o f DOSE 11:18: daily. [place] [facility]) 81 42 [facility] mg [facility] tablet aspirin 2019-09 Yes 81mg Take 81 mg [facility] (ADULT LOW 0-09 by mouth ity o f DOSE 11:18: daily. [place] [facility]) 81 42 [facility] mg [facility] tablet aspirin 2019-09 Yes 81mg Take 81 mg [facility] (ADULT LOW 0-09 by mouth ity o f DOSE 11:18: daily. [place] [facility]) 81 42 [facility] mg [facility] tablet aspirin 2019-09 Yes 81mg Take 81 mg [facility] (ADULT LOW 0-09 by mouth ity o f DOSE 11:18: daily. [place] [facility]) 81 42 [facility] mg [facility] tablet aspirin 2019-09 Yes 81mg Take 81 mg [facility] (ADULT LOW 0-09 by mouth ity o f DOSE 11:18: daily. [place] [facility]) 81 42 [facility] mg [facility] tablet aspirin 2019- Yes 81mg Take 81 mg [facility] (ADULT LOW 0-09 by mouth ity o f DOSE 11:18: daily. [place] [facility]) 81 42 [facility] mg [facility] tablet aspirin 2020- Yes 81mg Take 81 mg [facility] (ADULT LOW 0-09 by mouth ity o f DOSE 11:18: daily. [place] [facility]) 81 42 [facility] mg [facility] tablet aspirin 2020- Yes 81mg Take 81 mg [facility] (ADULT LOW 0-09 by mouth ity o f DOSE 11:18: daily. [place] [facility]) 81 42 [facility] mg [facility] tablet aspirin 2020- Yes 81mg Take 81 mg [facility] (ADULT LOW 0-09 by mouth ity o f DOSE 11:18: daily. [place] [facility]) 81 42 [facility] mg [facility] tablet aspirin 2020- Yes 81mg Take 81 mg [facility] (ADULT LOW 0-09 by mouth ity o f DOSE 11:18: daily. [place] [facility]) 81 42 [facility] mg [facility] tablet aspirin 2020- Yes 81mg Take 81 mg [facility] (ADULT LOW 0-09 by mouth ity o f DOSE 11:18: daily. [place] [facility]) 81 42 [facility] mg [facility] tablet aspirin 2020- Yes 81mg Take 81 mg [facility] (ADULT LOW 0-09 by mouth ity o f DOSE 11:18: daily. [place] [facility]) 81 42 [facility] mg [facility] tablet aspirin 2020- Yes 81mg Take 81 mg [facility] (ADULT LOW 0-09 by mouth ity o f DOSE 11:18: daily. [place] [facility]) 81 42 [facility] mg [facility] tablet aspirin 2020- Yes 81mg Take 81 mg [facility] (ADULT LOW 0-09 by mouth ity o f DOSE 11:18: daily. [place] [facility]) 81 42 [facility] mg [facility] tablet aspirin 2020- Yes 81mg Take 81 mg [facility] (ADULT LOW 0-09 by mouth ity o f DOSE 11:18: daily. [place] [facility]) 81 42 [facility] mg [facility] tablet aspirin 2019- Yes 81mg Take 81 mg [facility] (ADULT LOW 0-09 by mouth ity o f DOSE 11:18: daily. [place] [facility]) 81 42 [facility] mg [facility] tablet aspirin 2019- Yes 81mg Take 81 mg [facility] (ADULT LOW 0-09 by mouth ity o f DOSE 11:18: daily. [place] [facility]) 81 42 [facility] mg [facility] tablet aspirin 2020- Yes 81mg Take 81 mg [facility] (ADULT LOW 0-09 by mouth ity o f DOSE 11:18: daily. [place] [facility]) 81 42 [facility] mg [facility] tablet aspirin 2020-1 Yes 81mg Take 81 mg [facility] (ADULT LOW 0-09 by mouth ity o f DOSE 11:18: daily. [place] [facility]) 81 42 [facility] mg [facility] tablet aspirin 2020-1 Yes 81mg Take 81 mg [facility] (ADULT LOW 0-09 by mouth ity o f DOSE 11:18: daily. [place] [facility]) 81 42 [facility] mg [facility] tablet aspirin 2020- Yes 81mg Take 81 mg [facility] (ADULT LOW 0-09 by mouth ity o f DOSE 11:18: daily. [place] [facility]) 81 42 [facility] mg [facility] tablet aspirin 2020- Yes 81mg Take 81 mg [facility] (ADULT LOW 0-09 by mouth ity o f DOSE 11:18: daily. [place] [facility]) 81 42 [facility] mg [facility] tablet aspirin 2020- Yes 81mg Take 81 mg [facility] (ADULT LOW 0-09 by mouth ity o f DOSE 11:18: daily. [place] [facility]) 81 42 [facility] mg [facility] tablet aspirin 2020- Yes 81mg Take 81 mg [facility] (ADULT LOW 0-09 by mouth ity o f DOSE 11:18: daily. [place] [facility]) 81 42 [facility] mg [facility] tablet aspirin 2019-09 Yes 81mg Take 81 mg [facility] (ADULT LOW 0-09 by mouth ity o f DOSE 11:18: daily. [place] [facility]) 81 42 [facility] mg [facility] tablet aspirin 2019- Yes 81mg Take 81 mg [facility] (ADULT LOW 0-09 by mouth ity o f DOSE 11:18: daily. [place] [facility]) 81 42 [facility] mg [facility] tablet aspirin 2019-09 Yes 81mg Take 81 mg [facility] (ADULT LOW 0-09 by mouth ity o f DOSE 11:18: daily. [place] [facility]) 81 42 [facility] mg [facility] tablet aspirin 2019-09 Yes 81mg Take 81 mg [facility] (ADULT LOW 0-09 by mouth ity o f DOSE 11:18: daily. [place] [facility]) 81 42 [facility] mg [facility] tablet aspirin 2019- Yes 81mg Take 81 mg [facility] (ADULT LOW 0-09 by mouth ity o f DOSE 11:18: daily. [place] [facility]) 81 42 [facility] mg [facility] tablet aspirin 2019- Yes 81mg Take 81 mg [facility] (ADULT LOW 0-09 by mouth ity o f DOSE 11:18: daily. [place] [facility]) 81 42 [facility] mg [facility] tablet aspirin 2019- Yes 81mg Take 81 mg [facility] (ADULT LOW 0-09 by mouth ity o f DOSE 11:18: daily. [place] [facility]) 81 42 [facility] mg [facility] tablet aspirin 2020- Yes 81mg Take 81 mg [facility] (ADULT LOW 0-09 by mouth ity o f DOSE 11:18: daily. [place] [facility]) 81 42 [facility] mg [facility] tablet aspirin 2020- Yes 81mg Take 81 mg [facility] (ADULT LOW 0-09 by mouth ity o f DOSE 11:18: daily. [place] [facility]) 81 42 [facility] mg [facility] tablet aspirin 2020-1 Yes 81mg Take 81 mg [facility] (ADULT LOW 0-09 by mouth ity o f DOSE 11:18: daily. [place] [facility]) 81 42 [facility] mg [facility] tablet aspirin 2019-09 Yes 81mg Take 81 mg [facility] (ADULT LOW 0-09 by mouth ity o f DOSE 11:18: daily. [place] [facility]) 81 42 [facility] mg [facility] tablet aspirin 2019-09 Yes 81mg Take 81 mg [facility] (ADULT LOW 0-09 by mouth ity o f DOSE 11:18: daily. [place] [facility]) 81 42 [facility] mg [facility] tablet aspirin 2019-09 Yes 81mg Take 81 mg [facility] (ADULT LOW 0-09 by mouth ity o f DOSE 11:18: daily. [place] [facility]) 81 42 [facility] mg [facility] tablet aspirin 2019-09 Yes 81mg Take 81 mg [facility] (ADULT LOW 0-09 by mouth ity o f DOSE 11:18: daily. [place] [facility]) 81 42 [facility] mg [facility] tablet aspirin 2019-09 Yes 81mg Take 81 mg [facility] (ADULT LOW 0-09 by mouth ity o f DOSE 11:18: daily. [place] [facility]) 81 42 [facility] mg [facility] tablet aspirin 2019-09 Yes 81mg Take 81 mg [facility] (ADULT LOW 0-09 by mouth ity o f DOSE 11:18: daily. [place] [facility]) 81 42 [facility] mg [facility] tablet aspirin 2019-09 Yes 81mg Take 81 mg [facility] (ADULT LOW 0-09 by mouth ity o f DOSE 11:18: daily. [place] [facility]) 81 42 [facility] mg [facility] tablet aspirin 2019-09 Yes 81mg Take 81 mg [facility] (ADULT LOW 0-09 by mouth ity o f DOSE 11:18: daily. [place] [facility]) 81 42 [facility] mg [facility] tablet aspirin 2019-09 Yes 81mg Take 81 mg [facility] (ADULT LOW 0-09 by mouth ity o f DOSE 11:18: daily. [place] [facility]) 81 42 [facility] mg [facility] tablet aspirin 2020- Yes 81mg Take 81 mg [facility] (ADULT LOW 0-09 by mouth ity o f DOSE 11:18: daily. [place] [facility]) 81 42 [facility] mg [facility] tablet aspirin 2020 Yes 81mg Take 81 mg [facility] (ADULT LOW 0-09 by mouth ity o f DOSE 11:18: daily. [place] [facility]) 81 42 [facility] mg [facility] tablet aspirin 2020-1 Yes 81mg Take 81 mg [facility] (ADULT LOW 0-09 by mouth ity o f DOSE 11:18: daily. [place] [facility]) 81 42 [facility] mg [facility] tablet aspirin 2019-09 Yes 81mg Take 81 mg [facility] (ADULT LOW 0-09 by mouth ity o f DOSE 11:18: daily. [place] [facility]) 81 42 [facility] mg [facility] tablet aspirin 2019-09 Yes 81mg Take 81 mg [facility] (ADULT LOW 0-09 by mouth ity o f DOSE 11:18: daily. [place] [facility]) 81 42 [facility] mg [facility] tablet aspirin 2019-09 Yes 81mg Take 81 mg [facility] (ADULT LOW 0-09 by mouth ity o f DOSE 11:18: daily. [place] [facility]) 81 42 [facility] mg [facility] tablet aspirin 2019-09 Yes 81mg Take 81 mg [facility] (ADULT LOW 0-09 by mouth ity o f DOSE 11:18: daily. [place] [facility]) 81 42 [facility] mg [facility] tablet aspirin 2019-09 Yes 81mg Take 81 mg [facility] (ADULT LOW 0-09 by mouth ity o f DOSE 11:18: daily. [place] [facility]) 81 42 [facility] mg [facility] tablet aspirin 2019-09 Yes 81mg Take 81 mg [facility] (ADULT LOW 0-09 by mouth ity o f DOSE 11:18: daily. [place] [facility]) 81 42 [facility] mg [facility] tablet aspirin 2019-09 Yes 81mg Take 81 mg [facility] (ADULT LOW 0-09 by mouth ity o f DOSE 11:18: daily. [place] [facility]) 81 42 [facility] mg [facility] tablet aspirin 2019-09 Yes 81mg Take 81 mg [facility] (ADULT LOW 0-09 by mouth ity o f DOSE 11:18: daily. [place] [facility]) 81 42 [facility] mg [facility] tablet aspirin 2019-09 Yes 81mg Take 81 mg [facility] (ADULT LOW 0-09 by mouth ity o f DOSE 11:18: daily. [place] [facility]) 81 42 [facility] mg [facility] tablet aspirin 2020- Yes 81mg Take 81 mg [facility] (ADULT LOW 0-09 by mouth ity o f DOSE 11:18: daily. [place] [facility]) 81 42 [facility] mg [facility] tablet aspirin 2020- Yes 81mg Take 81 mg [facility] (ADULT LOW 0-09 by mouth ity o f DOSE 11:18: daily. [place] [facility]) 81 42 [facility] mg [facility] tablet aspirin 2019-09 Yes 81mg Take 81 mg [facility] (ADULT LOW 0-09 by mouth ity o f DOSE 11:18: daily. [place] [facility]) 81 42 [facility] mg [facility] tablet aspirin 2020- Yes 81mg Take 81 mg [facility] (ADULT LOW 0-09 by mouth ity o f DOSE 11:18: daily. [place] [facility]) 81 42 [facility] mg [facility] tablet aspirin 2020- Yes 81mg Take 81 mg [facility] (ADULT LOW 0-09 by mouth ity o f DOSE 11:18: daily. [place] [facility]) 81 42 [facility] mg [facility] tablet aspirin 2020- Yes 81mg Take 81 mg [facility] (ADULT LOW 0-09 by mouth ity o f DOSE 11:18: daily. [place] [facility]) 81 42 [facility] mg [facility] tablet gabapentin 2020- Yes 1200mg Take 1,200 [facility] 600 mg 0-09 mg by ity of tablet 11:16: mouth 3 [place] 58 (three) Medical times Branch daily. gabapentin 2020-1 Yes 1200mg Take 1,200 [facility] 600 mg 0-09 mg by ity of tablet 11:16: mouth 3 [place] 58 (three) Medical times Branch daily. gabapentin 2020-1 Yes 1200mg Take 1,200 [facility] 600 mg 0-09 mg by ity of tablet 11:16: mouth 3 [place] 58 (three) Medical times Branch daily. gabapentin 2020-1 Yes 1200mg Take 1,200 [facility] 600 mg 0-09 mg by ity of tablet 11:16: mouth 3 [place] 58 (three) Medical times Branch daily. gabapentin 2020-1 Yes 1200mg Take 1,200 [facility] 600 mg 0-09 mg by ity of tablet 11:16: mouth 3 [place] 58 (three) Medical times Branch daily. gabapentin [...] [place] 58 (three) Medical times Branch daily. rizatriptan 2017-0 Yes TAKE 1 [facility] 10 mg 8-13 TABLET BY ity of tablet 00:00: MOUTH AT [place] 00 ONSET OF Medical HEADACHE. Branch MAY REPEAT IN 2 HOURS IFNEEDED rizatriptan 2017-0 Yes TAKE 1 [facility] 10 mg 8-13 TABLET BY ity of tablet 00:00: MOUTH AT [place] 00 ONSET OF Medical HEADACHE. Branch MAY REPEAT IN 2 HOURS IFNEEDED rizatriptan 2017-0 Yes TAKE 1 [facility] 10 mg 8-13 TABLET BY ity of tablet 00:00: MOUTH AT [place] 00 ONSET OF Medical HEADACHE. Branch MAY REPEAT IN 2 HOURS IFNEEDED rizatriptan 2018-0 Yes TAKE 1 [facility] 10 mg 8-13 TABLET BY ity of tablet 00:00: MOUTH AT [place] 00 ONSET OF Medical HEADACHE. Branch MAY REPEAT IN 2 HOURS IFNEEDED rizatriptan 2017-0 Yes TAKE 1 [facility] 10 mg 8-13 TABLET BY ity of tablet 00:00: MOUTH AT [place] 00 ONSET OF Medical HEADACHE. Branch MAY REPEAT IN 2 HOURS IFNEEDED rizatriptan Yes TAKE 1 [facility] 10 mg 8-13 TABLET BY ity of tablet 00:00: MOUTH AT [place] 00 ONSET OF Medical HEADACHE. Branch MAY REPEAT IN 2 HOURS IFNEEDED rizatriptan Yes TAKE 1 [facility] 10 mg 8-13 TABLET BY ity of tablet 00:00: MOUTH AT [place] 00 ONSET OF Medical HEADACHE. Branch MAY REPEAT IN 2 HOURS IFNEEDED rizatriptan Yes TAKE 1 [facility] 10 mg 8-13 TABLET BY ity of tablet 00:00: MOUTH AT [place] 00 ONSET OF Medical HEADACHE. Branch MAY REPEAT IN 2 HOURS IFNEEDED rizatriptan Yes TAKE 1 [facility] 10 mg 8-13 TABLET BY ity of tablet 00:00: MOUTH AT [place] 00 ONSET OF Medical HEADACHE. Branch MAY REPEAT IN 2 HOURS IFNEEDED rizatriptan Yes TAKE 1 [facility] 10 mg 8-13 TABLET BY ity of tablet 00:00: MOUTH AT [place] 00 ONSET OF Medical HEADACHE. Branch MAY REPEAT IN 2 HOURS IFNEEDED rizatriptan Yes TAKE 1 [facility] 10 mg 8-13 TABLET BY ity of tablet 00:00: MOUTH AT [place] [address] ONSET OF Medical HEADACHE. Branch MAY REPEAT IN 2 HOURS IFNEEDED rizatriptan Yes TAKE 1 [facility] 10 mg 8-13 TABLET BY ity of tablet 00:00: MOUTH AT [place] [address] ONSET OF Medical HEADACHE. Branch MAY REPEAT IN 2 HOURS IFNEEDED rizatriptan Yes TAKE 1 [facility] 10 mg 8-13 TABLET BY ity of tablet 00:00: MOUTH AT [place] 00 ONSET OF Medical HEADACHE. Branch MAY REPEAT IN 2 HOURS IFNEEDED rizatriptan Yes TAKE 1 [facility] 10 mg 8-13 TABLET BY ity of tablet 00:00: MOUTH AT [place] [address] ONSET OF Medical HEADACHE. Branch MAY REPEAT IN 2 HOURS IFNEEDED rizatriptan 0 Yes TAKE 1 [facility] 10 mg 8-13 TABLET BY ity of tablet 00:00: MOUTH AT [place] [address] ONSET OF Medical HEADACHE. Branch MAY REPEAT IN 2 HOURS IFNEEDED rizatriptan Yes TAKE 1 [facility] 10 mg 8-13 TABLET BY ity of tablet 00:00: MOUTH AT [place] [address] ONSET OF Medical HEADACHE. Branch MAY REPEAT IN 2 HOURS IFNEEDED rizatriptan 0 Yes TAKE 1 [facility] 10 mg 8-13 TABLET BY ity of tablet 00:00: MOUTH AT [place] 00 ONSET OF Medical HEADACHE. Branch MAY REPEAT IN 2 HOURS IFNEEDED rizatriptan 0 Yes TAKE 1 [facility] 10 mg 8-13 TABLET BY ity of tablet 00:00: MOUTH AT [place] 00 ONSET OF Medical HEADACHE. Branch MAY REPEAT IN 2 HOURS IFNEEDED rizatriptan Yes TAKE 1 [facility] 10 mg 8-13 TABLET BY ity of tablet 00:00: MOUTH AT [place] 00 ONSET OF Medical HEADACHE. Branch MAY REPEAT IN 2 HOURS IFNEEDED rizatriptan 2017-0 Yes TAKE 1 [facility] 10 mg 8-13 TABLET BY ity of tablet 00:00: MOUTH AT [place] 00 ONSET OF Medical HEADACHE. Branch MAY REPEAT IN 2 HOURS IFNEEDED rizatriptan 2017- Yes TAKE 1 [facility] 10 mg 8-13 TABLET BY ity of tablet 00:00: MOUTH AT [place] 00 ONSET OF Medical HEADACHE. Branch MAY REPEAT IN 2 HOURS IFNEEDED rizatriptan Yes TAKE 1 [facility] 10 mg 8-13 TABLET BY ity of tablet 00:00: MOUTH AT [place] 00 ONSET OF Medical HEADACHE. Branch MAY REPEAT IN 2 HOURS IFNEEDED rizatriptan 0 Yes TAKE 1 [facility] 10 mg 8-13 TABLET BY ity of tablet 00:00: MOUTH AT [place] [address] ONSET OF Medical HEADACHE. Branch MAY REPEAT IN 2 HOURS IFNEEDED rizatriptan Yes TAKE 1 [facility] 10 mg 8-13 TABLET BY ity of tablet 00:00: MOUTH AT [place] 00 ONSET OF Medical HEADACHE. Branch MAY REPEAT IN 2 HOURS IFNEEDED rizatriptan 0 Yes TAKE 1 [facility] 10 mg 8-13 TABLET BY ity of tablet 00:00: MOUTH AT [place] 00 ONSET OF Medical HEADACHE. Branch MAY REPEAT IN 2 HOURS IFNEEDED rizatriptan 2017-0 Yes TAKE 1 [facility] 10 mg 8-13 TABLET BY ity of tablet 00:00: MOUTH AT [place] 00 ONSET OF Medical HEADACHE. Branch MAY REPEAT IN 2 HOURS IFNEEDED rizatriptan 2017-0 Yes TAKE 1 [facility] 10 mg 8-13 TABLET BY ity of tablet 00:00: MOUTH AT [place] 00 ONSET OF Medical HEADACHE. Branch MAY REPEAT IN 2 HOURS IFNEEDED rizatriptan 2017-0 Yes TAKE 1 [facility] 10 mg 8-13 TABLET BY ity of tablet 00:00: MOUTH AT [place] 00 ONSET OF Medical HEADACHE. Branch MAY REPEAT IN 2 HOURS IFNEEDED rizatriptan 2017-0 Yes TAKE 1 [facility] 10 mg 8-13 TABLET BY ity of tablet 00:00: MOUTH AT [place] 00 ONSET OF Medical HEADACHE. Branch MAY REPEAT IN 2 HOURS IFNEEDED rizatriptan 2017-0 Yes TAKE 1 [facility] 10 mg 8-13 TABLET BY ity of tablet 00:00: MOUTH AT [place] 00 ONSET OF Medical HEADACHE. Branch MAY REPEAT IN 2 HOURS IFNEEDED rizatriptan 2017-0 Yes TAKE 1 [facility] 10 mg 8-13 TABLET BY ity of tablet 00:00: MOUTH AT [place] [address] ONSET OF Medical HEADACHE. Branch MAY REPEAT IN 2 HOURS IFNEEDED rizatriptan 2017-0 Yes TAKE 1 [facility] 10 mg 8-13 TABLET BY ity of tablet 00:00: MOUTH AT [place] [address] ONSET OF Medical HEADACHE. Branch MAY REPEAT IN 2 HOURS IFNEEDED rizatriptan Yes TAKE 1 [facility] 10 mg 8-13 TABLET BY ity of tablet 00:00: MOUTH AT [place] [address] ONSET OF Medical HEADACHE. Branch MAY REPEAT IN 2 HOURS IFNEEDED rizatriptan 2017- Yes TAKE 1 [facility] 10 mg 8-13 TABLET BY ity of tablet 00:00: MOUTH AT [place] [address] ONSET OF Medical HEADACHE. Branch MAY REPEAT IN 2 HOURS IFNEEDED rizatriptan 2017- Yes TAKE 1 [facility] 10 mg 8-13 TABLET BY ity of tablet 00:00: MOUTH AT [place] [address] ONSET OF Medical HEADACHE. Branch MAY REPEAT IN 2 HOURS IFNEEDED rizatriptan 2017-0 Yes TAKE 1 [facility] 10 mg 8-13 TABLET BY ity of tablet 00:00: MOUTH AT [place] [address] ONSET OF Medical HEADACHE. Branch MAY REPEAT IN 2 HOURS IFNEEDED rizatriptan 2017-0 Yes TAKE 1 [facility] 10 mg 8-13 TABLET BY ity of tablet 00:00: MOUTH AT [place] [address] ONSET OF Medical HEADACHE. Branch MAY REPEAT IN 2 HOURS IFNEEDED rizatriptan 2017-0 Yes TAKE 1 [facility] 10 mg 8-13 TABLET BY ity of tablet 00:00: MOUTH AT [place] 00 ONSET OF Medical HEADACHE. Branch MAY REPEAT IN 2 HOURS IFNEEDED rizatriptan 0 Yes TAKE 1 [facility] 10 mg 8-13 TABLET BY ity of tablet 00:00: MOUTH AT [place] 00 ONSET OF Medical HEADACHE. Branch MAY REPEAT IN 2 HOURS IFNEEDED rizatriptan 0 Yes TAKE 1 [facility] 10 mg 8-13 TABLET BY ity of tablet 00:00: MOUTH AT [place] 00 ONSET OF Medical HEADACHE. Branch MAY REPEAT IN 2 HOURS IFNEEDED rizatriptan Yes TAKE 1 [facility] 10 mg 8-13 TABLET BY ity of tablet 00:00: MOUTH AT [place] 00 ONSET OF Medical HEADACHE. Branch MAY REPEAT IN 2 HOURS IFNEEDED rizatriptan Yes TAKE 1 [facility] 10 mg 8-13 TABLET BY ity of tablet 00:00: MOUTH AT [place] [address] ONSET OF Medical HEADACHE. Branch MAY REPEAT IN 2 HOURS IFNEEDED rizatriptan Yes TAKE 1 [facility] 10 mg 8-13 TABLET BY ity of tablet 00:00: MOUTH AT [place] [address] ONSET OF Medical HEADACHE. Branch MAY REPEAT IN 2 HOURS IFNEEDED rizatriptan Yes TAKE 1 [facility] 10 mg 8-13 TABLET BY ity of tablet 00:00: MOUTH AT [place] [address] ONSET OF Medical HEADACHE. Branch MAY REPEAT IN 2 HOURS IFNEEDED rizatriptan Yes TAKE 1 [facility] 10 mg 8-13 TABLET BY ity of tablet 00:00: MOUTH AT [place] [address] ONSET OF Medical HEADACHE. Branch MAY REPEAT IN 2 HOURS IFNEEDED rizatriptan Yes TAKE 1 [facility] 10 mg 8-13 TABLET BY ity of tablet 00:00: MOUTH AT [place] 00 ONSET OF Medical HEADACHE. Branch MAY REPEAT IN 2 HOURS IFNEEDED rizatriptan Yes TAKE 1 [facility] 10 mg 8-13 TABLET BY ity of tablet 00:00: MOUTH AT [place] 00 ONSET OF Medical HEADACHE. Branch MAY REPEAT IN 2 HOURS IFNEEDED rizatriptan 2017-0 Yes TAKE 1 [facility] 10 mg 8-13 TABLET BY ity of tablet 00:00: MOUTH AT [place] [address] ONSET OF Medical HEADACHE. Branch MAY REPEAT IN 2 HOURS IFNEEDED rizatriptan 2017-0 Yes TAKE 1 [facility] 10 mg 8-13 TABLET BY ity of tablet 00:00: MOUTH AT [place] 00 ONSET OF Medical HEADACHE. Branch MAY REPEAT IN 2 HOURS IFNEEDED rizatriptan 0 Yes TAKE 1 [facility] 10 mg 8-13 TABLET BY ity of tablet 00:00: MOUTH AT [place] 00 ONSET OF Medical HEADACHE. Branch MAY REPEAT IN 2 HOURS IFNEEDED rizatriptan Yes TAKE 1 [facility] 10 mg 8-13 TABLET BY ity of tablet 00:00: MOUTH AT [place] 00 ONSET OF Medical HEADACHE. Branch MAY REPEAT IN 2 HOURS IFNEEDED rizatriptan Yes TAKE 1 [facility] 10 mg 8-13 TABLET BY ity of tablet 00:00: MOUTH AT [place] 00 ONSET OF Medical HEADACHE. Branch MAY REPEAT IN 2 HOURS IFNEEDED rizatriptan Yes TAKE 1 [facility] 10 mg 8-13 TABLET BY ity of tablet 00:00: MOUTH AT [place] [address] ONSET OF Medical HEADACHE. Branch MAY REPEAT IN 2 HOURS IFNEEDED rizatriptan Yes TAKE 1 [facility] 10 mg 8-13 TABLET BY ity of tablet 00:00: MOUTH AT [place] [address] ONSET OF Medical HEADACHE. Branch MAY REPEAT IN 2 HOURS IFNEEDED rizatriptan Yes TAKE 1 [facility] 10 mg 8-13 TABLET BY ity of tablet 00:00: MOUTH AT [place] [address] ONSET OF Medical HEADACHE. Branch MAY REPEAT IN 2 HOURS IFNEEDED rizatriptan Yes TAKE 1 [facility] 10 mg 8-13 TABLET BY ity of tablet 00:00: MOUTH AT [place] [address] ONSET OF Medical HEADACHE. Branch MAY REPEAT IN 2 HOURS IFNEEDED rizatriptan Yes TAKE 1 [facility] 10 mg 8-13 TABLET BY ity of tablet 00:00: MOUTH AT [place] [address] ONSET OF Medical HEADACHE. Branch MAY REPEAT IN 2 HOURS IFNEEDED rizatriptan 0 Yes TAKE 1 [facility] 10 mg 8-13 TABLET BY ity of tablet 00:00: MOUTH AT [place] 00 ONSET OF Medical HEADACHE. Branch MAY REPEAT IN 2 HOURS IFNEEDED rizatriptan 2017-0 Yes TAKE 1 [facility] 10 mg 8-13 TABLET BY ity of tablet 00:00: MOUTH AT [place] [address] ONSET OF Medical HEADACHE. Branch MAY REPEAT IN 2 HOURS IFNEEDED rizatriptan 2017-0 Yes TAKE 1 [facility] 10 mg 8-13 TABLET BY ity of tablet 00:00: MOUTH AT [place] 00 ONSET OF Medical HEADACHE. Branch MAY REPEAT IN 2 HOURS IFNEEDED rizatriptan Yes TAKE 1 [facility] 10 mg 8-13 TABLET BY ity of tablet 00:00: MOUTH AT [place] 00 ONSET OF Medical HEADACHE. Branch MAY REPEAT IN 2 HOURS IFNEEDED rizatriptan Yes TAKE 1 [facility] 10 mg 8-13 TABLET BY ity of tablet 00:00: MOUTH AT [place] 00 ONSET OF Medical HEADACHE. Branch MAY REPEAT IN 2 HOURS IFNEEDED rizatriptan Yes TAKE 1 [facility] 10 mg 8-13 TABLET BY ity of tablet 00:00: MOUTH AT [place] 00 ONSET OF Medical HEADACHE. Branch MAY REPEAT IN 2 HOURS IFNEEDED rizatriptan Yes TAKE 1 [facility] 10 mg 8-13 TABLET BY ity of tablet 00:00: MOUTH AT [place] [address] ONSET OF Medical HEADACHE. Branch MAY REPEAT IN 2 HOURS IFNEEDED rizatriptan Yes TAKE 1 [facility] 10 mg 8-13 TABLET BY ity of tablet 00:00: MOUTH AT [place] [address] ONSET OF Medical HEADACHE. Branch MAY REPEAT IN 2 HOURS IFNEEDED rizatriptan Yes TAKE 1 [facility] 10 mg 8-13 TABLET BY ity of tablet 00:00: MOUTH AT [place] [address] ONSET OF Medical HEADACHE. Branch MAY REPEAT IN 2 HOURS IFNEEDED rizatriptan Yes TAKE 1 [facility] 10 mg 8-13 TABLET BY ity of tablet 00:00: MOUTH AT [place] [address] ONSET OF Medical HEADACHE. Branch MAY REPEAT IN 2 HOURS IFNEEDED rizatriptan Yes TAKE 1 [facility] 10 mg 8-13 TABLET BY ity of tablet 00:00: MOUTH AT [place] [address] ONSET OF Medical HEADACHE. Branch MAY REPEAT IN 2 HOURS IFNEEDED rizatriptan Yes TAKE 1 [facility] 10 mg 8-13 TABLET BY ity of tablet 00:00: MOUTH AT [place] [address] ONSET OF Medical HEADACHE. Branch MAY REPEAT IN 2 HOURS IFNEEDED pramipexole 2015-09 Yes 1mg Take 1 mg [facility] (MIRAPEX) 1 - by mouth ity of mg tablet 00:00: daily. [place] 00 Medical Branch pramipexole 2015-09 Yes 1mg Take 1 mg [facility] (MIRAPEX) 1 1-22 by mouth ity of mg tablet 00:00: daily. [facility] pramipexole 2015-09 Yes 1mg Take 1 mg [facility] (MIRAPEX) 1 1-22 by mouth ity of mg tablet 00:00: daily. [facility] pramipexole 2015-09 Yes 1mg Take 1 mg [facility] (MIRAPEX) 1 1-22 by mouth ity of mg tablet 00:00: daily. [facility] pramipexole 2015-09 Yes 1mg Take 1 mg [facility] (MIRAPEX) 1 1-22 by mouth ity of mg tablet 00:00: daily. [place] [facility] pramipexole 2015-09 Yes 1mg Take 1 mg [facility] (MIRAPEX) 1 1-22 by mouth ity of mg tablet 00:00: daily. [place] [facility] pramipexole 2015-09 Yes 1mg Take 1 mg [facility] (MIRAPEX) 1 1-22 by mouth ity of mg tablet 00:00: daily. [facility] pramipexole 2015-09 Yes 1mg Take 1 mg [facility] (MIRAPEX) 1 1-22 by mouth ity of mg tablet 00:00: daily. [place] [facility] pramipexole 2015-09 Yes 1mg Take 1 mg [facility] (MIRAPEX) 1 1-22 by mouth ity of mg tablet 00:00: daily. [place] [facility] pramipexole 2015-09 Yes 1mg Take 1 mg [facility] (MIRAPEX) 1 1-22 by mouth ity of mg tablet 00:00: daily. [facility] pramipexole 2015-09 Yes 1mg Take 1 mg [facility] (MIRAPEX) 1 1-22 by mouth ity of mg tablet 00:00: daily. [facility] pramipexole 2015-09 Yes 1mg Take 1 mg [facility] (MIRAPEX) 1 1-22 by mouth ity of mg tablet 00:00: daily. [place] [facility] pramipexole 2015-09 Yes 1mg Take 1 mg [facility] (MIRAPEX) 1 1-22 by mouth ity of mg tablet 00:00: daily. [place] [facility] pramipexole 2015-09 Yes 1mg Take 1 mg [facility] (MIRAPEX) 1 1-22 by mouth ity of mg tablet 00:00: daily. [place] [facility] pramipexole 2015-09 Yes 1mg Take 1 mg [facility] (MIRAPEX) 1 1-22 by mouth ity of mg tablet 00:00: daily. [place] [facility] pramipexole 2015-09 Yes 1mg Take 1 mg [facility] (MIRAPEX) 1 1-22 by mouth ity of mg tablet 00:00: daily. [place] [facility] pramipexole 2015-09 Yes 1mg Take 1 mg [facility] (MIRAPEX) 1 1-22 by mouth ity of mg tablet 00:00: daily. [place] [facility] pramipexole 2015-09 Yes 1mg Take 1 mg [facility] (MIRAPEX) 1 1-22 by mouth ity of mg tablet 00:00: daily. [place] [facility] pramipexole 2015-09 Yes 1mg Take 1 mg [facility]ivers (MIRAPEX) 1 1-22 by mouth ity of mg tablet 00:00: daily. [place] [facility] pramipexole 2015-09 Yes 1mg Take 1 mg U nivers (MIRAPEX) 1 1-22 by mouth ity of mg tablet 00:00: daily. [place] [facility] pramipexole 2015-09 Yes 1mg Take 1 mg U nivers (MIRAPEX) 1 1-22 by mouth ity of mg tablet 00:00: daily. [facility] pramipexole 2015-09 Yes 1mg Take 1 mg U nivers (MIRAPEX) 1 1-22 by mouth ity of mg tablet 00:00: daily. [place] [facility] pramipexole 2015-09 Yes 1mg Take 1 mg U nivers (MIRAPEX) 1 1-22 by mouth ity of mg tablet 00:00: daily. [place] [facility] pramipexole 2015-09 Yes 1mg Take 1 mg U nivers (MIRAPEX) 1 1-22 by mouth ity of mg tablet 00:00: daily. [place] [facility] pramipexole 2015-09 Yes 1mg Take 1 mg U nivers (MIRAPEX) 1 1-22 by mouth ity of mg tablet 00:00: daily. [place] [facility] pramipexole 2015-09 Yes 1mg Take 1 mg U nivers (MIRAPEX) 1 1-22 by mouth ity of mg tablet 00:00: daily. [place] [facility] pramipexole 2015-09 Yes 1mg Take 1 mg U nivers (MIRAPEX) 1 1-22 by mouth ity of mg tablet 00:00: daily. [place] [facility] pramipexole 2015-09 Yes 1mg Take 1 mg U nivers (MIRAPEX) 1 1-22 by mouth ity of mg tablet 00:00: daily. [place] [facility] pramipexole 2015-09 Yes 1mg Take 1 mg U nivers (MIRAPEX) 1 1-22 by mouth ity of mg tablet 00:00: daily. [place] [facility] pramipexole 2015-09 Yes 1mg Take 1 mg U nivers (MIRAPEX) 1 1-22 by mouth ity of mg tablet 00:00: daily. [facility] pramipexole 2015-09 Yes 1mg Take 1 mg U nivers (MIRAPEX) 1 1-22 by mouth ity of mg tablet 00:00: daily. [place] [facility] pramipexole 2015-09 Yes 1mg Take 1 mg U nivers (MIRAPEX) 1 1-22 by mouth ity of mg tablet 00:00: daily. [place] [facility] pramipexole 2015-09 Yes 1mg Take 1 mg U nivers (MIRAPEX) 1 1-22 by mouth ity of mg tablet 00:00: daily. [facility] pramipexole 2015-09 Yes 1mg Take 1 mg U nivers (MIRAPEX) 1 1-22 by mouth ity of mg tablet 00:00: daily. [place] [facility] pramipexole 2015-09 Yes 1mg Take 1 mg U nivers (MIRAPEX) 1 1-22 by mouth ity of mg tablet 00:00: daily. [place] [facility] pramipexole 2015-09 Yes 1mg Take 1 mg U nivers (MIRAPEX) 1 1-22 by mouth ity of mg tablet 00:00: daily. [facility] pramipexole 2015-09 Yes 1mg Take 1 mg U nivers (MIRAPEX) 1 1-22 by mouth ity of mg tablet 00:00: daily. [place] [facility] pramipexole 2015-09 Yes 1mg Take 1 mg U nivers (MIRAPEX) 1 1-22 by mouth ity of mg tablet 00:00: daily. [facility] pramipexole 2015-09 Yes 1mg Take 1 mg U nivers (MIRAPEX) 1 1-22 by mouth ity of mg tablet 00:00: daily. [place] [facility] pramipexole 2015-09 Yes 1mg Take 1 mg U nivers (MIRAPEX) 1 1-22 by mouth ity of mg tablet 00:00: daily. [facility] pramipexole 2015-09 Yes 1mg Take 1 mg U nivers (MIRAPEX) 1 1-22 by mouth ity of mg tablet 00:00: daily. [place] [facility] pramipexole 2015-09 Yes 1mg Take 1 mg U nivers (MIRAPEX) 1 1-22 by mouth ity of mg tablet 00:00: daily. [place] [facility] pramipexole 2015-09 Yes 1mg Take 1 mg U nivers (MIRAPEX) 1 1-22 by mouth ity of mg tablet 00:00: daily. [place] [facility] pramipexole 2015-09 Yes 1mg Take 1 mg U nivers (MIRAPEX) 1 1-22 by mouth ity of mg tablet 00:00: daily. [place] [facility] pramipexole 2015-09 Yes 1mg Take 1 mg U nivers (MIRAPEX) 1 1-22 by mouth ity of mg tablet 00:00: daily. [facility] pramipexole 2015-09 Yes 1mg Take 1 mg U nivers (MIRAPEX) 1 1-22 by mouth ity of mg tablet 00:00: daily. [facility] pramipexole 2015-09 Yes 1mg Take 1 mg U nivers (MIRAPEX) 1 1-22 by mouth ity of mg tablet 00:00: daily. [place] [facility] pramipexole 2015-09 Yes 1mg Take 1 mg U nivers (MIRAPEX) 1 1-22 by mouth ity of mg tablet 00:00: daily. [facility] pramipexole 2015-09 Yes 1mg Take 1 mg U nivers (MIRAPEX) 1 1-22 by mouth ity of mg tablet 00:00: daily. [facility] pramipexole 2015-09 Yes 1mg Take 1 mg U nivers (MIRAPEX) 1 1-22 by mouth ity of mg tablet 00:00: daily. [facility] pramipexole 2015-09 Yes 1mg Take 1 mg U nivers (MIRAPEX) 1 1-22 by mouth ity of mg tablet 00:00: daily. [facility] pramipexole 2015-09 Yes 1mg Take 1 mg U nivers (MIRAPEX) 1 1-22 by mouth ity of mg tablet 00:00: daily. [facility] pramipexole 2015-09 Yes 1mg Take 1 mg U nivers (MIRAPEX) 1 1-22 by mouth ity of mg tablet 00:00: daily. [facility] pramipexole 2015-09 Yes 1mg Take 1 mg U nivers (MIRAPEX) 1 1-22 by mouth ity of mg tablet 00:00: daily. [facility] pramipexole 2015-09 Yes 1mg Take 1 mg U nivers (MIRAPEX) 1 1-22 by mouth ity of mg tablet 00:00: daily. [facility] pramipexole 2015-09 Yes 1mg Take 1 mg U nivers (MIRAPEX) 1 1-22 by mouth ity of mg tablet 00:00: daily. [facility] pramipexole 2015-09 Yes 1mg Take 1 mg U nivers (MIRAPEX) 1 1-22 by mouth ity of mg tablet 00:00: daily. [facility] pramipexole 2015-09 Yes 1mg Take 1 mg U nivers (MIRAPEX) 1 1-22 by mouth ity of mg tablet 00:00: daily. [facility] pramipexole 2015-09 Yes 1mg Take 1 mg U nivers (MIRAPEX) 1 1-22 by mouth ity of mg tablet 00:00: daily. [facility] pramipexole 2015-09 Yes 1mg Take 1 mg U nivers (MIRAPEX) 1 1-22 by mouth ity of mg tablet 00:00: daily. [facility] pramipexole 2015-09 Yes 1mg Take 1 mg U nivers (MIRAPEX) 1 1-22 by mouth ity of mg tablet 00:00: daily. [facility] pramipexole 2015-09 Yes 1mg Take 1 mg U nivers (MIRAPEX) 1 1-22 by mouth ity of mg tablet 00:00: daily. [facility] pramipexole 2015-09 Yes 1mg Take 1 mg U nivers (MIRAPEX) 1 1-22 by mouth ity of mg tablet 00:00: daily. [facility] pramipexole 2015-09 Yes 1mg Take 1 mg U nivers (MIRAPEX) 1 1-22 by mouth ity of mg tablet 00:00: daily. [facility] pramipexole 2015-09 Yes 1mg Take 1 mg U nivers (MIRAPEX) 1 1-22 by mouth ity of mg tablet 00:00: daily. [facility] pramipexole 2015-09 Yes 1mg Take 1 mg U nivers (MIRAPEX) 1 1-22 by mouth ity of mg tablet 00:00: daily. [facility] pramipexole 2015-09 Yes 1mg Take 1 mg U nivers (MIRAPEX) 1 1-22 by mouth ity of mg tablet 00:00: daily. [facility] pramipexole 2015-09 Yes 1mg Take 1 mg U nivers (MIRAPEX) 1 1-22 by mouth ity of mg tablet 00:00: daily. [facility] pramipexole 2015-09 Yes 1mg Take 1 mg U nivers (MIRAPEX) 1 1-22 by mouth ity of mg tablet 00:00: daily. [address] levETIRAcet Yes 750mg Take 750 U nivers am (KEPPRA) 5-17 mg by ity of 750 mg 00:00: mouth 2 [place] tablet (two) [facility] daily. levETIRAcet Yes 750mg Take 750 U nivers [...] tablet 00 (two) Medical times Branch daily. Immunizations Ordered Filled Immunization Date Status Comments [facility] e Immunization Name Name Influenza Virus 2022-06-25 Completed [facility], 00:00:00 [place] [facility] Preserv [facility] ABX Branch Free 6 MO-64 YRS SARS-COV-2 COVID-19 2022-06-25 Completed Unive rsity of VACCINE 12 YRS+, 00:00:00 [place] [facility] BIVALENT 0.5ML, IM, Branc h (MODERNA BOOSTER) Influenza Virus 2022-06-25 Completed [facility], 00:00:00 [place] [facility] Preserv and ABX Branch Free 6 MO-64 YRS SARS-COV-2 COVID-19 2022-06-25 Completed Unive rsity of VACCINE 12 YRS+, 00:00:00 [place] [facility] BIVALENT 0.5ML, IM, Branc h (MODERNA BOOSTER) Influenza Virus 2022-06-25 Completed [facility] IM, 00:00:00 [place] [facility] Preserv and ABX Branch Free 6 MO-64 YRS SARS-COV-2 COVID-19 2022-06-25 Completed Unive rsity of VACCINE 12 YRS+, 00:00:00 [place] [facility] BIVALENT 0.5ML, IM, Branc h (MODERNA BOOSTER) Influenza Virus 2022-06-25 Completed [facility] IM, 00:00:00 [place] [facility] Preserv and ABX Branch Free 6 MO-64 YRS SARS-COV-2 COVID-19 2022-06-25 Completed Unive rsity of VACCINE 12 YRS+, 00:00:00 [place] [facility] BIVALENT 0.5ML, IM, Branc h (MODERNA BOOSTER) Influenza Virus 2022-06-25 Completed [facility] Vaccine [facility] IM, 00:00:00 [place] [facility] Preserv and ABX Branch Free 6 MO-64 YRS SARS-COV-2 COVID-19 2022-06-25 Completed Unive rsity of VACCINE 12 YRS+, 00:00:00 [place] [facility] BIVALENT 0.5ML, IM, Branc h (MODERNA BOOSTER) Influenza Virus 2022-06-25 Completed [facility] IM, 00:00:00 [place] [facility] Preserv and ABX Branch Free 6 MO-64 YRS SARS-COV-2 COVID-19 2022-06-25 Completed Unive rsity of VACCINE 12 YRS+, 00:00:00 [place] [facility] BIVALENT 0.5ML, IM, Branc h (MODERNA BOOSTER) Influenza Virus 2022-06-25 Completed [facility] IM, 00:00:00 [place] [facility] Preserv and ABX Branch Free 6 MO-64 YRS SARS-COV-2 COVID-19 2022-06-25 Completed Unive rsity of VACCINE 12 YRS+, 00:00:00 [place] [facility] BIVALENT 0.5ML, IM, Branc h (MODERNA BOOSTER) Influenza Virus 2022-06-25 Completed [facility] IM, 00:00:00 [place] [facility] Preserv and ABX Branch Free 6 MO-64 YRS SARS-COV-2 COVID-19 2022-06-25 Completed Unive rsity of VACCINE 12 YRS+, 00:00:00 [place] [facility] BIVALENT 0.5ML, IM, Branc h (MODERNA BOOSTER) Influenza Virus 2022-06-25 Completed [facility] IM, 00:00:00 [place] [facility] Preserv and ABX Branch Free 6 MO-64 YRS SARS-COV-2 COVID-19 2022-06-25 Completed Unive rsity of VACCINE 12 YRS+, 00:00:00 [place] [facility] BIVALENT 0.5ML, IM, Branc h (MODERNA BOOSTER) Influenza Virus 2022-06-25 Completed [facility] IM, 00:00:00 [place] [facility] Preserv and ABX Branch Free 6 MO-64 YRS SARS-COV-2 COVID-19 2022-06-25 Completed Unive rsity of VACCINE 12 YRS+, 00:00:00 [place] [facility] BIVALENT 0.5ML, IM, Branc h (MODERNA BOOSTER) Influenza Virus 2022-06-25 Completed [facility] IM, 00:00:00 [place] [facility] Preserv and ABX Branch Free 6 MO-64 YRS SARS-COV-2 COVID-19 2022-06-25 Completed Unive rsity of VACCINE 12 YRS+, 00:00:00 [place] [facility] BIVALENT 0.5ML, IM, Branc h (MODERNA BOOSTER) Influenza Virus 2022-06-25 Completed [facility] Vaccine Quad IM, 00:00:00 [place] [facility] Preserv and ABX Branch Free 6 MO-64 YRS SARS-COV-2 COVID-19 2022-06-25 Completed Unive rsity of VACCINE 12 YRS+, 00:00:00 [place] [facility] BIVALENT 0.5ML, IM, Branc h (MODERNA BOOSTER) Influenza Virus 2022-06-25 Completed [facility] IM, 00:00:00 [place] [facility] Preserv and ABX Branch Free 6 MO-64 YRS SARS-COV-2 COVID-19 2022-06-25 Completed Unive rsity of VACCINE 12 YRS+, 00:00:00 [place] [facility] BIVALENT 0.5ML, IM, Branc h (MODERNA BOOSTER) Influenza Virus 2022-06-25 Completed [facility] IM, 00:00:00 [place] [facility] Preserv and ABX Branch Free 6 MO-64 YRS SARS-COV-2 COVID-19 2022-06-25 Completed Unive rsity of VACCINE 12 YRS+, 00:00:00 [place] [facility] BIVALENT 0.5ML, IM, Branc h (MODERNA BOOSTER) Influenza Virus 2022-06-25 Completed [facility] Vaccine [facility] IM, 00:00:00 [place] [facility] Preserv and ABX Branch Free 6 MO-64 YRS SARS-COV-2 COVID-19 2022-06-25 Completed Unive rsity of VACCINE 12 YRS+, 00:00:00 [place] [facility] BIVALENT 0.5ML, IM, Branc h (MODERNA BOOSTER) Influenza Virus 2022-06-25 Completed [facility] Vaccine [facility] IM, 00:00:00 [place] [facility] Preserv and ABX Branch Free 6 MO-64 YRS SARS-COV-2 COVID-19 2022-06-25 Completed Unive rsity of VACCINE 12 YRS+, 00:00:00 [place] [facility] BIVALENT 0.5ML, IM, Branc h (MODERNA BOOSTER) Influenza Virus 2022-06-25 Completed [facility] Vaccine [facility] IM, 00:00:00 [place] [facility] Preserv and ABX Branch Free 6 MO-64 YRS SARS-COV-2 COVID-19 2022-06-25 Completed Unive rsity of VACCINE 12 YRS+, 00:00:00 [place] [facility] BIVALENT 0.5ML, IM, Branc h (MODERNA BOOSTER) Influenza Virus 2022-06-25 Completed [facility] IM, 00:00:00 [place] [facility] Preserv and ABX Branch Free 6 MO-64 YRS SARS-COV-2 COVID-19 2022-06-25 Completed Unive rsity of VACCINE 12 YRS+, 00:00:00 [place] [facility] BIVALENT 0.5ML, IM, Branc h (MODERNA BOOSTER) Influenza Virus 2022-06-25 Completed [facility] IM, 00:00:00 [place] [facility] Preserv and ABX Branch Free 6 MO-64 YRS SARS-COV-2 COVID-19 2022-06-25 Completed Unive rsity of VACCINE 12 YRS+, 00:00:00 [place] [facility] BIVALENT 0.5ML, IM, Branc h (MODERNA BOOSTER) Influenza Virus 2022-06-25 Completed [facility] Vaccine [facility] IM, 00:00:00 [place] [facility] Preserv and ABX Branch Free 6 MO-64 YRS SARS-COV-2 COVID-19 2022-06-25 Completed Unive rsity of VACCINE 12 YRS+, 00:00:00 [place] [facility] BIVALENT 0.5ML, IM, Branc h (MODERNA BOOSTER) Influenza Virus 2022-06-25 Completed [facility] IM, 00:00:00 [place] [facility] Preserv and ABX Branch Free 6 MO-64 YRS SARS-COV-2 COVID-19 2022-06-25 Completed Unive rsity of VACCINE 12 YRS+, 00:00:00 [place] [facility] BIVALENT 0.5ML, IM, Branc h (MODERNA BOOSTER) Influenza Virus 2022-06-25 Completed [facility]ine [facility] IM, 00:00:00 [place] [facility] Preserv and ABX Branch Free 6 MO-64 YRS SARS-COV-2 COVID-19 2022-06-25 Completed Unive rsity of VACCINE 12 YRS+, 00:00:00 [place] [facility] BIVALENT 0.5ML, IM, Branc h (MODERNA BOOSTER) Influenza Virus 2022-06-25 Completed [facility] Vaccine [facility] IM, 00:00:00 [place] [facility] Preserv and ABX Branch Free 6 MO-64 YRS SARS-COV-2 COVID-19 2022-06-25 Completed Unive rsity of VACCINE 12 YRS+, 00:00:00 [place] [facility] BIVALENT 0.5ML, IM, Branc h (MODERNA BOOSTER) Influenza Virus 2022-06-25 Completed [facility] Vaccine [facility] IM, 00:00:00 [place] [facility] Preserv and ABX Branch Free 6 MO-64 YRS SARS-COV-2 COVID-19 2022-06-25 Completed Unive rsity of VACCINE 12 YRS+, 00:00:00 [place] [facility] BIVALENT 0.5ML, IM, Branc h (MODERNA BOOSTER) Influenza Virus 2022-06-25 Completed [facility] Vaccine Quad IM, 00:00:00 [place] [facility] Preserv and ABX Branch Free 6 MO-64 YRS SARS-COV-2 COVID-19 2022-06-25 Completed Unive rsity of VACCINE 12 YRS+, 00:00:00 [place] [facility] BIVALENT 0.5ML, IM, Branc h (MODERNA BOOSTER) Influenza Virus 2022-06-25 Completed [facility] Vaccine [facility] IM, 00:00:00 [place] [facility] Preserv and ABX Branch Free 6 MO-64 YRS SARS-COV-2 COVID-19 2022-06-25 Completed Unive rsity of VACCINE 12 YRS+, 00:00:00 [place] [facility] BIVALENT 0.5ML, IM, Branc h (MODERNA BOOSTER) Influenza Virus 2022-06-25 Completed [facility] Vaccine Quad IM, 00:00:00 [place] [facility] Preserv and ABX Branch Free 6 MO-64 YRS SARS-COV-2 COVID-19 2022-06-25 Completed Unive rsity of VACCINE 12 YRS+, 00:00:00 [place] [facility] BIVALENT 0.5ML, IM, Branc h (MODERNA BOOSTER) Influenza Virus 2022-06-25 Completed [facility] Vaccine Quad IM, 00:00:00 [place] [facility] Preserv and ABX Branch Free 6 MO-64 YRS SARS-COV-2 COVID-19 2022-06-25 Completed Unive rsity of VACCINE 12 YRS+, 00:00:00 [place] [facility] BIVALENT 0.5ML, IM, Branc h (MODERNA BOOSTER) Influenza Virus 2022-06-25 Completed [facility] Vaccine Quad IM, 00:00:00 [place] [facility] Preserv and ABX Branch Free 6 MO-64 YRS SARS-COV-2 COVID-19 2022-06-25 Completed Unive rsity of VACCINE 12 YRS+, 00:00:00 [place] [facility] BIVALENT 0.5ML, IM, Branc h (MODERNA BOOSTER) Influenza Virus 2022-06-25 Completed [facility] Vaccine Quad IM, 00:00:00 [place] [facility] Preserv and ABX Branch Free 6 MO-64 YRS SARS-COV-2 COVID-19 2022-06-25 Completed Unive rsity of VACCINE 12 YRS+, 00:00:00 [place] [facility] BIVALENT 0.5ML, IM, Branc h (MODERNA BOOSTER) Influenza Virus 2022-06-25 Completed [facility] Vaccine Quad IM, 00:00:00 [place] [facility] Preserv and ABX Branch Free 6 MO-64 YRS SARS-COV-2 COVID-19 2022-06-25 Completed Unive rsity of VACCINE 12 YRS+, 00:00:00 [place] [facility] BIVALENT 0.5ML, IM, Branc h (MODERNA BOOSTER) Influenza Virus 2022-06-25 Completed [facility] Vaccine Quad IM, 00:00:00 [place] [facility] Preserv and ABX Branch Free 6 MO-64 YRS SARS-COV-2 COVID-19 2022-06-25 Completed Unive rsity of VACCINE 12 YRS+, 00:00:00 [place] [facility] BIVALENT 0.5ML, IM, Branc h (MODERNA BOOSTER) Influenza Virus 2022-06-25 Completed [facility] Vaccine Quad IM, 00:00:00 [place] [facility] Preserv and ABX Branch Free 6 MO-64 YRS SARS-COV-2 COVID-19 2022-06-25 Completed Unive rsity of VACCINE 12 YRS+, 00:00:00 [place] [facility] BIVALENT 0.5ML, IM, Branc h (MODERNA BOOSTER) Influenza Virus 2022-06-25 Completed [facility] Vaccine Quad IM, 00:00:00 [place] [facility] Preserv and ABX Branch Free 6 MO-64 YRS SARS-COV-2 COVID-19 2022-06-25 Completed Unive rsity of VACCINE 12 YRS+, 00:00:00 [place] [facility] BIVALENT 0.5ML, IM, Branc h (MODERNA BOOSTER) Influenza Virus 2022-06-25 Completed [facility] Vaccine Quad IM, 00:00:00 [place] [facility] Preserv and ABX Branch Free 6 MO-64 YRS SARS-COV-2 COVID-19 2022-06-25 Completed Unive rsity of VACCINE 12 YRS+, 00:00:00 [place] [facility] BIVALENT 0.5ML, IM, Branc h (MODERNA BOOSTER) Influenza Virus 2022-06-25 Completed [facility] Vaccine [facility] IM, 00:00:00 [place] [facility] Preserv and ABX Branch Free 6 MO-64 YRS SARS-COV-2 COVID-19 2022-06-25 Completed Unive rsity of VACCINE 12 YRS+, 00:00:00 [place] [facility] BIVALENT 0.5ML, IM, Branc h (MODERNA BOOSTER) Influenza Virus 2022-06-25 Completed [facility] Vaccine [facility] IM, 00:00:00 [place] [facility] Preserv and ABX Branch Free 6 MO-64 YRS SARS-COV-2 COVID-19 2022-06-25 Completed Unive rsity of VACCINE 12 YRS+, 00:00:00 [place] [facility] BIVALENT 0.5ML, IM, Branc h (MODERNA BOOSTER) Influenza Virus 2022-06-25 Completed [facility] Vaccine [facility] IM, 00:00:00 [place] [facility] Preserv and ABX Branch Free 6 MO-64 YRS SARS-COV-2 COVID-19 2022-06-25 Completed Unive rsity of VACCINE 12 YRS+, 00:00:00 [place] [facility] BIVALENT 0.5ML, IM, Branc h (MODERNA BOOSTER) Influenza Virus 2022-06-25 Completed [facility] Vaccine Quad IM, 00:00:00 [place] [facility] Preserv and ABX Branch Free 6 MO-64 YRS SARS-COV-2 COVID-19 2022-06-25 Completed Unive rsity of VACCINE 12 YRS+, 00:00:00 [place] [facility] BIVALENT 0.5ML, IM, Branc h (MODERNA BOOSTER) Influenza Virus 2022-06-25 Completed [facility] Vaccine [facility] IM, 00:00:00 [place] [facility] Preserv and ABX Branch Free 6 MO-64 YRS SARS-COV-2 COVID-19 2022-06-25 Completed Unive rsity of VACCINE 12 YRS+, 00:00:00 [place] [facility] BIVALENT 0.5ML, IM, Branc h (MODERNA BOOSTER) Influenza Virus 2022-06-25 Completed [facility] Vaccine Quad IM, 00:00:00 [place] [facility] Preserv and ABX Branch Free 6 MO-64 YRS SARS-COV-2 COVID-19 2022-06-25 Completed Unive rsity of VACCINE 12 YRS+, 00:00:00 [place] [facility] BIVALENT 0.5ML, IM, Branc h (MODERNA BOOSTER) Influenza Virus 2022-06-25 Completed [facility] Vaccine Quad IM, 00:00:00 [place] [facility] Preserv and ABX Branch Free 6 MO-64 YRS SARS-COV-2 COVID-19 2022-06-25 Completed Unive rsity of VACCINE 12 YRS+, 00:00:00 [place] [facility] BIVALENT 0.5ML, IM, Branc h (MODERNA BOOSTER) Influenza Virus 2022-06-25 Completed [facility] Vaccine Quad IM, 00:00:00 [place] [facility] Preserv and ABX Branch Free 6 MO-64 YRS SARS-COV-2 COVID-19 2022-06-25 Completed Unive rsity of VACCINE 12 YRS+, 00:00:00 [place] [facility] BIVALENT 0.5ML, IM, Branc h (MODERNA BOOSTER) Influenza Virus 2022-06-25 Completed [facility] Vaccine Quad IM, 00:00:00 [place] [facility] Preserv and ABX Branch Free 6 MO-64 YRS SARS-COV-2 COVID-19 2022-06-25 Completed Unive rsity of VACCINE 12 YRS+, 00:00:00 [place] [facility] BIVALENT 0.5ML, IM, Branc h (MODERNA BOOSTER) Influenza Virus 2022-06-25 Completed [facility] Vaccine Quad IM, 00:00:00 [place] [facility] Preserv and ABX Branch Free 6 MO-64 YRS SARS-COV-2 COVID-19 2022-06-25 Completed Unive rsity of VACCINE 12 YRS+, 00:00:00 [place] [facility] BIVALENT 0.5ML, IM, Branc h (MODERNA BOOSTER) Influenza Virus 2022-06-25 Completed [facility] Vaccine [facility] IM, 00:00:00 [place] [facility] Preserv and ABX Branch Free 6 MO-64 YRS SARS-COV-2 COVID-19 2022-06-25 Completed Unive rsity of VACCINE 12 YRS+, 00:00:00 [place] [facility] BIVALENT 0.5ML, IM, Branc h (MODERNA BOOSTER) Influenza Virus 2022-06-25 Completed [facility] Vaccine Quad IM, 00:00:00 [place] [facility] Preserv and ABX Branch Free 6 MO-64 YRS SARS-COV-2 COVID-19 2022-06-25 Completed Unive rsity of VACCINE 12 YRS+, 00:00:00 [place] [facility] BIVALENT 0.5ML, IM, Branc h (MODERNA BOOSTER) Influenza Virus 2022-06-25 Completed [facility] IM, 00:00:00 [place] [facility] Preserv and ABX Branch Free 6 MO-64 YRS SARS-COV-2 COVID-19 2022-06-25 Completed Unive rsity of VACCINE 12 YRS+, 00:00:00 [place] [facility] BIVALENT 0.5ML, IM, Branc h (MODERNA BOOSTER) Influenza Virus 2022-06-25 Completed [facility] IM, 00:00:00 [place] [facility] Preserv and ABX Branch Free 6 MO-64 YRS SARS-COV-2 COVID-19 2022-06-25 Completed Unive rsity of VACCINE 12 YRS+, 00:00:00 [place] [facility] BIVALENT 0.5ML, IM, Branc h (MODERNA BOOSTER) Influenza Virus 2022-06-25 Completed [facility] IM, 00:00:00 [place] [facility] Preserv and ABX Branch Free 6 MO-64 YRS SARS-COV-2 COVID-19 2022-06-25 Completed Unive rsity of VACCINE 12 YRS+, 00:00:00 [place] [facility] BIVALENT 0.5ML, IM, Branc h (MODERNA BOOSTER) Influenza Virus 2022-06-25 Completed [facility] IM, 00:00:00 [place] [facility] Preserv and ABX Branch Free 6 MO-64 YRS SARS-COV-2 COVID-19 2022-06-25 Completed Unive rsity of VACCINE 12 YRS+, 00:00:00 [place] [facility] BIVALENT 0.5ML, IM, Branc h (MODERNA BOOSTER) Influenza Virus 2022-06-25 Completed [facility] Vacc[facility] IM, 00:00:00 [place] [facility] Preserv and ABX Branch Free 6 MO-64 YRS SARS-COV-2 COVID-19 2022-06-25 Completed Unive rsity of VACCINE 12 YRS+, 00:00:00 [place] [facility] BIVALENT 0.5ML, IM, Branc h (MODERNA BOOSTER) Influenza Virus 2022-06-25 Completed [facility] IM, 00:00:00 [place] [facility] Preserv and ABX Branch Free 6 MO-64 YRS SARS-COV-2 COVID-19 2022-06-25 Completed Unive rsity of VACCINE 12 YRS+, 00:00:00 [place] [facility] BIVALENT 0.5ML, IM, Branc h (MODERNA) Influenza Virus 2022-06-25 Completed [facility] Vaccine [facility] IM, 00:00:00 [place] [facility] Preserv and ABX Branch Free 6 MO-64 YRS SARS-COV-2 COVID-19 2022-06-25 Completed Unive rsity of VACCINE 12 YRS+, 00:00:00 [place] [facility] BIVALENT 0.5ML, IM, Branc h (MODERNA) Influenza Virus 2022-06-25 Completed [facility] IM, 00:00:00 [place] [facility] Preserv and ABX Branch Free 6 MO-64 YRS SARS-COV-2 COVID-19 2022-06-25 Completed Unive rsity of VACCINE 12 YRS+, 00:00:00 [place] [facility] BIVALENT 0.5ML, IM, Branc h (MODERNA) Influenza Virus 2022-06-25 Completed [facility] IM, 00:00:00 [place] [facility] Preserv and ABX Branch Free 6 MO-64 YRS SARS-COV-2 COVID-19 2022-06-25 Completed [facility] of VACCINE 12 YRS+, 00:00:00 [place] [facility] BIVALENT 0.5ML, IM, Branc h (MODERNA-BLUE TOP) Influenza Virus 2022-06-25 Completed [facility], 00:00:00 [place] [facility] Preserv and ABX Branch Free 6 MO-64 YRS SARS-COV-2 COVID-19 2022-06-25 Completed [facility] of VACCINE 12 YRS+, 00:00:00 [place] [facility] BIVALENT 0.5ML, IM, Branc h (MODERNA-BLUE TOP) Influenza Virus 2022-06-25 Completed [facility], 00:00:00 [place] [facility] Preserv and ABX Branch Free 6 MO-64 YRS SARS-COV-2 COVID-19 2022-06-25 Completed [facility] of VACCINE 12 YRS+, 00:00:00 [place] [facility] BIVALENT 0.5ML, IM, Branc h (MODERNA-BLUE TOP) Influenza Virus 2022-06-25 Completed [facility] IM, 00:00:00 [place] [facility] Preserv and ABX Branch Free 6 MO-64 YRS SARS-COV-2 COVID-19 2022-06-25 Completed [facility] of VACCINE 12 YRS+, 00:00:00 [place] [facility] BIVALENT 0.5ML, IM, Branc h (MODERNA-BLUE TOP) Influenza Virus 2022-06-25 Completed [facility] IM, 00:00:00 [place] [facility] Preserv and ABX Branch Free 6 MO-64 YRS SARS-COV-2 COVID-19 2022-06-25 Completed [facility] of VACCINE 12 YRS+, 00:00:00 [place] [facility] BIVALENT 0.5ML, IM, Branc h (MODERNA-BLUE TOP) Influenza Virus 2022-06-25 Completed [facility] Vaccine [facility], 00:00:00 [facility] Preserv and ABX Branch Free 6 MO-64 YRS SARS-COV-2 COVID-19 2022-06-25 Completed Unive rsity of VACCINE 12 YRS+, 00:00:00 [facility] BIVALENT 0.5ML, IM, Branc h (MODERNA-BLUE TOP) Pneumococcal 13 2022-02-11 Completed Universit y of Conjugate, PCV13 00:00:00 [facility] (Prevnar 13) Branch Zoster Vaccine 2022-02-11 Completed University of Recombinant 00:00:00 [facility] Pneumococcal 13 2022-02-11 Completed Universit [facility] of Conjugate, PCV13 00:00:00 [facility] (Prevnar 13) Branch Zoster Vaccine 2022-02-11 Completed University of Recombinant 00:00:00 [facility] Pneumococcal 13 2022-02-11 Completed Universit [facility] of Conjugate, PCV13 00:00:00 [facility] (Prevnar 13) Branch Zoster Vaccine 2022-02-11 Completed University of Recombinant 00:00:00 [facility] Pneumococcal 13 2022-02-11 Completed Universit y of Conjugate, PCV13 00:00:00 [facility] (Prevnar 13) Branch Zoster Vaccine 2022-02-11 Completed University of Recombinant 00:00:00 [facility] Pneumococcal 13 2022-02-11 Completed Universit [facility] of Conjugate, PCV13 00:00:00 [facility] (Prevnar 13) Branch Zoster Vaccine 2022-02-11 Completed [facility] of Recombinant 00:00:00 [facility] Pneumococcal 13 2022-02-11 Completed Universit [facility] of Conjugate, PCV13 00:00:00 [place] [facility] (Prevnar 13) Branch Zoster Vaccine 2022-02-11 Completed University of Recombinant 00:00:00 [facility] Pneumococcal 13 2022-02-11 Completed [facility]it [facility] of Conjugate, PCV13 00:00:00 [place] [facility] (Prevnar 13) Branch Zoster Vaccine 2022-02-11 Completed [facility] of Recombinant 00:00:00 [facility] Pneumococcal 13 2022-02-11 Completed [facility]it [facility] of Conjugate, PCV13 00:00:00 [place] [facility] (Prevnar 13) Branch Zoster Vaccine 2022-02-11 Completed University of Recombinant 00:00:00 [facility] Pneumococcal 13 2022-02-11 Completed [facility]it [facility] of Conjugate, PCV13 00:00:00 [place] [facility] (Prevnar 13) Branch Zoster Vaccine 2022-02-11 Completed [facility] of Recombinant 00:00:00 [facility] Pneumococcal 13 2022-02-11 Completed [facility]it [facility] of Conjugate, PCV13 00:00:00 [place] [facility] (Prevnar 13) Branch Zoster Vaccine 2022-02-11 Completed [facility] of Recombinant 00:00:00 [facility] Pneumococcal 13 2022-02-11 Completed [facility]it [facility] of Conjugate, PCV13 00:00:00 [place] [facility] (Prevnar 13) Branch Zoster Vaccine 2022-02-11 Completed University of Recombinant 00:00:00 [facility] Pneumococcal 13 2022-02-11 Completed [facility]it y of Conjugate, PCV13 00:00:00 [place] [facility] (Prevnar 13) Branch Zoster Vaccine 2022-02-11 Completed [facility] of Recombinant 00:00:00 [facility] Pneumococcal 13 2022-02-11 Completed [facility]it [facility] of Conjugate, PCV13 00:00:00 [facility] (Prevnar 13) Branch Zoster Vaccine 2022-02-11 Completed [facility] of Recombinant 00:00:00 [facility] Pneumococcal 13 2022-02-11 Completed [facility]it [facility] of Conjugate, PCV13 00:00:00 [place] [facility] (Prevnar 13) Branch Zoster Vaccine 2022-02-11 Completed [facility] of Recombinant 00:00:00 [facility] Pneumococcal 13 2022-02-11 Completed [facility]it [facility] of Conjugate, PCV13 00:00:00 [place] [facility] (Prevnar 13) Branch Zoster Vaccine 2022-02-11 Completed [facility] of Recombinant 00:00:00 [facility] Pneumococcal 13 2022-02-11 Completed [facility]it [facility] of Conjugate, PCV13 00:00:00 [place] [facility] (Prevnar 13) Branch Zoster Vaccine 2022-02-11 Completed [facility] of Recombinant 00:00:00 [facility] Pneumococcal 13 2022-02-11 Completed [facility]it [facility] of Conjugate, PCV13 00:00:00 [place] [facility] (Prevnar 13) Branch Zoster Vaccine 2022-02-11 Completed [facility] of Recombinant 00:00:00 [facility] Pneumococcal 13 2022-02-11 Completed [facility]it y of Conjugate, PCV13 00:00:00 [facility] (Prevnar 13) Branch Zoster Vaccine 2022-02-11 Completed [facility] of Recombinant 00:00:00 [facility] Pneumococcal 13 2022-02-11 Completed [facility]it [facility] of Conjugate, PCV13 00:00:00 [place] [facility] (Prevnar 13) Branch Zoster Vaccine 2022-02-11 Completed [facility] of Recombinant 00:00:00 [facility] Pneumococcal 13 2022-02-11 Completed [facility]it y of Conjugate, PCV13 00:00:00 [place] [facility] (Prevnar 13) Branch Zoster Vaccine 2022-02-11 Completed [facility] of Recombinant 00:00:00 [facility] Pneumococcal 13 2022-02-11 Completed [facility]it y of Conjugate, PCV13 00:00:00 [place] [facility] (Prevnar 13) Branch Zoster Vaccine 2022-02-11 Completed [facility] of Recombinant 00:00:00 [facility] Pneumococcal 13 2022-02-11 Completed [facility]it [facility] of Conjugate, PCV13 00:00:00 [place] [facility] (Prevnar 13) Branch Zoster Vaccine 2022-02-11 Completed [facility] of Recombinant 00:00:00 [facility] Pneumococcal 13 2022-02-11 Completed [facility]it [facility] of Conjugate, PCV13 00:00:00 [place] [facility] (Prevnar 13) Branch Zoster Vaccine 2022-02-11 Completed [facility] of Recombinant 00:00:00 [facility] Pneumococcal 13 2022-02-11 Completed [facility]it [facility] of Conjugate, PCV13 00:00:00 [place] [facility] (Prevnar 13) Branch Zoster Vaccine 2022-02-11 Completed [facility] of Recombinant 00:00:00 [facility] Pneumococcal 13 2022-02-11 Completed [facility]it y of Conjugate, PCV13 00:00:00 [place] [facility] (Prevnar 13) Branch Zoster Vaccine 2022-02-11 Completed [facility] of Recombinant 00:00:00 [facility] Branch Pneumococcal 13 2022-02-11 Completed Universit y of Conjugate, PCV13 00:00:00 [place] [facility] (Prevnar 13) Branch Zoster Vaccine 2022-02-11 Completed University of Recombinant 00:00:00 [facility] Pneumococcal 13 2022-02-11 Completed [facility]it y of Conjugate, PCV13 00:00:00 [place] [facility] (Prevnar 13) Branch Zoster Vaccine 2022-02-11 Completed [facility] of Recombinant 00:00:00 [facility] Pneumococcal 13 2022-02-11 Completed [facility]it [facility] of Conjugate, PCV13 00:00:00 [place] [facility] (Prevnar 13) Branch Zoster Vaccine 2022-02-11 Completed [facility] of Recombinant 00:00:00 [facility] Pneumococcal 13 2022-02-11 Completed [facility]it [facility] of Conjugate, PCV13 00:00:00 [place] [facility] (Prevnar 13) Branch Zoster Vaccine 2022-02-11 Completed [facility] of Recombinant 00:00:00 [facility] Pneumococcal 13 2022-02-11 Completed Universit y of Conjugate, PCV13 00:00:00 [place] [facility] (Prevnar 13) Branch Zoster Vaccine 2022-02-11 Completed [facility] of Recombinant 00:00:00 [facility] Pneumococcal 13 2022-02-11 Completed [facility]it y of Conjugate, PCV13 00:00:00 [place] [facility] (Prevnar 13) Branch Zoster Vaccine 2022-02-11 Completed [facility] of Recombinant 00:00:00 [facility] Pneumococcal 13 2022-02-11 Completed [facility]it y of Conjugate, PCV13 00:00:00 [place] [facility] (Prevnar 13) Branch Zoster Vaccine 2022-02-11 Completed [facility] of Recombinant 00:00:00 [facility] Pneumococcal 13 2022-02-11 Completed [facility]it y of Conjugate, PCV13 00:00:00 [place] [facility] (Prevnar 13) Branch Zoster Vaccine 2022-02-11 Completed [facility] of Recombinant 00:00:00 [facility] Pneumococcal 13 2022-02-11 Completed [facility]it y of Conjugate, PCV13 00:00:00 [place] [facility] (Prevnar 13) Branch Zoster Vaccine 2022-02-11 Completed [facility] of Recombinant 00:00:00 [facility] Pneumococcal 13 2022-02-11 Completed Universit y of Conjugate, PCV13 00:00:00 [place] [facility] (Prevnar 13) Branch Zoster Vaccine 2022-02-11 Completed [facility] of Recombinant 00:00:00 [facility] Pneumococcal 13 2022-02-11 Completed Universit y of Conjugate, PCV13 00:00:00 [place] [facility] (Prevnar 13) Branch Zoster Vaccine 2022-02-11 Completed [facility] of Recombinant 00:00:00 [facility] Pneumococcal 13 2022-02-11 Completed Universit y of Conjugate, PCV13 00:00:00 [place] [facility] (Prevnar 13) Branch Zoster Vaccine 2022-02-11 Completed [facility] of Recombinant 00:00:00 [facility] Pneumococcal 13 2022-02-11 Completed Universit y of Conjugate, PCV13 00:00:00 [place] [facility] (Prevnar 13) Branch Zoster Vaccine 2022-02-11 Completed University of Recombinant 00:00:00 [facility] Pneumococcal 13 2022-02-11 Completed Universit y of Conjugate, PCV13 00:00:00 [place] [facility] (Prevnar 13) Branch Zoster Vaccine 2022-02-11 Completed [facility] of Recombinant 00:00:00 [facility] Pneumococcal 13 2022-02-11 Completed Universit y of Conjugate, PCV13 00:00:00 [place] [facility] (Prevnar 13) Branch Zoster Vaccine 2022-02-11 Completed [facility] of Recombinant 00:00:00 [facility] Pneumococcal 13 2022-02-11 Completed Universit y of Conjugate, PCV13 00:00:00 [facility] (Prevnar 13) Branch Zoster Vaccine 2022-02-11 Completed [facility] of Recombinant 00:00:00 [facility] Pneumococcal 13 2022-02-11 Completed Universit y of Conjugate, PCV13 00:00:00 [place] [facility] (Prevnar 13) Branch Zoster Vaccine 2022-02-11 Completed [facility] of Recombinant 00:00:00 [facility] Pneumococcal 13 2022-02-11 Completed Universit y of Conjugate, PCV13 00:00:00 [place] [facility] (Prevnar 13) Branch Zoster Vaccine 2022-02-11 Completed [facility] of Recombinant 00:00:00 [facility] Pneumococcal 13 2022-02-11 Completed [facility]it y of Conjugate, PCV13 00:00:00 [place] [facility] (Prevnar 13) Branch Zoster Vaccine 2022-02-11 Completed [facility] of Recombinant 00:00:00 [facility] Pneumococcal 13 2022-02-11 Completed Universit y of Conjugate, PCV13 00:00:00 [place] [facility] (Prevnar 13) Branch Zoster Vaccine 2022-02-11 Completed [facility] of Recombinant 00:00:00 [facility] Branch Pneumococcal 13 2022-02-11 Completed Universit y of Conjugate, PCV13 00:00:00 [place] [facility] (Prevnar 13) Branch Zoster Vaccine 2022-02-11 Completed [facility] of Recombinant 00:00:00 [facility] Pneumococcal 13 2022-02-11 Completed Universit y of Conjugate, PCV13 00:00:00 [place] [facility] (Prevnar 13) Branch Zoster Vaccine 2022-02-11 Completed [facility] of Recombinant 00:00:00 [facility] Pneumococcal 13 2022-02-11 Completed [facility]it y of Conjugate, PCV13 00:00:00 [place] [facility] (Prevnar 13) Branch Zoster Vaccine 2022-02-11 Completed [facility] of Recombinant 00:00:00 [facility] Pneumococcal 13 2022-02-11 Completed [facility]it y of Conjugate, PCV13 00:00:00 [place] [facility] (Prevnar 13) Branch Zoster Vaccine 2022-02-11 Completed [facility] of Recombinant 00:00:00 [facility] Pneumococcal 13 2022-02-11 Completed [facility]it y of Conjugate, PCV13 00:00:00 [place] [facility] (Prevnar 13) Branch Zoster Vaccine 2022-02-11 Completed [facility] of Recombinant 00:00:00 [facility] Pneumococcal 13 2022-02-11 Completed Universit y of Conjugate, PCV13 00:00:00 [place] [facility] (Prevnar 13) Branch Zoster Vaccine 2022-02-11 Completed [facility] of Recombinant 00:00:00 [facility] Pneumococcal 13 2022-02-11 Completed Universit y of Conjugate, PCV13 00:00:00 [place] [facility] (Prevnar 13) Branch Zoster Vaccine 2022-02-11 Completed [facility] of Recombinant 00:00:00 [facility] Pneumococcal 13 2022-02-11 Completed Universit y of Conjugate, PCV13 00:00:00 [place] [facility] (Prevnar 13) Branch Zoster Vaccine 2022-02-11 Completed [facility] of Recombinant 00:00:00 [facility] Pneumococcal 13 2022-02-11 Completed Universit y of Conjugate, PCV13 00:00:00 [facility] (Prevnar 13) Branch Zoster Vaccine 2022-02-11 Completed [facility] of Recombinant 00:00:00 [facility] Pneumococcal 13 2022-02-11 Completed Universit y of Conjugate, PCV13 00:00:00 [place] [facility] (Prevnar 13) Branch Zoster Vaccine 2022-02-11 Completed [facility] of Recombinant 00:00:00 [facility] Pneumococcal 13 2022-02-11 Completed Universit y of Conjugate, PCV13 00:00:00 [place] [facility] (Prevnar 13) Branch Zoster Vaccine 2022-02-11 Completed [facility] of Recombinant 00:00:00 [facility] Pneumococcal 13 2022-02-11 Completed Universit y of Conjugate, PCV13 00:00:00 [place] [facility] (Prevnar 13) Branch Zoster Vaccine 2022-02-11 Completed [facility] of Recombinant 00:00:00 [facility] Pneumococcal 13 2022-02-11 Completed Universit y of Conjugate, PCV13 00:00:00 [place] [facility] (Prevnar 13) Branch Zoster Vaccine 2022-02-11 Completed [facility] of Recombinant 00:00:00 [facility] Pneumococcal 13 2022-02-11 Completed Universit y of Conjugate, PCV13 00:00:00 [place] [facility] (Prevnar 13) Branch Zoster Vaccine 2022-02-11 Completed [facility] of Recombinant 00:00:00 [facility] Pneumococcal 13 2022-02-11 Completed Universit y of Conjugate, PCV13 00:00:00 [place] [facility] (Prevnar 13) Branch Zoster Vaccine 2022-02-11 Completed [facility] of Recombinant 00:00:00 [facility] Pneumococcal 13 2022-02-11 Completed Universit y of Conjugate, PCV13 00:00:00 [place] [facility] (Prevnar 13) Branch Zoster Vaccine 2022-02-11 Completed [facility] of Recombinant 00:00:00 [facility] Pneumococcal 13 2022-02-11 Completed Universit y of Conjugate, PCV13 00:00:00 [place] [facility] (Prevnar 13) Branch Zoster Vaccine 2022-02-11 Completed [facility] of Recombinant 00:00:00 [facility] Pneumococcal 13 2022-02-11 Completed Universit y of Conjugate, PCV13 00:00:00 [place] [facility] (Prevnar 13) Branch Zoster Vaccine 2022-02-11 Completed [facility] of Recombinant 00:00:00 [facility] Pneumococcal 13 2022-02-11 Completed Universit y of Conjugate, PCV13 00:00:00 [place] [facility] (Prevnar 13) Branch Zoster Vaccine 2022-02-11 Completed [facility] of Recombinant 00:00:00 [facility] Pneumococcal 13 2022-02-11 Completed Universit y of Conjugate, PCV13 00:00:00 [facility] (Prevnar 13) Branch Zoster Vaccine 2022-02-11 Completed University of Recombinant 00:00:00 [facility] Pneumococcal 13 2022-02-11 Completed Universit y of Conjugate, PCV13 00:00:00 [place] [facility] (Prevnar 13) Branch Zoster Vaccine 2022-02-11 Completed [facility] of Recombinant 00:00:00 [facility] Pneumococcal 13 2022-02-11 Completed Universit y of Conjugate, PCV13 00:00:00 [facility] (Prevnar 13) Branch Zoster Vaccine 2022-02-11 Completed [facility] of Recombinant 00:00:00 [facility] Pneumococcal 13 2022-02-11 Completed Universit y of Conjugate, PCV13 00:00:00 [facility] (Prevnar 13) Branch Zoster Vaccine 2022-02-11 Completed [facility] of Recombinant 00:00:00 [facility] Pneumococcal 13 2022-02-11 Completed Universit y of Conjugate, PCV13 00:00:00 [facility] (Prevnar 13) Branch Zoster Vaccine 2022-02-11 Completed University of Recombinant 00:00:00 [facility] Zoster(Zostavax)( 2021-09-11 Completed Unive rsity of ingles) 00:00:00 [facility] Zoster(Zostavax)( 2021-09-11 Completed Unive rsity of ingles) 00:00:00 [facility] Zoster(Zostavax)( 2021-09-11 Completed Unive rsity of ingles) 00:00:00 [facility] Zoster(Zostavax)( 2021-09-11 Completed Unive rsity of ingles) 00:00:00 [facility] Zoster(Zostavax)( 2021-09-11 Completed Unive rsity of ingles) 00:00:00 [facility] Zoster(Zostavax)( 2021-09-11 Completed Unive rsity of ingles) 00:00:00 [facility] Zoster(Zostavax)( 2021-09-11 Completed Unive rsity of ingles) 00:00:00 [facility] Zoster(Zostavax)( 2021-09-11 Completed Unive rsity of ingles) 00:00:00 [facility] Zoster(Zostavax)( 2021-09-11 Completed Unive rsity of ingles) 00:00:00 [facility] Zoster(Zostavax)( 2021-09-11 Completed Unive rsity of ingles) 00:00:00 [facility] Zoster(Zostavax)( 2021-09-11 Completed Unive rsity of ingles) 00:00:00 [facility] Zoster(Zostavax)( 2021-09-11 Completed Unive rsity of ingles) 00:00:00 [facility] Zoster(Zostavax)( 2021-09-11 Completed Unive rsity of ingles) 00:00:00 [facility] Zoster(Zostavax)( 2021-09-11 Completed Unive rsity of ingles) 00:00:00 [facility] Zoster(Zostavax)( 2021-09-11 Completed Unive rsity of ingles) 00:00:00 [facility] Zoster(Zostavax)( 2021-09-11 Completed Unive rsity of ingles) 00:00:00 [facility] Zoster(Zostavax)( 2021-09-11 Completed Unive rsity of ingles) 00:00:00 [facility] Zoster(Zostavax)( 2021-09-11 Completed Unive rsity of ingles) 00:00:00 [facility] Zoster(Zostavax)( 2021-09-11 Completed Unive rsity of ingles) 00:00:00 [facility] Zoster(Zostavax)( 2021-09-11 Completed Unive rsity of ingles) 00:00:00 [facility] Zoster(Zostavax)( 2021-09-11 Completed Unive rsity of ingles) 00:00:00 [facility] Zoster(Zostavax)( 2021-09-11 Completed Unive rsity of ingles) 00:00:00 [facility] Zoster(Zostavax)( 2021-09-11 Completed Unive rsity of ingles) 00:00:00 [facility] Zoster(Zostavax)( 2021-09-11 Completed Unive rsity of ingles) 00:00:00 [facility] Zoster(Zostavax)( 2021-09-11 Completed Unive rsity of ingles) 00:00:00 [facility] Zoster(Zostavax)( 2021-09-11 Completed [facility]ive rsity of ingles) 00:00:00 [facility] Zoster(Zostavax)( 2021-09-11 Completed Unive rsity of ingles) 00:00:00 [facility] Zoster(Zostavax)( 2021-09-11 Completed Unive rsity of ingles) 00:00:00 [facility] Zoster(Zostavax)( 2021-09-11 Completed Unive rsity of ingles) 00:00:00 [facility] Zoster(Zostavax)( 2021-09-11 Completed Unive rsity of ingles) 00:00:00 [facility] Zoster(Zostavax)( 2021-09-11 Completed Unive rsity of ingles) 00:00:00 [facility] Zoster(Zostavax)( 2021-09-11 Completed Unive rsity of ingles) 00:00:00 [facility] Zoster(Zostavax)( 2021-09-11 Completed Unive rsity of ingles) 00:00:00 [facility] Zoster(Zostavax)( 2021-09-11 Completed Unive rsity of ingles) 00:00:00 [facility] Zoster(Zostavax)( 2021-09-11 Completed Unive rsity of ingles) 00:00:00 [facility] Zoster(Zostavax)( 2021-09-11 Completed Unive rsity of ingles) 00:00:00 [facility] Zoster(Zostavax)( 2021-09-11 Completed [facility]ive rsity of ingles) 00:00:00 [facility] Zoster(Zostavax)( 2021-09-11 Completed [facility]ive rsity of ingles) 00:00:00 [facility] Zoster(Zostavax)( 2021-09-11 Completed Unive rsity of ingles) 00:00:00 [facility] Zoster(Zostavax)( 2021-09-11 Completed Unive rsity of ingles) 00:00:00 [facility] Zoster(Zostavax)( 2021-09-11 Completed [facility]ive rsity of ingles) 00:00:00 [facility] Zoster(Zostavax)( 2021-09-11 Completed [facility]ive rsity of ingles) 00:00:00 [facility] Zoster(Zostavax)( 2021-09-11 Completed [facility]ive rsity of ingles) 00:00:00 [facility] Zoster(Zostavax)( 2021-09-11 Completed [facility]ive rsity of ingles) 00:00:00 [facility] Zoster(Zostavax)( 2021-09-11 Completed [facility]ive rsity of ingles) 00:00:00 [facility] Zoster(Zostavax)( 2021-09-11 Completed [facility]ive rsity of ingles) 00:00:00 [facility] Zoster(Zostavax)( 2021-09-11 Completed [facility]ive rsity of ingles) 00:00:00 [facility] Zoster(Zostavax)( 2021-09-11 Completed [facility]ive rsity of ingles) 00:00:00 [facility] Zoster(Zostavax)( 2021-09-11 Completed [facility]ive rsity of ingles) 00:00:00 [facility] Zoster(Zostavax)( 2021-09-11 Completed Unive rsity of ingles) 00:00:00 [facility] Zoster(Zostavax)( 2021-09-11 Completed [facility]ive rsity of ingles) 00:00:00 [facility] Zoster(Zostavax)( 2021-09-11 Completed [facility]ive rsity of ingles) 00:00:00 [facility] Zoster(Zostavax)( 2021-09-11 Completed Unive rsity of ingles) 00:00:00 [facility] Zoster(Zostavax)( 2021-09-11 Completed Unive rsity of ingles) 00:00:00 [facility] Zoster(Zostavax)( 2021-09-11 Completed [facility]ive rsity of ingles) 00:00:00 [facility] Zoster(Zostavax)( 2021-09-11 Completed Unive rsity of ingles) 00:00:00 [facility] Zoster(Zostavax)( 2021-09-11 Completed [facility]ive rsity of ingles) 00:00:00 [facility] Zoster(Zostavax)( 2021-09-11 Completed [facility]ive rsity of ingles) 00:00:00 [facility] Zoster(Zostavax)( 2021-09-11 Completed [facility]ive [facility]ity of ingles) 00:00:00 [facility] Zoster(Zostavax)( 2021-09-11 Completed Unive rsity of ingles) 00:00:00 [facility] Zoster(Zostavax)( 2021-09-11 Completed Unive rsity of ingles) 00:00:00 [facility] SARS-COV-2 COVID-19 2021-07-18 Completed Unive rsity of MODERNA VACCINE 00:00:00 [facility] SARS-COV-2 COVID-19 2021-07-18 Completed Unive rsity of MODERNA VACCINE 00:00:00 [facility] SARS-COV-2 COVID-19 2021-07-18 Completed Unive rsity of MODERNA VACCINE 00:00:00 [facility] ical Branch SARS-COV-2 COVID-19 2021-07-18 Completed Unive rsity of MODERNA VACCINE 00:00:00 [facility] ical Branch SARS-COV-2 COVID-19 2021-07-18 Completed Unive rsity of MODERNA VACCINE 00:00:00 [facility] SARS-COV-2 COVID-19 2021-07-18 Completed Unive rsity of MODERNA 12+ YRS 00:00:00 [facility] SARS-COV-2 COVID-19 2021-07-18 Completed Unive rsity of MODERNA 12+ YRS 00:00:00 [facility] V[facility] SARS-COV-2 COVID-19 2021-07-18 Completed Unive rsity of MODERNA 12+ YRS 00:00:00 [facility] V[facility] SARS-COV-2 COVID-19 2021-07-18 Completed Unive rsity of MODERNA 12+ YRS 00:00:00 [facility] VACCINE [facility] SARS-COV-2 COVID-19 2021-07-18 Completed Unive rsity of MODERNA 12+ YRS 00:00:00 [facility] VACCINE [facility] SARS-COV-2 COVID-19 2021-07-18 Completed [facility] 12+ YRS 00:00:00 [facility] SARS-COV-2 COVID-19 2021-07-18 Completed [facility] 12+ YRS 00:00:00 [facility] SARS-COV-2 COVID-19 2021-07-18 Completed [facility] 12+ YRS 00:00:00 [facility] SARS-COV-2 COVID-19 2021-07-18 Completed [facility] 12+ YRS 00:00:00 [place] [facility] SARS-COV-2 COVID-19 2021-07-18 Completed [facility] 12+ YRS 00:00:00 [place] [facility] SARS-COV-2 COVID-19 2021-07-18 Completed [facility] 12+ YRS 00:00:00 [place] [facility] SARS-COV-2 COVID-19 2021-07-18 Completed [facility] 12+ YRS 00:00:00 [place] [facility] SARS-COV-2 COVID-19 2021-07-18 Completed [facility] 12+ YRS 00:00:00 [place] [facility] SARS-COV-2 COVID-19 2021-07-18 Completed [facility] 12+ YRS 00:00:00 [place] [facility] SARS-COV-2 COVID-19 2021-07-18 Completed [facility] 12+ YRS 00:00:00 [place] [facility] SARS-COV-2 COVID-19 2021-07-18 Completed [facility] 12+ YRS 00:00:00 [facility] SARS-COV-2 COVID-19 2021-07-18 Completed [facility] 12+ YRS 00:00:00 [place] [facility] SARS-COV-2 COVID-19 2021-07-18 Completed [facility] 12+ YRS 00:00:00 [place] [facility] SARS-COV-2 COVID-19 2021-07-18 Completed [facility] 12+ YRS 00:00:00 [place] [facility] SARS-COV-2 COVID-19 2021-07-18 Completed [facility] 12+ YRS 00:00:00 [place] [facility] SARS-COV-2 COVID-19 2021-07-18 Completed [facility] 12+ YRS 00:00:00 [place] [facility] SARS-COV-2 COVID-19 2021-07-18 Completed [facility] 12+ YRS 00:00:00 [place] [facility] SARS-COV-2 COVID-19 2021-07-18 Completed [facility] 12+ YRS 00:00:00 [place] [facility] SARS-COV-2 COVID-19 2021-07-18 Completed [facility] 12+ YRS 00:00:00 [facility] SARS-COV-2 COVID-19 2021-07-18 Completed [facility] 12+ YRS 00:00:00 [place] [facility] SARS-COV-2 COVID-19 2021-07-18 Completed [facility] 12+ YRS 00:00:00 [place] [facility] SARS-COV-2 COVID-19 2021-07-18 Completed [facility] 12+ YRS 00:00:00 [place] [facility] SARS-COV-2 COVID-19 2021-07-18 Completed [facility] 12+ YRS 00:00:00 [place] [facility] SARS-COV-2 COVID-19 2021-07-18 Completed [facility] 12+ YRS 00:00:00 [place] [facility] SARS-COV-2 COVID-19 2021-07-18 Completed [facility] 12+ YRS 00:00:00 [place] [facility] SARS-COV-2 COVID-19 2021-07-18 Completed [facility] 12+ YRS 00:00:00 [place] [facility] SARS-COV-2 COVID-19 2021-07-18 Completed [facility] 12+ YRS 00:00:00 [place] [facility] SARS-COV-2 COVID-19 2021-07-18 Completed [facility] 12+ YRS 00:00:00 [place] [facility] SARS-COV-2 COVID-19 2021-07-18 Completed [facility] 12+ YRS 00:00:00 [place] [facility] SARS-COV-2 COVID-19 2021-07-18 Completed [facility] 12+ YRS 00:00:00 [place] [facility] SARS-COV-2 COVID-19 2021-07-18 Completed [facility] 12+ YRS 00:00:00 [place] [facility] SARS-COV-2 COVID-19 2021-07-18 Completed [facility] 12+ YRS 00:00:00 [place] [facility] SARS-COV-2 COVID-19 2021-07-18 Completed [facility] 12+ YRS 00:00:00 [place] [facility] SARS-COV-2 COVID-19 2021-07-18 Completed [facility] 12+ YRS 00:00:00 [place] [facility] SARS-COV-2 COVID-19 2021-07-18 Completed [facility] 12+ YRS 00:00:00 [place] [facility] SARS-COV-2 COVID-19 2021-07-18 Completed [facility] 12+ YRS 00:00:00 [place] [facility] SARS-COV-2 COVID-19 2021-07-18 Completed [facility] 12+ YRS 00:00:00 [place] [facility] SARS-COV-2 COVID-19 2021-07-18 Completed [facility] 12+ YRS 00:00:00 [place] [facility] SARS-COV-2 COVID-19 2021-07-18 Completed [facility] 12+ YRS 00:00:00 [place] [facility] SARS-COV-2 COVID-19 2021-07-18 Completed [facility] 12+ YRS 00:00:00 [place] [facility] SARS-COV-2 COVID-19 2021-07-18 Completed [facility] 12+ YRS 00:00:00 [place] [facility] SARS-COV-2 COVID-19 2021-07-18 Completed [facility] 12+ YRS 00:00:00 [place] [facility] SARS-COV-2 COVID-19 2021-07-18 Completed [facility] 12+ YRS 00:00:00 [place] [facility] SARS-COV-2 COVID-19 2021-07-18 Completed [facility] 12+ YRS 00:00:00 [place] [facility] SARS-COV-2 COVID-19 2021-07-18 Completed [facility] 12+ YRS 00:00:00 [place] [facility] SARS-COV-2 COVID-19 2021-07-18 Completed [facility] 12+ YRS 00:00:00 [place] [facility] SARS-COV-2 COVID-19 2021-07-18 Completed [facility] 12+ YRS 00:00:00 [place] [facility] SARS-COV-2 COVID-19 2021-07-18 Completed [facility] 12+ YRS 00:00:00 [place] [facility] SARS-COV-2 COVID-19 2021-07-18 Completed [facility] 12+ YRS 00:00:00 [place] [facility] SARS-COV-2 COVID-19 2021-07-18 Completed [facility] 12+ YRS 00:00:00 [place] [facility] SARS-COV-2 COVID-19 2021-07-18 Completed [facility] 12+ YRS 00:00:00 [facility] ical VACCINE Branch SARS-COV-2 COVID-19 2021-07-18 Completed [facility] 12+ YRS 00:00:00 [facility] ical VACCINE Branch SARS-COV-2 COVID-19 2021-07-18 Completed [facility] 12+ YRS 00:00:00 [facility] ical VACCINE Branch SARS-COV-2 COVID-19 2021-07-18 Completed [facility] MODERNA 12+ YRS 00:00:00 [facility] ical VACCINE Branch SARS-COV-2 COVID-19 2021-07-18 Completed [facility]ER[facility] 12+ YRS 00:00:00 [facility] ical VACCINE Branch SARS-COV-2 COVID-19 2021-07-18 Completed [facility]ERNA 12+ YRS 00:00:00 [facility] ical VACCINE Branch SARS-COV-2 COVID-19 2021-07-18 Completed [facility]ER[facility] 12+ YRS 00:00:00 [facility] ical VACCINE Branch SARS-COV-2 COVID-19 2021-07-18 Completed [facility]ER[facility] 12+ YRS 00:00:00 [facility] ical VACCINE Branch SARS-COV-2 COVID-19 2021-07-18 Completed [facility] 12+ YRS 00:00:00 [facility] VACCINE [facility] Influenza Virus 2021-07-02 Completed [facility] Vaccine 00:00:00 [facility] Influenza Virus 2021-07-02 Completed [facility] Vaccine 00:00:00 [facility] Influenza Virus 2021-07-02 Completed [facility] Vaccine 00:00:00 [facility] Influenza Virus 2021-07-02 Completed [facility] Vaccine 00:00:00 [facility] Influenza Virus 2021-07-02 Completed [facility] Vaccine 00:00:00 [facility] Influenza Virus 2021-07-02 Completed [facility] Vaccine 00:00:00 [facility] Influenza Virus 2021-07-02 Completed [facility] Vaccine 00:00:00 [facility] Influenza Virus 2021-07-02 Completed [facility] Vaccine 00:00:00 [facility] Influenza Virus 2021-07-02 Completed [facility] Vaccine 00:00:00 [facility] Influenza Virus 2021-07-02 Completed [facility] Vaccine 00:00:00 [facility] Influenza Virus 2021-07-02 Completed [facility] Vaccine 00:00:00 [facility] Influenza Virus 2021-07-02 Completed [facility] Vaccine 00:00:00 [facility] Influenza Virus 2021-07-02 Completed [facility] Vaccine 00:00:00 [facility] Influenza Virus 2021-07-02 Completed [facility] Vaccine 00:00:00 [facility] Influenza Virus 2021-07-02 Completed [facility] Vaccine 00:00:00 [facility] Influenza Virus 2021-07-02 Completed [facility] Vaccine 00:00:00 [facility] Influenza Virus 2021-07-02 Completed [facility] Vaccine 00:00:00 [facility] Influenza Virus 2021-07-02 Completed [facility] Vaccine 00:00:00 [facility] Influenza Virus 2021-07-02 Completed [facility] Vaccine 00:00:00 [facility] Influenza Virus 2021-07-02 Completed [facility] Vaccine 00:00:00 [facility] Influenza Virus 2021-07-02 Completed [facility] Vaccine 00:00:00 [facility] Influenza Virus 2021-07-02 Completed [facility] Vaccine 00:00:00 [facility] Influenza Virus 2021-07-02 Completed [facility] Vaccine 00:00:00 [facility] Influenza Virus 2021-07-02 Completed [facility] Vaccine 00:00:00 [facility] Influenza Virus 2021-07-02 Completed [facility] Vaccine 00:00:00 [facility] Influenza Virus 2021-07-02 Completed [facility] Vaccine 00:00:00 [facility] Influenza Virus 2021-07-02 Completed [facility] Vaccine 00:00:00 [facility] Influenza Virus 2021-07-02 Completed [facility] Vaccine 00:00:00 [facility] Influenza Virus 2021-07-02 Completed [facility] Vaccine 00:00:00 [facility] Influenza Virus 2021-07-02 Completed [facility] Vaccine 00:00:00 [facility] Influenza Virus 2021-07-02 Completed [facility] Vaccine 00:00:00 [facility] Influenza Virus 2021-07-02 Completed [facility] Vaccine 00:00:00 [facility] Influenza Virus 2021-07-02 Completed [facility] Vaccine 00:00:00 [facility] Influenza Virus 2021-07-02 Completed [facility] Vaccine 00:00:00 [facility] Influenza Virus 2021-07-02 Completed [facility] Vaccine 00:00:00 [facility] Influenza Virus 2021-07-02 Completed [facility] Vaccine 00:00:00 [facility] Influenza Virus 2021-07-02 Completed [facility] Vaccine 00:00:00 [facility] Influenza Virus 2021-07-02 Completed [facility] Vaccine 00:00:00 [facility] Influenza Virus 2021-07-02 Completed [facility] Vaccine 00:00:00 [facility] Influenza Virus 2021-07-02 Completed [facility] Vaccine 00:00:00 [facility] Influenza Virus 2021-07-02 Completed [facility] Vaccine 00:00:00 [facility] Influenza Virus 2021-07-02 Completed [facility] Vaccine 00:00:00 [facility] Influenza Virus 2021-07-02 Completed [facility] Vaccine 00:00:00 [facility] Influenza Virus 2021-07-02 Completed [facility] Vaccine 00:00:00 [facility] Influenza Virus 2021-07-02 Completed [facility] Vaccine 00:00:00 [facility] Influenza Virus 2021-07-02 Completed [facility] Vaccine 00:00:00 [facility] Influenza Virus 2021-07-02 Completed [facility] Vaccine 00:00:00 [facility] Influenza Virus 2021-07-02 Completed [facility] Vaccine 00:00:00 [facility] Influenza Virus 2021-07-02 Completed [facility] Vaccine 00:00:00 [facility] Influenza Virus 2021-07-02 Completed [facility] Vaccine 00:00:00 [facility] Influenza Virus 2021-07-02 Completed [facility] Vaccine 00:00:00 [facility] Influenza Virus 2021-07-02 Completed [facility] Vaccine 00:00:00 [facility] Influenza Virus 2021-07-02 Completed [facility] Vaccine 00:00:00 [facility] Influenza Virus 2021-07-02 Completed [facility] Vaccine 00:00:00 [facility] Influenza Virus 2021-07-02 Completed [facility] Vaccine 00:00:00 [facility] Influenza Virus 2021-07-02 Completed [facility] Vaccine 00:00:00 [facility] Influenza Virus 2021-07-02 Completed [facility] Vaccine 00:00:00 [facility] Influenza Virus 2021-07-02 Completed [facility] Vaccine 00:00:00 [facility] Influenza Virus 2021-07-02 Completed [facility] Vaccine 00:00:00 [facility] Influenza Virus 2021-07-02 Completed [facility] Vaccine 00:00:00 [facility] Influenza Virus 2021-07-02 Completed [facility] Vaccine 00:00:00 [facility] Influenza Virus 2021-07-02 Completed [facility] Vaccine 00:00:00 [facility] Influenza Virus 2021-07-02 Completed [facility] Vaccine 00:00:00 [facility] Influenza Virus 2021-07-02 Completed [facility] Vaccine 00:00:00 [facility] Influenza Virus 2021-07-02 Completed [facility] Vaccine 00:00:00 [facility] Influenza Virus 2021-07-02 Completed [facility] Vaccine 00:00:00 [facility] Influenza Virus 2021-07-02 Completed [facility] Vaccine 00:00:00 [facility] Influenza Virus 2021-07-02 Completed [facility] Vaccine 00:00:00 [facility] Influenza Virus 2021-07-02 Completed [facility] Vaccine 00:00:00 [facility] SARS-COV-2 COVID-19 2021-03-16 Completed [facility] VACCINE 00:00:00 [facility] SARS-COV-2 COVID-19 2021-03-16 Completed [facility] VACCINE 00:00:00 [facility] SARS-COV-2 COVID-19 2021-03-16 Completed [facility] VACCINE 00:00:00 [facility] SARS-COV-2 COVID-19 2021-03-16 Completed [facility] VACCINE 00:00:00 [facility] SARS-COV-2 COVID-19 2021-03-16 Completed [facility] VACCINE 00:00:00 [facility] SARS-COV-2 COVID-19 2021-03-16 Completed [facility] MODERNA 12+ YRS 00:00:00 [place] [facility] SARS-COV-2 COVID-19 2021-03-16 Completed [facility] MODERNA 12+ YRS 00:00:00 [place] [facility] SARS-COV-2 COVID-19 2021-03-16 Completed [facility] MODERNA 12+ YRS 00:00:00 [place] [facility] SARS-COV-2 COVID-19 2021-03-16 Completed [facility] MODERNA 12+ YRS 00:00:00 [place] [facility] SARS-COV-2 COVID-19 2021-03-16 Completed [facility] MODERNA 12+ YRS 00:00:00 [place] [facility] SARS-COV-2 COVID-19 2021-03-16 Completed [facility] MODERNA 12+ YRS 00:00:00 [place] [facility] SARS-COV-2 COVID-19 2021-03-16 Completed [facility] MODERNA 12+ YRS 00:00:00 [place] [facility] SARS-COV-2 COVID-19 2021-03-16 Completed [facility] MODERNA 12+ YRS 00:00:00 [place] [facility] SARS-COV-2 COVID-19 2021-03-16 Completed [facility] MODERNA 12+ YRS 00:00:00 [place] [facility] SARS-COV-2 COVID-19 2021-03-16 Completed [facility] MODERNA 12+ YRS 00:00:00 [place] [facility] SARS-COV-2 COVID-19 2021-03-16 Completed [facility] MODERNA 12+ YRS 00:00:00 [place] [facility] SARS-COV-2 COVID-19 2021-03-16 Completed [facility] MODERNA 12+ YRS 00:00:00 [place] [facility] SARS-COV-2 COVID-19 2021-03-16 Completed [facility] MODERNA 12+ YRS 00:00:00 [place] [facility] SARS-COV-2 COVID-19 2021-03-16 Completed [facility] MODERNA 12+ YRS 00:00:00 [place] [facility] SARS-COV-2 COVID-19 2021-03-16 Completed [facility] MODERNA 12+ YRS 00:00:00 [place] [facility] SARS-COV-2 COVID-19 2021-03-16 Completed [facility] MODERNA 12+ YRS 00:00:00 [place] [facility] SARS-COV-2 COVID-19 2021-03-16 Completed [facility] MODERNA 12+ YRS 00:00:00 [place] [facility] SARS-COV-2 COVID-19 2021-03-16 Completed [facility] MODERNA 12+ YRS 00:00:00 [place] [facility] SARS-COV-2 COVID-19 2021-03-16 Completed [facility] MODERNA 12+ YRS 00:00:00 [place] [facility] SARS-COV-2 COVID-19 2021-03-16 Completed [facility] of MODERNA 12+ YRS 00:00:00 [place] [facility] SARS-COV-2 COVID-19 2021-03-16 Completed [facility] MODERNA 12+ YRS 00:00:00 [place] [facility] SARS-COV-2 COVID-19 2021-03-16 Completed [facility] of MODERNA 12+ YRS 00:00:00 [place] [facility] SARS-COV-2 COVID-19 2021-03-16 Completed [facility] MODERNA 12+ YRS 00:00:00 [place] [facility] SARS-COV-2 COVID-19 2021-03-16 Completed [facility] of MODERNA 12+ YRS 00:00:00 [place] [facility] SARS-COV-2 COVID-19 2021-03-16 Completed [facility] of MODERNA 12+ YRS 00:00:00 [place] [facility] SARS-COV-2 COVID-19 2021-03-16 Completed [facility] of MODERNA 12+ YRS 00:00:00 [place] [facility] SARS-COV-2 COVID-19 2021-03-16 Completed [facility] MODERNA 12+ YRS 00:00:00 [place] [facility] SARS-COV-2 COVID-19 2021-03-16 Completed [facility] of MODERNA 12+ YRS 00:00:00 [place] [facility] SARS-COV-2 COVID-19 2021-03-16 Completed [facility] of MODERNA 12+ YRS 00:00:00 [place] [facility] SARS-COV-2 COVID-19 2021-03-16 Completed [facility] of MODERNA 12+ YRS 00:00:00 [place] [facility] SARS-COV-2 COVID-19 2021-03-16 Completed [facility] of MODERNA 12+ YRS 00:00:00 [place] [facility] SARS-COV-2 COVID-19 2021-03-16 Completed [facility] of MODERNA 12+ YRS 00:00:00 [place] [facility] SARS-COV-2 COVID-19 2021-03-16 Completed [facility] MODERNA 12+ YRS 00:00:00 [place] [facility] SARS-COV-2 COVID-19 2021-03-16 Completed [facility] of MODERNA 12+ YRS 00:00:00 [place] [facility] SARS-COV-2 COVID-19 2021-03-16 Completed [facility] of MODERNA 12+ YRS 00:00:00 [place] [facility] SARS-COV-2 COVID-19 2021-03-16 Completed [facility] of MODERNA 12+ YRS 00:00:00 [place] [facility] SARS-COV-2 COVID-19 2021-03-16 Completed [facility] of MODERNA 12+ YRS 00:00:00 [place] [facility] SARS-COV-2 COVID-19 2021-03-16 Completed [facility] of MODERNA 12+ YRS 00:00:00 [place] [facility] SARS-COV-2 COVID-19 2021-03-16 Completed [facility] of MODERNA 12+ YRS 00:00:00 [place] [facility] SARS-COV-2 COVID-19 2021-03-16 Completed [facility] of MODERNA 12+ YRS 00:00:00 [place] [facility] SARS-COV-2 COVID-19 2021-03-16 Completed [facility] of MODERNA 12+ YRS 00:00:00 [place] [facility] SARS-COV-2 COVID-19 2021-03-16 Completed [facility] of MODERNA 12+ YRS 00:00:00 [place] [facility] SARS-COV-2 COVID-19 2021-03-16 Completed [facility] of MODERNA 12+ YRS 00:00:00 [place] [facility] SARS-COV-2 COVID-19 2021-03-16 Completed [facility] of MODERNA 12+ YRS 00:00:00 [place] [facility] SARS-COV-2 COVID-19 2021-03-16 Completed [facility] of MODERNA 12+ YRS 00:00:00 [place] [facility] SARS-COV-2 COVID-19 2021-03-16 Completed [facility] of MODERNA 12+ YRS 00:00:00 [place] [facility] SARS-COV-2 COVID-19 2021-03-16 Completed [facility] of MODERNA 12+ YRS 00:00:00 [place] [facility] SARS-COV-2 COVID-19 2021-03-16 Completed [facility] of MODERNA 12+ YRS 00:00:00 [place] [facility] SARS-COV-2 COVID-19 2021-03-16 Completed [facility] of MODERNA 12+ YRS 00:00:00 [place] [facility] SARS-COV-2 COVID-19 2021-03-16 Completed [facility] of MODERNA 12+ YRS 00:00:00 [place] [facility] SARS-COV-2 COVID-19 2021-03-16 Completed [facility] of MODERNA 12+ YRS 00:00:00 [place] [facility] SARS-COV-2 COVID-19 2021-03-16 Completed [facility] of MODERNA 12+ YRS 00:00:00 [place] [facility] SARS-COV-2 COVID-19 2021-03-16 Completed [facility] of MODERNA 12+ YRS 00:00:00 [place] [facility] SARS-COV-2 COVID-19 2021-03-16 Completed [facility] of MODERNA 12+ YRS 00:00:00 [place] [facility] SARS-COV-2 COVID-19 2021-03-16 Completed [facility] of MODERNA 12+ YRS 00:00:00 [place] [facility] SARS-COV-2 COVID-19 2021-03-16 Completed [facility] of MODERNA 12+ YRS 00:00:00 [place] [facility] SARS-COV-2 COVID-19 2021-03-16 Completed [facility] of MODERNA 12+ YRS 00:00:00 [place] [facility] SARS-COV-2 COVID-19 2021-03-16 Completed [facility] of MODERNA 12+ YRS 00:00:00 [place] [facility] SARS-COV-2 COVID-19 2021-03-16 Completed [facility] of MODERNA 12+ YRS 00:00:00 [place] [facility] SARS-COV-2 COVID-19 2021-03-16 Completed [facility] of MODERNA 12+ YRS 00:00:00 [place] [facility] SARS-COV-2 COVID-19 2021-03-16 Completed [facility] of MODERNA 12+ YRS 00:00:00 [place] [facility] SARS-COV-2 COVID-19 2021-03-16 Completed [facility] of MODERNA 12+ YRS 00:00:00 [place] [facility] SARS-COV-2 COVID-19 2021-03-16 Completed [facility] of MODERNA 12+ YRS 00:00:00 [place] [facility] SARS-COV-2 COVID-19 2021-03-16 Completed [facility] of MODERNA 12+ YRS 00:00:00 [place] [facility] SARS-COV-2 COVID-19 2021-02-16 Completed [facility]ERNA VACCINE 00:00:00 [place] [facility] SARS-COV-2 COVID-19 2021-02-16 Completed [facility] MODERNA VACCINE 00:00:00 [place] [facility] SARS-COV-2 COVID-19 2021-02-16 Completed [facility]ERNA VACCINE 00:00:00 [place] [facility] SARS-COV-2 COVID-19 2021-02-16 Completed [facility] MODERNA VACCINE 00:00:00 [place] [facility] SARS-COV-2 COVID-19 2021-02-16 Completed [facility] MODERNA VACCINE 00:00:00 [place] [facility] SARS-COV-2 COVID-19 2021-02-16 Completed [facility] of MODERNA 12+ YRS 00:00:00 [place] [facility] SARS-COV-2 COVID-19 2021-02-16 Completed [facility] of MODERNA 12+ YRS 00:00:00 [place] [facility] SARS-COV-2 COVID-19 2021-02-16 Completed [facility] of MODERNA 12+ YRS 00:00:00 [place] [facility] SARS-COV-2 COVID-19 2021-02-16 Completed [facility] of MODERNA 12+ YRS 00:00:00 [place] [facility] SARS-COV-2 COVID-19 2021-02-16 Completed [facility] of MODERNA 12+ YRS 00:00:00 [place] [facility] SARS-COV-2 COVID-19 2021-02-16 Completed [facility] of MODERNA 12+ YRS 00:00:00 [place] [facility] SARS-COV-2 COVID-19 2021-02-16 Completed [facility] of MODERNA 12+ YRS 00:00:00 [place] [facility] SARS-COV-2 COVID-19 2021-02-16 Completed [facility] of MODERNA 12+ YRS 00:00:00 [place] [facility] SARS-COV-2 COVID-19 2021-02-16 Completed [facility] of MODERNA 12+ YRS 00:00:00 [place] [facility] SARS-COV-2 COVID-19 2021-02-16 Completed [facility] of MODERNA 12+ YRS 00:00:00 [place] [facility] SARS-COV-2 COVID-19 2021-02-16 Completed [facility] MODERNA 12+ YRS 00:00:00 [place] [facility] VACCINE Branch SARS-COV-2 COVID-19 2021-02-16 Completed [facility] of [facility] 12+ YRS 00:00:00 [place] [facility] VACCINE [facility] SARS-COV-2 COVID-19 2021-02-16 Completed [facility] of [facility] 12+ YRS 00:00:00 [place] [facility] VACCINE [facility] SARS-COV-2 COVID-19 2021-02-16 Completed [facility] of [facility] 12+ YRS 00:00:00 [place] [facility] VACCINE [facility] SARS-COV-2 COVID-19 2021-02-16 Completed [facility] rsity of [facility] 12+ YRS 00:00:00 [place] [facility] VACCINE [facility] SARS-COV-2 COVID-19 2021-02-16 Completed [facility] of [facility] 12+ YRS 00:00:00 [place] [facility] VACCINE [facility] SARS-COV-2 COVID-19 2021-02-16 Completed [facility]ive rsity of [facility] 12+ YRS 00:00:00 [place] [facility] VACCINE [facility] SARS-COV-2 COVID-19 2021-02-16 Completed [facility] of [facility] 12+ YRS 00:00:00 [place] [facility] VACCINE [facility] SARS-COV-2 COVID-19 2021-02-16 Completed [facility] of [facility] 12+ YRS 00:00:00 [place] [facility] VACCINE [facility] SARS-COV-2 COVID-19 2021-02-16 Completed [facility] of [facility] 12+ YRS 00:00:00 [place] [facility] VACCINE [facility] SARS-COV-2 COVID-19 2021-02-16 Completed [facility] of [facility] 12+ YRS 00:00:00 [place] [facility] VACCINE [facility] SARS-COV-2 COVID-19 2021-02-16 Completed [facility] of [facility] 12+ YRS 00:00:00 [place] [facility] VACCINE [facility] SARS-COV-2 COVID-19 2021-02-16 Completed [facility] of [facility] 12+ YRS 00:00:00 [place] [facility] VACCINE [facility] SARS-COV-2 COVID-19 2021-02-16 Completed [facility] of [facility] 12+ YRS 00:00:00 [place] [facility] VACCINE [facility] SARS-COV-2 COVID-19 2021-02-16 Completed [facility] of [facility] 12+ YRS 00:00:00 [place] [facility] VACCINE [facility] SARS-COV-2 COVID-19 2021-02-16 Completed [facility] of [facility] 12+ YRS 00:00:00 [place] [facility] VACCINE [facility] SARS-COV-2 COVID-19 2021-02-16 Completed [facility] of [facility] 12+ YRS 00:00:00 [place] [facility] VACCINE [facility] SARS-COV-2 COVID-19 2021-02-16 Completed [facility] of [facility] 12+ YRS 00:00:00 [place] [facility] VACCINE [facility] SARS-COV-2 COVID-19 2021-02-16 Completed [facility] of [facility] 12+ YRS 00:00:00 [place] [facility] VACCINE [facility] SARS-COV-2 COVID-19 2021-02-16 Completed [facility] of [facility] 12+ YRS 00:00:00 [place] [facility] VACCINE [facility] SARS-COV-2 COVID-19 2021-02-16 Completed [facility] of [facility] 12+ YRS 00:00:00 [place] [facility] VACCINE [facility] SARS-COV-2 COVID-19 2021-02-16 Completed [facility] of [facility] 12+ YRS 00:00:00 [place] [facility] VACCINE [facility] SARS-COV-2 COVID-19 2021-02-16 Completed [facility] of [facility] 12+ YRS 00:00:00 [place] [facility] VACCINE [facility] SARS-COV-2 COVID-19 2021-02-16 Completed [facility] of [facility] 12+ YRS 00:00:00 [place] [facility] VACCINE [facility] SARS-COV-2 COVID-19 2021-02-16 Completed [facility] of [facility] 12+ YRS 00:00:00 [place] [facility] VACCINE [facility] SARS-COV-2 COVID-19 2021-02-16 Completed [facility] of [facility] 12+ YRS 00:00:00 [place] [facility] VACCINE [facility] SARS-COV-2 COVID-19 2021-02-16 Completed [facility] of [facility] 12+ YRS 00:00:00 [place] [facility] VACCINE [facility] SARS-COV-2 COVID-19 2021-02-16 Completed [facility] of [facility] 12+ YRS 00:00:00 [place] [facility] VACCINE [facility] SARS-COV-2 COVID-19 2021-02-16 Completed [facility] of [facility] 12+ YRS 00:00:00 [place] [facility] VACCINE [facility] SARS-COV-2 COVID-19 2021-02-16 Completed [facility] of [facility] 12+ YRS 00:00:00 [place] [facility] VACCINE [facility] SARS-COV-2 COVID-19 2021-02-16 Completed [facility] of [facility] 12+ YRS 00:00:00 [place] [facility] VACCINE [facility] SARS-COV-2 COVID-19 2021-02-16 Completed [facility] of [facility] 12+ YRS 00:00:00 [place] [facility] VACCINE [facility] SARS-COV-2 COVID-19 2021-02-16 Completed [facility] of [facility] 12+ YRS 00:00:00 [place] [facility] VACCINE [facility] SARS-COV-2 COVID-19 2021-02-16 Completed [facility] of [facility] 12+ YRS 00:00:00 [place] [facility] VACCINE [facility] SARS-COV-2 COVID-19 2021-02-16 Completed [facility] of [facility] 12+ YRS 00:00:00 [place] [facility] VACCINE [facility] SARS-COV-2 COVID-19 2021-02-16 Completed [facility] of [facility] 12+ YRS 00:00:00 [place] [facility] VACCINE [facility] SARS-COV-2 COVID-19 2021-02-16 Completed [facility] of [facility] 12+ YRS 00:00:00 [place] [facility] VACCINE [facility] SARS-COV-2 COVID-19 2021-02-16 Completed [facility] of [facility] 12+ YRS 00:00:00 [place] [facility] VACCINE [facility] SARS-COV-2 COVID-19 2021-02-16 Completed [facility] of [facility] 12+ YRS 00:00:00 [place] [facility] VACCINE [facility] SARS-COV-2 COVID-19 2021-02-16 Completed [facility] of [facility] 12+ YRS 00:00:00 [place] [facility] VACCINE [facility] SARS-COV-2 COVID-19 2021-02-16 Completed [facility] of [facility] 12+ YRS 00:00:00 [place] [facility] VACCINE [facility] SARS-COV-2 COVID-19 2021-02-16 Completed [facility] of [facility] 12+ YRS 00:00:00 [place] [facility] VACCINE [facility] SARS-COV-2 COVID-19 2021-02-16 Completed [facility] of [facility] 12+ YRS 00:00:00 [place] [facility] VACCINE [facility] SARS-COV-2 COVID-19 2021-02-16 Completed [facility] of [facility] 12+ YRS 00:00:00 [place] [facility] VACCINE [facility] SARS-COV-2 COVID-19 2021-02-16 Completed [facility] of [facility] 12+ YRS 00:00:00 [place] [facility] VACCINE [facility] SARS-COV-2 COVID-19 2021-02-16 Completed [facility] of [facility] 12+ YRS 00:00:00 [place] [facility] VACCINE [facility] SARS-COV-2 COVID-19 2021-02-16 Completed [facility] of [facility] 12+ YRS 00:00:00 [place] [facility] VACCINE [facility] SARS-COV-2 COVID-19 2021-02-16 Completed [facility] of [facility] 12+ YRS 00:00:00 [place] [facility] VACCINE [facility] SARS-COV-2 COVID-19 2021-02-16 Completed [facility] of [facility] 12+ YRS 00:00:00 [place] [facility] VACCINE [facility] SARS-COV-2 COVID-19 2021-02-16 Completed [facility] of [facility] 12+ YRS 00:00:00 [place] [facility] VACCINE [facility] SARS-COV-2 COVID-19 2021-02-16 Completed [facility] of [facility] 12+ YRS 00:00:00 [place] [facility] VACCINE [facility] SARS-COV-2 COVID-19 2021-02-16 Completed [facility] of [facility] 12+ YRS 00:00:00 [place] [facility] VACCINE [facility] SARS-COV-2 COVID-19 2021-02-16 Completed [facility] of [facility] 12+ YRS 00:00:00 [place] [facility] VACCINE [facility] SARS-COV-2 COVID-19 2021-02-16 Completed [facility] of [facility] 12+ YRS 00:00:00 [place] [facility] VACCINE [facility] Pneumococcal 2020-06-09 Completed [facility] o f [...] 00:00:00 [place] [facility] PPSV23 (PNEUMOVAX) Branch Influenza Virus 2020-05-19 Completed [...] y of Vaccine Quad .5 mL 00:00:00 [facility] 6[facility] MO [facility] Influenza Virus 2020-05-19 Completed Universit y of [facility] .5 mL 00:00:00 [facility] 6[facility] MO [facility] Influenza Virus 2020-05-19 Completed [facility]it y of [facility] .5 mL 00:00:00 [facility] 6+ MO [facility] Influenza Virus 2020-05-19 Completed [facility]it y of [facility] .5 mL 00:00:00 [facility] 6+ MO [facility] Influenza Virus 2020-05-19 Completed [facility] y of [facility] .5 mL 00:00:00 [facility] 6+ MO [facility] Influenza Virus 2020-05-19 Completed [...] y of Vaccine Quad .5 mL 00:00:00 [facility] 6[facility] MO [facility] Influenza Virus 2020-05-19 Completed [facility]it y of Vaccine [facility] .5 mL 00:00:00 [facility] 6[facility] MO [facility] Influenza Virus 2020-05-19 Completed [facility]it y of [facility] .5 mL 00:00:00 [facility] 6+ MO [facility] Influenza Virus 2020-05-19 Completed [facility]it y of [facility] .5 mL 00:00:00 [facility] 6+ MO Branch Influenza Virus 2020-05-19 Completed [facility]it y of Vacc[facility] .5 mL 00:00:00 [facility] 6+ MO [facility] Influenza Virus 2020-05-19 Completed [...] y of Vaccine Quad .5 mL 00:00:00 [facility] 6[facility] MO [facility] TDAP 2019-08-01 Completed [facility] 00:00:00 [facility] TDAP 2019-08-01 Completed [facility] 00:00:00 [facility] TDAP 2019-08-01 Completed [facility] 00:00:00 [facility] TDAP 2019-08-01 Completed [facility] 00:00:00 [facility] TDAP 2019-08-01 Completed [facility] 00:00:00 [facility] TDAP 2019-08-01 Completed [facility] 00:00:00 [facility] TDAP 2019-08-01 Completed [facility] 00:00:00 [facility] TDAP 2019-08-01 Completed [facility] 00:00:00 [facility] TDAP 2019-08-01 Completed [facility] 00:00:00 [facility] TDAP 2019-08-01 Completed [facility] 00:00:00 [facility] TDAP 2019-08-01 Completed [facility] 00:00:00 [facility] TDAP 2019-08-01 Completed University of 00:00:00 [facility] Branch TDAP 2019-08-01 Completed University of 00:00:00 [facility] TDAP 2019-08-01 Completed [facility] 00:00:00 [facility] TDAP 2019-08-01 Completed [facility] 00:00:00 [facility] TDAP 2019-08-01 Completed [facility] 00:00:00 [facility] TDAP 2019-08-01 Completed [facility] of 00:00:00 [facility] TDAP 2019-08-01 Completed University of 00:00:00 [facility] Branch TDAP 2019-08-01 Completed University of 00:00:00 [facility] TDAP 2019-08-01 Completed [facility] 00:00:00 [facility] TDAP 2019-08-01 Completed [facility] 00:00:00 [facility] TDAP 2019-08-01 Completed [facility] 00:00:00 [facility] TDAP 2019-08-01 Completed [facility] 00:00:00 [facility] TDAP 2019-08-01 Completed [facility] 00:00:00 [facility] TDAP 2019-08-01 Completed [facility] 00:00:00 [facility] TDAP 2019-08-01 Completed [facility] 00:00:00 [facility] TDAP 2019-08-01 Completed [facility] 00:00:00 [facility] TDAP 2019-08-01 Completed [facility] 00:00:00 [facility] TDAP 2019-08-01 Completed [facility] 00:00:00 [facility] TDAP 2019-08-01 Completed [facility] 00:00:00 [facility] TDAP 2019-08-01 Completed [facility] 00:00:00 [facility] TDAP 2019-08-01 Completed [facility] 00:00:00 [facility] TDAP 2019-08-01 Completed [facility] 00:00:00 [facility] TDAP 2019-08-01 Completed [facility] 00:00:00 [facility] TDAP 2019-08-01 Completed [facility] 00:00:00 [facility] TDAP 2019-08-01 Completed [facility] 00:00:00 [facility] TDAP 2019-08-01 Completed [facility] 00:00:00 [facility] TDAP 2019-08-01 Completed [facility] 00:00:00 [facility] TDAP 2019-08-01 Completed [facility] 00:00:00 [facility] TDAP 2019-08-01 Completed [facility] 00:00:00 [facility] TDAP 2019-08-01 Completed [facility] 00:00:00 [facility] TDAP 2019-08-01 Completed [facility] 00:00:00 [facility] TDAP 2019-08-01 Completed [facility] 00:00:00 [facility] TDAP 2019-08-01 Completed [facility] 00:00:00 [facility] TDAP 2019-08-01 Completed [facility] 00:00:00 [facility] TDAP 2019-08-01 Completed [facility] 00:00:00 [facility] TDAP 2019-08-01 Completed [facility] 00:00:00 [facility] TDAP 2019-08-01 Completed [facility] 00:00:00 [facility] TDAP 2019-08-01 Completed [facility] 00:00:00 [facility] TDAP 2019-08-01 Completed [facility] 00:00:00 [facility] TDAP 2019-08-01 Completed [facility] 00:00:00 [facility] TDAP 2019-08-01 Completed [facility] 00:00:00 [facility] TDAP 2019-08-01 Completed [facility] 00:00:00 [facility] TDAP 2019-08-01 Completed [facility] 00:00:00 [facility] TDAP 2019-08-01 Completed [facility] 00:00:00 [facility] TDAP 2019-08-01 Completed [facility] 00:00:00 [facility] TDAP 2019-08-01 Completed [facility] 00:00:00 [facility] TDAP 2019-08-01 Completed [facility] 00:00:00 [facility] TDAP 2019-08-01 Completed [facility] 00:00:00 [facility] TDAP 2019-08-01 Completed [facility] 00:00:00 [facility] TDAP 2019-08-01 Completed [facility] 00:00:00 [facility] TDAP 2019-08-01 Completed [facility] 00:00:00 [facility] TDAP 2019-08-01 Completed [facility] 00:00:00 [facility] TDAP 2019-08-01 Completed [facility] 00:00:00 [facility] TDAP 2019-08-01 Completed [facility] 00:00:00 [facility] TDAP 2019-08-01 Completed [facility] 00:00:00 [facility] TDAP 2019-08-01 Completed [facility] 00:00:00 [facility] TDAP 2019-08-01 Completed [facility] of 00:00:00 [facility] TDAP 2019-08-01 Completed University of 00:00:00 [facility] Influenza Virus 2019-06-03 Completed Universit y of Vaccine Quad .5 mL 00:00:00 [facility] 6[facility] MO [facility] Influenza Virus 2019-06-03 Completed [facility]it y of Vaccine Quad .5 mL 00:00:00 [facility] 6[facility] MO [facility] Influenza Virus 2019-06-03 Completed [facility]it y of Vaccine Quad .5 mL 00:00:00 [facility] 6[facility] MO [facility] Influenza Virus [...] y of Vaccine Quad .5 mL 00:00:00 [facility] 6[facility] MO [facility] Influenza Virus 2019-06-03 Completed Universit y of Vaccine Quad .5 mL 00:00:00 [facility] IM 6+ MO Branch Influenza Virus 2018-07-02 Completed Universit y of Vaccine 00:00:00 [facility] Influenza Virus 2018-07-02 Completed Universit y of Vaccine 00:00:00 [facility] Influenza Virus 2018-07-02 Completed Universit y of Vaccine 00:00:00 [facility] Influenza Virus 2018-07-02 Completed Universit y of Vaccine 00:00:00 [facility] Influenza Virus 2018-07-02 Completed Universit y of Vaccine 00:00:00 [facility] Influenza Virus 2018-07-02 Completed Universit y of Vaccine 00:00:00 [facility] Influenza Virus 2018-07-02 Completed Universit y of Vaccine 00:00:00 [facility] Influenza Virus 2018-07-02 Completed Universit y of Vaccine 00:00:00 [facility] Influenza Virus 2018-07-02 Completed Universit y of Vaccine 00:00:00 [facility] Influenza Virus 2018-07-02 Completed Universit y of Vaccine 00:00:00 [facility] Influenza Virus 2018-07-02 Completed Universit y of Vaccine 00:00:00 [facility] Influenza Virus 2018-07-02 Completed Universit y of Vaccine 00:00:00 [facility] Influenza Virus 2018-07-02 Completed Universit y of Vaccine 00:00:00 [facility] Influenza Virus 2018-07-02 Completed Universit y of Vaccine 00:00:00 [facility] Influenza Virus 2018-07-02 Completed Universit y of Vaccine 00:00:00 [facility] Influenza Virus 2018-07-02 Completed Universit y of Vaccine 00:00:00 [facility] Influenza Virus 2018-07-02 Completed Universit y of Vaccine 00:00:00 [facility] Influenza Virus 2018-07-02 Completed Universit y of Vaccine 00:00:00 [facility] Influenza Virus 2018-07-02 Completed Universit y of Vaccine 00:00:00 [facility] Influenza Virus 2018-07-02 Completed Universit y of Vaccine 00:00:00 [facility] Influenza Virus 2018-07-02 Completed Universit y of Vaccine 00:00:00 [facility] Influenza Virus 2018-07-02 Completed Universit y of Vaccine 00:00:00 [facility] Influenza Virus 2018-07-02 Completed Universit y of Vaccine 00:00:00 [facility] Influenza Virus 2018-07-02 Completed Universit y of Vaccine 00:00:00 [facility] Influenza Virus 2018-07-02 Completed Universit y of Vaccine 00:00:00 [facility] Influenza Virus 2018-07-02 Completed Universit y of Vaccine 00:00:00 [facility] Influenza Virus 2018-07-02 Completed Universit y of Vaccine 00:00:00 [facility] Influenza Virus 2018-07-02 Completed Universit y of Vaccine 00:00:00 [facility] Influenza Virus 2018-07-02 Completed Universit y of Vaccine 00:00:00 [facility] Influenza Virus 2018-07-02 Completed Universit y of Vaccine 00:00:00 [facility] Influenza Virus 2018-07-02 Completed Universit y of Vaccine 00:00:00 [facility] Influenza Virus 2018-07-02 Completed Universit y of Vaccine 00:00:00 [facility] Influenza Virus 2018-07-02 Completed Universit y of Vaccine 00:00:00 [facility] Influenza Virus 2018-07-02 Completed Universit y of Vaccine 00:00:00 [facility] Influenza Virus 2018-07-02 Completed Universit y of Vaccine 00:00:00 [facility] Influenza Virus 2018-07-02 Completed Universit y of Vaccine 00:00:00 [facility] Influenza Virus 2018-07-02 Completed Universit y of Vaccine 00:00:00 [facility] Influenza Virus 2018-07-02 Completed Universit y of Vaccine 00:00:00 [facility] Influenza Virus 2018-07-02 Completed Universit y of Vaccine 00:00:00 [facility] Influenza Virus 2018-07-02 Completed Universit y of Vaccine 00:00:00 [facility] Influenza Virus 2018-07-02 Completed Universit y of Vaccine 00:00:00 [facility] Influenza Virus 2018-07-02 Completed Universit y of Vaccine 00:00:00 [facility] Influenza Virus 2018-07-02 Completed Universit y of Vaccine 00:00:00 [facility] Influenza Virus 2018-07-02 Completed Universit y of Vaccine 00:00:00 [facility] Influenza Virus 2018-07-02 Completed Universit y of Vaccine 00:00:00 [facility] Influenza Virus 2018-07-02 Completed Universit y of Vaccine 00:00:00 [facility] Influenza Virus 2018-07-02 Completed Universit y of Vaccine 00:00:00 [facility] Influenza Virus 2018-07-02 Completed Universit y of Vaccine 00:00:00 [facility] Influenza Virus 2018-07-02 Completed Universit y of Vaccine 00:00:00 [facility] Influenza Virus 2018-07-02 Completed Universit y of Vaccine 00:00:00 [facility] Influenza Virus 2018-07-02 Completed Universit y of Vaccine 00:00:00 [facility] Influenza Virus 2018-07-02 Completed Universit y of Vaccine 00:00:00 [facility] Influenza Virus 2018-07-02 Completed Universit y of Vaccine 00:00:00 [facility] Influenza Virus 2018-07-02 Completed Universit y of Vaccine 00:00:00 [facility] Influenza Virus 2018-07-02 Completed Universit y of Vaccine 00:00:00 [facility] Influenza Virus 2018-07-02 Completed Universit y of Vaccine 00:00:00 [facility] Influenza Virus 2018-07-02 Completed Universit y of Vaccine 00:00:00 [facility] Influenza Virus 2018-07-02 Completed Universit y of Vaccine 00:00:00 [facility] Influenza Virus 2018-07-02 Completed Universit y of Vaccine 00:00:00 [facility] Influenza Virus 2018-07-02 Completed Universit y of Vaccine 00:00:00 [facility] Influenza Virus 2018-07-02 Completed Universit y of Vaccine 00:00:00 [facility] Influenza Virus 2018-07-02 Completed Universit y of Vaccine 00:00:00 [facility] Influenza Virus 2018-07-02 Completed Universit y of Vaccine 00:00:00 [facility] Influenza Virus 2018-07-02 Completed Universit y of Vaccine 00:00:00 [facility] Influenza Virus 2018-07-02 Completed Universit y of Vaccine 00:00:00 [facility] Influenza Virus 2018-07-02 Completed Universit y of Vaccine 00:00:00 [facility] Influenza Virus 2018-07-02 Completed Universit y of Vaccine 00:00:00 [facility] Influenza Virus 2018-07-02 Completed Universit y of Vaccine 00:00:00 [facility] Influenza Virus 2018-07-02 Completed Universit y of Vaccine 00:00:00 [facility] Vital Signs Vital Name Observation Time Observation Value Comments Source Systolic blood 2023-02-28 18:06:00 112 mm[Hg] Univer sity of pressure [facility] Diastolic blood 2023-02-28 18:06:00 74 mm[Hg] Unive rsity of [facility] Heart rate 2023-02-28 18:06:00 69 /min Universi ty [facility] Body height 2023-02-28 18:06:00 158.8 cm [facility] Body weight 2023-02-28 18:06:00 92.307 kg [facility] BMI 2023-02-28 18:06:00 36.63 kg/m2 [facility] Oxygen saturation in 2023-02-28 18:06:00 98 /min [facility] Arterial blood by [facility] Pulse oximetry Branch Systolic blood 2023-02-13 19:51:00 102 mm[Hg] Univer sity of pressure [facility] Diastolic blood 2023-02-13 19:51:00 70 mm[Hg] Unive rsity of pressure [facility] Heart rate 2023-02-13 19:51:00 69 /min Universi ty [facility] Body temperature 2023-02-13 19:51:00 36.72 [facility] Respiratory rate 2023-02-13 19:51:00 18 [facility] 2023-02-13 19:51:00 162.6 cm [facility] Body weight 2023-02-13 19:51:00 93.441 kg [facility] BMI 2023-02-13 19:51:00 35.36 kg/m2 [facility] Oxygen saturation in 2023-02-13 19:51:00 97 /min University of Arterial blood by [facility] Pulse oximetry Branch Systolic blood 2022-12-24 19:51:00 111 mm[Hg] Univer sity of pressure [facility] Diastolic blood 2022-12-24 19:51:00 73 mm[Hg] Unive rsity of pressure [facility] Heart rate 2022-12-24 19:51:00 80 /min [facility] Body height 2022-12-24 19:51:00 162.6 cm [facility] Body weight 2022-12-24 19:51:00 94.847 kg [facility] BMI 2022-12-24 19:51:00 35.89 kg/m2 [facility] Systolic blood 2022-11-25 16:56:00 112 mm[Hg] Univer sity of pressure [facility] Diastolic blood 2022-11-25 16:56:00 67 mm[Hg] Unive rsity of pressure [facility] Heart rate 2022-11-25 16:56:00 64 /min [facility] Body height 2022-11-25 16:56:00 162.6 cm [facility] Body weight 2022-11-25 16:56:00 95.709 kg [facility] BMI 2022-11-25 16:56:00 36.22 kg/m2 [facility] Oxygen saturation in 2022-11-25 16:56:00 97 /min University of Arterial blood by [facility] Pulse oximetry Branch Systolic blood 2022-11-25 14:22:00 104 mm[Hg] Univer sity of pressure [facility] Diastolic blood 2022-11-25 14:22:00 73 mm[Hg] Unive rsity of pressure [facility] Heart rate 2022-11-25 14:22:00 65 /min [facility] Body height 2022-11-25 14:22:00 162.6 cm [facility] Body weight 2022-11-25 14:22:00 95.255 kg [facility] BMI 2022-11-25 14:22:00 36.05 kg/m2 [facility] Oxygen saturation in 2022-11-25 14:22:00 96 /min University of Arterial blood by [place] [facility] oxim[facility] Systolic blood 2022-10-15 17:14:00 117 mm[Hg] [facility]iver [facility] Diastolic blood 2022-10-15 17:14:00 80 mm[Hg] Unive rs[facility] Heart rate 2022-10-15 17:14:00 70 /min [facility] Body height 2022-10-15 17:14:00 162.6 cm [facility] Body weight 2022-10-15 17:14:00 96.163 kg [facility] BMI 2022-10-15 17:14:00 36.39 kg/m2 [facility] Oxygen saturation in 2022-10-15 17:14:00 97 /min University of Arterial blood by [place] [facility] Systolic blood 2022-07-01 19:23:00 119 mm[Hg] [facility] Diastolic blood 2022-07-01 19:23:00 80 mm[Hg] Unive rs[facility] Heart rate 2022-07-01 19:23:00 74 /min [facility] Body height 2022-07-01 19:23:00 162.6 cm [facility] Body weight 2022-07-01 19:23:00 106.232 kg [facility] BMI 2022-07-01 19:23:00 40.20 kg/m2 [facility] Oxygen saturation in 2022-07-01 19:23:00 98 /min [facility] of Arterial blood by [place] [facility] Systolic blood 2022-06-25 20:48:00 130 mm[Hg] [facility]iver [facility] Diastolic blood 2022-06-25 20:48:00 85 mm[Hg] Unive rsity of [facility] Heart rate 2022-06-25 20:48:00 85 /min [facility] [place] [facility] [place] Body height 2022-06-25 20:48:00 162.6 cm [facility] [place] Body weight 2022-06-25 20:48:00 105.87 kg Universi ty of [facility] BMI 2022-06-25 20:48:00 40.06 kg/m2 Universi ty [facility] Oxygen saturation in 2022-06-25 20:48:00 97 /min [facility] Arterial blood by [facility] Pulse oximetry Branch Systolic blood 2022-02-15 15:35:00 109 mm[Hg] Univer sity of [facility] Diastolic blood 2022-02-15 15:35:00 74 mm[Hg] Unive rsity of [facility] Heart rate 2022-02-15 15:35:00 74 /min Universi ty of [facility] Body temperature 2022-02-15 15:35:00 37 [facility] Body height 2022-02-15 15:35:00 162.6 cm Universi ty of [facility] Body weight 2022-02-15 15:35:00 105.144 kg Universi ty of [facility] BMI 2022-02-15 15:35:00 39.79 [facility] Procedures Procedure Date / Time Performing Clinician Source Performed MR LUMBAR SPINE WO 2022-12-10 21:39:40 Edward Chu [facility] ASSIGNMENT OF BENEFITS 2022-12-10 19:59:26 Doctor Unassigned, No [facility] Medical [facility] PATIENT FINANCIAL 2022-11-25 13:32:59 Doctor Unassigned, No [facility] POLICY [facility] CBC WITH DIFF 2022-10-15 17:59:00 Michel Magali Fairbanks o f [facility] ASSIGNMENT OF BENEFITS 2022-10-15 16:59:02 Doctor Unassigned, No [facility] FLU VACC ([id number]), 6 2022-06-25 21:25:32 Magali Pearson [facility] MO-65 YRS, .5ML, IM, Medical [facility] QUAD (FLUCELVAX) SARS-COV-2 COVID-19 2022-06-25 21:25:32 Magali Pearson [facility] VACCINE 13 YRS+, Medical Branch BIVALENT 0.5ML, IM (MODERNA BOOSTER) PATIENT QUESTIONNAIRE 2022-02-15 05:01:00 Doctor Unassigned, No [facility] Name [facility] POCT URINALYSIS W/O 2022-02-15 00:00:00 Jaya Regalado [facility] SPECIFIC GRAVITY [facility] Encounters Start End Encounter Admission Attending Care Care Encounter Source Date/Time Date/Time Type Type Clinicians Facility Department ID 2024-02-16 2024-02-16 Outpatient R LUDY MG [facility] B [id number] Univers 15:00:00 15:00:00 LUDY MG [facility] 2023-04-14 2023-04-14 [facility] [id number] Univers 13:30:00 13:30:00 [facility] 2023-03-14 2023-03-14 [facility] [id number] Univers 00:00:00 00:00:00 [facility] 2023-02-28 2023-02-28 Outpatient [facility] [id number] Univers 13:00:00 14:18:10 [facility] 2023-02-28 2023-02-28 Office [facility] 1.2.840.114 [id number] Univers 13:00:00 14:18:10 Visit Magali Intrakr 350.1.13.10 it y of [place] 4.2.7.2.686 [place] as NEHA?BLEA [id number] Fl senia[address] MEDICAL OFFICE BUILDING 2023-02-13 2023-02-13 Outpatient R LUDY MG [facility] B [id number] Univers 14:15:00 15:19:25 LUDY MG [facility] 2023-02-13 2023-02-13 [facility] 1.2.840.114 [id number] Univers 14:15:00 15:19:25 Visit Ludy REGALADO 350.1.13.10 it y of [place] [id number] [address] 2023-02-11 2023-02-11 Adwoa [facility] 1.2.840.114 [id number] Univers 00:00:00 00:00:00 Magali HEALTH 350.1.13.10 it y of [place] 4.2.7.2.686 [place] NEHA?BLEA [id number] [address] OFFICE [facility] 2023-01-31 2023-01-31 [facility] 1.2.840.114 [id number] Univers 00:00:00 00:00:00 Magali HEALTH 350.1.13.10 it y of [place] 4.2.7.2.686 [place] NEHA?BLEA [id number] [address] OFFICE [facility] 2023-01-30 2023-01-30 Outpatient R ANGELICASHITAL LUDY [facility] B [id number] Univers 15:00:00 15:00:00 ANGELICADAVIDSON ISAACSCLARISSA [facility] 2023-01-24 2023-01-24 [facility] [id number] Univers 13:00:00 13:00:00 [facility] 2022-12-24 2022-12-24 [facility] [id number] Univers 15:00:00 15:35:45 [facility] 2022-12-24 2022-12-24 Office [facility] 1.2.840.114 [id number] Univers 15:00:00 15:35:45 Visit Oneyda Intrakr 350.1.13.10 it y of [place] 4.2.7.2.686 [place] NEHA?BLEA [id number] [place] [id number] [facility] OFFICE [facility] 2022-12-24 2022-12-24 [facility] 1.2.840.114 [id number] Univers 00:00:00 00:00:00 Magali HEALTH 350.1.13.10 it y [facility] 4.2.7.2.686 [place] NEHA?BLEA [id number] Fl pham [place] [address] [place] MEDICAL OFFICE [facility] 2022-12-10 2022-12-10 Outpatient R EDWARD CHU [facility] [id number] Univers 15:00:27 23:59:00 EDWARD CHU [facility] 2022-12-10 2022-12-10 Hospital Kimberley, [facility] [id number] Univers 15:00:27 23:59:00 Encounter Edward GRACIA 350.1.13.10 ity of [place] 4.2.7.2.[place] [id number] [facility] [address] [place] 2022-12-10 2022-12-10 Orders Doctor MARISSA 1.2.840.114 [id number] Univers 00:00:00 00:00:00 Only Unassigned, JOSH 350.1.13.10 ity of [place] [facility] 4.2.7.2.686 [place] [id number] [facility] [address] [place] 2022-11-25 2022-11-25 Office Michel [facility] 1.2.840.114 [id number] Univers 11:30:00 12:20:19 Visit Magali HEALTH 350.1.13.10 it y of [facility] 4.2.7.2.686 [place] NEHA?BLEA [id number] Fl pham [place] [address] [place] [address] MEDICAL OFFICE [facility] 2022-11-25 2022-11-25 Outpatient EDWARD ROJAS [facility] [id number] Univers 09:40:00 10:06:29 EDWARD CHU [facility] 2022-11-25 2022-11-25 Office Kimberley [facility] 1.2.840.114 [id number] Univers 09:40:00 10:06:29 Visit Edward CROWDER 350.1.13.10 ity of [facility] 4.2.7.2.686 [place] NEHA?BLEA [id number] Fl pham [place] [address] MEDICAL OFFICE [facility] 2022-11-25 2022-11-25 Orders Doctor MARISSA 1.2.840.114 [id number] Univers 00:00:00 00:00:00 Only Unassigned, JOSH 350.1.13.10 ity of [place] [facility] 4.2.7.2.686 [place] as [id number] [address] 2022-11-14 2022-11-14 Telephone [facility] 1.2.814.429 [id number] Univers 00:00:00 00:00:00 Magali HEALTH 350.1.13.10 it y of [place] 4.2.7.2.686 [place] NEHA?BLEA [id number] [address] 2022-11-04 2022-11-04 Telephone [facility] 1.2.726.137 [id number] Univers 00:00:00 00:00:00 Magali HEALTH 350.1.13.10 it y of [place] 4.2.7.2.686 [place] NEHA?BLEA [id number] [address] 2022-11-01 2022-11-01 [facility] 1.2.840.114 [id number] Univers 00:00:00 00:00:00 Magali HEALTH 350.1.13.10 it y of [place] 4.2.7.2.686 [place] NEHA?BLEA [id number] [address] 2022-10-23 2022-10-23 Chambers [facility] 1.2.844.856 [id number] Univers 00:00:00 00:00:00 Magali HEALTH 350.1.13.10 it y of [place] 4.2.7.2.686 [place] NEHA?BLEA [id number] [address] 2022-10-17 2022-10-17 [facility] 1.2.840.114 [id number] Univers 00:00:00 00:00:00 Magali HEALTH 350.1.13.10 it y of [place] 4.2.7.2.686 [place] NEHA?BLEA [id number] Fl pham [facility] 044 [facility] OFFICE [facility] 2022-10-15 2022-10-15 [employer], Ang - Db [facility] 1.2.840.1 14 [id number] Univers 12:00:00 12:15:00 Visit Magali Pearson HEALTH 350.1.13.10 ity of [facility] 4.2.7.2.686 [place] NEHA?BLEA [id number] [facility] 353 [facility] OFFICE [facility] 2022-10-15 2022-10-15 Outpatient R MICHEL [facility] [id number] Univers 11:30:00 11:45:17 MAGALI ity of [facility] 2022-10-15 2022-10-15 Office [facility] 1.2.840.114 [id number] Univers 11:30:00 11:45:17 Visit [facility] 350.1.13.10 it y of [place] 4.2.7.2.686 [place] NEHA?BLEA [id number] [address] MEDICAL OFFICE [facility] 2022-10-15 2022-10-15 Orders Doctor MARISSA 1.2.840.114 [id number] Univers 00:00:00 00:00:00 Only Unassigned, JOSH 350.1.13.10 ity of [place] [facility] 4.2.7.2.686 [place] as [id number] [address] 2022-10-14 2022-10-14 Refill [facility] 1.2.840.114 [id number] Univers 00:00:00 00:00:00 Wondiful A HEALTH 350.1.13.10 ity of [facility] 4.2.7.2.686 [place] NEHA?BLEA [id number] [address] MEDICAL OFFICE [facility] 2022-10-01 2022-10-01 Refdes [facility] 1.2.840.114 [id number] Univers 00:00:00 00:00:00 Magali HEALTH 350.1.13.10 it y of [facility] 4.2.7.2.686 [place] NEHA?BLEA [id number] [address] MEDICAL OFFICE [facility] 2022-09-30 2022-09-30 Out[facility] [id number] Univers 15:00:00 15:00:00 MAGALI ity of [facility] 2022-09-27 2022-09-27 [facility] 1.2.840.114 [id number] Univers 00:00:00 00:00:00 Magali HEALTH 350.1.13.10 it y of [place] 4.2.7.2.686 [place] NEHA?BLEA [id number] [address] OFFICE [facility] 2022-09-27 2022-09-27 [facility] 1.2.840.114 [id number] Univers 00:00:00 00:00:00 Magali HEALTH 350.1.13.10 it y of [place] 4.2.7.2.686 [place] NEHA?BLEA [id number] [address] OFFICE [facility] 2022-09-25 2022-09-25 [facility] 1.2.840.114 [id number] Univers 00:00:00 00:00:00 Magali HEALTH 350.1.13.10 it y of [place] 4.2.7.2.686 [place] NEHA?BLEA [id number] [address] OFFICE [facility] 2022-09-25 2022-09-25 Chambers [facility] 1.2.075.062 [id number] Univers 00:00:00 00:00:00 Magali HEALTH 350.1.13.10 it y of [place] 4.2.7.2.686 [place] NEHA?BLEA [id number] [address] OFFICE [facility] 2022-09-24 2022-09-24 [facility] 1.2.840.114 [id number] Univers 00:00:00 00:00:00 Magali HEALTH 350.1.13.10 it y of [place] 4.2.7.2.686 [place] NEHA?BLEA [id number] [address] OFFICE [facility] 2022-09-21 2022-09-21 Refdes [facility] 1.2.840.114 [id number] Univers 00:00:00 00:00:00 Magali HEALTH 350.1.13.10 it y of [place] 4.2.7.2.686 [place] NEHA?BLEA [id number] [address] OFFICE [facility] 2022-09-11 2022-09-11 Chris [facility] 1.2.256.305 [id number] Univers 00:00:00 00:00:00 Magali HEALTH 350.1.13.10 it y of [place] 4.2.7.2.686 [place] NEHA?BLEA [id number] [address] OFFICE [facility] 2022-09-04 2022-09-04 Refdes [facility] 1.2.840.114 [id number] Univers 00:00:00 00:00:00 Wondiful A HEALTH 350.1.13.10 ity of [place] 4.2.7.2.686 [place] NEHA?BLEA [id number] [address] OFFICE [facility] 2022-08-28 2022-08-28 Adwoa Moham[facility] 1.2.840.114 [id number] Univers 00:00:00 00:00:00 Nikos HEALTH 350.1.13.10 it y of [place] 4.2.7.2.686 [place] NEHA?BLEA [id number] [address] OFFICE [facility] 2022-08-12 2022-08-12 Adwoa [facility] 1.2.840.114 [id number] Univers 00:00:00 00:00:00 Magali HEALTH 350.1.13.10 it y of [place] 4.2.7.2.686 [place] NEHA?BLEA [id number] [address] OFFICE [facility] 2022-08-05 2022-08-05 Adwoa [facility] 1.2.840.114 [id number] Univers 00:00:00 00:00:00 Magali HEALTH 350.1.13.10 it y of [place] 4.2.7.2.686 [place] NEHA?BLEA [id number] Fl pham VELEZ[address] MEDICAL OFFICE BUILDING 2022-07-17 2022-07-17 Patient [facility] 1.2.840.114 [id number] Univers 00:00:00 00:00:00 Secure Msg Magali HEALTH 350.1.13.10 ity of [place] 4.2.7.2.686 [place] NEHA?BLEA [id number] Fl pham VELEZ[address] MEDICAL OFFICE [facility] 2022-07-15 2022-07-15 Telephone [facility] 1.2.978.549 [id number] Univers 00:00:00 00:00:00 Magali HEALTH 350.1.13.10 it y of [place] 4.2.7.2.686 [place] NEHA?BLEA [id number] [address] OFFICE [facility] 2022-07-12 2022-07-12 Telephone [facility] 1.2.173.195 [id number] Univers 00:00:00 00:00:00 Magali HEALTH 350.1.13.10 it y of [place] 4.2.7.2.686 [place] NEHA?BLEA [id number] [address] OFFICE [facility] 2022-07-12 2022-07-12 Refdes [facility] 1.2.840.114 [id number] Univers 00:00:00 00:00:00 Wondiful A HEALTH 350.1.13.10 ity of [place] 4.2.7.2.686 [place] NEHA?BLEA [id number] Fl pham VELEZ[address] MEDICAL OFFICE [facility] 2022-07-11 2022-07-11 Telephone [facility] 1.2.513.537 [id number] Univers 00:00:00 00:00:00 Magali HEALTH 350.1.13.10 it y of [place] 4.2.7.2.686 [place] NEHA?BLEA [id number] [address] OFFICE [facility] 2022-07-10 2022-07-10 Telephone [facility] 1.2.938.589 [id number] Univers 00:00:00 00:00:00 Magali HEALTH 350.1.13.10 it y of [place] 4.2.7.2.686 [place] NEHA?BLEA [phone] [facility] AGUSTIN[address] OFFICE [facility] 2022-07-08 2022-07-08 Telephone [facility] 1.2.258.084 [id number] Univers 00:00:00 00:00:00 Magali HEALTH 350.1.13.10 it y of [place] 4.2.7.2.686 [place] NEHA?BLEA [phone] [facility] AGUSTIN[address] OFFICE [facility] 2022-07-05 2022-07-05 [facility] 1.2.840.114 [id number] Univers 00:00:00 00:00:00 Magali HEALTH 350.1.13.10 it y of [place] 4.2.7.2.686 [place] NEHA?BLEA [id number] [address] OFFICE [facility] 2022-07-05 2022-07-05 Telephone [facility] 1.2.716.741 [id number] Univers 00:00:00 00:00:00 Magali HEALTH 350.1.13.10 it y of [place] 4.2.7.2.686 [place] NEHA?BLEA [id number] [facility] AGUSTIN[address] OFFICE [facility] 2022-07-04 2022-07-04 [facility] 1.2.840.114 [id number] Univers 00:00:00 00:00:00 Magali HEALTH 350.1.13.10 it y of [place] 4.2.7.2.686 [place] NEHA?BLEA [id number] [facility] AGUSTIN[address] OFFICE [facility] 2022-07-02 2022-07-02 Telephone [facility] 1.2.344.743 [id number] Univers 00:00:00 00:00:00 Magali HEALTH 350.1.13.10 it y of [place] 4.2.7.2.686 [place] NEHA?BLEA [id number] [address] OFFICE [facility] 2022-07-01 2022-07-01 [facility] [id number] Univers 14:30:00 15:19:35 MAGALI escobar [facility] 2022-07-01 2022-07-01 Office [facility] 1.2.840.114 [id number] Univers 14:30:00 15:19:35 Visit Magali HEALTH 350.1.13.10 it y of [place] 4.2.7.2.686 [place] NEHA?BLEA [id number] [address] OFFICE [facility] 2022-06-25 2022-06-25 [employer], Ang - Db [facility] 1.2.840.1 14 [id number] Univers 16:45:00 17:00:00 Visit Magali Pearson HEALTH 350.1.13.10 ity of [place] 4.2.7.2.686 [place] NEHA?BLEA [id number] [address] OFFICE [facility] 2022-06-25 2022-06-25 Outpatient [facility] [id number] Univers 16:00:00 16:43:22 MAGALI escobar [facility] 2022-06-25 2022-06-25 Office [facility] 1.2.840.114 [id number] Univers 16:00:00 16:43:22 Visit Magali HEALTH 350.1.13.10 it y of [place] 4.2.7.2.686 [place] NEHA?BLEA [id number] [address] OFFICE [facility] 2022-06-25 2022-06-25 Adwoa [facility] 1.2.840.114 [id number] Univers 00:00:00 00:00:00 Wondiful A HEALTH 350.1.13.10 ity of [place] 4.2.7.2.686 [place] NEHA?BLEA [id number] [address] OFFICE [facility] 2022-06-22 2022-06-22 Adwoa [facility] 1.2.840.114 [id number] Univers 00:00:00 00:00:00 Wondiful A HEALTH 350.1.13.10 ity of [place] 4.2.7.2.686 [place] NEHA?BLEA [id number] [address] MEDICAL OFFICE [facility] 2022-06-18 2022-06-18 Outpatient [facility] [id number] Univers 10:30:00 10:30:00 MAGALI ity of [facility] 2022-06-05 2022-06-05 Refdes [facility] 1.2.840.114 [id number] Univers 00:00:00 00:00:00 Magali HEALTH 350.1.13.10 it y of [facility] 4.2.7.2.686 [place] NEHA?BLEA [id number] [address] OFFICE [facility] 2022-05-13 2022-05-13 [facility] 1.2.840.114 [id number] Univers 00:00:00 00:00:00 Wondiful A HEALTH 350.1.13.10 ity of [place] 4.2.7.2.686 [place] NEHA?BLEA [id number] [address] OFFICE [facility] 2022-03-22 2022-03-22 Outpatient R [facility] [id number] Univers 10:17:04 23:59:00 RUI ity [facility] 2022-03-22 2022-03-22 [facility] 1.2.840.114 [id number] Univers 10:17:04 23:59:00 Encounter Rui GRACIA 350.1.13.10 ity of [facility] [place].2.[place] [id number] [address] 2022-03-15 2022-03-15 Telemedici [facility] 1.2.840.114 [id number] Univers 16:00:00 16:30:00 ne Visit Jaya GRACIA 350.1.13.10 ity of [facility] 4.2.7.2.[place] [id number] [facility] 098 [facility] 2022-03-15 2022-03-15 Outpatient [facility] [id number] Univers 16:00:00 16:00:00 JAYA escobar [facility] 2022-03-15 2022-03-15 [facility] [id number] Univers 16:00:00 16:00:00 JAYA escobar [facility] 2022-02-15 2022-02-15 Outpatient [facility] [id number] Univers 10:30:00 11:56:35 JAYA escobar [facility] 2022-02-15 2022-02-15 Office [facility] 1.2.840.114 [id number] Univers 10:30:00 11:56:35 Visit Jaya GRACIA 350.1.13.10 i ty of [place] 4.2.7.2.[place] [id number] Fl dical NAL 098 [facility] 2022-02-15 2022-02-15 Outpatient Sarah [facility] [id number] Univers 10:30:00 11:56:35 JAYA escobar [facility] 2022-02-15 2022-02-15 Telephone [facility] 1.2.840.114 [id number] Univers 00:00:00 00:00:00 Jaya GRACIA 350.1.13.10 i ty of [facility] 4.2.7.2.[place] [id number] Fl dical NAL 134 [facility] 2022-02-15 2022-02-15 Orders Doctor MARISSA 1.2.840.114 [id number] Univers 00:00:00 00:00:00 Only Unassigned, JOSH 350.1.13.10 ity of [place] [facility] 4.2.7.2.686 [place] as [phone] [address] 2022-02-12 2022-02-12 Telephone [facility] 1.2.091.458 [id number] Univers 00:00:00 00:00:00 Magali [facility] 350.1.13.10 it y of [facility] 4.2.7.2.686 [place] as NEHA?BLEA [phone] Fl dic[address] OFFICE [facility] 2022-02-11 2022-02-11 [facility] [id number] Univers 14:30:00 15:23:15 MAGALI escobar [facility] 2022-02-11 2022-02-11 Office [facility] 1.2.840.114 [id number] Univers 14:30:00 15:23:15 Visit Magali HEALTH 350.1.13.10 it y of [facility] 4.2.7.2.686 [place] NEHA?BLEA [id number] [address] OFFICE [facility] 2022-02-11 2022-02-11 [facility] [id number] Univers 14:30:00 14:30:00 MAGALI escobar [facility] 2022-01-30 2022-01-30 Office [facility] 1.2.180.647 [id number] Univers 15:00:00 15:00:00 Visit Rui GRACIA 350.1.13.10 i ty [place] [id number] [address] 2022-01-30 2022-01-30 [facility] [id number] Univers 15:00:00 14:53:31 RUI escobar [facility] 2021-12-26 2021-12-26 [facility] [id number] Univers 15:30:00 15:41:56 CHERYL escobar [facility] 2021-12-26 2021-12-26 Office [facility] 1.2.840.114 [id number] Univers 15:30:00 15:41:56 Visit Cheryl HEALTH 350.1.13.10 it y of [place] 4.2.7.2.686 [place] as NEHA?BLEA [phone] [address] 2021-11-26 2021-11-26 Malachi [facility] 1.2.840.114 [id number] Univers 00:00:00 00:00:00 Management Wonhiwotful A HEALTH 350.1.13.10 ity of [place] 4.2.7.2.686 [place] NEHA?BLEA [phone] [facility] 044 [facility] OFFICE [facility] 2021-11-19 2021-11-19 [employer], Ang - Db [facility] 1.2.840.1 14 [id number] [facility] 10:45:00 11:00:00 Visit Magali Pearson HEALTH 350.1.13.10 ity of [place] 4.2.7.2.686 [place] as NEHA?BLEA [phone] [address] OFFICE [facility] 2021-11-19 2021-11-19 Outpatient R [facility] [id number] Univers 10:30:00 10:47:13 WONDIFUL ity o f [facility] 2021-11-19 2021-11-19 Office Tiffany [facility] 1.2.840.114 [id number] [facility] 10:30:00 10:47:13 Visit Antonidiful A HEALTH 350.1.13.10 ity of [place] 4.2.7.2.686 [place] NEHA?BLEA [phone] [address] OFFICE [facility] 2021-08-21 2021-08-21 Case Tiffany [facility] 1.2.840.114 [id number] Univers 00:00:00 00:00:00 Management Antonidiful A HEALTH 350.1.13.10 ity of [place] 4.2.7.2.686 [place] NEHA?BLEA [phone] [facility] [address] OFFICE [facility] 2021-08-10 2021-08-10 [employer], Ang - Db [facility] 1.2.840.1 [id number] [facility] 14:32:21 14:55:42 Visit Kari Allen A HEALTH 350.1.13.1 0 ity of [place] 4.2.7.2.686 [place] NEHA?BLEA [phone] [address] OFFICE [facility] 2021-08-10 2021-08-10 Office Tiffany [facility] 1.2.840.114 [id number] Univers 13:15:00 14:33:19 Visit Wondiful A HEALTH 350.1.13.10 ity of [place] 4.2.7.2.686 [place] NEHA?BLEA [phone] [address] OFFICE [facility] 2021-08-10 2021-08-10 Outpatient R [facility] [id number] Univers 13:15:00 14:33:19 WONDIFUL ity o f [facility] 2021-08-10 2021-08-10 [facility] [id number] Univers 14:30:00 14:30:00 WONDIFUL ity o f [facility] 2021-08-07 2021-08-07 [facility] 1.2.840.114 [id number] Univers 00:00:00 00:00:00 Wondiful A HEALTH 350.1.13.10 ity of [place] 4.2.7.2.686 [place] PROFESSIO [phone] [address] ONE 2021-08-07 2021-08-07 Adwoa [facility] 1.2.840.114 [id number] Univers 00:00:00 00:00:00 Wondiful A HEALTH 350.1.13.10 ity of [place] 4.2.7.2.686 [place] PROFESSIO [phone] [address] ONE 2021-08-06 2021-08-06 [facility] 1.2.840.114 [id number] Univers 00:00:00 00:00:00 Wondiful A HEALTH 350.1.13.10 ity of [place] 4.2.7.2.686 [place] NEHA?BLEA [phone] [address] OFFICE [facility] 2021-07-16 2021-07-16 Adwoa [facility] 1.2.840.114 [id number] Univers 00:00:00 00:00:00 Wondiful A HEALTH 350.1.13.10 ity of [place] 4.2.7.2.686 [place] PROFESSIO [phone] [address] ONE 2021-07-08 2021-07-08 Adwoa [facility] 1.2.840.114 [id number] Univers 00:00:00 00:00:00 Wondiful A HEALTH 350.1.13.10 ity of [place] 4.2.7.2.686 [place] PROFESSIO [phone] Fl dical NAL [address] OFFICE [facility] ONE 2021-07-08 2021-07-08 Adwoa [facility] 1.2.840.114 [id number] Univers 00:00:00 00:00:00 Wondiful A HEALTH 350.1.13.10 ity of [place] 4.2.7.2.686 [place] PROFESSIO [phone] Fl dical NAL [address] [place] [address] ONE 2021-06-11 2021-06-11 Adwoa [facility] 1.2.840.114 [id number] Univers 00:00:00 00:00:00 Wondiful A Health 350.1.13.10 ity of [place] 4.2.7.2.686 [place] Professio [phone] Fl dical nal [address] [place] [address] One 2021-06-10 2021-06-10 Adwoa [facility] 1.2.840.114 [id number] Univers 00:00:00 00:00:00 Wondiful A Health 350.1.13.10 ity of [place] 4.2.7.2.686 [place] Professio [phone] [address] One 2021-06-04 2021-06-04 Outpatient R BRYON [facility] [id number] Univers 11:00:00 11:00:00 KRISTAL escobar o f [facility] 2021-03-16 2021-03-16 Adwoa Sorensen [facility] 1.2.233.991 [id number] Univers 00:00:00 00:00:00 Rui [place] 350.1.13.10 [place] [phone] [facility] 134 [facility] 2021-01-29 2021-01-29 Adwoa [facility] 1.2.840.114 [id number] Univers 00:00:00 00:00:00 Wondiful A Health 350.1.13.10 ity of [place] 4.2.7.2.686 [place] Professio [phone] [facility] 044 [facility] One 2021-01-15 2021-01-15 Refdes [facility] 1.2.840.114 [id number] Univers 00:00:00 00:00:00 Wondiful A Health 350.1.13.10 ity of [place] 4.2.7.2.686 [place] Professio [phone] [facility] 044 [facility] 2021-01-05 2021-01-05 Outpatient R [facility] [id number] Univers 00:00:00 00:00:00 RUI escobar [facility] 2020-12-28 2020-12-28 Office [facility] 1.2.591.759 [id number] Univers 14:24:00 15:55:31 Visit Ruiahsan Gracia 350.1.13.10 [place] [phone] [facility] 134 [facility] 2020-12-28 2020-12-28 Outpatient R [facility] [id number] Univers 15:00:00 15:00:00 RUI luz [facility] 2020-12-08 2020-12-08 Outpatient R [facility] [id number] Univers 11:00:00 11:00:00 WONDIFUL ity o f [facility] 2020-11-14 2020-11-14 Patient [facility] 1.2.840.114 [id number] Univers 00:00:00 00:00:00 Outreach Kevin PRIMARY 350.1.13.10 i ty of [place] [facility] [place]2.[place] [phone] [address] 2020-07-31 2020-07-31 Telephone [facility] 1.2.840.114 [id number] Univers 00:00:00 00:00:00 Wondiful A Health 350.1.13.10 ity of [place] 4.2.7.2.686 [place] Professio [phone] [address] Office [facility] 2020-07-26 2020-07-26 Orders Doctor MARISSA 1.2.840.114 [id number] Univers 00:00:00 00:00:00 Only Unassigned, JOSH 350.1.13.10 ity of [place] [facility] 4.2.7.2.686 [place] as [phone] [address] 2020-07-13 2020-07-13 Refill [facility] 1.2.840.114 [id number] Univers 00:00:00 00:00:00 Wondiful A Health 350.1.13.10 ity of [place] 4.2.7.2.686 [place] Professio [phone] [address] 2020-07-12 2020-07-12 Refill [facility] 1.2.840.114 [id number] Univers 00:00:00 00:00:00 Wondiful A Health 350.1.13.10 ity of [place] 4.2.7.2.686 [place] Professio [phone] [address] 2020-06-09 2020-06-09 Office [facility] 1.2.840.114 [id number] Univers 10:35:10 11:54:47 Visit Wondiful A Health 350.1.13.10 ity of [place] 4.2.7.2.686 [place] Professio [phone] [address] Office [facility] 2020-06-09 2020-06-09 [employer], Adc Fam Pob I [facility] 1.2. 840.114 [id number] Univers 11:39:39 11:54:39 Visit Kari Allen A Health 350.1.13.1 0 ity of [place] 4.2.7.2.686 [place] Professio [phone] [address] Office [facility] One 2020-06-09 2020-06-09 [facility] [id number] Univers 11:00:00 11:00:00 WONDIFUL ity o f [facility] 2020-05-31 2020-05-31 [employer] Ze Yoder Lab Main [facility] 1.2.8 40.114 [id number] Univers 11:02:48 11:17:48 Visit Martinez Rosariomasoud Gracia 350.1.13.10 ity of [place] [phone] Fl dical nal 353 [facility] 2020-05-31 2020-05-31 Office [facility] 1.2.840.114 [id number] Univers 09:51:20 10:37:07 Visit Kristal Gracia 350.1.13.10 it[place] of [place] [phone] Fl dical nal 059 [facility] 2020-05-31 2020-05-31 [facility] [id number] Univers 10:00:00 10:00:00 KELLIJUN ity o f [facility] 2020-05-31 2020-05-31 Orders Doctor ANN 1.2.840.114 [id number] Univers 00:00:00 00:00:00 Only Unassigned, JOSH 350.1.13.10 ity of [place] [facility] 4.2.7.2.686 [place] [phone] [facility] [address] [place] 2020-05-11 2020-05-11 [facility] [id number] Univers 09:30:00 09:30:00 WONDIFUL ity o f [facility] 2020-04-19 2020-04-19 Letter MARISSA Miller 1.2.840.114 [id number] Univers 00:00:00 00:00:00 (Out) Maru MORENO 350.1.13.10 it y of HOSPITAL 4.2.7.2.686 [place] as [phone] [facility] [address] [place] 2020-04-18 2020-04-18 Outpatient R [facility] [id number] Univers 13:45:00 13:45:00 ity of [facility] 2020-04-16 2020-04-16 Outpatient R MICHEL, [facility] [id number] Univers 13:20:00 13:20:00 MAGALI escobar [facility] 2020-04-16 2020-04-16 Laboratory Lab, Adc Fam Pob I [facility] 1.2. 840.114 [id number] Univers 12:29:00 12:49:00 Only Magali Pearson [facility] 350.1.13.10 ity of [place] 4.2.7.2.686 [place] Professio [phone] Fl dical nal 044 [facility] One 2020-02-04 2020-02-04 Refill [facility] 1.2.840.114 [id number] Univers 00:00:00 00:00:00 Wondiful A [place] 350.1.13.10 it[place] of [place] [phone] Fl dical nal 044 [facility] 2020-01-26 2020-01-26 [facility]patient [facility] [id number] Univers 11:00:00 11:00:00 NICOLE escobar [facility] 2019-12-10 2019-12-10 Telephone [facility] 1.2.840.114 [id number] Univers 00:00:00 00:00:00 Wondiful A [place] 350.1.13.10 it[place] of [place] [phone] Fl dical nal 044 [facility] 2019-12-09 2019-12-09 Orders Doctor ANN 1.2.840.114 [id number] Univers 00:00:00 00:00:00 Only Unassigned, JOSH 350.1.13.10 ity of [place] [facility] 4.2.7.2.686 [place] as [phone] [address] 2019-12-03 2019-12-03 Refill [facility] 1.2.840.114 [id number] Univers 00:00:00 00:00:00 Kristal [place] 350.1.13.10 ity of [place] [phone] Fl dicaz nal 059 [facility] 2019-11-29 2019-11-29 [facility] 1.2.840.114 [id number] Univers 00:00:00 00:00:00 Kristal Gracia 350.1.13.10 it[place] [phone] Fl dical nal 059 [facility] 2019-11-08 2019-11-08 [facility] 1.2.840.114 [id number] Univers 00:00:00 00:00:00 Wondiful A Health 350.1.13.10 ity of [place] 4.2.7.2.686 [place] Professio [phone] Fl dical nal [address] [place] Office [facility] One 2019-08-02 2019-08-02 Outpatient R FR[facility]CHESCA [facility] [id number] Univers 11:23:04 23:59:00 RUI ity [facility] 2019-04-13 2019-04-14 Office [facility] 1.2.556.869 [id number] [facility] 10:11:24 07:51:15 Visit Angelito SPECIALTY 350.1.13.10 ity of [place] [phone] Fl pham MURGUIA 198 [facility] 2019-04-13 2019-04-13 [facility] 1.2.840.114 [id number] Univers 11:10:00 23:59:00 Encounter Angelito SPECIALTY 350.1.13.10 ity of [place] [phone] Fl dicjean NOBLEY 809 [facility] 2019-04-13 2019-04-13 [facility] 1.2.840.114 [id number] Univers 10:21:24 11:09:00 Encounter Angelito SPECIALTY 350.1.13.10 ity of [place] [phone] Fl dicjean MURGUIA 809 [facility] 2019-04-11 2019-04-11 Brian [facility] 1.2.840.114 [id number] Univers 00:00:00 00:00:00 Iveth SPECIALTY 350.1.13.10 ity of [place] [phone] Fl dical VICTORY 198 [facility] 2019-03-19 2019-03-19 Pre Visit GINNY Allen 1.2.840.114 [id number] Univers 00:00:00 00:00:00 Outreach Wondiful A Health 350.1.13.10 ity of [place] 4.2.7.2.686 [place] Professio [phone] Fl dical nal [address] [place] Office Building One Results Test Description Test Time Test Comments Results Result Comments Source CBC WITH DIFF 2022-10-15 22:05:03 Test Item Value Reference Range Interpretation Comme nts WBC (test code = 6690-2) 9.08 See_Comment [A utomated message] The system which ge nerated this result transmit feliberto reference range: 4.30 - 1 1.10 10*3/?L. The reference r quin was not used to interpr et this result as normal/abnor mal. RBC (test code = 789-8) 4.72 See_Comment [Au tomated message] The system which ge nerated this result transmit feliberto reference range: 3.93 - 5 .25 10*6/?L. The reference r quin was not used to interpr et this result as normal/abnor mal. HGB (test code = 718-7) 14.6 g/dL 11.6-15.0 HCT (test code = 4544-3) 43.8 % 35.7-45.2 MCV (test code = 787-2) 92.8 fL 80.6-95.5 MCH (test code = 785-6) 30.9 pg 25.9-32.8 MCHC (test code = 786-4) 33.3 g/dL 31.6-35.1 RDW-SD (test code = 26702-5) 45.9 fL 39.0-49.9 RDW-CV (test code = 788-0) 13.4 % 12.0-15.5 PLT (test code = 777-3) 331 See_Comment [Au tomated message] The system which ge nerated this result transmit feliberto reference range: 166 - 35 8 10*3/?L. The reference range was not used to interpret th is result as normal/abnormal . MPV (test code = 52152-7) 10.4 fL 9.5-12.9 NRBC/100 WBC (test code = 0.0 See_Comment [ Automated message] The [id number]) system which ge nerated this result transmit fel[place] reference range: 0.0 - 10 .0 /100 WBCs. The reference r quin was not used to interpr et this result as normal/abnor mal. NRBC x10^3 (test code = See_Comment [Au tomated message] The [id number]) system which ge nerated this result transmit fel[place] reference range: 10*3/?L. The reference range was not u sed to interpret this result as normal/abnormal . GRAN MAT (NEUT) % (test code 46.2 % = 770-8) IMM GRAN % (test code = 0.20 % [id number]) LYMPH % (test code = 736-9) 43.0 % MONO % (test code = 5905-5) 8.1 % EOS % (test code = 713-8) 2.1 % BASO % (test code = 706-2) 0.4 % GRAN MAT x10^3(ANC) (test 4.19 10*3/uL 1.88-7.09 code = 9066494384) IMM GRAN x10^3 (test code = 0.00-0.06 [id number]) LYMPH x10^3 (test code = 3.90 10*3/uL 1.32-3.29 H 731-0) MONO x10^3 (test code = 0.74 10*3/uL 0.33-0.92 742-7) EOS x10^3 (test code = 0.19 10*3/uL 0.03-0.39 711-2) BASO x10^3 (test code = 0.04 10*3/uL 0.01-0.07 704-7) Lab Interpretation (test Abnormal code = 20927-8) [facility] URINALYSIS W/O SPECIFIC [id number] 15:40:00 Test Item Value Reference Range Interpretation Comments POCT PH U (test code = 3254) 5 mg/dl 5-8 POCT U LEUK EST (test code = Trace Negative - Negative 3263) POCT U NIT (test code = 3262) Negative Negative - Negative POCT U PROT (test code = 3259) Negative Negative - Negative POCT U GLU (test code = 3256) Normal Negative - Negative POCT U KETONE (test code = 3258) Negative Negative - Negative POCT U BLD (test code = 3257) Trace Negative - Negative [facility]
--- NOTE | 2023-03-08 16:00 | ER ---
Nurse's Notes [facility] Name: Katherine Wiley Age: 57 yrs Sex: Female : 1965 Arrival Date: 03/08/2023 Time: 15:35 Bed 12 Private MD: Diagnosis: Burn of second degree of left thigh, initial encounter Presentation: 03/08 15:42 Chief complaint: Patient states: Was going to eat a cup of noodle soup, when i was nj1 going to stir it, the fork went thru the cup and made the soup leak onto my left upper leg. Had a blister that popped, pain is getting worse, concerned since "im a diabetic". Coronavirus screen: Vaccine status: Patient reports receiving the 2nd dose of the covid vaccine. Ebola Screen: Patient denies travel to an Ebola-affected area in the 21 days before illness onset. Initial Sepsis Screen: Does the patient meet any 2 criteria? No. Patient's initial sepsis screen is negative. Does the patient have a suspected source of infection? No. Patient's initial sepsis screen is negative. Risk Assessment: Do you want to hurt yourself or someone else? Patient reports no desire to harm self or others. Onset of symptoms was February 28, 2023. 15:42 Method Of Arrival: Ambulatory [facility] 15:42 Acuity: JENN 4 nj1 Triage Assessment: 15:45 General: Appears in no apparent distress. comfortable, Behavior is calm, cooperative, nj1 appropriate for age. 15:45 Pain: Complains of pain in left quadriceps Pain currently is 1 out of 10 on a pain nj1 scale. Aggravated by increased activity, weight bearing. Neuro: Level of Consciousness is awake, alert, obeys commands, Oriented to person, place, time, situation. Cardiovascular: Patient's skin is warm and dry. Respiratory: Airway is patent Respiratory effort is even, unlabored. Derm: Wound noted left quadriceps Wound is 3 cm in diameter. Non active bleeding noted. Injury Description: Burn was sustained A week ago Patient sustained second-degree burn(s) to left quadriceps. Historical: - Allergies: 15:44 No Known Allergies; nj1 - PMHx: 15:44 Diabetes mellitus; Transient cerebral ischemia; nj1 - PSHx: 15:44 Brain tumor surgery; Cholecystectomy; Ligation of fallopian tube; Tonsillectomy; nj1 - Immunization history:: Client reports receiving the 2nd dose of the Covid vaccine. - Social history:: Smoking status: Patient reports the use of cigarette tobacco products, smokes one-half pack cigarettes per day. Screenin:03 [facility] ED Fall Risk Assessment (Adult) History of falling in the last 3 months, [facility] including since admission No falls in past 3 months (0 pts) Confusion or Disorientation No (0 pts) Intoxicated or Sedated No (0 pts) Impaired Gait No (0 pts) Mobility Assist Device Used No (0 pt) Altered Elimination No (0 pt) Score/Fall Risk Level 0 - 2 = Low Risk Oriented to surroundings, Maintained a safe environment, Hourly rounding (assess needs \\T\\ fall precautionary measures) done. Abuse screen: Denies threats or abuse. Denies injuries from another. Nutritional screening: No deficits noted. Tuberculosis screening: No symptoms or risk factors identified. Vital Signs: 15:42 BP 101 / 63; Pulse 74; Resp 18; Temp 98.3; Pulse Ox 100% on R/A; Weight 92.08 kg; nj1 Height 5 ft. 2 in. ; Pain 10; 15:42 Body Mass Index 37.13 (92.08 kg, 157.48 cm) [facility] 15:42 Pain Scale: Adult [facility] ED Course: 15:38 Patient arrived in ED. ts1 15:43 Demetrius Zavala PA is PHCP. cp 15:44 Demetrius Prado MD is Attending Physician. cp 15:44 Triage completed. nj1 15:45 Patient has correct armband on for positive identification. Bed in low position. Call [facility] light in reach. Adult w/ patient. 15:48 Arm band placed on right wrist. nj Administered Medications: No medications were administered Outcome: 16:00 Discharge ordered by MD. cp 16:15 Patient left the ED. hb Signatures: Demetrius Zavala PA PA cp Baxter, Heather, RN RN Ban Agrawal RN RN nj Tiffani Barillas PAS PAS ts1 Corrections: (The following items were deleted from the chart) 15:48 15:42 Acuity: JENN 3 ga1 [facility] 15:48 15:44 PMHx: Cerebrovascular accident; nj1 [facility] 16:03 15:59 General: Appears in no apparent distress. comfortable, Behavior is calm, nj1 cooperative, appropriate for age, nj1
--- NOTE | 2023-03-08 16:00 | EDPHYS ---
Physician Documentation [facility] Name: Katherine Wiley Age: 57 yrs Sex: Female : 1965 Arrival Date: 03/08/2023 Time: 15:35 Bed 12 Private MD: Demetrius Osorio HPI: 03/08 15:53 This 57 yrs old Female presents to ER via Ambulatory with complaints of Burn, cp Knee Pain. 15:53 The patient presents with a burn as a result of hot cup of noodle soup, at home. Onset: cp The symptoms/episode began/occurred last Friday. Burn type and severity: 2nd degree: approximately 0.5% total body surface area of second degree injury. Associated signs and symptoms: none. Historical: - Allergies: 15:44 No Known Allergies; nj1 - PMHx: 15:44 Diabetes mellitus; Transient cerebral ischemia; nj1 - PSHx: 15:44 Brain tumor surgery; Cholecystectomy; Ligation of fallopian tube; Tonsillectomy; nj1 - Immunization history:: Client reports receiving the 2nd dose of the Covid vaccine. - Social history:: Smoking status: Patient reports the use of cigarette tobacco products, smokes one-half pack cigarettes per day. ROS: 15:55 Constitutional: Negative for body aches, chills, fever, poor PO intake. cp 15:55 Skin: Positive for burn, of the left thigh. Exam: 15:56 Head/Face: Normocephalic, atraumatic. cp 15:56 Constitutional: The patient appears in no acute distress, alert, awake, non-toxic, well developed, well nourished, overweight 15:56 Cardiovascular: Rate: normal. 15:56 Respiratory: the patient does not display signs of respiratory distress, Respirations: normal. 15:56 Skin: injury, burn(s), 2nd degree burn injury covers approximately 0.5% of the total body surface area, and is located on the left thigh, that can be described as clean, mild surrounding erythema. Vital Signs: 15:42 BP 101 / 63; Pulse 74; Resp 18; Temp 98.3; Pulse Ox 100% on R/A; Weight 92.08 kg; nj1 Height 5 ft. 2 in. ; Pain 1/10; 15:42 Body Mass Index 37.13 (92.08 kg, 157.48 cm) [facility] 15:42 Pain Scale: Adult [facility] MDM: 15:49 Patient medically screened. cp 15:53 Differential diagnosis: 1st degree enciso, 2nd degree enciso, 3rd degree enciso, cp cellulitis, abscess. 16:00 Data reviewed: vital signs, nurses notes. cp 16:00 Care significantly affected by the following chronic conditions: Diabetes. Counseling: cp I had a detailed discussion with the patient and/or guardian regarding: the historical points, exam findings, and any diagnostic results supporting the discharge/admit diagnosis, the need for outpatient follow up, a family practitioner, to return to the emergency department if symptoms worsen or persist or if there are any questions or concerns that arise at home. 03/08 15:51 Order name: Wound Care: please clean/dress with antibiotic ointment cp Administered Medications: No medications were administered Disposition Summary: 03/08/23 16:00 Discharge Ordered Location: Home cp Problem: new cp Symptoms: have improved cp Condition: Stable cp Diagnosis - Burn of second degree of left thigh, initial encounter cp Followup: cp - With: Private Physician - When: 2 - 3 days - Reason: Worsening of condition Discharge Instructions: - Discharge Summary Sheet cp - Second-Degree Burn, Adult cp Forms: - Medication Reconciliation Form cp - Thank You Letter cp - Antibiotic Education cp - Prescription Opioid Use cp - [email or web address] cp Prescriptions: - mupirocin 2 % Topical ointment - apply 1 application by TOPICAL route 2-3 times daily for 7 days; 15 gram; cp Refills: 0, Product Selection Permitted - Cephalexin 500 mg Oral Capsule - take 1 capsule by ORAL route every 6 hours for 10 days; 40 capsule; Refills: 0, cp Product Selection Permitted Signatures: Demetrius Zavala PA PA cp Ban Agrawal RN RN nj1 Corrections: (The following items were deleted from the chart) 15:48 15:44 PMHx: Cerebrovascular accident; [place] [id number] 03/09 15:40 03/08 15:52 Differential diagnosis: 1st degree enciso, 2nd degree enciso, 3rd degree cp enciso, cellulitis, abscess cp
[2023-03-08 16:56] VITALS: BP 101/63; TEMP 98.3; O2SAT 100
== END 2023-03-08 16:15 | disposition home or self-care (01) ==
LOC: ER 15:35
DX: T24.212A Burn of second degree of left thigh, initial encounter (principal); T31.0 Burns involving less than 10% of body surface; X12.XXXA Contact with other hot fluids, initial encounter; Y92.009 Unspecified place in unspecified non-institutional (private) residence as the place of occurrence of the external cause; E11.9 Type 2 diabetes mellitus without complications; F17.210 Nicotine dependence, cigarettes, uncomplicated
CPT/HCPCS: 99281